=== PATIENT | female | born 1950 | race Caucasian/White ===

== ENCOUNTER 2019-08-02 07:58 | Outpatient (CLI) | payer MEDICARE, OTHER, SELFPAY ==
--- NOTE | 2019-08-02 08:50 | MM_ITS ---
WS: [id number] DIAGNOSTIC BILATERAL DIGITAL MAMMOGRAM WITH CAD HISTORY: HX OF BREAST CA COMPARISON: 05/04/2018, 04/03/2017 and 03/31/2016 TECHNIQUE: Bilateral craniocaudad, mediolateral oblique, and mediolateral views are submitted. Comput er aided detection utilized. Breast composition: There are scattered areas of fibroglandular density. Volume loss and postsurgical changes involving the RIGHT breast. Fibrosis and scarring in the upper superior RIGHT breast remains stable. No recurrent mass or suspicious developing calcifications. Benign calcifications in the LEFT breast. MM/[place] [id number] IMPRESSION: BI-RADS: 2-Benign FOLLOW UP: 1 Year Follow-up
== END 2019-08-02 07:59 | disposition home or self-care (01) ==
PROVIDERS: Family Provider Family Medicine; Visit Provider Internal Medicine Hematology & Oncology
DX: Z85.3 Personal history of malignant neoplasm of breast (principal)
CPT/HCPCS: 77066

== ENCOUNTER 2019-08-12 10:51 | Outpatient (CLI) | payer MEDICARE, OTHER, SELFPAY ==
[2019-08-12 11:52] LABS: Alanine Aminotransferase 21 U/L (0-33); Albumin Level 4.1 g/dL (3.5-5.2); Alkaline Phosphatase 61 IU/L (35-105); Anion Gap 13.6 (5-19); Aspartate Amino Transferase 15 U/L (0-32); Blood Urea Nitrogen 17 mg/dL (8-23); Calcium 10.2 mg/dL (8.5-10.5); Carbon Dioxide 31 mmol/L (22-29); Chloride 94 mmol/L (98-107); Globulin 3.6 g/dL (1.3-4.6); Glomerular Filtration Rate 49.4 mL/min (90-130); Glucose 368 mg/dL (65-115); Osmolality Calculated 289 mOsm/kg (285-295); Potassium 4.6 mmol/L (3.5-5.1); Sodium 134 mmol/L (136-145); Total Bilirubin 0.4 mg/dL (0.15-1.2); Total Protein 7.7 g/dL (6.6-8.7)
--- NOTE | 2019-08-12 16:39 | ONC FU_ITS ---
Dr. 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 In the summer she palpated a painful right breast mass. Mammogram on 01/08/2015 showed extensive calcifications in the central portion of the right breast extending posterior to the nipple, with associated small masses. On 01/22/[address] 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 Prognostic profile showed ER 98%, ND 39%, HER-2-hollie 1+ by IHC, FISH 1.4, Ki 67 index elevated at 16%. On 02/05/2015 she underwent a re-excision of the prior cavity surgical cavity and sentinel lymph node biopsy. Lateral margins were involved with microscopic focus of DCIS at the inked margin. Metastatic adenocarcinoma was found in 1 out of 2 sentinel axillary lymph nodes. Thus, pathologic stage IIB, pT2 pN1a M0, (positive margin with microscopic focus of DCIS). She was first seen on 02/25/2015. Staging CT of the chest showed no adenopathy. There was small right upper lobe nodule for which follow-up was recommended in 3 months. Fatty liver was noted. Her case was presented on the tumor board, no further surgical cavity reexploration was recommended. Despite of history CVA with mild residual slurred speech, right shoulder contracture and mild limping, she remained completely functional and independent. MUGA scan EF 67%. Left-sided Port-A-Cath was placed. Adjuvant chemotherapy with AC regimen 4 cycles delivered 03/19/2015 - 04/30/15. Hemoglobin A1c 9.4. Because of significant hyperglycemia with steroid use and developing peripheral neuropathy, taxanes treatment was changed to Abraxane. The patient received 2 cycles of Abraxane therapy on 06/11/2015. Further chemotherapy was stopped because of the painful peripheral neuropathy and inability to tolerate taxanes further. She completed adjuvant radiation treatment. Adjuvant Arimidex treatment began on 07/02/2015. Her painful peripheral neuropathy dissipated, but she continues to have significant paresthesias, especially in the left hand Mammogram done on 08/02/2019 showed BI-RADS 2 benign Came for follow-up, denies any specific complaints, no fever or chills, no nausea or vomiting, no diarrhea constipation, no new bony pains. Occasionally hot flashes otherwise tolerating Arimidex/vitamin D/calcium well Medications: Anastrozole 1 (1 mg) Tablet Oral daily, Carvedilol 1 Tablet (of 3.125 mg) Tablet Oral b.i.d., DULoxetine HCl 1 Capsule (of 30 mg) Capsule Delayed Release Oral daily, Famotidine 1 Tablet (of 20 mg) Oral daily, Gabapentin 1 (300 mg) Tablet Oral t.i.d., Glimepiride 1 Tablet (of 4 mg) Oral b.i.d., Glucophage 1 Tablet (of 1000 mg) Oral b.i.d., Hydrochlorothiazide 1 Tablet (of 25 mg) Oral daily, Lisinopril 1 Tablet (of 40 mg) Oral daily, Plavix 1 Tablet (of 75 mg) Oral daily, Zocor 1 Tablet (of 40 mg) Oral daily Allergies: Penicillin V Potassium and Piperacillin-Tazobactam in Dex. Review of Systems: Review of Systems is not available for this patient. Vital Signs: Performed on Aug 12, 2019 13:34 Height - 69.00 in Weight - 196.8 lbs (LOW) BSA - 2.05 sq.m BMI - 29.06 Temperature - 97.7 F (LOW) Pulse - 68 /min Respiration - 16 /min BP - 169/80 mm(hg) (HIGH) O2 Sat - 99 % Pain - 0 Fatigue - 5 Performance Status: 0 - Fully active, able to carry on all predisease activities without restrictions. (ECOG) Physical Examination: Respiratory - Lungs are clear to auscultation without rhonchi or wheezing, Cardiovascular - Regular rate and rhythm of heart, Extremities - no edema. Lab/Imaging: Most recent lab results are not available for this patient. 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 She underwent excisional biopsy followed by reexcision and sentinel lymph node biopsy on 02/05/2015. Her pathology showed positive margin involving microscopic focus of DCIS. No further surgical cavity reexploration was recommended by the tumor board consensus. Adjuvant chemotherapy with Adriamycin and cyclophosphamide for 4 cycles delivered 03/19/15 - 04/30/15. She then received 2 cycles of Abraxane on 06/11/2015, complicated painful peripheral neuropathy, affecting her life, that precluded further taxanes administration. She completed adjuvant radiation treatment. Aromatase inhibitors for 5 years with Arimidex 1 mg by mouth daily began on 07/02/15. The side effects of the treatment including but not limited to arthralgias, hot flashes, accelerated bone density loss amongst others. Multiple numbers of active diagnoses, current symptoms, current complications of current treatment and their corresponding management, lifestyle choices and adherence to the medical protocol are provided in the plan section of this note. Mammogram done on 04/03/2017 showed BI-RADS 2-benign DEXA scan done on 08/16/2017 showed normal bone mineralization Plan: Discussed with patient regarding CMP which showed glucose 368 sodium 134 rest of CMP is within normal limit Clinically, patient is doing well, tolerating adjuvant Arimidex well but with expected side effects e.g. occasionally hot flashes. We'll continue with same agent has no signs symptoms suggestive of recurrence of disease. Next As far as hyperglycemia is concern patient was advised to watch her diet and and be compliant with her diabetic therapy and follow with her PMD for further management next Return to clinic in 6 months with CBC CMP Signed By: Brianna Morel M.D. <<Signature on File>>
== END 2019-08-12 10:52 | disposition home or self-care (01) ==
LOC: ONCMED 10:55
PROVIDERS: Family Provider Family Medicine; Visit Provider Internal Medicine Hematology & Oncology
DX: C50.411 Malignant neoplasm of upper-outer quadrant of right female breast (principal); C77.3 Secondary and unspecified malignant neoplasm of axilla and upper limb lymph nodes; I10 Essential (primary) hypertension; I69.928 Other speech and language deficits following unspecified cerebrovascular disease; E11.65 Type 2 diabetes mellitus with hyperglycemia; Z17.0 Estrogen receptor positive status [ER+]; Z78.0 Asymptomatic menopausal state; Z79.811 Long term (current) use of aromatase inhibitors; Z79.899 Other long term (current) drug therapy; Z79.84 Long term (current) use of oral hypoglycemic drugs; Z79.02 Long term (current) use of antithrombotics/antiplatelets; Z92.21 Personal history of antineoplastic chemotherapy; Z92.3 Personal history of irradiation
CPT/HCPCS: 36415; 80053; 99214

== ENCOUNTER 2019-12-26 11:04 | Outpatient (CLI) | payer MEDICARE, BC, SELFPAY ==
--- NOTE | 2019-12-26 11:13 | XR_ITS ---
WS: [id number] RIGHT FOOT: 2 VIEW(S) TECHNIQUE: AP and lateral. HISTORY: TOE PAIN; ATTN-FIRST 2 TOES COMPARISON: None available. Suspicious for nondisplaced transverse fracture involving the distal phalanx of the first toe. There is an adjacent osteophyte. No additional fractures. Normal tarsal/metatarsal alignment. Mild degenerative changes at the first metatarsophalangeal joint. XR/XR foot RT 2V [id number] IMPRESSION: Highly suspicious for nondisplaced transverse fracture distal phalanx first toe .
== END 2019-12-26 11:05 | disposition home or self-care (01) ==
LOC: RADWPI 11:10
PROVIDERS: Family Provider Family Medicine; PCP Family Medicine; Visit Provider Family Medicine
DX: M79.674 Pain in right toe(s) (principal)
CPT/HCPCS: 73620

== ENCOUNTER 2020-01-27 10:28 | Outpatient (CLI) | payer MEDICARE, BC, SELFPAY ==
[2020-01-27 11:10] LABS: Basophils # 0.1 10^3/uL (0.0-0.1); Basophils % 0.7 %; Eosinophils # 0.2 10^3/uL (0.0-0.8); Eosinophils % 1.8 %; Hemoglobin 12.2 g/dL (11.5-15.3); Lymphocytes # 1.1 10^3/uL (0.8-4.8); Lymphocytes % 11.2 %; Mean Corpuscular HGB Conc 32.1 g/dL (30.0-36.0); Mean Corpuscular Hemoglobin 29.8 pg (28.0-34.0); Mean Corpuscular Volume 92.9 fL (81-99); Mean Platelet Volume 9.7 fL (7.4-10.4); Monocytes # 0.7 10^3/uL (0.2-0.9); Monocytes % 7.1 %; Neutrophils # 7.63 10^3/uL (1.8-7.7); Neutrophils % 78.3 %; Nucleated Red Blood Cells % 0 %; Platelet Count 283 10^3/cmm (130-400); Red Blood Count 4.09 10^6/uL (4.1-5.3); Red Cell Distribution Width 12.9 % (12.1-15.1); White Blood Count 9.8 10^3/uL (4.0-10.0)
[2020-01-27 11:45] LABS: Alanine Aminotransferase 26 U/L (0-33); Albumin Level 4.3 g/dL (3.5-5.2); Alkaline Phosphatase 58 IU/L (35-105); Anion Gap 15.1 (5-19); Aspartate Amino Transferase 18 U/L (0-32); Blood Urea Nitrogen 12 mg/dL (8-23); Calcium 10.3 mg/dL (8.5-10.5); Carbon Dioxide 29 mmol/L (22-29); Chloride 94 mmol/L (98-107); Globulin 3.4 g/dL (1.3-4.6); Glomerular Filtration Rate 44.5 mL/min (90-130); Glucose 249 mg/dL (65-115); Osmolality Calculated 282 mOsm/kg (285-295); Potassium 4.1 mmol/L (3.5-5.1); Sodium 134 mmol/L (136-145); Total Bilirubin 0.3 mg/dL (0.15-1.2); Total Protein 7.7 g/dL (6.6-8.7)
--- NOTE | 2020-01-27 16:00 | ONC FU_ITS ---
Dr. 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 In the summer she palpated a painful right breast mass. Mammogram on 01/08/2015 showed extensive calcifications in the central portion of the right breast extending posterior to the nipple, with associated small masses. On 01/22/[address] 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 Prognostic profile showed ER 98%, AZ 39%, HER-2-hollie 1+ by IHC, FISH 1.4, Ki 67 index elevated at 16%. On 02/05/2015 she underwent a re-excision of the prior cavity surgical cavity and sentinel lymph node biopsy. Lateral margins were involved with microscopic focus of DCIS at the inked margin. Metastatic adenocarcinoma was found in 1 out of 2 sentinel axillary lymph nodes. Thus, pathologic stage IIB, pT2 pN1a M0, (positive margin with microscopic focus of DCIS). She was first seen on 02/25/2015. Staging CT of the chest showed no adenopathy. There was small right upper lobe nodule for which follow-up was recommended in 3 months. Fatty liver was noted. Her case was presented on the tumor board, no further surgical cavity reexploration was recommended. Despite of history CVA with mild residual slurred speech, right shoulder contracture and mild limping, she remained completely functional and independent. MUGA scan EF 67%. Left-sided Port-A-Cath was placed. Adjuvant chemotherapy with AC regimen 4 cycles delivered 03/19/2015 - 04/30/15. Hemoglobin A1c 9.4. Because of significant hyperglycemia with steroid use and developing peripheral neuropathy, taxanes treatment was changed to Abraxane. The patient received 2 cycles of Abraxane therapy on 06/11/2015. Further chemotherapy was stopped because of the painful peripheral neuropathy and inability to tolerate taxanes further. She completed adjuvant radiation treatment. Adjuvant Arimidex treatment began on 07/02/2015. Her painful peripheral neuropathy dissipated, but she continues to have significant paresthesias, especially in the left hand Mammogram done on 08/02/2019 showed BI-RADS 2 benign Came for follow-up, denies any specific complaints, no nausea or vomiting, no diarrhea constipation no fever chills, occasionally hot flashes otherwise tolerating Arimidex well Medications: Anastrozole 1 (1 mg) Tablet Oral daily, Carvedilol 1 Tablet (of 3.125 mg) Tablet Oral b.i.d., DULoxetine HCl 1 Capsule (of 30 mg) Capsule Delayed Release Oral daily, Famotidine 1 Tablet (of 20 mg) Oral daily, Gabapentin 1 (300 mg) Tablet Oral t.i.d., Glimepiride 1 Tablet (of 4 mg) Oral b.i.d., Glucophage 1 Tablet (of 1000 mg) Oral b.i.d., Hydrochlorothiazide 1 Tablet (of 25 mg) Oral daily, Lisinopril 1 Tablet (of 40 mg) Oral daily, Pioglitazone HCl 1 Tablet (of 15 mg) Oral daily, Plavix 1 Tablet (of 75 mg) Oral daily, Zocor 1 Tablet (of 40 mg) Oral daily Allergies: Penicillin V Potassium and Piperacillin-Tazobactam in Dex. Review of Systems: Constitutional - Energy level is fair. Appetite is good. No fever, chills, hot flashes or night sweats, ENMT - She has sinus drainage when eating. No mouth sores. No sore throat or difficulty swallowing, Hematologic/Lymphatic - No abnormal bruising or bleeding, Respiratory - No shortness of breath. She has an occasional dry cough. No pleuritic pain or hemoptysis, Cardiovascular - No angina pain. No palpitations, Gastrointestinal - No nausea or vomiting. No heartburn or acid reflux. No diarrhea or constipation. No blood in the stool or black stools, Genitourinary (F) - No dysuria or hematuria. No urinary frequency. No urgency or incontinence, Musculoskeletal - She has pain in her knees, Neurologic - She has occasional headache. She has numbness/paresthesias in her fingers and toes, Psychiatric - No anxiety or depression. She has irregular sleeping patterns. Vital Signs: Performed on Jan 27, 2020 12:38 Height - 69.00 in Weight - 196.4 lbs (LOW) BSA - 2.05 sq.m BMI - 29.00 Temperature - 98.1 F (LOW) Pulse - 73 /min Respiration - 24 /min BP - 138/60 mm(hg) O2 Sat - 97 % Pain - 0 Performance Status: 0 - Fully active, able to carry on all predisease activities without restrictions. (ECOG) Physical Examination: Respiratory - Lungs are clear, Cardiovascular - Regular rate and rhythm, Gastrointestinal - Soft, bowel sounds, Extremities - No visible edema or rash No mouth sores no thrush, no jaundice. 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 She underwent excisional biopsy followed by reexcision and sentinel lymph node biopsy on 02/05/2015. Her pathology showed positive margin involving microscopic focus of DCIS. No further surgical cavity reexploration was recommended by the tumor board consensus. Adjuvant chemotherapy with Adriamycin and cyclophosphamide for 4 cycles delivered 03/19/15 - 04/30/15. She then received 2 cycles of Abraxane on 06/11/2015, complicated painful peripheral neuropathy, affecting her life, that precluded further taxanes administration. She completed adjuvant radiation treatment. Aromatase inhibitors for 5 years with Arimidex 1 mg by mouth daily began on 07/02/15. The side effects of the treatment including but not limited to arthralgias, hot flashes, accelerated bone density loss amongst others. Multiple numbers of active diagnoses, current symptoms, current complications of current treatment and their corresponding management, lifestyle choices and adherence to the medical protocol are provided in the plan section of this note. Mammogram done on 04/03/2017 showed BI-RADS 2-benign DEXA scan done on 08/16/2017 showed normal bone mineralization Plan: Discussed with patient regarding her labs white blood count 9.8 hemoglobin 12.2 hematocrit 38 platelets 283,000 CMP within normal limit except glucose 249 and creatinine 1.2 compared to 1.1 on August 12, 2019 Clinically, patient is doing well with no signs symptom suggestive of recurrence of disease, tolerating Arimidex well but with expected side effects e.g. occasional hot flashes. We will continue with same and she will return to clinic in 6 months with CBC CMP and follow-up mammogram Patient was also advised to monitor her blood sugar and follow her PMDs suggestion regarding diabetes management Signed By: Brianna Morel M.D. <<Signature on File>>
== END 2020-01-27 10:29 | disposition home or self-care (01) ==
LOC: ONCMED 10:32
PROVIDERS: PCP Family Medicine; Visit Provider Internal Medicine Hematology & Oncology
DX: C50.411 Malignant neoplasm of upper-outer quadrant of right female breast (principal); Z17.0 Estrogen receptor positive status [ER+]; E11.9 Type 2 diabetes mellitus without complications; I25.10 Atherosclerotic heart disease of native coronary artery without angina pectoris; I10 Essential (primary) hypertension; E78.5 Hyperlipidemia, unspecified; Z79.811 Long term (current) use of aromatase inhibitors; Z92.3 Personal history of irradiation; Z92.21 Personal history of antineoplastic chemotherapy
CPT/HCPCS: 36415; 80053; 85025; 99214

== ENCOUNTER 2020-04-14 10:37 | Outpatient (CLI) | payer MEDICARE, BC, SELFPAY ==
--- NOTE | 2020-04-14 10:43 | FL_ITS ---
WS: [id number] MODIFIED BARIUM SWALLOW HISTORY: Other dysphagia FLUOROSCOPY TIME: 1.4 minutes. Modified barium swallow was performed by the speech pathologist. Fluoroscopy was provided with the pa tient in a lateral projection. Multiple food consistencies were provided. No aspiration or laryngeal penetration. Patient followed all food consistencies without difficulty. B arium tablet was swallowed without difficulty. FL/FL barium swallow modifd [id number] IMPRESSION: Normal swallowing examination. Please see speech therapist report also for recommendations.
== END 2020-04-14 10:38 | disposition home or self-care (01) ==
LOC: RAD 10:41
PROVIDERS: PCP Family Medicine; Visit Provider Family Medicine
DX: R13.10 Dysphagia, unspecified (principal)
CPT/HCPCS: 74230; 92611

== ENCOUNTER 2020-08-03 08:58 | Outpatient (CLI) | payer MEDICARE, BC, SELFPAY ==
--- NOTE | 2020-08-03 09:16 | MM_ITS ---
WS: [id number] DIAGNOSTIC BILATERAL DIGITAL MAMMOGRAM WITH CAD HISTORY: HX OF BREAST CA COMPARISON: 08/02/2019 and 05/04/2018 TECHNIQUE: Bilateral craniocaudad, mediolateral oblique, and mediolateral views are submitted. Comput er aided detection utilized. Breast composition: There are scattered areas of fibroglandular density. Postsurgical changes with sc arring and fibrosis at 12:00 of the RIGHT breast is stable. There are adjacent calcifications at the surgical site which are dystrophic. Benign calcifications scattered throughout each breast. MM/[place] [id number] IMPRESSION: BI-RADS: 2-Benign FOLLOW UP: 1 Year Follow-up
[2020-08-03 09:33] LABS: Basophils # 0.1 10^3/uL (0.0-0.1); Basophils % 0.6 %; Eosinophils # 0.2 10^3/uL (0.0-0.8); Eosinophils % 1.6 %; Hematocrit 35.4 % (37.0-47.0); Hemoglobin 11.3 g/dL (11.5-15.3); Lymphocytes # 1.1 10^3/uL (0.8-4.8); Lymphocytes % 10.7 %; Mean Corpuscular HGB Conc 31.9 g/dL (30.0-36.0); Mean Corpuscular Hemoglobin 30.2 pg (28.0-34.0); Mean Corpuscular Volume 94.7 fL (81-99); Mean Platelet Volume 9.5 fL (7.4-10.4); Monocytes # 0.7 10^3/uL (0.2-0.9); Monocytes % 7.6 %; Neutrophils % 78.6 %; Nucleated Red Blood Cells % 0 %; Platelet Count 245 10^3/cmm (130-400); Red Blood Count 3.74 10^6/uL (4.1-5.3); Red Cell Distribution Width 13.3 % (12.1-15.1); White Blood Count 9.8 10^3/uL (4.0-10.0)
[2020-08-03 09:48] LABS: Alanine Aminotransferase 15 U/L (0-33); Albumin Level 4.1 g/dL (3.5-5.2); Alkaline Phosphatase 48 IU/L (35-105); Anion Gap 15.7 (5-19); Aspartate Amino Transferase 11 U/L (0-32); Blood Urea Nitrogen 20 mg/dL (8-23); Calcium 9.5 mg/dL (8.5-10.5); Carbon Dioxide 29 mmol/L (22-29); Chloride 96 mmol/L (98-107); Globulin 3.1 g/dL (1.3-4.6); Glomerular Filtration Rate 49.2 mL/min (90-130); Glucose 206 mg/dL (65-115); Osmolality Calculated 293 mOsm/kg (285-295); Potassium 3.7 mmol/L (3.5-5.1); Sodium 137 mmol/L (136-145); Total Bilirubin 0.3 mg/dL (0.15-1.2); Total Protein 7.2 g/dL (6.6-8.7)
== END 2020-08-03 08:59 | disposition home or self-care (01) ==
LOC: RADSHAW 09:02
PROVIDERS: PCP Family Medicine; Visit Provider Internal Medicine Hematology & Oncology
DX: Z85.3 Personal history of malignant neoplasm of breast (principal)
CPT/HCPCS: 77066; 80053; 85025

== ENCOUNTER 2020-08-06 05:45 | Outpatient (CLI) | payer MEDICARE, BC, SELFPAY ==
--- NOTE | 2020-08-06 10:33 | ONC FU_ITS ---
Dr. 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 In the summer she palpated a painful right breast mass. Mammogram on 01/08/2015 showed extensive calcifications in the central portion of the right breast extending posterior to the nipple, with associated small masses. On 01/22/[address] 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 Prognostic profile showed ER 98%, CA 39%, HER-2-hollie 1+ by IHC, FISH 1.4, Ki 67 index elevated at 16%. On 02/05/2015 she underwent a re-excision of the prior cavity surgical cavity and sentinel lymph node biopsy. Lateral margins were involved with microscopic focus of DCIS at the inked margin. Metastatic adenocarcinoma was found in 1 out of 2 sentinel axillary lymph nodes. Thus, pathologic stage IIB, pT2 pN1a M0, (positive margin with microscopic focus of DCIS). She was first seen on 02/25/2015. Staging CT of the chest showed no adenopathy. There was small right upper lobe nodule for which follow-up was recommended in 3 months. Fatty liver was noted. Her case was presented on the tumor board, no further surgical cavity reexploration was recommended. Despite of history CVA with mild residual slurred speech, right shoulder contracture and mild limping, she remained completely functional and independent. MUGA scan EF 67%. Left-sided Port-A-Cath was placed. Adjuvant chemotherapy with AC regimen 4 cycles delivered 03/19/2015 - 04/30/15. Hemoglobin A1c 9.4. Because of significant hyperglycemia with steroid use and developing peripheral neuropathy, taxanes treatment was changed to Abraxane. The patient received 2 cycles of Abraxane therapy on 06/11/2015. Further chemotherapy was stopped because of the painful peripheral neuropathy and inability to tolerate taxanes further. She completed adjuvant radiation treatment. Adjuvant Arimidex treatment began on 07/02/2015. Completed 5 years of Arimidex in July 2020 Mammogram done on 08/02/2019 showed BI-RADS 2 benign Mammogram done on August 03, 2020, showed BI-RADS 2, benign Came for follow-up, denies any specific complaints, no fever chills, no nausea or vomiting, no diarrhea or constipation, no melena or hematochezia, no hemoptysis hematemesis, no jaundice, no shortness of breath or palpitation Medications: Anastrozole 1 (1 mg) Tablet Oral daily, Carvedilol 1 Tablet (of 3.125 mg) Tablet Oral b.i.d., DULoxetine HCl 1 Capsule (of 30 mg) Capsule Delayed Release Oral daily, Famotidine 1 Tablet (of 20 mg) Oral daily, Gabapentin 1 (300 mg) Tablet Oral t.i.d., Glimepiride 1 Tablet (of 4 mg) Oral b.i.d., Glucophage 1 Tablet (of 1000 mg) Oral b.i.d., Hydrochlorothiazide 1 Tablet (of 25 mg) Oral daily, Lisinopril 1 Tablet (of 40 mg) Oral daily, Pioglitazone HCl 1 Tablet (of 15 mg) Oral daily, Plavix 1 Tablet (of 75 mg) Oral daily, Zocor 1 Tablet (of 40 mg) Oral daily Allergies: Penicillin V Potassium and Piperacillin-Tazobactam in Dex. Review of Systems: Review of Systems is not available for this patient. Vital Signs: Performed on Aug 06, 2020 08:24 Height - 69.00 in Weight - 206 lbs (HIGH) BSA - 2.09 sq.m BMI - 30.42 (HIGH) Temperature - 97.5 F (LOW) Pulse - 69 /min Respiration - 18 /min BP - 158/80 mm(hg) (HIGH) O2 Sat - 99 % Pain - 0 Fatigue - 0 Performance Status: 0 - Fully active, able to carry on all predisease activities without restrictions. (ECOG) Physical Examination: Respiratory - Lungs are clear to auscultation, Cardiovascular - Regular rate and rhythm of heart, Gastrointestinal - Soft, bowel sounds present, Extremities - No visible edema or rash. Lab/Imaging: Most recent lab results are not available for this patient. 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 She underwent excisional biopsy followed by reexcision and sentinel lymph node biopsy on 02/05/2015. Her pathology showed positive margin involving microscopic focus of DCIS. No further surgical cavity reexploration was recommended by the tumor board consensus. Adjuvant chemotherapy with Adriamycin and cyclophosphamide for 4 cycles delivered 03/19/15 - 04/30/15. She then received 2 cycles of Abraxane on 06/11/2015, complicated painful peripheral neuropathy, affecting her life, that precluded further taxanes administration. She completed adjuvant radiation treatment. Aromatase inhibitors for 5 years with Arimidex 1 mg by mouth daily began on 07/02/15. The side effects of the treatment including but not limited to arthralgias, hot flashes, accelerated bone density loss amongst others. Completed 5 years of Arimidex in July 2020 Follow-up mammogram done on August 03, 2020 shows BI-RADS 2, benign Multiple numbers of active diagnoses, current symptoms, current complications of current treatment and their corresponding management, lifestyle choices and adherence to the medical protocol are provided in the plan section of this note. Mammogram done on 04/03/2017 showed BI-RADS 2-benign DEXA scan done on 08/16/2017 showed normal bone mineralization Plan: Discussed with patient regarding her labs white blood count 9.8 hemoglobin 11.3 g compared to 12.2 g in December 2019 hematocrit 35.4 platelets 245,000 MCV 94.7 with a normal differential CMP within normal limits except creatinine 1.1 compared to 1.2 in December 2019 Clinically, patient is doing well with no new signs symptom suggestive of disease progression, she has completed 5 years of adjuvant Arimidex this month, at this point will discontinue Arimidex and as her follow-up mammogram done on August 03, 2020 showed BI-RADS 2, which is benign, so as far as breast cancer is concerned, we will now continue to monitor but on a yearly basis with follow-up CBC CMP and follow-up mammogram Her follow-up lab work-up shows mild anemia, her hemoglobin is 11.3 g compared to 12.2 g 6-month ago, patient has no evidence of gross bleeding or jaundice, and no symptoms, will repeat her CBC in a month if it shows resolution of anemia then will see her back in 1 year with a follow-up mammogram and CBC and CMP on the other hand if it shows persistent or progressive anemia, will consider work-up which include iron studies, B12 folic acid reticulocyte count. Signed By: Brianna Morel M.D. <<Signature on File>>
== END 2020-08-06 05:46 | disposition home or self-care (01) ==
LOC: ONCMED 05:45
PROVIDERS: PCP Family Medicine; Visit Provider Internal Medicine Hematology & Oncology
DX: Z08 Encounter for follow-up examination after completed treatment for malignant neoplasm (principal); Z85.3 Personal history of malignant neoplasm of breast; D64.9 Anemia, unspecified; Z92.23 Personal history of estrogen therapy; Z92.21 Personal history of antineoplastic chemotherapy; Z92.3 Personal history of irradiation
CPT/HCPCS: 99214

== ENCOUNTER 2020-12-06 20:28 | Emergency (ER) | payer MEDICARE, BC, SELFPAY ==
[2020-12-06 20:39] VITALS: BP 156/80; PULSE 69; RESP 16; TEMP 36.8; O2SAT 91; BMI 31.3
--- NOTE | 2020-12-06 22:05 | XRR_ITS ---
PROCEDURE INFORMATION: Exam: XR Chest Exam date and time: 12/06/2020 10:05 PM Age: 69 years old Clinical indication: Other: Syncope TECHNIQUE: Imaging protocol: XR of the chest. Views: 1 view. COMPARISON: CR Chest 2 views* [id number] 08/06/2016 3:50 PM FINDINGS: Lungs: Unremarkable. No consolidation. Pleural spaces: Unremarkable. No pleural effusion. No pneumothorax. Heart/Mediastinum: Unremarkable. No cardiomegaly. Bones/joints: Unremarkable. XR/XR chest 1V portable [id number] IMPRESSION: No acute findings.
--- NOTE | 2020-12-06 22:05 | CTR_ITS ---
PROCEDURE INFORMATION: Exam: CT Head Without Contrast Exam date and time: 12/06/2020 10:05 PM Age: 69 years old Clinical indication: Dizziness; Patient HX: HX of breast CA and prev stroke C/O near syncope episode TECHNIQUE: Imaging protocol: Computed tomography of the head without contrast. Radiation optimization: All CT scans at this facility use at least one of these dose optimization techniques: automated exposure control; mA and/or kV adjustment per patient size (includes targeted exams where dose is matched to clinical indication); or iterative reconstruction. COMPARISON: CT head wo con* [id number] 05/03/2015 6:26 PM RADIATION DOSE METRICS: Total DLP (mGy-cm): 840.13 FINDINGS: Brain: Hypoattenuation and encephalomalacia is seen within the left basal ganglia and insula extending into the left frontal deep white compatible with a chronic infarction. This appears stable compared with 05/03/2015. Cerebral ventricles: There is ex vacuo dilatation of the left ventricle. Paranasal sinuses: Minimal mucosal thickening is seen within the left ethmoidal sinuses. Mastoid air cells: Visualized mastoid air cells are well aerated. Bones/joints: Unremarkable. No acute fracture. Soft tissues: Unremarkable. CT/CT head wo con* [id number] IMPRESSION: There are no acute intracranial findings. Radiation Dose CTDIVOL = (mGy): DLP = 840.13 (mGy-cm)
--- NOTE | 2020-12-06 22:08 | ECG_ITS ---
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 Measurements Intervals [place] Rate: 79 P: 30 ME: 128 QRS: -38 QRSD: 96 T: 63 QT: 384 QTc: 443 Interpretive Statements SINUS RHYTHM WITH OCCASIONAL ECTOPIC PREMATURE COMPLEXES MARKED LEFT AXIS DEVIATION [QRS AXIS < -30] MODERATE VOLTAGE CRITERIA FOR LVH, CONSIDER NORMAL VARIANT [MEETS CRITERIA IN ONE OF: R(aVL), S(V1), R(V5), R(V5/V6)+S(V1)] POSSIBLE ANTEROSEPTAL MYOCARDIAL INFARCTION [30 ms Q WAVE IN V1-V4], PROBABLY OLD Compared to ECG 01/29/2017 18:14:40 Myocardial infarct finding now present ST (T wave) deviation no longer present Electronically Signed On 12-07-2020 18:10:26 CDT by Rajat Sawyer M.D. [id number]
[2020-12-06] MEDS: sodium chloride 0.9% 1,000 ML 999 ML IV (22:30)
[2020-12-06 22:36] LABS: Basophils % 0.3 %; Eosinophils % 0.2 %; Hematocrit 36.6 % (37.0-47.0); Hemoglobin 11.8 g/dL (11.5-15.3); Lymphocytes # 0.7 10^3/uL (0.8-4.8); Lymphocytes % 8.1 %; Mean Corpuscular HGB Conc 32.2 g/dL (30.0-36.0); Mean Corpuscular Hemoglobin 30.3 pg (28.0-34.0); Mean Corpuscular Volume 94.1 fL (81-99); Mean Platelet Volume 10.1 fL (7.4-10.4); Monocytes # 1.1 10^3/uL (0.2-0.9); Monocytes % 11.6 %; Neutrophils # 7.16 10^3/uL (1.8-7.7); Neutrophils % 78.8 %; Nucleated Red Blood Cells % 0 %; Platelet Count 169 10^3/cmm (130-400); Red Blood Count 3.89 10^6/uL (4.1-5.3); Red Cell Distribution Width 13.2 % (12.1-15.1); White Blood Count 9.1 10^3/uL (4.0-10.0)
[2020-12-06 22:55] LABS: Troponin(5th) Baseline 22 ng/L (0-10)
[2020-12-06 23:04] LABS: Alanine Aminotransferase 28 U/L (0-33); Albumin Level 3.8 g/dL (3.5-5.2); Alkaline Phosphatase 48 IU/L (35-105); Anion Gap 19.5 (5-19); Aspartate Amino Transferase 23 U/L (0-32); Blood Urea Nitrogen 24 mg/dL (8-23); C Reactive Protein 2.9 mg/L (0.0-4.9); Calcium 8.9 mg/dL (8.5-10.5); Carbon Dioxide 27 mmol/L (22-29); Chloride 95 mmol/L (98-107); Globulin 2.5 g/dL (1.3-4.6); Glucose 191 mg/dL (65-115); NT Pro B Type Natriuretic Pept 1206 pg/mL (0-125); Osmolality Calculated 293 mOsm/kg (285-295); Potassium 4.5 mmol/L (3.5-5.1); Sodium 137 mmol/L (136-145); Total Bilirubin 0.3 mg/dL (0.15-1.2); Total Protein 6.3 g/dL (6.6-8.7)
[2020-12-06 23:47] VITALS: BP 168/78; PULSE 68; RESP 17; O2SAT 93
--- NOTE | 2020-12-07 00:08 | ECG_ITS ---
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 Measurements Intervals [place] Rate: 73 P: 15 DE: 135 QRS: -34 QRSD: 128 T: 66 QT: 389 QTc: 430 Interpretive Statements SINUS RHYTHM MARKED LEFT AXIS DEVIATION [QRS AXIS < -30] VOLTAGE CRITERIA FOR LVH [MEETS CRITERIA IN ONE OF: R(aVL), S(V1), R(V5), R(V5/V6)+S(V1)] POSSIBLE ANTERIOR MYOCARDIAL INFARCTION [30 ms Q WAVE IN V3/V4, OR R < 0.2 mV IN V4], PROBABLY OLD Compared to ECG 12/06/2020 22:19:55 No significant changes Electronically Signed On 12-07-2020 18:12:28 CDT by Rajat Sawyer M.D. [id number]
[2020-12-07 01:04] LABS: Troponin 5 2HR 19.63 ng/L (0-10)
[2020-12-07 01:06] LABS: Troponin 5 2HR Delta -2.37 ABS# (0-10)
[2020-12-07 02:17] VITALS: BP 168/78; BP 173/95; BP 184/129; PULSE 72; PULSE 77; PULSE 81
[2020-12-07 02:48] VITALS: PULSE 70; RESP 18; TEMP 36.4; O2SAT 95
[2020-12-07 02:54] LABS: Bilirubin Urine Neg (Negative); Blood Urine Neg (Negative); Glucose Urine UA Norm (Normal); Ketones Urine Negative (Negative); Nitrate Urine Negative (Negative); Protein Urine 3+ (Negative); Urine Appearance Clear (CLEAR); Urine Color Yellow (Yellow); pH Urine 5 (5-7)
[2020-12-07 02:55] LABS: Add Urine Microscopic? YES; Leukocyte Esterase Urine 1+ (Negative); Urobilinogen Urine Norm (Negative)
[2020-12-07 03:01] LABS: Add Urine Culture? Yes; Amorphous Sediment Urine 1+ /hpf; Bacteria Urine 1+ /hpf; RBC Urine 0-4 /hpf (0-2); WBC Urine 15-25 /hpf (0-5)
[2020-12-07 04:20] VITALS: BP 186/93; PULSE 74; RESP 18; O2SAT 97
--- NOTE | 2020-12-07 07:11 | W.ED.DIZZY ---
HPI - Dizziness General: Chief Complaint: Dizziness Stated Complaint: unexplained fainting spells Time Seen by Provider: 12/06/20 22:04 History of Present Illness: HPI Narrative: 69-year-old female. She has a history of hypertension diabetes and breast cancer. She presents with a near syncopal episode at home. She was eating dinner, and began to get up, and felt as though she was going to pass out, and had to sit back down. She never passed completely out. She feels somewhat improved now. Her notes that she has had these problems in the past when she was dehydrated . She never had any chest pain. She is not short of breath. She was nauseated and diaphoretic. Associated symptoms: Reports nausea; Denies chest pain, chills, headache(s), nasal congestion, palpitations or vomiting Associated neuro symptoms: Deny confusion Review of Systems Const: Denies: fever(s) or chills Eyes: Denies: change in vision ENMT: Denies: throat pain or nasal congestion Card: Denies: chest pain or palpitations Resp: Denies: dyspnea or productive cough GI: Reports: nausea; Denies: abdominal pain or vomiting Neuro: Reports: dizziness; Denies: headache(s) or confusion Physical Exam Const: GENERAL APPEARANCE: ill appearing ORIENTATION/CONSCIOUSNESS: Yes oriented to person, Yes oriented to place and Yes oriented to time HENMT: COMMON NORMALS: normocephalic, external ears normal and Normal external nose present HEAD & SCALP: normocephalic FACE & SINUS: normal facial exam NOSE: Normal external nose present and No nasal discharge present EXTERNAL EAR: Yes external ears normal Eye: COMMON NORMALS: Equal, round and reactive pupils present, EOMs intact bilaterally and conjunctivae normal EYELID: eyelids normal CONJUNCTIVA: Yes conjunctivae normal PUPIL: Yes Equal, round and reactive pupils present Neck/C-Spine: GENERAL: No tracheal deviation Chest: COMMONS NORMALS: normal inspection of the chest CHEST: No tenderness Resp: COMMON NORMALS: clear to auscultation bilaterally EFFORT & INSPECTION: No tachypneic, No respiratory distress, No retractions, No uses accessory muscles and No tracheal deviation AUSCULTATION: clear to auscultation bilaterally, no rhonchi, no wheezes and lung sounds not diminished Cardio: COMMON NORMALS: regular rate and regular rhythm RATE: regular rate RHYTHM: regular rhythm HEART SOUNDS: no murmurs PERIPHERAL PULSES: radial pulses present GI: INSPECTION: No abdominal distension AUSCULTATION: No Hyperactive bowel sounds present and No Hypoactive bowel sounds present PALPATION: No Guarding due to palpation present (GI) and No Rigid due to palpation Neuro: SENSORIUM/ORIENTATION: Yes oriented to person, Yes oriented to place and Yes oriented to time Psych: COMMON NORMALS: mental status grossly normal Skin: COMMON NORMALS: no rashes or lesions noted GENERAL SKIN EXAM: no rashes or lesions noted Course Vital Signs: Vital signs: Vital Signs Temperature 97.6 F 12/07/20 02:48 Pulse Rate 74 12/07/20 04:20 Respiratory Rate 18 12/07/20 04:20 Blood Pressure 186/93 12/07/20 04:20 Pulse Oximetry 97 12/07/20 04:20 MDM - Dizziness MDM Narrative: Medical decision making narrative: 69-year-old female who does not look like she feels well. She is dizzy upon standing. She never complained of any chest pain. EKG shows no acute ST changes. Her troponin did not rise at 2 hours. Her creatinine is up to 1.6, her BUN is up a bit at 24. Other laboratory essentially is benign. Her chest x-ray is nonacute. She was hypertensive in the ER, however, her diastolic pressure setting significantly from sitting to standing, and she was symptomatic with this. She does have a urinary tract infection, which will be treated. She would like to go home. Lab Data: Labs: Lab Results 12/06/20 12/06/20 12/06/20 Range/Units 22:26 22:26 22:26 WBC 9.1 (4.0-10.0) 10^3/ uL RBC 3.89 L (4.1-5.3) 10^6/u L Hgb 11.8 (11.5-15.3) g/dL Hct 36.6 L (37.0-47.0) % MCV 94.1 (81-99) fL MCH 30.3 (28.0-34.0) pg MCHC 32.2 (30.0-36.0) g/dL RDW 13.2 (12.1-15.1) % Plt Count 169 (130-400) 10^3/c mm MPV 10.1 (7.4-10.4) fL Neut % (Auto) 78.8 % Lymph % (Auto) 8.1 % [facility] % (Auto) 11.6 % Eos % (Auto) 0.2 % Baso % (Auto) 0.3 % Neut # (Auto) 7.16 (1.8-7.7) 10^3/u L Lymph # (Auto) 0.7 L (0.8-4.8) 10^3/u L [facility] # (Auto) 1.1 H (0.2-0.9) 10^3/u L Eos # (Auto) 0.0 (0.0-0.8) 10^3/u L Baso # (Auto) 0.0 (0.0-0.1) 10^3/u L Nucleated RBC % (a uto) 0 % Nucleated RBCs # 0.0 /100WBC Sodium 137 (136-145) mmol/L Potassium 4.5 (3.5-5.1) mmol/L Chloride 95 L (98-107) mmol/L Carbon Dioxide 27 (22-29) mmol/L Anion Gap 19.5 H (5-19) BUN 24 H (8-23) mg/dL Creatinine 1.6 H (0.5-0.9) mg/dL GFR Calculation 32.0 L (90-130) mL/min Glucose 191 H (65-115) mg/dL Calculated Osmolal ity 293 (285-295) mOsm/k g Calcium 8.9 (8.5-10.5) mg/dL Total Bilirubin 0.3 (0.15-1.2) mg/dL AST 23 (0-32) U/L ALT 28 (0-33) U/L Alkaline Phosphata se 48 (35-105) IU/L Troponin T Baselin e 22 H (0-10) ng/L Troponin T 120 Min [place] (0-10) ng/L Delta Troponin T (0-10) ABS# C-Reactive Protein 2.9 (0.0-4.9) mg/L NT-Pro-B Natriuret Pep 1206 H (0-125) pg/mL Total Protein 6.3 L (6.6-8.7) g/dL Albumin 3.8 (3.5-5.2) g/dL Globulin 2.5 (1.3-4.6) g/dL Urine Color (Yellow) Urine Appearance (CLEAR) Urine pH (5-7) Ur Specific Gravit y (1.005-1.030) Urine Protein (Negative) Urine Glucose (UA) (Normal) Urine Ketones (Negative) Urine Blood (Negative) Urine Nitrate (Negative) Urine Bilirubin (Negative) Urine Urobilinogen (Negative) mg/dL Ur Leukocyte Tanya ase (Negative) Urine RBC (0-2) /hpf Urine WBC (0-5) /hpf Ur Squamous Epith Cells (0-5) /hpf Amorphous Sediment /hpf Urine Bacteria (NONE) /hpf Hyaline Casts /lpf 12/07/20 12/07/20 Range/Units 00:28 02:30 WBC (4.0-10.0) 10^3/ uL RBC (4.1-5.3) 10^6/u L Hgb (11.5-15.3) g/dL Hct (37.0-47.0) % MCV (81-99) fL MCH (28.0-34.0) pg MCHC (30.0-36.0) g/dL RDW (12.1-15.1) % Plt Count (130-400) 10^3/c mm MPV (7.4-10.4) fL Neut % (Auto) % Lymph % (Auto) % [facility] % (Auto) % Eos % (Auto) % Baso % (Auto) % Neut # (Auto) (1.8-7.7) 10^3/u L Lymph # (Auto) (0.8-4.8) 10^3/u L [facility] # (Auto) (0.2-0.9) 10^3/u L Eos # (Auto) (0.0-0.8) 10^3/u L Baso # (Auto) (0.0-0.1) 10^3/u L Nucleated RBC % (a uto) % Nucleated RBCs # /100WBC Sodium (136-145) mmol/L Potassium (3.5-5.1) mmol/L Chloride (98-107) mmol/L Carbon Dioxide (22-29) mmol/L Anion Gap (5-19) BUN (8-23) mg/dL Creatinine (0.5-0.9) mg/dL GFR Calculation (90-130) mL/min Glucose (65-115) mg/dL Calculated Osmolal ity (285-295) mOsm/k g Calcium (8.5-10.5) mg/dL Total Bilirubin (0.15-1.2) mg/dL AST (0-32) U/L ALT (0-33) U/L Alkaline Phosphata se (35-105) IU/L Troponin T Baselin e (0-10) ng/L Troponin T 120 Min [place] 19.63 H (0-10) ng/L Delta Troponin T -2.37 L (0-10) ABS# C-Reactive Protein (0.0-4.9) mg/L NT-Pro-B Natriuret Pep (0-125) pg/mL Total Protein (6.6-8.7) g/dL Albumin (3.5-5.2) g/dL Globulin (1.3-4.6) g/dL Urine Color Yellow (Yellow) Urine Appearance Clear (CLEAR) Urine pH 5 (5-7) Ur Specific Gravit y 1.020 (1.005-1.030) Urine Protein 3+ H (Negative) Urine Glucose (UA) Norm (Normal) Urine Ketones Negative (Negative) Urine Blood Neg (Negative) Urine Nitrate Negative (Negative) Urine Bilirubin Neg (Negative) Urine Urobilinogen Norm (Negative) mg/dL Ur Leukocyte Tanya ase 1+ H (Negative) Urine RBC 0-4 H (0-2) /hpf Urine WBC 15-25 H (0-5) /hpf Ur Squamous Epith Cells 5-10 H (0-5) /hpf Amorphous Sediment 1+ /hpf Urine Bacteria 1+ H (NONE) /hpf Hyaline Casts 5-10 H /lpf Discharge Plan Discharge Patient Disposition: Home Clinical Impression: Orthostatic hypotension, Near syncope Urinary tract infection Qualifiers: Urinary tract infection type: acute cystitis Hematuria presence: without hematuria Qualified Code(s): N30.00 - Acute cystitis without hematuria Condition: Stable Prescriptions: New Macrobid 100 mg capsule 100 mg PO Q12H 7 Days Qty: 14 RF: 0 Discharge Orders: Discharge ED (Routine); Ordered 12/07/20 Ordered By: Pancho Suh Referrals: Jan Kirk MD [Primary Care Provider] - 1-3 days Discharge Diet: Advance as tolerated Discharge Activity: Increase activity as tolerated Patient Instructions: Urinary Tract Infection in Women (ED), Near Syncope (ED) Activity Restrictions/Additional Instructions: Drink plenty of liquids for the next 24 to 48 hours. Stay indoors in a cool environment. Ask your blood pressure twice daily. Report numbers to your physician. Follow-up in 1 to 2 days with your doctor. 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
[2020-12-07 14:25] LABS: Coronavirus Test Green County Detected
== END 2020-12-07 04:21 | disposition home or self-care (01) ==
PROVIDERS: Emergency Provider Emergency Medicine; PCP Family Medicine
DX: I95.1 Orthostatic hypotension (principal); R55 Syncope and collapse; N30.00 Acute cystitis without hematuria; U07.1 COVID-19
CPT/HCPCS: 36415; 70450; 71045; 80053; 81001; 83880; 84484; 85025; 86140; 87086; 87635; 93005; 96360; 99284; J7030

== ENCOUNTER 2020-12-11 06:13 | Emergency (ER) | payer MEDICARE, BC, SELFPAY ==
[2020-12-11 06:18] VITALS: BP 149/72; PULSE 76; RESP 23; TEMP 36.6; O2SAT 88; BMI 31.3
--- NOTE | 2020-12-11 06:18 | XRR_ITS ---
PROCEDURE INFORMATION: Exam: XR Chest Exam date and time: 12/11/2020 6:18 AM Age: 70 years old Clinical indication: Shortness of breath; Prior surgery; Patient HX: HX of breast cancer, covid +; Additional info: SOB TECHNIQUE: Imaging protocol: XR of the chest. Views: Frontal portable upright view of the chest. COMPARISON: CR (CHEST) 12/06/2020 10:25 PM FINDINGS: Lungs: Increased left lateral basilar subsegmental atelectasis. The lungs are otherwise clear bilaterally. The pulmonary vasculature is normal. Pleural spaces: No pleural effusion. No pneumothorax. Heart/Mediastinum: The heart is normal in size and contour. Mediastinum: Stable. Vasculature: Mild aortic arch atherosclerotic calcification without ectasia. Bones/joints: Stable. XR/XR chest 1V portable [id number] IMPRESSION: Increased left lateral basilar subsegmental atelectasis.
--- NOTE | 2020-12-11 06:36 | W.ED.COVID ---
HPI - COVID General: Chief Complaint: COVID symptoms Stated Complaint: COVID+ LOW O2 Time Seen by Provider: 12/11/20 06:17 Triage information: Has fever, cough or shortness of breath. Exposure to COVID + person last 14 days History of Present Illness: HPI Narrative: 70 yo female present for a monoclonal antibody infusion. She is on day 5 or 6 of her symptoms. On arrival here she was found to be hypoxic with minimal exertion. While sitting her oxygen level is okay in the mid 90s but with even minimal exertion standing or taking step return room she desats into the mid 80s. She has myalgias headache anosmia nonproductive cough and had some diarrhea initially as well. MD complaint: known COVID positive Prior testing date: 12/06/20 COVID 19 common symptoms: positive fever(s), chills, cough, non-productive cough, dyspnea, fatigue, body aches, loss of sense of smell and/or taste, nasal congestion, nausea and diarrhea; negative vomiting COVID 19 other sytmptoms: positive requiring oxygen; negative chest pain Onset (ago): day(s) (6) Severity: moderate Pertinent comorbid conditions: diabetes and hypertension Treatment prior to arrival: none COVID Results: Nasal/Oral Coronavirus 2019 PCR Detected H 12/07/20 02:05 12/07/20 Review of Systems Const: Reports: fever(s), chills, body aches and fatigue ENMT: Reports: nasal congestion Card: Denies: chest pain, edema, dyspnea on exertion or orthopnea Resp: Reports: dyspnea and non-productive cough GI: Reports: nausea and diarrhea; Denies: vomiting : Denies: flank pain, difficulty voiding, dysuria, urinary frequency or urinary urgency Skin/Breast: Denies: rash or pruritus Physical Exam Const: COMMON NORMALS: no acute distress GENERAL APPEARANCE: cooperative and comfortable ORIENTATION/CONSCIOUSNESS: Yes awake, Yes oriented to person, Yes oriented to place and Yes oriented to time HENMT: COMMON NORMALS: normocephalic, atraumatic and hearing grossly normal bilaterally HEAD & SCALP: normocephalic and atraumatic Neck/C-Spine: COMMON NORMALS: no JVD Resp: COMMON NORMALS: normal respiratory effort, No retractions and No use of accessory muscles AUSCULTATION: crackles Laterality: right and posterior Cardio: COMMON NORMALS: no JVD, regular rate, regular rhythm and No murmurs present (Cardio) RATE: regular rate RHYTHM: regular rhythm GI: COMMON NORMALS: Soft to palpation and No hepatosplenomegaly present AUSCULTATION: Yes normoactive bowel sounds PALPATION: Yes Soft to palpation, No Tenderness to palpation present (GI), No Guarding due to palpation present (GI) and Yes No hepatosplenomegaly present Extremity: COMMON NORMALS: normal to inspection, capillary refill normal, no clubbing, cyanosis or edema, no calf tenderness and no pedal edema Neuro: SENSORIUM/ORIENTATION: Yes oriented to person, Yes oriented to place and Yes oriented to time Skin: COMMON NORMALS: no rashes or lesions noted GENERAL SKIN EXAM: no rashes or lesions noted Course Vital Signs: Vital signs: Vital Signs Temperature 97.8 F 12/11/20 06:18 Pulse Rate 68 12/11/20 10:43 Respiratory Rate 20 H 12/11/20 10:43 Blood Pressure 146/78 12/11/20 10:43 Pulse Oximetry 98 12/11/20 10:43 MDM - COVID MDM Narrative: Medical decision making narrative: Chest x-ray shows pneumonitis at the right base she does have crackles that are consistent with that as well Home O2 eval shows she does require oxygen 2 L/min with minimal exertion she desats. Given her oxygen requirement she no longer qualifies for monoclonal antibodies. Will discharge home with home O2 monitoring and dexamethasone as well. Lab Data: Labs: Lab Results 12/11/20 12/11/20 12/11/20 Range/Units 06:35 06:35 06:35 WBC 8.0 (4.0-10.0) 10^3/ uL RBC 3.90 L (4.1-5.3) 10^6/u L Hgb 11.7 (11.5-15.3) g/dL Hct 35.5 L (37.0-47.0) % MCV 91.0 (81-99) fL MCH 30.0 (28.0-34.0) pg MCHC 33.0 (30.0-36.0) g/dL RDW 12.8 (12.1-15.1) % Plt Count 143 (130-400) 10^3/c mm MPV 10.4 (7.4-10.4) fL Neut % (Auto) 86.8 % Lymph % (Auto) 5.9 % Ellis % (Auto) 6.1 % Eos % (Auto) 0.0 % Baso % (Auto) 0.3 % Neut # (Auto) 6.93 (1.8-7.7) 10^3/u L Lymph # (Auto) 0.5 L (0.8-4.8) 10^3/u L Ellis # (Auto) 0.5 (0.2-0.9) 10^3/u L Eos # (Auto) 0.0 (0.0-0.8) 10^3/u L Baso # (Auto) 0.0 (0.0-0.1) 10^3/u L Nucleated RBC % (a uto) 0 % Nucleated RBCs # 0.0 /100WBC D-Dimer 3.21 H (0-0.59) ug/mIFE U Specimen Type Sample Site ABG pH (7.35-7.45) ABG pCO2 (35-45) mmHg ABG pO2 (80.0-100.0) mmH g ABG HCO3 (22-26) mmol/L ABG Base Excess (-2.0-2.0) mmol/ L Kamron Test Hematocrit (37-47) % O2 Delivery Device FiO2 % Resin Painter ID Sodium 129 L (136-145) mmol/L Potassium 4.0 (3.5-5.1) mmol/L Chloride 92 L (98-107) mmol/L Carbon Dioxide 24 (22-29) mmol/L Anion Gap 17.0 (5-19) BUN 26 H (8-23) mg/dL Creatinine 1.8 H (0.5-0.9) mg/dL GFR Calculation 27.8 L (90-130) mL/min Glucose 182 H (65-115) mg/dL Calculated Osmolal ity 277 L (285-295) mOsm/k g Lactic Acid (0.5-2.2) mmol/L Calcium 8.1 L (8.5-10.5) mg/dL Total Bilirubin 0.3 (0.15-1.2) mg/dL AST 16 (0-32) U/L ALT 15 (0-33) U/L Alkaline Phosphata se 45 (35-105) IU/L C-Reactive Protein 46.3 H (0.0-4.9) mg/L NT-Pro-B Natriuret Pep 2559 H (0-125) pg/mL Total Protein 6.4 L (6.6-8.7) g/dL Albumin 3.3 L (3.5-5.2) g/dL Globulin 3.1 (1.3-4.6) g/dL Procalcitonin 0.14 (0-0.5) ng/mL 12/11/20 12/11/20 Range/Units 06:35 06:36 WBC (4.0-10.0) 10^3/ uL RBC (4.1-5.3) 10^6/u L Hgb (11.5-15.3) g/dL Hct (37.0-47.0) % MCV (81-99) fL MCH (28.0-34.0) pg MCHC (30.0-36.0) g/dL RDW (12.1-15.1) % Plt Count (130-400) 10^3/c mm MPV (7.4-10.4) fL Neut % (Auto) % Lymph % (Auto) % Ellis % (Auto) % Eos % (Auto) % Baso % (Auto) % Neut # (Auto) (1.8-7.7) 10^3/u L Lymph # (Auto) (0.8-4.8) 10^3/u L Ellis # (Auto) (0.2-0.9) 10^3/u L Eos # (Auto) (0.0-0.8) 10^3/u L Baso # (Auto) (0.0-0.1) 10^3/u L Nucleated RBC % (a uto) % Nucleated RBCs # /100WBC D-Dimer (0-0.59) ug/mIFE U Specimen Type Arterial Sample Site Radial, left ABG pH 7.49 H (7.35-7.45) ABG pCO2 33.6 L (35-45) mmHg ABG pO2 61.6 L (80.0-100.0) mmH g ABG HCO3 25.3 (22-26) mmol/L ABG Base Excess 2.2 H (-2.0-2.0) mmol/ L Kamron Test Pos Hematocrit 37.6 (37-47) % O2 Delivery Device Room air FiO2 21.0 % Resin Painter ID Ed Sodium (136-145) mmol/L Potassium (3.5-5.1) mmol/L Chloride (98-107) mmol/L Carbon Dioxide (22-29) mmol/L Anion Gap (5-19) BUN (8-23) mg/dL Creatinine (0.5-0.9) mg/dL GFR Calculation (90-130) mL/min Glucose (65-115) mg/dL Calculated Osmolal ity (285-295) mOsm/k g Lactic Acid 1.5 (0.5-2.2) mmol/L Calcium (8.5-10.5) mg/dL Total Bilirubin (0.15-1.2) mg/dL AST (0-32) U/L ALT (0-33) U/L Alkaline Phosphata se (35-105) IU/L C-Reactive Protein (0.0-4.9) mg/L NT-Pro-B Natriuret Pep (0-125) pg/mL Total Protein (6.6-8.7) g/dL Albumin (3.5-5.2) g/dL Globulin (1.3-4.6) g/dL Procalcitonin (0-0.5) ng/mL COVID Results: Nasal/Oral Coronavirus 2019 PCR Detected H 12/07/20 02:05 12/07/20 Discharge Plan Discharge Patient Disposition: Home Clinical Impression: COVID-19 Condition: Stable Prescriptions: New dexamethasone 6 mg tablet 6 mg PO DAILY Qty: 7 RF: 0 No Action Macrobid 100 mg capsule 100 mg PO Q12H 7 Days Qty: 14 RF: 0 Discharge Orders: Discharge ED (Routine); Ordered 12/11/20 Ordered By: Garry Soriano Other Ambulatory Orders: DME: Oxygen (Order) Location: None Selected Ordered By: Garry Soriano Referrals: Jan Kirk MD [Primary Care Provider] - Discharge Diet: Usual diet Discharge Activity: Increase activity as tolerated Patient Instructions: Opioid Safety Activity Restrictions/Additional Instructions: Return if symptoms worsen. Wear oxygen continuously. If your oxygen saturation at rest falls below 90% consistently recheck in the emergency room. Coding Level of Care Code ED Mental Hygiene Consultant for Chg Fwd Exam Comprehensive
[2020-12-11 06:45] LABS: ABG PCO2 33.6 mmHg (35-45); ABG PH Result 7.49 (7.35-7.45); Arterial Blood Gas Hematocrit 37.6 % (37-47); Base Excess ABG 2.2 mmol/L (-2.0-2.0); Blood Gas Allen Test Pos; Blood Gas Sample Type Arterial; HCO3 ABG 25.3 mmol/L (22-26); PO2 ABG 61.6 mmHg (80.0-100.0)
[2020-12-11 06:46] LABS: Blood Gas Operator Identificat ED; Blood Gas Sample Site Radial, left; Oxygen Device ROOM AIR
[2020-12-11 06:47] VITALS: O2SAT 87; O2SAT 92; O2SAT 94
[2020-12-11 07:00] VITALS: BP 159/74; PULSE 73; RESP 26; O2SAT 98
[2020-12-11 07:09] LABS: Basophils % 0.3 %; Hematocrit 35.5 % (37.0-47.0); Hemoglobin 11.7 g/dL (11.5-15.3); Lymphocytes # 0.5 10^3/uL (0.8-4.8); Lymphocytes % 5.9 %; Mean Platelet Volume 10.4 fL (7.4-10.4); Monocytes # 0.5 10^3/uL (0.2-0.9); Monocytes % 6.1 %; Neutrophils # 6.93 10^3/uL (1.8-7.7); Neutrophils % 86.8 %; Nucleated Red Blood Cells % 0 %; Platelet Count 143 10^3/cmm (130-400); Red Cell Distribution Width 12.8 % (12.1-15.1)
--- NOTE | 2020-12-11 07:26 | PC.NURSE ---
patient denied any pain at this time.
[2020-12-11 07:33] LABS: D Dimer 3.21 ug/mIFEU (0-0.59)
[2020-12-11 07:35] LABS: Lactic Sepsis W/Reflex 1.5 mmol/L (0.5-2.2)
[2020-12-11 07:43] LABS: NT Pro B Type Natriuretic Pept 2559 pg/mL (0-125); Procalcitonin 0.14 ng/mL (0-0.5)
[2020-12-11 07:54] LABS: Alanine Aminotransferase 15 U/L (0-33); Albumin Level 3.3 g/dL (3.5-5.2); Alkaline Phosphatase 45 IU/L (35-105); Aspartate Amino Transferase 16 U/L (0-32); Blood Urea Nitrogen 26 mg/dL (8-23); C Reactive Protein 46.3 mg/L (0.0-4.9); Calcium 8.1 mg/dL (8.5-10.5); Carbon Dioxide 24 mmol/L (22-29); Chloride 92 mmol/L (98-107); Globulin 3.1 g/dL (1.3-4.6); Glomerular Filtration Rate 27.8 mL/min (90-130); Glucose 182 mg/dL (65-115); Osmolality Calculated 277 mOsm/kg (285-295); Sodium 129 mmol/L (136-145); Total Bilirubin 0.3 mg/dL (0.15-1.2); Total Protein 6.4 g/dL (6.6-8.7)
--- NOTE | 2020-12-11 08:08 | CT_ITS ---
WS: [id number] CT CHEST ANGIOGRAPHY WITH REFORMATS HISTORY: elevated d dimer, covid TECHNIQUE: Contiguous axial images are obtained through the chest during arterial injection of intrav enous contrast. Images are reconstructed to evaluate the pulmonary arteries. MIP imaging also reviewe d. All CT scans at [facility] use at least one of these dose optimization techniques: aut omated exposure control; mA and/or kV adjustment per patient size (includes targeted exams where dose is matched to clinical indication); or iterative reconstruction. CONTRAST: Visipaque 320; 95 mL IV. DLP: 515.78 mGy.cm COMPARISON: 06/09/2015 Excellent opacification of the pulmonary arteries. There are no filling defects. No emboli identified . Normal size pulmonary artery. Atherosclerotic plaque within a nondilated thoracic aorta. Mild enlar gement of the LEFT heart chambers. No pericardial or pleural effusions. No RIGHT heart strain. There are small benign appearing mediastinal and hilar lymph nodes. Scattered groundglass opacifications throughout both lungs in a peripheral distribution. No pleural e ffusion. Postsurgical changes in the RIGHT breast. There is a postoperative cavity which has decreased in size since 2016. Mild thickening of the LEFT adrenal gland. Splenic granulomata. Small hiatal hernia. No destructive bone lesions. CT/CT angio chest PE protcl [id number] IMPRESSION: 1. No pulmonary embolism. 2. Multi lobar subsegmental groundglass opacifications consistent with pneumon itis. 3. Mild atherosclerosis aorta. 4. Postsurgical changes and postoperative collection in the RIGHT breast.
[2020-12-11 09:13] VITALS: BP 136/72; PULSE 78; RESP 22; O2SAT 97
[2020-12-11] MEDS: iodixanol 320 mg/mL 100mL Btl IV (09:31)
[2020-12-11 10:03] VITALS: BP 135/68; PULSE 69; RESP 20; O2SAT 96
[2020-12-11 10:43] VITALS: BP 146/78; PULSE 68; RESP 20; O2SAT 98
== END 2020-12-11 10:45 | disposition home or self-care (01) ==
PROVIDERS: Emergency Medicine; Emergency Provider Family Medicine; PCP Family Medicine
DX: U07.1 COVID-19 (principal)
CPT/HCPCS: 36600; 71045; 71275; 80053; 82803; 83605; 83880; 84145; 85025; 85378; 86140; 87040; 99284; Q9967

== ENCOUNTER 2020-12-13 20:28 | Inpatient (IN) | payer MEDICARE, BC, SELFPAY ==
[2020-12-13 20:44] VITALS: BP 161/72; PULSE 84; RESP 25; O2SAT 91; BMI 31.3
--- NOTE | 2020-12-13 20:54 | XRR_ITS ---
PROCEDURE INFORMATION: Exam: XR Chest Exam date and time: 12/13/2020 8:54 PM Age: 70 years old Clinical indication: Dyspnea; Additional info: Covid 19 TECHNIQUE: Imaging protocol: XR of the chest. Views: 1 view. COMPARISON: CR XR chest 1V portable [id number] 12/11/2020 6:32 AM FINDINGS: Lungs: Small patchy peripheral irregular ground-glass foci in the lungs. Mild decrease in lung volumes. Pleural spaces: Unremarkable. No pleural effusion. No pneumothorax. Heart/Mediastinum: Unremarkable. No cardiomegaly. Bones/joints: Unremarkable. XR/XR chest 1V portable [id number] IMPRESSION: Scattered airspace disease is more conspicuous than comparison consistent with atypical pneumonia such as COVID-19 pneumonia.
--- NOTE | 2020-12-13 20:56 | ECG_ITS ---
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 Measurements Intervals Bryce Rate: 77 P: 61 AZ: 131 QRS: -37 QRSD: 98 T: 45 QT: 390 QTc: 442 Interpretive Statements SINUS RHYTHM WITH OCCASIONAL SUPRAVENTRICULAR PREMATURE COMPLEXES MARKED LEFT AXIS DEVIATION [QRS AXIS < -30] VOLTAGE CRITERIA FOR LVH [MEETS CRITERIA IN ONE OF: R(aVL), S(V1), R(V5), R(V5/V6)+S(V1)] NONSPECIFIC T-WAVE ABNORMALITY Compared to ECG 12/07/2020 00:14:59 T-wave abnormality now present Myocardial infarct finding no longer present Electronically Signed On 12-14-2020 18:57:13 CDT by Elizabeth Tabor M.D. [email or web address]
[2020-12-13 21:01] VITALS: BP 164/74; PULSE 78; RESP 27; O2SAT 90; O2SAT 95
[2020-12-13 21:09] LABS: Basophils % 0.1 %; Hematocrit 34.4 % (37.0-47.0); Hemoglobin 11.3 g/dL (11.5-15.3); Lymphocytes # 0.6 10^3/uL (0.8-4.8); Lymphocytes % 7.7 %; Mean Corpuscular HGB Conc 32.8 g/dL (30.0-36.0); Mean Corpuscular Hemoglobin 30.1 pg (28.0-34.0); Mean Corpuscular Volume 91.7 fL (81-99); Mean Platelet Volume 9.6 fL (7.4-10.4); Monocytes # 0.5 10^3/uL (0.2-0.9); Monocytes % 6.4 %; Neutrophils # 6.88 10^3/uL (1.8-7.7); Neutrophils % 84.3 %; Nucleated Red Blood Cells % 0 %; Platelet Count 176 10^3/cmm (130-400); Positive M 1; Red Blood Count 3.75 10^6/uL (4.1-5.3); Red Cell Distribution Width 12.6 % (12.1-15.1); White Blood Count 8.2 10^3/uL (4.0-10.0)
[2020-12-13 21:36] VITALS: BP 146/74; PULSE 74; RESP 24; O2SAT 93
[2020-12-13 21:38] LABS: Slide Review Slide Review Perform
[2020-12-13 21:42] LABS: Alanine Aminotransferase 17 U/L (0-33); Albumin Level 3.5 g/dL (3.5-5.2); Alkaline Phosphatase 49 IU/L (35-105); Blood Urea Nitrogen 35 mg/dL (8-23); Calcium 8.4 mg/dL (8.5-10.5); Carbon Dioxide 24 mmol/L (22-29); Chloride 90 mmol/L (98-107); Globulin 2.8 g/dL (1.3-4.6); Glomerular Filtration Rate 24.6 mL/min (90-130); Glucose 132 mg/dL (65-115); Osmolality Calculated 278 mOsm/kg (285-295); Sodium 129 mmol/L (136-145); Total Bilirubin 0.3 mg/dL (0.15-1.2); Total Protein 6.3 g/dL (6.6-8.7)
[2020-12-13 21:43] LABS: Lactate (Lactic Acid level) 1.2 mmol/L (0.5-2.2)
--- NOTE | 2020-12-13 21:45 | W.ED.COVID ---
HPI - COVID General: Chief Complaint: COVID symptoms Stated Complaint: Covid Low Blood Sugar Time Seen by Provider: 12/13/20 20:47 Triage information: Has fever, cough or shortness of breath. Exposure to COVID + person last 14 days History of Present Illness: HPI Narrative: 70-year-old female who was seen for near syncope last weekend. She had a PCR for COVID-19 that turned positive. She came in for monoclonal antibody infusion, but was short of breath at that point, and requiring some oxygen. She did not receive her infusion because of this. She was sent home on oxygen. She has been taking dexamethasone. She presents tonight more generally weak, and more short of breath. She has been using 2 L at home, but feels short of breath despite this. MD complaint: known COVID positive Prior covid testing: yes, results known COVID 19 common symptoms: positive cough, productive cough, dyspnea, fatigue, body aches and nasal congestion; negative fever(s), headache(s), vomiting or diarrhea COVID 19 other sytmptoms: positive chest pressure and requiring oxygen Onset (ago): day(s) Severity: moderate Pertinent comorbid conditions: hypertension Treatment prior to arrival: steroids and oxygen COVID Results: Nasal/Oral Coronavirus 2019 PCR Detected H 12/07/20 02:05 12/07/20 Review of Systems Const: Reports: body aches and fatigue; Denies: fever(s) ENMT: Reports: nasal congestion Resp: Reports: dyspnea and productive cough GI: Denies: vomiting or diarrhea Neuro: Denies: headache(s) Physical Exam Const: COMMON NORMALS: patient oriented x3 and alert GENERAL APPEARANCE: cooperative, ill appearing and frail appearing HENMT: COMMON NORMALS: normocephalic HEAD & SCALP: normocephalic Eye: COMMON NORMALS: Equal, round and reactive pupils present, EOMs intact bilaterally and conjunctivae normal CONJUNCTIVA: Yes conjunctivae normal PUPIL: Yes Equal, round and reactive pupils present Chest: COMMONS NORMALS: normal inspection of the chest Resp: COMMON NORMALS: normal respiratory effort, No use of accessory muscles and clear to auscultation bilaterally AUSCULTATION: clear to auscultation bilaterally GI: COMMON NORMALS: Normal to inspection, nondistended, normoactive bowel sounds present, Soft to palpation and non-tender PALPATION: Yes Soft to palpation Neuro: COMMON NORMALS: patient oriented x3 SENSORIUM/ORIENTATION: Yes alert Course Consultations: Consultation #1: [email or web address] Vital Signs: Vital signs: Vital Signs Temperature 98.9 F 12/14/20 00:28 Pulse Rate 66 12/14/20 00:28 Respiratory Rate 20 H 12/14/20 00:28 Blood Pressure 148/67 12/14/20 00:28 Pulse Oximetry 94 12/14/20 00:28 MDM - COVID MDM Narrative: Medical decision making narrative: 70-year-old female here for the third time this week with generalized weakness, cough, shortness of breath, etc. She has COVID-19. Her creatinine is up to 2, with elevation in her BUN. She appears dehydrated. She does not feel well. She is more hypoxic than she was. Her inflammatory markers are up. She has worsening of bilateral pneumonitis on chest x-ray from prior. This is despite home oxygen and steroids. She will be admitted for antiviral treatment and supportive care. Lab Data: Labs: Lab Results 12/13/20 12/13/20 12/13/20 Range/Units 21:02 21:02 21:02 WBC 8.2 (4.0-10.0) 10^3/ uL RBC 3.75 L (4.1-5.3) 10^6/u L Hgb 11.3 L (11.5-15.3) g/dL Hct 34.4 L (37.0-47.0) % MCV 91.7 (81-99) fL MCH 30.1 (28.0-34.0) pg MCHC 32.8 (30.0-36.0) g/dL RDW 12.6 (12.1-15.1) % Plt Count 176 (130-400) 10^3/c mm MPV 9.6 (7.4-10.4) fL Neut % (Auto) 84.3 % Lymph % (Auto) 7.7 % Ballard % (Auto) 6.4 % Eos % (Auto) 0.0 % Baso % (Auto) 0.1 % Neut # (Auto) 6.88 (1.8-7.7) 10^3/u L Lymph # (Auto) 0.6 L (0.8-4.8) 10^3/u L Ballard # (Auto) 0.5 (0.2-0.9) 10^3/u L Eos # (Auto) 0.0 (0.0-0.8) 10^3/u L Baso # (Auto) 0.0 (0.0-0.1) 10^3/u L Nucleated RBC % (a uto) 0 % Nucleated RBCs # 0.0 /100WBC Sodium 129 L (136-145) mmol/L Potassium 4.3 (3.5-5.1) mmol/L Chloride 90 L (98-107) mmol/L Carbon Dioxide 24 (22-29) mmol/L Anion Gap 19.3 H (5-19) BUN 35 H (8-23) mg/dL Creatinine 2.0 H (0.5-0.9) mg/dL GFR Calculation 24.6 L (90-130) mL/min Glucose 132 H (65-115) mg/dL Calculated Osmolal ity 278 L (285-295) mOsm/k g Lactate 1.2 (0.5-2.2) mmol/L Calcium 8.4 L (8.5-10.5) mg/dL Total Bilirubin 0.3 (0.15-1.2) mg/dL AST 27 (0-32) U/L ALT 17 (0-33) U/L Alkaline Phosphata se 49 (35-105) IU/L C-Reactive Protein 51.0 H (0.0-4.9) mg/L Total Protein 6.3 L (6.6-8.7) g/dL Albumin 3.5 (3.5-5.2) g/dL Globulin 2.8 (1.3-4.6) g/dL Procalcitonin 0.19 (0-0.5) ng/mL COVID Results: Nasal/Oral Coronavirus 2019 PCR Detected H 12/07/20 02:05 12/07/20 Discharge Plan Discharge Patient Disposition: Admitted As Inpatient Admit Provider: Zamzam Estrada Clinical Impression: COVID-19, Acute dehydration, Acute kidney injury Condition: Stable Coding Level of Care Code 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
[2020-12-13 21:47] LABS: Procalcitonin 0.19 ng/mL (0-0.5)
[2020-12-13 21:58] LABS: Anion Gap 19.3 (5-19); Potassium 4.3 mmol/L (3.5-5.1)
[2020-12-13 21:59] LABS: Aspartate Amino Transferase 27 U/L (0-32)
[2020-12-13] MEDS: sodium chloride 0.9% 500 ML IV (22:20)
[2020-12-13 22:21] VITALS: BP 151/64; PULSE 87; RESP 24; O2SAT 94
[2020-12-13 22:41] VITALS: BP 146/62; PULSE 75; RESP 23; O2SAT 94
[2020-12-13 23:09] VITALS: BP 159/68; PULSE 76; RESP 25; O2SAT 94
[2020-12-14] VITALS (59 sets, daily range): BP systolic 86–177; BP diastolic 62–101; PULSE 57–81; RESP 14–25; TEMP 36.6–37.2; O2SAT 88–97
[2020-12-14] MEDS: remdesivir 200 MG in sodium chloride 0.9% (100 ml) 100 ML 100 MG IV (00:46)
[2020-12-14] MEDS: sodium chloride 0.9% 1,000 ML 75 ML IV (01:26)
--- NOTE | 2020-12-14 02:07 | P.HP_ITS ---
Providers/Chief Complaint Admitting Physician: Zamzam Estrada MD Primary Care Provider: Jan Kirk MD Chief Complaint: Covid Low Blood Sugar History of Present Illness Terese Yates is a 70 year old female, unvaccinated for Covid19 who was recently diagnosed with COVID 19 on 12/07/20. She has had ER visits on 12.07 for diagnosis, returned on 12/11 for monoclonal Ab infusion but then was noted to be hypoxic therefore this was deferred. She was started on PO steroids and oxygen and discharged home. D dimer was elevted on 12/11, CTA chest was done and returned neative for PE. She returns today as she continued to feel unwell, increasing genralized fatigue and malaise. At home she noted her 02 sat in the 80s and presented to ER. Labs today notable for elevated CRP 55, GEE with cr 2.0, hyponatremia with NA 129. ROS+ dyspnea, cough. No chest pain or palpitations Review of Systems General: Reports: 10 or more systems reviewed and unremarkable except in HPI and below Const: Denies: fever(s), chills or body aches Eyes: Denies: change in vision, blurry vision or photophobia ENMT: Reports: hoarseness; Denies: throat pain, enlarged tonsils, odynophagia or nasal congestion Card: Denies: chest pain, palpitations, irregular heart rhythm, edema, swelling of feet/ankles, lightheadedness, pre-syncope, dyspnea on exertion or orthopnea Resp: Denies: dyspnea, productive cough, non-productive cough, wheezing, stridor, pain on inspiration, change in phlegm color, hemoptysis or chest congestion GI: Denies: abdominal pain, nausea, vomiting, hematemesis, coffee ground emesis, dysphagia, heartburn, diarrhea, constipation, GI cramping, change in stool character, hematochezia or melena : Denies: flank pain, difficulty voiding, dysuria, urinary frequency, urinary urgency, urinary hesitancy or hematuria Musc: Denies: neck pain, back pain, extremity pain, joint swelling, joint warmth or deformity Neuro: Denies: headache(s), numbness in extremities, weakness in extremities, sensory changes, difficulty walking, frequent falls, dizziness, vertigo, behavioral changes, Slurred speech present or seizure-like activity Psych: Denies: anxiety, depression, suicidal ideation or homicidal ideation Endo: Denies: polyuria, polydipsia, tired all the time, cold intolerance or hot flashes Keven/Lymph: Denies: easy bruising or easy bleeding Medications/Allergies Home Medications Medication Instructions Recorded Confirmed Last Taken Type nitrofurantoin monohyd/m-cryst 100 mg PO Q12H 7 Days #14 cap 12/07/20 Unknown Rx [Macrobid] dexamethasone 6 mg PO DAILY #7 tab 12/11/20 Unknown Rx Allergies Allergy/AdvReac Type Severity Reaction Status Date / Time Penicillins Allergy ALGY-Hives Verified 12/11/20 06:27 Vitals/I&O/Wt Last Vital Signs Temp 98.9 F 12/14/20 00:28 Pulse 66 12/14/20 00:28 Resp 20 H 12/14/20 00:28 BP 148/67 12/14/20 00:28 Pulse Ox 94 12/14/20 00:28 12/13/20 12/13/20 12/14/20 14:59 22:59 06:59 Intake Total 500 / 500 Balance 500 / 500 Weight last 48 hrs Weight 90.718 kg Physical Exam Narrative: EXAM NARRATIVE: General: No acute distress, AO x3, dehydrated HEENT: PERRLA, pupils bilaterally equal and reactive, pallors not present Chest: Normal vesicular breath sounds, no added sounds, equal good air entry bilaterally CVS: S1-S2 regular, no murmurs, no tachycardia, no gallops, no rubs Abdomen: Soft, nontender, no organomegaly, bowel sounds present Neuro: No focal deficits, no facial deformity, AO x3, power 5/5 in all limbs Extremities: no clubbing edema or cyanosis. Data : 12/13/20 21:02 12/13/20 21:02 Other Labs: Laboratory Results WBC 8.2 10^3/uL (4.0-10.0) 12/13/20 21: RBC 3.75 10^6/uL (4.1-5.3) L 12/13/20 21:02 Hgb 11.3 g/dL (11.5-15.3) L 12/13/20 21:02 Hct 34.4 % (37.0-47.0) L 12/13/20 21:02 MCV 91.7 fL (81-99) 12/13/20 21:02 MCH 30.1 pg (28.0-34.0) 12/13/20 21: MCHC 32.8 g/dL (30.0-36.0) 12/13/20 21: RDW 12.6 % (12.1-15.1) 12/13/20 21: Plt Count 176 10^3/cmm (130-400) 12/13/20 21:02 MPV 9.6 fL (7.4-10.4) 12/13/20 21:02 Neut % (Auto) 84.3 % 12/13/20 21: Lymph % (Auto) 7.7 % 12/13/20 21: Mobile % (Auto) 6.4 % 12/13/20 21: Eos % (Auto) 0.0 % 12/13/20: Baso % (Auto) 0.1 % 12/13/20: Neut # (Auto) 6.88 10^3/uL (1.8-7.7) 12/13/20 21: Lymph # (Auto) 0.6 10^3/uL (0.8-4.8) L 12/13/20 21: Mobile # (Auto) 0.5 10^3/uL (0.2-0.9) 12/13/20 21: Eos # (Auto) 0.0 10^3/uL (0.0-0.8) 12/13/20 21: Baso # (Auto) 0.0 10^3/uL (0.0-0.1) 12/13/20 21: Nucleated RBC % (auto) 0 % 12/13/20: Nucleated RBCs # 0.0 /100WBC 12/13/20 21: Sodium 129 mmol/L (136-145) L 12/13/20 21: Potassium 4.3 mmol/L (3.5-5.1) 12/13/20 21: Chloride 90 mmol/L (98-107) L 12/13/20 21: Carbon Dioxide 24 mmol/L (22-29) 12/13/20 21: Anion Gap 19.3 (5-19) H 12/13/20 21:02 BUN 35 mg/dL (8-23) H 12/13/20 21:02 Creatinine 2.0 mg/dL (0.5-0.9) H 12/13/20 21:02 GFR Calculation 24.6 mL/min (90-130) L 12/13/20 21:02 Glucose 132 mg/dL (65-115) H 12/13/20 21:02 Calculated Osmolality 278 mOsm/kg (285-295) L 12/13/20 21:02 Lactate 1.2 mmol/L (0.5-2.2) 12/13/20 21:02 Calcium 8.4 mg/dL (8.5-10.5) L 12/13/20 21:02 Total Bilirubin 0.3 mg/dL (0.15-1.2) 12/13/20 21:02 AST 27 U/L (0-32) 12/13/20 21:02 ALT 17 U/L (0-33) 12/13/20 21:02 Alkaline Phosphatase 49 IU/L (35-105) 12/13/20 21:02 C-Reactive Protein 51.0 mg/L (0.0-4.9) H 12/13/20 21:02 Total Protein 6.3 g/dL (6.6-8.7) L 12/13/20 21:02 Albumin 3.5 g/dL (3.5-5.2) 12/13/20 21:02 Globulin 2.8 g/dL (1.3-4.6) 12/13/20 21:02 Procalcitonin 0.19 ng/mL (0-0.5) 12/13/20 21:02 Impressions Chest X-Ray 12/13/20 20:54 IMPRESSION: Scattered airspace disease is more conspicuous than comparison consistent with atypical pneumonia such as COVID-19 pneumonia. A&P Assessment and plan (1) COVID-19: B/L pneumonitis on CXR Supplemental 02 to keep saturation >92% Dexamethasone 6mg IVP q24h Remdisivir 200 mg iv x 1 f/b 100mg iv daily CRP 55, hold off on Actemra Trend inflammatory markers with am labs Duonebs, budesonide inhalation Patient has had 3 ER visits in one week Status: Acute (2) Acute dehydration: relate dto poo po intake IVF NS hydration Status: Acute (3) Acute kidney injury: likely pre renal relate dto dehydation, poor po intake IVF as above check urine lytes Status: Acute Additional A&P Information DVT ppx: Lovenox Full code Attestations Medical Necessity Statement*: >2Midnight admission anticipated for management of COID 19 pneumonia, GEE Coding Level of Care Code Acute 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
[2020-12-14] MEDS: dexamethasone 4 mg/mL INJ 6 MG IVP (03:17)
[2020-12-14] MEDS: enoxaparin 40 mg/0.4 mL Syringe SUBCUT (03:17)
[2020-12-14] MEDS: cefTRIAXone 1,000 MG in sodium chloride 0.9% (plus) 100 ML 200 MG IV (03:17)
[2020-12-14 07:58] LABS: D Dimer 2.47 ug/mIFEU (0-0.59)
[2020-12-14 08:10] LABS: Alanine Aminotransferase 14 U/L (0-33); Albumin Level 3.1 g/dL (3.5-5.2); Alkaline Phosphatase 49 IU/L (35-105); Anion Gap 16.9 (5-19); Aspartate Amino Transferase 20 U/L (0-32); Blood Urea Nitrogen 31 mg/dL (8-23); Calcium 8.1 mg/dL (8.5-10.5); Carbon Dioxide 24 mmol/L (22-29); Chloride 93 mmol/L (98-107); Globulin 3.3 g/dL (1.3-4.6); Glomerular Filtration Rate 34.3 mL/min (90-130); Glucose 258 mg/dL (65-115); Osmolality Calculated 285 mOsm/kg (285-295); Potassium 3.9 mmol/L (3.5-5.1); Sodium 130 mmol/L (136-145); Total Bilirubin 0.2 mg/dL (0.15-1.2); Total Protein 6.4 g/dL (6.6-8.7)
[2020-12-14 09:01] LABS: C Reactive Protein 58.3 mg/L (0.0-4.9); Ferritin 362 ng/mL (15-150); Lactate Dehydrogenase 298 U/L (135-214)
[2020-12-14] MEDS: budesonide 0.5 mg/2 mL Neb INHALATION ×2 (09:01→20:06)
[2020-12-14] MEDS: ipratropium-albuterol 3 mL Neb INHALATION ×3 (09:01→20:06)
[2020-12-14 09:08] LABS: Procalcitonin 0.14 ng/mL (0-0.5)
--- NOTE | 2020-12-14 11:12 | PC.NURSE ---
awaiting for orders for her home medications to be addressed. Message sent to Dr. Stevens to have him take a look at them.
--- NOTE | 2020-12-14 13:07 | PC.NURSE ---
Pt HR getting irregular. Sent message to Dr. Ramires to look at home medication list again. She is on a betablocker and HTN medication.
--- NOTE | 2020-12-14 13:14 | PC.NURSE ---
Pt has a history of CVA with right side symptoms. Right arm is slightly weaker and needs stand by assist with ambulation to commode and chair.
--- NOTE | 2020-12-14 13:46 | PM.PN ---
Subjective Subjective: Interval history: Patient was seen and examined this morning, she was saturating well on 4 L nasal cannula was able to get up with mild assistance, endorsing fatigue and lethargy no active chest pain or shortness of breath Nonproductive cough H&P and imaging reviewed Requested procalcitonin and D-dimer, D-dimer came back high however lower as compared to previous value, previous CTA chest did not show PE Vitals/I&O/Wt Last Vital Signs Temp 97.8 F 12/14/20 13:00 Pulse 74 12/14/20 13:00 Resp 21 H 12/14/20 13:00 BP 177/81 12/14/20 13:00 Pulse Ox 93 12/14/20 13:00 12/13/20 12/14/20 12/14/20 22:59 06:59 14:59 Intake Total 803.75 / 803.75 220 / 220 Output Total 500 / 500 Balance 803.75 / 803.75 -280 / -280 Weight last 48 hrs Weight 90.718 kg Physical Exam Narrative: EXAM NARRATIVE: Patient was laying supine saturating well on 40 nasal cannula No active chest pain, S1, S2 no signs of murmur No signs of fluid overload Abdomen soft no signs of peritonitis Lower extremity no edema gangrene ulcer No neurological deficit Awake alert oriented x3 GCS 15 EOMI, PERRLA Appropriate mood and affect No joint swelling Her speech seemed a bit slower, patient stated that that is how she normally communicates, no active neurological deficits noted Data : 12/13/20 21:02 12/14/20 07:16 A&P Assessment and plan (1) Acute dehydration: Status: Acute (2) Acute kidney injury: Status: Acute (3) Diabetes: Status: Acute (4) COVID-19: Status: Acute (5) Near syncope: Status: Acute Additional A&P Information Acute hypoxic restaurant failure secondary to COVID-19 pneumonia Continue remdesivir and steroid regimen CRP 55, agree with holding off on interleukin-6 inhibitor for now Continue DuoNeb and discontinue inhaled steroids Currently saturating well on 4 L nasal cannula Transfer out of ICU GEE creatinine improved with IV fluid hydration creatinine 1.5 today Continue IV fluids for 1 more day Her hyponatremia seems secondary to dehydration as well Full code Regular diet DVT prophylaxis Lovenox Attestations Medical Necessity Statement*: Transfer out of ICU she will need 5-day regimen of remdesivir Time Spent in Patient Care: 30mins Coding Level of Care Code 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
[2020-12-14] MEDS: carvedilol 12.5 mg Tablet PO ×2 (15:32→20:34)
[2020-12-14 18:41] LABS: Add Urine Microscopic? YES; Bacteria Urine TRACE /hpf; Bilirubin Urine Neg (Negative); Blood Urine Neg (Negative); Glucose Urine UA 4+ (Normal); Ketones Urine Negative (Negative); Leukocyte Esterase Urine Negative (Negative); Nitrate Urine Negative (Negative); Protein Urine 2+ (Negative); Specific Gravity, Urine 1.015 (1.005-1.030); Squamous Epithelial Cell Urine 0-4 /hpf (0-5); Urine Appearance Clear (CLEAR); Urine Color Yellow (Yellow); Urobilinogen Urine Norm (Negative); WBC Urine 0-4 /hpf (0-5); pH Urine 5 (5-7)
[2020-12-14 18:42] LABS: Add Urine Culture? No; Mucus Urine TRACE /hpf
[2020-12-14] MEDS: remdesivir 100 MG in sodium chloride 0.9% (100 ml) 100 ML IV (19:08)
[2020-12-15] VITALS (45 sets, daily range): BP systolic 117–215; BP diastolic 66–121; PULSE 47–84; RESP 13–26; TEMP 36.5; O2SAT 82–99
[2020-12-15] MEDS: dexamethasone 4 mg/mL INJ 6 MG IVP (02:32)
[2020-12-15] MEDS: enoxaparin 40 mg/0.4 mL Syringe SUBCUT (02:32)
[2020-12-15] MEDS: ipratropium-albuterol 3 mL Neb INHALATION ×4 (02:55→20:10)
[2020-12-15 06:58] LABS: Basophils % 0.2 %; Hemoglobin 10.3 g/dL (11.5-15.3); Lymphocytes # 0.6 10^3/uL (0.8-4.8); Mean Corpuscular HGB Conc 32.2 g/dL (30.0-36.0); Mean Corpuscular Hemoglobin 29.6 pg (28.0-34.0); Mean Platelet Volume 10.3 fL (7.4-10.4); Monocytes # 0.4 10^3/uL (0.2-0.9); Monocytes % 7.4 %; Neutrophils # 4.13 10^3/uL (1.8-7.7); Neutrophils % 78.5 %; Nucleated Red Blood Cells % 0 %; Platelet Count 212 10^3/cmm (130-400); Red Blood Count 3.48 10^6/uL (4.1-5.3); Red Cell Distribution Width 12.4 % (12.1-15.1); White Blood Count 5.3 10^3/uL (4.0-10.0)
--- NOTE | 2020-12-15 07:17 | PC.NURSE ---
Pt HR in the 50's. Carvedilol 12.5mg is ordered BID, pt actually takes it only once daily. Message went out to Dr. Stevens to see if the order can be changed to daily
[2020-12-15 07:19] LABS: Anion Gap 14.3 (5-19); Blood Urea Nitrogen 32 mg/dL (8-23); Calcium 8.5 mg/dL (8.5-10.5); Carbon Dioxide 27 mmol/L (22-29); Chloride 96 mmol/L (98-107); Glomerular Filtration Rate 40.5 mL/min (90-130); Glucose 265 mg/dL (65-115); Osmolality Calculated 292 mOsm/kg (285-295); Potassium 4.3 mmol/L (3.5-5.1); Sodium 133 mmol/L (136-145)
--- NOTE | 2020-12-15 07:42 | PC.NURSE ---
Additional note sent to Dr. Stevens for home medications list to be looked at. We are missing her Plavix, Diabetic medications(fasting BS this am was 295) and BP meds. Waiting for orders or respond
[2020-12-15 07:57] LABS: Glucose Point of Care 297 mg/dL (70-110)
[2020-12-15 08:08] LABS: Slide Review Slide Review Perform
[2020-12-15] MEDS: budesonide 0.5 mg/2 mL Neb INHALATION (08:54)
--- NOTE | 2020-12-15 09:15 | PC.CHAP ---
Pastoral Care Encounter/Spiritual Assessment Type of Contact [] Declined chip crusher operator visit [] Patient/Family/Request visit [] Outpatient visit [] Follow-up visit [] Physician referral [] Code/Alert [x] Routine visit [] Staff referral [] Actively dying [] Patient sleeping [] Family support [] [] Out of room [] Palliative care [] [] Receiving care in room [] Pre-surgical visit [] Trauma [] Long length of stay [x] ICU visit [x] Other: quarantined Relational/Emotional Strength [] Patient feels connected with others/family/visitors/staff [] Distress [] Loneliness/isolation [] Abandonment Spirituality of Patient [] Person of Bibiana [] Attends Christianity of their Bib[place] [] Believes in Prayer [] Reads Bible or Lutheran materials [] There are Spiritual issues to be addressed Lasting Room Machine Operator Interventions [x] Prayer [] Active listening [] Non-anxious presence [] Spiritual/emotional support [] Crisis/trauma care [] Spiritual counseling [] Bereavement support [] Provided bereavement packet [] Provided Bible/devotional materials [] Provided toy/stuffed animal, coloring book to patient or family member [] Provided Communion [] Anointing/[place] [] Salvation [x] Completed spiritual assessment [] Other: Impact on Illness or Injury [] Angry [] Fearful [] Anxious [] Often cries [] Exhaustion [] Unable to work [] Unable to attend yazidi [] Unable to walk/stand [] Unable to read [] Unable to drive [] Unable to eat/drink [] Unable to sleep [] Unable to be with family [] Patient intubated [] Other: Summary Time spent with patient
--- NOTE | 2020-12-15 10:40 | PC.NURSE ---
Dr Stevens on floor, spoke with him about pt. State she will look over home medications and put in orders.
[2020-12-15 11:55] LABS: Glucose Point of Care 436 mg/dL (70-110)
--- NOTE | 2020-12-15 11:56 | PC.NURSE ---
BS is 408. Contacted Dr. Stevens to get Insulin orders or to have him check her home medication list again.
[2020-12-15] MEDS: carvedilol 12.5 mg Tablet PO (12:14)
[2020-12-15 12:19] LABS: Estmated Average Glucose 163; Hemoglobin A1C 7.3 % (4.0-6.0)
[2020-12-15] MEDS: hyDRALAzine 20 mg/mL INJ 1 mL 5 MG IVP (13:22)
--- NOTE | 2020-12-15 16:21 | PM.PN ---
Subjective Subjective: Interval history: Patient endorsed feeling better today was saturating well on 3 to nasal cannula in the morning, afebrile, No diarrhea Endorsed improvement in her energy Vitals/I&O/Wt Last Vital Signs Temp 97.7 F 12/15/20 08:00 Pulse 69 12/15/20 14:53 Resp 18 12/15/20 14:53 BP 182/84 12/15/20 12:00 Pulse Ox 94 12/15/20 14:53 12/15/20 12/15/20 12/15/20 06:59 14:59 22:59 Intake Total 338 / 338 Output Total 1175 / 1175 Balance -837 / -837 Weight last 48 hrs Weight 90.718 kg Physical Exam Narrative: EXAM NARRATIVE: Was sitting at the bedside, recently had showered Saturating well on 2 to nasal cannula Bilateral breath sound without adventitious rhonchi or crackles Abdomen soft nontender Lower extremity no edema EOMI, PERRLA No active neurological deficits Appropriate mood and affect Data : 12/15/20 05:06 12/15/20 05:06 A&P Assessment and plan (1) Acute dehydration: Status: Acute (2) Acute kidney injury: Status: Acute (3) Diabetes: Status: Acute (4) COVID-19: Status: Acute Additional A&P Information Acute hypoxic restaurant failure secondary to COVID-19 pneumonia Currently saturating well on 3 to nasal cannula, Plan to transfer her out of ICU to medical floor Inflammatory markers follow-up tomorrow Remdesivir 3 doses given, I plan to discharge her tomorrow if she stays hemodynamically stable, she might not need 5 doses of remdesivir Steroid-induced hyperglycemia Added 20 units of Lantus with moderate sliding scale A1c 7.3 Hypertension: Discontinue fluids added amlodipine, lisinopril was discontinued due to GEE, would resume today Acute kidney injury: Improving with IV fluid substitution daily creatinine 1.3 I will discontinue fluids because of hypertension, Full code We will go home most likely tomorrow on 2 to 3 L, on Medrol pack Consistent carb diet Attestations Medical Necessity Statement*: Anticipating discharge tomorrow Time Spent in Patient Care: 30mins Coding Level of Care Code 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
[2020-12-15 16:59] LABS: Glucose Point of Care 355 mg/dL (70-110)
--- NOTE | 2020-12-15 18:01 | PC.NURSE ---
contacted Dr. Ramires regarding pt BP. it is 232/137. NO new orders at this time.
[2020-12-15] MEDS: remdesivir 100 MG in sodium chloride 0.9% (100 ml) 100 ML IV (18:16)
--- NOTE | 2020-12-15 18:25 | CTR_ITS ---
PROCEDURE INFORMATION: Exam: CT Head Without Contrast Exam date and time: 12/15/2020 6:25 PM Age: 70 years old Clinical indication: Weakness, extremity; Right; Patient HX: HX of stroke; Additional info: Dysarthria TECHNIQUE: Imaging protocol: Computed tomography of the head without contrast. Radiation optimization: All CT scans at this facility use at least one of these dose optimization techniques: automated exposure control; mA and/or kV adjustment per patient size (includes targeted exams where dose is matched to clinical indication); or iterative reconstruction. Other technique: STROKE PROTOCOL was implemented. COMPARISON: CT head wo con* [id number] 12/06/2020 10:45 PM RADIATION DOSE METRICS: Total DLP (mGy-cm): 890.26 FINDINGS: Brain: There is moderate cortical atrophy. Low-density changes in the white matter are consistent with nonspecific small vessel chronic ischemic change. There is no intracranial mass, hemorrhage or edema. There is stable infarct in the left basal ganglia area extending into the deep left frontal white matter not significantly changed from 12/06/2020 or 2014. Cerebral ventricles: No ventriculomegaly. Paranasal sinuses: Visualized sinuses are unremarkable. No fluid levels. Mastoid air cells: Visualized mastoid air cells are well aerated. Bones/joints: Unremarkable. No acute fracture. Soft tissues: Unremarkable. CT/CT head wo con* [id number] IMPRESSION: 1. Old infarct. 2. No acute intracranial finding. ASSESSMENT: ASPECTS ([place] Stroke Program Early CT Score) is 10. Radiation Dose CTDIVOL = (mGy): DLP = 890.26 (mGy-cm)
--- NOTE | 2020-12-15 18:31 | PC.NURSE ---
Pt having increased difficulty speaking this assessment. Unable to find words. Dr Stevens notified. BP remains 195/99. orders received for one time Lobatolol. and Head CT.
--- NOTE | 2020-12-15 18:45 | PC.NURSE ---
Took pt to CT. while transferring to bed she was unable to lift her right leg. After CT Dr Stevens arrived and did NIHSS scale. Pt scored a 2 with neurological changes. Stroke alert called. Labatolol [address] Cantu recommends that she have an additional CTA of head and neck later this evening.
[2020-12-15] MEDS: labetalol 5 mg/mL SDV 20mL 20 MG IVP ×2 (19:05→19:41)
--- NOTE | 2020-12-15 19:36 | PC.NURSE ---
took over patient care at this time. patient AO x3, no slurred speech, slight R side facial droop, slight drift to R arm, safety investigator/cause analyst strong and equal, BLE strength strong and equal, supine 45 degrees call light within reach
--- NOTE | 2020-12-15 19:36 | PM.EVENT ---
Event Note Event Note: Code stroke was called for new finding of dysarthria This finding was detected at 615 when nurse checked her vitals blood pressure was 179/110mmhg She was given 20 mg of [address]ol and CT head was taken right away, code stroke was called She qualified for NIH score of 2 for right upper and lower extremity slight drifting, her speech is slow however understandable Patient is able to stand with [address] Cantu was updated and notified who recommended CTA head and neck after CT head Neurochecks every 6h overnight Labetalol 20 mg IV push We will request CTA head and neck
--- NOTE | 2020-12-15 19:36 | PC.NURSE ---
Report given to Fausto REYNOSO
--- NOTE | 2020-12-15 19:39 | CTR_ITS ---
PROCEDURE INFORMATION: Exam: CT Angiography Head With Contrast, Arteriography Exam date and time: 12/15/2020 7:39 PM Age: 70 years old Clinical indication: Prior surgery; Surgery type: Carotid stent; Patient HX: RT side weakness. History of left side stroke. Breast cancer. Covid +. ; Additional info: Stroke code TECHNIQUE: Imaging protocol: Computed tomography angiography of the head with contrast. Exam focused on the arteries. 3D rendering (Not supervised by radiologist): MIP and/or 3D reconstructed images were created by the technologist. Radiation optimization: All CT scans at this facility use at least one of these dose optimization techniques: automated exposure control; mA and/or kV adjustment per patient size (includes targeted exams where dose is matched to clinical indication); or iterative reconstruction. Contrast material: VISI 320; Contrast volume: 95 ml; Contrast route: INTRAVENOUS (IV); COMPARISON: CT head wo con* [id number] 12/15/2020 6:44 PM RADIATION DOSE METRICS: Total DLP (mGy-cm): 2524.72 FINDINGS: ANTERIOR CIRCULATION: Right internal carotid artery: Unremarkable. Intracranial segment is patent with no significant stenosis. No aneurysm. Right middle cerebral artery: Unremarkable. No occlusion or significant stenosis. No aneurysm. Right anterior cerebral artery: Unremarkable. No occlusion or significant stenosis. No aneurysm. Left internal carotid artery: Unremarkable. Intracranial segment is patent with no significant stenosis. No aneurysm. Left middle cerebral artery: Unremarkable. No occlusion or significant stenosis. No aneurysm. Left anterior cerebral artery: Unremarkable. No occlusion or significant stenosis. No aneurysm. POSTERIOR CIRCULATION: Right vertebral artery: Unremarkable. No occlusion or significant stenosis. No aneurysm. Left vertebral artery: Unremarkable. No occlusion or significant stenosis. No aneurysm. Basilar artery: Unremarkable. No occlusion or significant stenosis. No aneurysm. Right posterior cerebral artery: Unremarkable. No occlusion or significant stenosis. No aneurysm. Left posterior cerebral artery: Unremarkable. No occlusion or significant stenosis. No aneurysm. Brain: Chronic infarct is again seen in the left basal ganglia region extending into the left frontal white matter and left insular cortex. Cerebral ventricles: No ventriculomegaly. Bones/joints: Unremarkable. No acute fracture. Soft tissues: Unremarkable. IMPRESSION: 1. Old infarct. 2. No evidence of acute vascular occlusion. PROCEDURE INFORMATION: Exam: CT Angiography Neck With Contrast Exam date and time: 12/15/2020 7:39 PM Age: 70 years old Clinical indication: Prior surgery; Surgery type: Carotid stent; Patient HX: RT side weakness. History of left side stroke. Breast cancer. Covid +. ; Additional info: Stroke code TECHNIQUE: Imaging protocol: Computed tomography angiography of the neck with contrast. 3D rendering (Not supervised by radiologist): MIP and/or 3D reconstructed images were created by the technologist. Radiation optimization: All CT scans at this facility use at least one of these dose optimization techniques: automated exposure control; mA and/or kV adjustment per patient size (includes targeted exams where dose is matched to clinical indication); or iterative reconstruction. Contrast material: VISI 320; Contrast volume: 95 ml; Contrast route: INTRAVENOUS (IV); COMPARISON: CT head wo con* [id number] 12/15/2020 6:44 PM RADIATION DOSE METRICS: Total DLP (mGy-cm): 2524.72 FINDINGS: Right common carotid artery: No stenosis. No dissection or occlusion. Right internal carotid artery: There is some focal atherosclerotic plaque in the proximal right internal carotid artery causing approximately 20% stenosis as measured according to the NASCET criteria. Right external carotid artery: No occlusion or stenosis of the origin. Left common carotid artery: No stenosis. No dissection or occlusion. Left internal carotid artery: There is extensive atherosclerotic calcification in what appears to be stent in the proximal left internal carotid artery with severe narrowing of the arterial lumen within the stent. Is difficult to accurately measure the degree of stenosis within the stent but this appears to be severe and in excess of 70%, possibly much higher Left external carotid artery: No occlusion or stenosis of the origin. Right vertebral artery: No stenosis. No dissection or occlusion. Left vertebral artery: No stenosis. No dissection or occlusion. Soft tissues: Normal. No significant soft tissue swelling. Bones/joints: No acute fracture. Lungs: There are peripheral ground-glass opacities in the upper lobes consistent with clinical history of COVID-[address]/CT angio headneck* [id number] IMPRESSION: 1. Mild stenosis right internal carotid artery. 2. Severe stenosis left internal carotid artery. 3. Typical findings of COVID-19 infection in the upper lobes REFERENCES: NASCET CRITERIA. The degree of internal carotid artery stenosis is based on NASCET criteria. Normal is no stenosis. Mild is less than 50% stenosis. Moderate is 50-69% stenosis. Severe is 70% to 99% stenosis. Total occlusion is no detectable patent lumen. Radiation Dose CTDIVOL = (mGy): DLP = 2524.72~2524.72 (mGy-cm)
--- NOTE | 2020-12-15 19:41 | PC.NURSE ---
NIHSS score is 8. No change since did assessment, but the original weakness was considered with this assessment. Main changes when stroke called was Aphasia that was mild/moderate, extreme high blood pressure and dragging of right leg with movement.
--- NOTE | 2020-12-15 20:13 | PC.NURSE ---
Dr. Rush contacted about climbing BP, HCP to put in med order
[2020-12-15] MEDS: hyDRALAzine 10 mg Tablet PO ×2 (20:17→20:27)
--- NOTE | 2020-12-15 20:41 | PC.NURSE ---
BP 210/73, Dr. Rush notified, this nurse informed it is permissive HTN, okay to continue with ordered head CT
[2020-12-15] MEDS: iodixanol 320 mg/mL 100mL Btl IV (20:57)
[2020-12-15 21:10] LABS: Glucose Point of Care 317 mg/dL (70-110)
[2020-12-15] MEDS: amlodipine 10 mg Tablet PO (21:19)
[2020-12-15] MEDS: insulin glargine 100 units/1 mL 20 UNIT SUBCUT (21:19)
--- NOTE | 2020-12-15 21:39 | PC.NURSE ---
Dr. Rush at bedside, gave v.o. order for Hydralizine 10 mg IVP q6 hrs prn for systolic greater than 220 and/or diastolic greater than 120
[2020-12-15] MEDS: morphine 4 mg/mL SDV 1 mL 2 MG IVP (23:37)
[2020-12-16] VITALS (46 sets, daily range): BP systolic 141–218; BP diastolic 66–143; PULSE 49–74; RESP 13–27; TEMP 35.8–36.6; O2SAT 82–98
[2020-12-16] MEDS: enoxaparin 40 mg/0.4 mL Syringe SUBCUT (01:53)
[2020-12-16] MEDS: dexamethasone 4 mg/mL INJ 6 MG IVP (01:54)
[2020-12-16] MEDS: ipratropium-albuterol 3 mL Neb INHALATION ×2 (02:56→09:19)
[2020-12-16 05:13] LABS: Anion Gap 15.9 (5-19); Blood Urea Nitrogen 31 mg/dL (8-23); C Reactive Protein 25.1 mg/L (0.0-4.9); Carbon Dioxide 25 mmol/L (22-29); Chloride 96 mmol/L (98-107); Glomerular Filtration Rate 54.8 mL/min (90-130); Glucose 189 mg/dL (65-115); Lactate Dehydrogenase 320 U/L (135-214); Osmolality Calculated 288 mOsm/kg (285-295); Potassium 3.9 mmol/L (3.5-5.1); Sodium 133 mmol/L (136-145)
[2020-12-16 05:15] LABS: Creatinine Clr Calc Pharmacy 60.5307
[2020-12-16] MEDS: hyDRALAzine 10 mg Tablet PO (08:06)
[2020-12-16] MEDS: amlodipine 10 mg Tablet PO (08:06)
[2020-12-16] MEDS: carvedilol 12.5 mg Tablet PO (08:06)
[2020-12-16 08:31] LABS: Glucose Point of Care 273 mg/dL (70-110)
--- NOTE | 2020-12-16 09:59 | PC.CHAP ---
Pastoral Care Encounter/Spiritual Assessment Type of Contact [] Declined senior geotechnical engineer visit [] Patient/Family/Request visit [] Outpatient visit [] Follow-up visit [] Physician referral [] Code/Alert [x] Routine visit [] Staff referral [] Actively dying [] Patient sleeping [] Family support [] [] Out of room [] Palliative care [] [] Receiving care in room [] Pre-surgical visit [] Trauma [] Long length of stay [x] ICU visit [x] Other: quarantined Relational/Emotional Strength [] Patient feels connected with others/family/visitors/staff [] Distress [] Loneliness/isolation [] Abandonment Spirituality of Patient [] Person of Bib[place] [] Attends Catholic of their [place] [] Believes in Prayer [] Reads Bible or Sikhism materials [] There are Spiritual issues to be addressed Automobile 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 Helper Interventions [x] Prayer [] Active listening [] Non-anxious presence [] Spiritual/emotional support [] Crisis/trauma care [] Spiritual counseling [] Bereavement support [] Provided bereavement packet [] Provided Bible/devotional materials [] Provided toy/stuffed animal, coloring book to patient or family member [] Provided Communion [] Anointing/[place] [] Salvation [x] Completed spiritual assessment [] Other: Impact on Illness or Injury [] Angry [] Fearful [] Anxious [] Often cries [] Exhaustion [] Unable to work [] Unable to attend baptist [] Unable to walk/stand [] Unable to read [] Unable to drive [] Unable to eat/drink [] Unable to sleep [] Unable to be with family [] Patient intubated [] Other: Summary Time spent with patient
--- NOTE | 2020-12-16 11:45 | P.DS_ITS ---
Discharge Providers Date of Admission: 12/14/20 00:27 Date of Discharge: December 16, 2020 Attending Provider at Admission: Zamzam Estrada MD Attending Provider at Discharge: Franck Hernández MD Primary Care Provider: Jan Kirk MD Diagnoses at Discharge Discharge Diagnosis (1) Acute dehydration: Status: Acute (2) Acute kidney injury: Status: Acute (3) Diabetes: Status: Acute (4) COVID-19: Status: Acute Reason for Visit Reason for Visit: Covid Low Blood Sugar Hospital Course Hospital Course HPI: Terese Yates is a 70 year old female, unvaccinated for Covid19 who was recently diagnosed with COVID 19 on 12/07/20. She has had ER visits on 12.07 for diagnosis, returned on 12/11 for monoclonal Ab infusion but then was noted to be hypoxic therefore this was deferred. She was started on PO steroids and oxygen and discharged home. D dimer was elevted on 12/11, CTA chest was done and returned neative for PE. She returns today as she continued to feel unwell, increasing genralized fatigue and malaise. At home she noted her 02 sat in the 80s and presented to ER. Labs today notable for elevated CRP 55, GEE with cr 2.0, hyponatremia with NA 129. ROS+ dyspnea, cough. No chest pain or palpitations Hosp course Patient was admitted for management of acute hypoxic respiratory failure secondary to COVID-19 pneumonia, at home she uses 2 L of oxygen, after getting remdesivir 4 doses, her O2 saturation was 95% on 2 L, her symptoms improved, she suffered from steroid-induced hyperglycemia for which she required moderate dose sliding scale and Lantus 20 units, she also had episodic hypertensive episodes for which she required labetalol IV push. On 12/15 code stroke was called for dysarthria NIH 2 not a TPA candidate CTA head and neck was done which revealed 70% in-stent stenosis of left internal carotid. at the bedside at the time of discharge stating at home she gets episodic slurring of speech and she has residual right-sided arm and leg weakness. He thinks she is at baseline and would like to take her home. Her GEE improved with fluid resuscitation. I have requested patient and her to follow-up with neurologist at [place] who put the stent in the left internal carotid for now continue antiplatelet therapy and atorvastatin Medications added: Moderate dose sliding scale given for steroid-induced hyperglycemia Medrol pack Patient would use 2 L of oxygen at home which is her baseline O2 requirement Antibiotics were discontinued her procalcitonin is unremarkable, interleukin-6 number was not administered her CRP was less than 75 Physical Exam Narrative: EXAM NARRATIVE: Was sitting at the bedside, recently had showered Saturating well on 2 to nasal cannula Bilateral breath sound without adventitious rhonchi or crackles Abdomen soft nontender Lower extremity no edema EOMI, PERRLA No active neurological deficits Appropriate mood and affect Discharge Data Data Completed and Pending: Completed Studies During Hospitalization Category Date Time Status CT angio headneck * [id number] Stat Cat Scan 12/15/20 19:[address] head wo con* [id number] Stat Cat Scan 12/15/20 18:25 Completed XR chest 1V papi ble [id number] Urgent Exams 12/13/20 20:54 Completed Labs from last 24 hours 12/16/20 12/16/20 12/15/20 08:28 04:10 21:07 Sodium 133 L Potassium 3.9 Chloride 96 L Carbon Dioxide 25 Anion Gap 15.9 BUN 31 H Creatinine 1.0 H GFR Calculation 54.8 L Glucose 189 H POC Glucose 273 H 317 H Estimat Average Gl ucose Hemoglobin A1c Calculated Osmolal ity 288 Calcium 9.0 Lactate Dehydrogen ase 320 H C-Reactive Protein 25.1 H 12/15/20 12/15/20 12/15/20 16:55 11:50 05:06 Sodium Potassium Chloride Carbon Dioxide Anion Gap BUN Creatinine GFR Calculation Glucose POC Glucose 355 H 436 H Estimat Average Gl ucose 163 Hemoglobin A1c 7.3 H Calculated Osmolal ity Calcium Lactate Dehydrogen ase C-Reactive Protein Vitals: Last Vital Signs Temp 96.4 F L 12/16/20 08:15 Pulse 66 12/16/20 10:30 Resp 20 H 12/16/20 10:30 BP 141/77 12/16/20 10:30 Pulse Ox 95 12/16/20 10:30 Discharge Plan Discharge Patient Disposition: Home Condition: Stable Prescriptions: New Humalog KwikPen Insulin 100 unit/mL insulin pen See Rx Instructions .ROUTE .COMPLEX MDD 10U Qty: 3 RF: 0 methylprednisolone [Medrol (Tashi)] 4 mg tablets,dose pack See Rx Instructions .ROUTE .COMPLEX Qty: 21 RF: 0 Continued carvedilol 12.5 mg tablet 12.5 mg PO DAILY RF: 0 clopidogrel 75 mg tablet 75 mg PO DAILY RF: 0 simvastatin 40 mg tablet 40 mg PO DAILY RF: 0 metformin 1,000 mg Tablet 1,000 mg PO BID RF: 0 hydrochlorothiazide 25 mg tablet 25 mg PO DAILY RF: 0 gabapentin 100 mg capsule 100 mg PO DAILY RF: 0 lisinopril 40 mg tablet 40 mg PO DAILY RF: 0 duloxetine 60 mg capsule,delayed release(DR/EC) 60 mg PO DAILY RF: 0 zinc 50 mg Tablet 50 mg PO DAILY RF: 0 Vitamin D3 50 mcg (2,000 unit) Tablet 50 mcg PO DAILY RF: 0 Discontinued glimepiride 4 mg tablet 4 mg PO BID RF: 0 Discharge Orders: Discharge Order (Routine); Ordered 12/16/20 Ordered By: Franck Hernández Other Ambulatory Orders: DME: Gary (Order) Location: None Selected Ordered By: Franck Hernández Discharge Diet: Diabetic Discharge Activity: Increase activity as tolerated Patient Instructions: Severe Acute Respiratory Syndrome (SARS) (DC), Opioid Safety Activity Restrictions/Additional Instructions: We will require insulin for steroid-induced high blood sugar levels which will only be used for 1 week Blood sugar 140 to 180 mg/dL take insulin 2 units 1 81-220 take units insulin 4 units 221-260 insulin 6 units 261-300 insulin 8U 301 350 insulin 10 units 351 to 400 mg/dL insulin 12 units And if blood sugar stays consistently above 300 you can discontinue Medrol pack steroids You can increase her oxygen requirement up to 5 L at home but if you are requiring more than 5 L and oxygen saturation is not improving above 90% please come to the ER for further evaluation Discharge Attestations Time Spent in Discharge Care*: less than 30 min Quality Metrics Clinical Quality Measures During this hospital stay, did patient experience: None Coding Level of Care Code Acute Chg FW DC note Diagnoses Acute dehydration E86.0 Acute kidney injury N17.9 Diabetes E11.9 COVID-19 U07.1
[2020-12-16 12:03] LABS: Glucose Point of Care 280 mg/dL (70-110)
--- NOTE | 2020-12-16 13:11 | PC.NURSE ---
Patient is being discharged. Nurse removed IV, provided patient education regarding new home meds (insuline and methylprednisolone). Nurse instruction patient and spouse on how to assess blood sugar and how to administer insulin using the sliding scale. patent left with all belongings. Picked up by spouse.
== END 2020-12-16 13:14 | disposition home or self-care (01) | DRG 177 ==
LOC: ER 20:47 → ICU 12-14 00:27
PROVIDERS: Admitting Provider Student in an Organized Health Care Education/Training Program; Emergency Provider Emergency Medicine; PCP Family Medicine; Visit Provider Internal Medicine
DX: U07.1 COVID-19 (principal); J12.82 Pneumonia due to coronavirus disease 2019; J96.01 Acute respiratory failure with hypoxia; N17.9 Acute kidney failure, unspecified; E87.1 Hypo-osmolality and hyponatremia; I69.951 Hemiplegia and hemiparesis following unspecified cerebrovascular disease affecting right dominant side; E86.0 Dehydration; E11.65 Type 2 diabetes mellitus with hyperglycemia; T38.0X5A Adverse effect of glucocorticoids and synthetic analogues, initial encounter; I10 Essential (primary) hypertension; I65.22 Occlusion and stenosis of left carotid artery; I69.922 Dysarthria following unspecified cerebrovascular disease; Z79.02 Long term (current) use of antithrombotics/antiplatelets
CPT/HCPCS: 36415; 36416; 36600; 70450; 70496; 70498; 71045; 71275; 80048; 80053; 81001; 82728; 82803; 82962; 83036; 83605; 83615; 83880; 84145; 85025; 85378; 86140; 87040; 93005; 94640; 94664; 96365; 96372; 97161; 99284; 99285; J0360; J0696; J1100; J1650; J1815 ×2; J2270; J3490; J7030; J7040; J7626; Q9967

== ENCOUNTER 2021-03-09 11:33 | Outpatient (CLI) | payer MEDICARE, BC, SELFPAY ==
[2021-03-09 12:05] LABS: D Dimer 0.68 ug/mIFEU (0-0.59)
[2021-03-09 12:08] LABS: Troponin T (5th) Once 30 ng/L (0-10)
[2021-03-09 12:14] LABS: NT Pro B Type Natriuretic Pept 2217 pg/mL (0-125)
[2021-03-09 13:53] LABS: Basophils # 0.1 10^3/uL (0.0-0.1); Basophils % 0.5 %; Eosinophils # 0.2 10^3/uL (0.0-0.8); Eosinophils % 1.6 %; Hematocrit 34.4 % (37.0-47.0); Hemoglobin 10.7 g/dL (11.5-15.3); Lymphocytes # 0.9 10^3/uL (0.8-4.8); Lymphocytes % 9.4 %; Mean Corpuscular HGB Conc 31.1 g/dL (30.0-36.0); Mean Corpuscular Hemoglobin 30.2 pg (28.0-34.0); Mean Corpuscular Volume 97.2 fl (81-99); Mean Platelet Volume 10.2 fL (7.4-10.4); Monocytes # 0.7 10^3/uL (0.2-0.9); Monocytes % 7.5 %; Neutrophils # 8.02 10^3/uL (1.8-7.7); Neutrophils % 80.7 %; Nucleated Red Blood Cells % 0 %; Platelet Count 298 10^3/cmm (130-400); Red Blood Count 3.54 10^6/uL (4.1-5.3); Red Cell Distribution Width 13.9 % (12.1-15.1); White Blood Count 9.9 10^3/uL (4.0-10.0)
[2021-03-09 14:06] LABS: Alanine Aminotransferase 9 U/L (0-33); Albumin Level 4.1 g/dL (3.5-5.2); Alkaline Phosphatase 48 IU/L (35-105); Anion Gap 16.2 (5-19); Aspartate Amino Transferase 10 U/L (0-32); Blood Urea Nitrogen 22 mg/dL (8-23); Calcium 9.9 mg/dL (8.5-10.5); Carbon Dioxide 27 mmol/L (22-29); Chloride 100 mmol/L (98-107); Globulin 2.6 g/dL (1.3-4.6); Glomerular Filtration Rate 49.1 mL/min (90-130); Glucose 162 mg/dL (65-115); Osmolality Calculated 295 mOsm/kg (285-295); Potassium 4.2 mmol/L (3.5-5.1); Sodium 139 mmol/L (136-145); Total Bilirubin 0.3 mg/dL (0.15-1.2); Total Protein 6.7 g/dL (6.6-8.7)
== END 2021-03-09 11:34 | disposition home or self-care (01) ==
PROVIDERS: PCP Family Medicine; Visit Provider Family Medicine
DX: R06.00 Dyspnea, unspecified (principal)
CPT/HCPCS: 80053; 83880; 84484; 85025; 85378

== ENCOUNTER 2021-03-09 14:54 | Inpatient (IN) | payer MEDICARE, BC, SELFPAY ==
[2021-03-09] VITALS (9 sets, daily range): BP systolic 148–174; BP diastolic 74–107; PULSE 95–156; RESP 14–43; TEMP 36.4–36.7; O2SAT 96–100
--- NOTE | 2021-03-09 15:15 | XR_ITS ---
WS: [id number] XR chest 1V portable [id number] REASON FOR EXAM: CHF/new onset afib FINDINGS: Compared to the previous examination 12/13/2020. There has been some interval clearing of the pleural pericardial reaction and atelectasis/infiltrate in the left costophrenic angle. There are new vague lung opacities overlying the right costophrenic angle. No other significant interval change is identified. XR/XR chest 1V portable [id number] IMPRESSION: Presumed resolving inflammatory changes in the left chest as above. The right lung opacities as above. Uncertain significance and chronicity. Follow-up chest x-ray recommended.
--- NOTE | 2021-03-09 15:15 | ECG_ITS ---
[facility] Test Date: 2021-03-09 Pat Name: Terese Yates Department: Room: Gender: Female Gamma Ray Operator: : 1950 Requested By: Garry Blevins Order Number: [id number] Jermain MD: Renetta Graham M.D. Measurements Intervals [place] Rate: 154 P: CT: QRS: -41 QRSD: 111 T: 85 QT: 286 QTc: 458 Interpretive Statements ATRIAL FIBRILLATION WITH RAPID VENTRICULAR RESPONSE LEFT AXIS DEVIATION [QRS AXIS < -30] VOLTAGE CRITERIA FOR LVH POSSIBLE ANTERIOR MYOCARDIAL INFARCTION , OF INDETERMINATE AGE Compared to ECG 12/13/2020 21:10:49 Myocardial infarct finding now present Sinus rhythm no longer present T-wave abnormality no longer present Electronically Signed On 03-09-2021 22:05:26 CDT by Renetta Graham M.D. [id number]
--- NOTE | 2021-03-09 15:17 | ED_ITS ---
HPI - Chest Pain General: Chief Complaint: Chest Pain Stated Complaint: heart beating too fast/Dr. Kirk sent over Time Seen by Provider: 03/09/21 15:08 History of Present Illness: HPI narrative: 70-year-old female presents emergency room with complaint of rapid heart rate. She was seen in her doctor's office today was found to be in A. fib with RVR is moderately short of breath. States she has been having this for couple of weeks. She denies any chest pain has not had any vomiting or diarrhea. She has noticeable swelling in the lower extremities. MD complaint: chest pain and chest heaviness Onset (ago): week(s) (2-3) Timing of current episode: constant Onset: during rest Pain location: left chest Pain radiation: none Severity: moderate Quality: tightness, aching and heaviness Relieving factors: nothing Exacerbating factors: exertion, supine and movement Associated symptoms: Reports leg edema and nausea; Deny abdominal pain, diaphoresis, dyspnea, fever(s), palpitations, sense of impending doom, syncope or vomiting Treatment prior to arrival: none Review of Systems Const: Denies: fever(s) or diaphoresis ENMT: Denies: throat pain, ear or mastoid pain, nasal discharge or nasal congestion Card: Denies: palpitations or syncope Resp: Denies: dyspnea GI: Reports: nausea; Denies: abdominal pain or vomiting : Denies: flank pain, difficulty voiding, dysuria, urinary frequency or urinary urgency Skin/Breast: Denies: rash or pruritus PFSH ED PFSH: Medical History Breast cancer COVID-19 CVA (cerebral vascular accident) Diabetes DM type 2 (diabetes mellitus, type 2) HTN (hypertension) Peripheral neuropathy Presence of internal carotid stent Surgical History H/O partial mastectomy R H/O: hysterectomy History of cataract surgery History of removal of Port-a-Cath Hx of total hip arthroplasty Family History Mother CAD (coronary artery disease) Social History Smoking and tobacco status: never smoked Alcohol intake: never Substance/Drug Use: never Lives independently: Yes Marital status: Physical Exam Const: COMMON NORMALS: no acute distress GENERAL APPEARANCE: cooperative and comfortable ORIENTATION/CONSCIOUSNESS: Yes awake, Yes oriented to person, Yes oriented to place and Yes oriented to time HENMT: COMMON NORMALS: normocephalic, atraumatic and hearing grossly normal bilaterally HEAD & SCALP: normocephalic and atraumatic Neck/C-Spine: COMMON NORMALS: full ROM, no lymphadenopathy and supple Lymph: LYMPHATIC: no lymphadenopathy noted and no lymphedema noted Resp: AUSCULTATION: crackles (Bases) Laterality: bilateral Cardio: RATE: tachycardic RHYTHM: abnormal rhythm irregularly irregular GI: COMMON NORMALS: Soft to palpation and No hepatosplenomegaly present AUSCULTATION: Yes normoactive bowel sounds PALPATION: Yes Soft to palpation, No Tenderness to palpation present (GI), No Guarding due to palpation present (GI) and Yes No hepatosplenomegaly present Extremity: COMMON NORMALS: normal to inspection, capillary refill normal, no clubbing, cyanosis or edema, no calf tenderness and no pedal edema Neuro: SENSORIUM/ORIENTATION: Yes oriented to person, Yes oriented to place and Yes oriented to time Skin: COMMON NORMALS: no rashes or lesions noted GENERAL SKIN EXAM: no rashes or lesions noted Course Vital Signs: Vital signs: Vital Signs Temperature 98 F 03/10/21 03:45 Pulse Rate 58 L 03/10/21 13:38 Respiratory Rate 16 03/10/21 13:38 Blood Pressure 138/77 03/10/21 13:38 Pulse Oximetry 96 03/10/21 03:45 MDM - Chest Pain Lab Data: Labs: Lab Results 03/09/21 03/09/21 03/09/21 15:32 15:32 15:32 WBC 10.1 10^3/uL H 10 ^3/uL (4.0-10.0) RBC 3.36 10^6/uL L 10 ^6/uL (4.1-5.3) Hgb 10.2 g/dL L g/dL (11.5-15.3) Hct 31.7 % L % (37.0-47.0) MCV 94.3 fl fl (81-99) MCH 30.4 pg pg (28.0-34.0) MCHC 32.2 g/dL g/dL (30.0-36.0) RDW 13.8 % % (12.1-15.1) Plt Count 282 10^3/cmm 10^3 /cmm (130-400) MPV 10.1 fL fL (7.4-10.4) Neut % (Auto) 78.9 % % Lymph % (Auto) 11.4 % % Sharp % (Auto) 7.3 % % Eos % (Auto) 1.4 % % Baso % (Auto) 0.6 % % Neut # (Auto) 7.99 10^3/uL H 10 ^3/uL (1.8-7.7) Lymph # (Auto) 1.2 10^3/uL 10^3/ uL (0.8-4.8) Sharp # (Auto) 0.7 10^3/uL 10^3/ uL (0.2-0.9) Eos # (Auto) 0.1 10^3/uL 10^3/ uL (0.0-0.8) Baso # (Auto) 0.1 10^3/uL 10^3/ uL (0.0-0.1) Nucleated RBC % (a uto) 0 % % Nucleated RBCs # 0.0 /100WBC /100W BC PT 13.90 SECONDS SEC ONDS (12.1-14.9) INR 1.04 (0.8-1.2) APTT 34.0 SECONDS SECO NDS (23.9-36.7) Sodium 135 mmol/L L mmol /L (136-145) Potassium 4.0 mmol/L mmol/L (3.5-5.1) Chloride 96 mmol/L L mmol/ L (98-107) Carbon Dioxide 25 mmol/L mmol/L (22-29) Anion Gap 18.0 (5-19) BUN 23 mg/dL mg/dL (8-23) Creatinine 1.2 mg/dL H mg/dL (0.5-0.9) GFR Calculation 44.4 mL/min L mL/ min (90-130) Glucose 151 mg/dL H mg/dL (65-115) Calculated Osmolal ity 287 mOsm/kg mOsm/ kg (285-295) Calcium 9.3 mg/dL mg/dL (8.5-10.5) Magnesium Total Bilirubin 0.3 mg/dL mg/dL (0.15-1.2) AST 9 U/L U/L (0-32) ALT 9 U/L U/L (0-33) Alkaline Phosphata se 44 IU/L IU/L (35-105) Troponin T Baselin e NT-Pro-B Natriuret Pep 2396 pg/mL H pg/m L (0-125) Total Protein 6.8 g/dL g/dL (6.6-8.7) Albumin 4.0 g/dL g/dL (3.5-5.2) Globulin 2.8 g/dL g/dL (1.3-4.6) TSH Urine Color Urine Appearance Urine pH Ur Specific Gravit y Urine Protein Urine Glucose (UA) Urine Ketones Urine Blood Urine Nitrate Urine Bilirubin Urine Urobilinogen Ur Leukocyte Tanya ase Urine RBC Urine WBC Ur Squamous Epith Cells Amorphous Sediment Urine Bacteria Urine Mucus 03/09/21 03/09/21 03/09/21 15:32 15:32 16:07 WBC RBC Hgb Hct MCV MCH MCHC RDW Plt Count MPV Neut % (Auto) Lymph % (Auto) Sharp % (Auto) Eos % (Auto) Baso % (Auto) Neut # (Auto) Lymph # (Auto) Sharp # (Auto) Eos # (Auto) Baso # (Auto) Nucleated RBC % (a uto) Nucleated RBCs # PT INR APTT Sodium Potassium Chloride Carbon Dioxide Anion Gap BUN Creatinine GFR Calculation Glucose Calculated Osmolal ity Calcium Magnesium 1.1 mg/dL L mg/dL (1.7-2.3) Total Bilirubin AST ALT Alkaline Phosphata se Troponin T Baselin e 29 ng/L H ng/L (0-10) NT-Pro-B Natriuret Pep Total Protein Albumin Globulin TSH 1.15 uIU/mL uIU/m L (0.27-4.20) Urine Color Straw (Yellow) Urine Appearance Clear (CLEAR) Urine pH 6.5 (5-7) Ur Specific Gravit y 1.005 (1.005-1.030) Urine Protein Trace (Negative) Urine Glucose (UA) Norm (Normal) Urine Ketones Negative (Negative) Urine Blood Neg (Negative) Urine Nitrate Negative (Negative) Urine Bilirubin Neg (Negative) Urine Urobilinogen Norm mg/dL mg/dL (Negative) Ur Leukocyte Tanya ase Negative (Negative) Urine RBC None /hpf /hpf (0-2) Urine WBC None /hpf /hpf (0-5) Ur Squamous Epith Cells 0-4 /hpf H /hpf (0-5) Amorphous Sediment Not Reportable Urine Bacteria Trace /hpf /hpf (NONE) Urine Mucus Trace /hpf /hpf Discharge Plan Discharge Admit Provider: Dru Greene Coding Level of Care Code ED Membership Solicitor for Chg Fwd Exam Comprehensive
[2021-03-09] MEDS: FUROsemide 10 mg/mL SDV 4mL 40 MG IVP (15:48)
[2021-03-09 16:31] LABS: Basophils # 0.1 10^3/uL (0.0-0.1); Basophils % 0.6 %; Eosinophils # 0.1 10^3/uL (0.0-0.8); Eosinophils % 1.4 %; Hematocrit 31.7 % (37.0-47.0); Hemoglobin 10.2 g/dL (11.5-15.3); Lymphocytes # 1.2 10^3/uL (0.8-4.8); Lymphocytes % 11.4 %; Mean Corpuscular HGB Conc 32.2 g/dL (30.0-36.0); Mean Corpuscular Hemoglobin 30.4 pg (28.0-34.0); Mean Corpuscular Volume 94.3 fl (81-99); Mean Platelet Volume 10.1 fL (7.4-10.4); Monocytes # 0.7 10^3/uL (0.2-0.9); Monocytes % 7.3 %; Neutrophils # 7.99 10^3/uL (1.8-7.7); Neutrophils % 78.9 %; Nucleated Red Blood Cells % 0 %; Platelet Count 282 10^3/cmm (130-400); Red Blood Count 3.36 10^6/uL (4.1-5.3); Red Cell Distribution Width 13.8 % (12.1-15.1); White Blood Count 10.1 10^3/uL (4.0-10.0)
[2021-03-09 16:51] LABS: INR 1.04 (0.8-1.2)
[2021-03-09 17:05] LABS: Troponin(5th) Baseline 29 ng/L (0-10)
[2021-03-09 17:13] LABS: Add Urine Microscopic? YES; Bilirubin Urine Neg (Negative); Blood Urine Neg (Negative); Glucose Urine UA Norm (Normal); Ketones Urine Negative (Negative); Leukocyte Esterase Urine Negative (Negative); Nitrate Urine Negative (Negative); Protein Urine Trace (Negative); Specific Gravity, Urine 1.005 (1.005-1.030); Urine Appearance Clear (CLEAR); Urine Color Straw (Yellow); Urobilinogen Urine Norm (Negative); pH Urine 6.5 (5-7)
[2021-03-09 17:13] LABS: Alanine Aminotransferase 9 U/L (0-33); Alkaline Phosphatase 44 IU/L (35-105); Aspartate Amino Transferase 9 U/L (0-32); Blood Urea Nitrogen 23 mg/dL (8-23); Calcium 9.3 mg/dL (8.5-10.5); Carbon Dioxide 25 mmol/L (22-29); Chloride 96 mmol/L (98-107); Globulin 2.8 g/dL (1.3-4.6); Glomerular Filtration Rate 44.4 mL/min (90-130); Glucose 151 mg/dL (65-115); NT Pro B Type Natriuretic Pept 2396 pg/mL (0-125); Osmolality Calculated 287 mOsm/kg (285-295); Sodium 135 mmol/L (136-145); Total Bilirubin 0.3 mg/dL (0.15-1.2); Total Protein 6.8 g/dL (6.6-8.7)
[2021-03-09 17:37] LABS: Add Urine Culture? No; Bacteria Urine TRACE /hpf; Mucus Urine TRACE /hpf; Squamous Epithelial Cell Urine 0-4 /hpf (0-5)
[2021-03-09 18:18] LABS: Magnesium 1.1 mg/dL (1.7-2.3); Thyroid Stimulating Hormone 1.15 uIU/mL (0.27-4.20)
[2021-03-09 18:43] LABS: Troponin 5 2HR 28.65 ng/L (0-10)
--- NOTE | 2021-03-09 18:43 | P.HP_ITS ---
Providers/Chief Complaint Admitting Physician: Dru Greene Primary Care Provider: Jan Kirk MD Chief Complaint: heart beating too fast/Dr. Kirk sent over History of Present Illness Lady with history of COVID-19 in November, history of CVA, chronic dysarthria, chronic right-sided weakness, history of right carotid artery stenosis with stenting, with reported in-stent stenosis during prior admission, followed up with surgery subsequently and was told no additional intervention is needed currently other past medical history as below, was urged today to seek medical attention by her and son due to them noticing tachypnea, and on presentation to ER found to be in A. fib with RVR with heart rates in 150s, without adequate response to 20 mg IV push diltiazem, started on diltiazem drip, had to be uptitrated up to 15 mg/h. Currently heart rates will bit better, varying between 100s, 120s, momentarily sometimes into 140s-150s. She denies any chest pain or pressure. He is otherwise pretty much asymptomatic. States has been at baseline state of health otherwise. Review of Systems Const: Denies: fever(s), chills, body aches or malaise Eyes: Denies: change in vision or eye redness ENMT: Denies: throat pain, oral sores or ear or mastoid pain Card: Denies: chest pain, edema, pre-syncope or dyspnea on exertion Resp: Denies: dyspnea, productive cough, change in phlegm color or hemoptysis GI: Denies: abdominal pain, nausea, vomiting, diarrhea, constipation, hematochezia or melena : Denies: flank pain, urinary frequency or hematuria Musc: Denies: back pain, joint swelling or joint redness Skin/Breast: Denies: rash, sores or new lesions Neuro: Reports: weakness in extremities (Chronic R side) and difficulty communicating thoughts (chronic dysarthria); Denies: headache(s), numbness in extremities, dizziness, confusion or seizure- like activity Endo: Denies: polyuria or polydipsia Keven/Lymph: Denies: easy bleeding or purpura All/Imm: Denies: urticaria, throat swelling or tongue swelling Medications/Allergies Home Medications Medication Instructions Recorded Confirmed Last Taken Type Vitamin D3 50 mcg PO DAILY 12/14/20 12/14/20 12/13/20 History carvedilol 12.5 mg PO DAILY 12/14/20 12/14/20 12/13/20 History clopidogrel 75 mg PO DAILY 12/14/20 12/14/20 12/13/20 History duloxetine 60 mg PO DAILY 12/14/20 12/14/20 12/13/20 History gabapentin 100 mg PO DAILY 12/14/20 12/14/20 12/13/20 History hydrochlorothiazide 25 mg PO DAILY 12/14/20 12/14/20 12/13/20 History lisinopril 40 mg PO DAILY 12/14/20 12/14/20 12/13/20 History metformin 1,000 mg PO BID 12/14/20 12/14/20 12/13/20 History simvastatin 40 mg PO DAILY 12/14/20 12/14/20 12/13/20 History zinc 50 mg PO DAILY 12/14/20 12/14/20 12/13/20 History insulin lispro [Humalog KwikPen See Rx Instructions .ROUTE 12/16/20 Unknown Rx Insulin] .COMPLEX #3 ml MDD 10U methylprednisolone [Medrol (Tashi)] See Rx Instructions .ROUTE 12/16/20 Unknown Rx .COMPLEX #21 ea Allergies Allergy/AdvReac Type Severity Reaction Status Date / Time Penicillins Allergy ALGY-Hives Verified 12/11/20 06:27 PFSH Acute PFSH: Medical History Breast cancer COVID-19 CVA (cerebral vascular accident) Diabetes DM type 2 (diabetes mellitus, type 2) HTN (hypertension) Peripheral neuropathy Presence of internal carotid stent Surgical History (Updated 03/09/21 @ 19:02 by Dru Greene MD) H/O partial mastectomy R H/O: hysterectomy History of cataract surgery History of removal of Port-a-Cath Hx of total hip arthroplasty Family History Mother CAD (coronary artery disease) Social History Smoking and tobacco status: never smoked Alcohol intake: never Substance/Drug Use: never Lives independently: Yes Marital status: Vitals/I&O/Wt Last Vital Signs Temp 97.6 F 03/09/21 15:11 Pulse 121 H 03/09/21 18:23 Resp 14 03/09/21 18:23 BP 174/107 03/09/21 15:11 Pulse Ox 96 03/09/21 15:15 03/09/21 03/09/21 03/09/21 06:59 14:59 22:59 Intake Total 11.883 / 11.883 Balance 11.883 / 11.883 Physical Exam Const: COMMON NORMALS: no acute distress and patient oriented x3 HENMT: COMMON NORMALS: oropharynx normal Neck/C-Spine: COMMON NORMALS: no JVD Resp: COMMON NORMALS: normal respiratory effort and clear to auscultation bilaterally AUSCULTATION: clear to auscultation bilaterally Cardio: COMMON NORMALS: no JVD, regular rhythm, S1 normal heart sound present, S2 normal heart sound present and No murmurs present (Cardio) RATE: tachycardic RHYTHM: abnormal rhythm irregularly irregular HEART SOUNDS: S1 normal heart sound present and S2 normal heart sound present GI: COMMON NORMALS: Normal to inspection, nondistended, normoactive bowel sounds present, Soft to palpation and non-tender PALPATION: Yes Soft to pa lpation Extremity: COMMON NORMALS: no joint enlargement and no pedal edema Neuro: COMMON NORMALS: patient oriented x3 and moves all extremities SPEECH: abnormal speech Details: slurred (mild) and expressive aphasia (mild) MOTOR EXAM: Other motor observations present (R side weak, 3+/5) Skin: COMMON NORMALS: no rashes or lesions noted GENERAL SKIN EXAM: no rashes or lesions noted Data : 03/09/21 15:32 03/09/21 15:32 A&P Assessment and plan (1) Paroxysmal atrial fibrillation with RVR: New onset A. fib with RVR, although is largely asymptomatic from it, apart from her family noticing some tachypnea, so was urged to come to the hospital. Received 20 mg Cardizem, with inadequate response started on Cardizem drip. Heart rate currently somewhat better in the 20s, tachypnea resolved. No chest pain or pressure. Denies shortness of breath. No other recent symptoms. TSH check is normal. Potassium okay, but does have quite significant hyp omagnesemia. Discussed with her. Additional assessment by TTE once heart rate comes down. Continue Cardizem drip, add metoprolol p.o. Replace magnesium. Complete troponin and EKG series. Discussed with her risk of CVA with elevated [id number] score. She is agreeable to start anticoagulation after discussion of risk of bleeding, potential benefits and different anticoagulation options. She would prefer to continue treatment with Eliquis, but first we will start Lovenox. Additional assessment by duplex of right lower extremity due to swelling there worse than left side, as well as VQ scan given new onset A. fib with RVR. Status: Acute (2) New onset a-fib: As above. Additionally would benefit from risk stratification by stress testing at some point. Status: Acute (3) Right leg swelling: Reports swelling in the right leg following her hip surgery, also is weak on the right side following her CVA. Elevated risk of DVT. Will assess by lower extremity duplex, VQ scan. Anticoagulation as above. Status: Acute Additional A&P Information Patient also have chronic kidney disease, creatinine close to baseline at 1.2 DM2 with peripheral neuropathy HTN Recent COVID-19 Past CVA Carotid artery stent Other comorbidities noted Attestations Medical Necessity Statement*: Admission of over 2 midnights is going to be needed for his management of A. fib with RVR not responsive to initial treatment so far with maximal dose of IV Cardizem infusion. 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
[2021-03-09 18:44] LABS: Troponin 5 2HR Delta -0.35 ABS# (0-10)
--- NOTE | 2021-03-09 19:40 | PC.NURSE ---
Admit Note Patient admitted to [facility] room 105 from ED via stretcher. Med rec completed. Covering service notified.Patient presents with increased feeling of fatigue and tiredness. Orders reviewed & will continue to monitor. Patient and/or specialty sales representative oriented to environment, equipment, and informed of the following as found in the admission booklet: patient rights & responsibilities, visitor policy, hand and respiratory hygiene practice. Other education includes: admission education, cardizem, metoprolol and telemetry. Patient verbalized complete understanding. Patient resting in bed watching tv presently. Cardizem drip at 15ml/hr. Current heart rate 110s to 130s. Patient denies pain or other needs presently. No distress observed.
[2021-03-09] MEDS: magnesium sulfate premix 2 GM/50 ML PIGGYBACK IV (20:04)
[2021-03-09] MEDS: enoxaparin 100 mg/mL Syringe 95 MG SUBCUT (20:04)
[2021-03-09] MEDS: metoprolol tartrate 50 mg Tablet 25 MG PO (20:05)
--- NOTE | 2021-03-09 21:15 | ECG_ITS ---
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 Measurements Intervals [place] Rate: 119 P: SD: QRS: -32 QRSD: 103 T: 121 QT: 335 QTc: 473 Interpretive Statements ATRIAL FIBRILLATION WITH RAPID VENTRICULAR RESPONSE LEFT AXIS DEVIATION [QRS AXIS < -30] NONSPECIFIC ST & T-WAVE ABNORMALITY Compared to ECG 03/09/2021 15:05:27 T-wave abnormality now present Left ventricular hypertrophy no longer present Myocardial infarct finding no longer present Electronically Signed On 03-10-2021 20:06:21 CDT by Elizabeth Tabor M.D. [email or web address]
[2021-03-09] MEDS: atorvastatin 40 mg Tablet 20 MG PO (21:21)
--- NOTE | 2021-03-09 21:43 | PC.NURSE ---
Patient heart rate currently mid 80s to low 100s. Decreased cardizem drip to 10/ml per hour presently. Patient denies pain or needs. No distress observed.
[2021-03-10] VITALS (10 sets, daily range): BP systolic 110–162; BP diastolic 75–87; PULSE 58–102; RESP 16–26; TEMP 36.6; O2SAT 92–96
[2021-03-10 03:43] LABS: Basophils # 0.1 10^3/uL (0.0-0.1); Basophils % 0.5 %; Eosinophils # 0.2 10^3/uL (0.0-0.8); Eosinophils % 2.2 %; Hematocrit 32.1 % (37.0-47.0); Hemoglobin 10.3 g/dL (11.5-15.3); Lymphocytes # 1.4 10^3/uL (0.8-4.8); Lymphocytes % 15.2 %; Mean Corpuscular HGB Conc 32.1 g/dL (30.0-36.0); Mean Corpuscular Hemoglobin 30.2 pg (28.0-34.0); Mean Corpuscular Volume 94.1 fl (81-99); Mean Platelet Volume 9.8 fL (7.4-10.4); Monocytes # 0.9 10^3/uL (0.2-0.9); Monocytes % 9.1 %; Neutrophils # 6.82 10^3/uL (1.8-7.7); Neutrophils % 72.7 %; Nucleated Red Blood Cells % 0 %; Platelet Count 286 10^3/cmm (130-400); Red Blood Count 3.41 10^6/uL (4.1-5.3); White Blood Count 9.4 10^3/uL (4.0-10.0)
[2021-03-10 04:13] LABS: Alanine Aminotransferase 8 U/L (0-33); Alkaline Phosphatase 46 IU/L (35-105); Anion Gap 16.5 (5-19); Aspartate Amino Transferase 10 U/L (0-32); Blood Urea Nitrogen 25 mg/dL (8-23); Calcium 9.6 mg/dL (8.5-10.5); Carbon Dioxide 25 mmol/L (22-29); Chloride 99 mmol/L (98-107); Globulin 3.1 g/dL (1.3-4.6); Glomerular Filtration Rate 49.1 mL/min (90-130); Glucose 149 mg/dL (65-115); Magnesium 1.5 mg/dL (1.7-2.3); Osmolality Calculated 291 mOsm/kg (285-295); Potassium 3.5 mmol/L (3.5-5.1); Sodium 137 mmol/L (136-145); Total Bilirubin 0.3 mg/dL (0.15-1.2); Total Protein 7.1 g/dL (6.6-8.7)
--- NOTE | 2021-03-10 06:00 | USCV_ITS ---
Terese Yates Age: 70 Gender: F : 1950 Exam Date: 03/10/2021 06:09 Ordering Phys: Dru Greene MD Technologist: JOSUE Exam Location: [facility] [place] Indication: SWELLING HISTORY: Lower extremity edema. PROCEDURES: The following venous structures were evaluated: common femoral vein, profunda vein, proximal portion of the greater saphenous vein, superficial femoral vein, and the popliteal vein. In addition, the posterior tibial and peroneal trunk were evaluated. FINDINGS: Normal 2-D Doppler and augmentation and compressibility throughout the lower extremity venous structures. Additional imaging through the proximal calf veins also reveals no thrombus. Limited evaluation of the greater saphenous vein is patent with no thrombus.. CONCLUSIONS No DVT bilateral lower extremities. Dr. Michelle Polanco DO (Electronically Signed) Final Date: 10 March 2021 08:04 S
--- NOTE | 2021-03-10 06:11 | PC.NURSE ---
Shift Note Frequent safety and comfort rounds continue. Orders and/or nursing care completed as indicated. Patient monitored for response to intervention and treatment(s). Education provided includes cardizem and metoprolol. Patient verbalized understanding but will need continued reinforcement of teaching. Patient reports loosing her words and having increased loss of memory at times . Cardizem drip continues to run at 10/ml hr for heart rate 90s to low 100s. Patient denies pain or needs. Patient having ultrasound performed on her legs at this time. No distress observed. Will continue to monitor.
[2021-03-10 06:38] LABS: Glucose Point of Care 172 mg/dL (70-110)
[2021-03-10] MEDS: duloxetine 60 mg Capsule PO (08:32)
[2021-03-10] MEDS: enoxaparin 100 mg/mL Syringe 95 MG SUBCUT ×2 (08:33→20:46)
[2021-03-10] MEDS: metoprolol tartrate 50 mg Tablet 25 MG PO ×2 (08:33→20:46)
[2021-03-10] MEDS: gabapentin 100 mg Capsule PO (08:33)
[2021-03-10] MEDS: clopidogrel 75 mg Tablet PO (08:33)
--- NOTE | 2021-03-10 09:12 | PC.CHAP ---
Pastoral Care Encounter/Spiritual Assessment Type of Contact [] Declined cage tender visit [] Patient/Family/Request visit [] Outpatient visit [] Follow-up visit [] Physician referral [] Code/Alert [x] Routine visit [] Staff referral [] Actively dying [] Patient sleeping [] Family support [] [] Out of room [] Palliative care [] [] Receiving care in room [] Pre-surgical visit [] Trauma [] Long length of stay [] ICU visit [] Other: Relational/Emotional Strength [] Patient feels connected with others/family/visitors/staff [] Distress [] Loneliness/isolation [] Abandonment Spirituality of Patient [] Person of Bibiana [] Attends Buddhist of their Bibiana [] Believes in Prayer [] Reads Bible or Restoration materials [] There are Spiritual issues to be addressed Military Professional Interventions [x] Prayer [x] Active listening [x] Non-anxious presence [x] Spiritual/emotional support [] Crisis/trauma care [] Spiritual counseling [] Bereavement support [] Provided bereavement packet [] Provided Bible/devotional materials [] Provided toy/stuffed animal, coloring book to patient or family member [] Provided Communion [] Anointing/[place] [] Salvation [x] Completed spiritual assessment [] Other: Impact on Illness or Injury [] Angry [] Fearful [] Anxious [] Often cries [] Exhaustion [] Unable to work [] Unable to attend holiness [] Unable to walk/stand [] Unable to read [] Unable to drive [] Unable to eat/drink [] Unable to sleep [] Unable to be with family [] Patient intubated [] Other: Summary feeling stronger... waiting on doctor to discuss issues Time spent with patient 5 min
[2021-03-10] MEDS: magnesium sulfate premix 2 GM/50 ML PIGGYBACK IV (09:52)
--- NOTE | 2021-03-10 12:32 | PC.NURSE ---
EKG changes noted at this time HR 56 NSR cardizem gtt stopped
--- NOTE | 2021-03-10 12:54 | P.PN_ITS ---
Subjective Subjective: Interval history: She says she is doing okay today. Denies any chest pain or pressure. No trouble breathing. Vitals/I&O/Wt Last Vital Signs Temp 98 F 03/10/21 03:45 Pulse 92 03/10/21 08:30 Resp 26 H 03/10/21 08:30 BP 144/87 03/10/21 08:30 Pulse Ox 96 03/10/21 03:45 03/09/21 03/10/21 03/10/21 22:59 06:59 14:59 Intake Total 243.383 / 243.383 51.617 / 295.000 529.417 / 529.417 Output Total 900 / 900 600 / 1500 500 / 500 Balance -656.617 / -656.617 -548.383 / -1205.000 29.417 / 29.417 Weight last 48 hrs Weight 93.531 kg Weight 95.3 kg Physical Exam Const: COMMON NORMALS: no acute distress and patient oriented x3 HENMT: COMMON NORMALS: oropharynx normal Neck/C-Spine: COMMON NORMALS: no JVD Resp: COMMON NORMALS: normal respiratory effort and clear to auscultation bilaterally AUSCULTATION: clear to auscultation bilaterally Cardio: COMMON NORMALS: no JVD, S1 normal heart sound present, S2 normal heart sound present and No murmurs present (Cardio) RATE: tachycardic RHYTHM: abnormal rhythm irregularly irregular HEART SOUNDS: S1 normal heart sound present and S2 normal heart sound present GI: COMMON NORMALS: Normal to inspection, nondistended, normoactive bowel sounds present, Soft to palpation and non-tender PALPATION: Yes Soft to palpation Extremity: COMMON NORMALS: no joint enlargement and no pedal edema Neuro: COMMON NORMALS: patient oriented x3 and moves all extremities SPEECH: abnormal speech Details: slurred (mild) and expressive aphasia (mild) MOTOR EXAM: Other motor observations present (R side weak, 3+/5) Skin: COMMON NORMALS: no rashes or lesions noted GENERAL SKIN EXAM: no rashes or lesions noted Data : 03/10/21 03:30 03/10/21 03:30 A&P Assessment and plan (1) Paroxysmal atrial fibrillation with RVR: This morning heart rate improving, down into the 90s, but still on 15 mg/h Cardizem infusion plus p.o. 25 mg Toprol twice daily. Asymptomatic. VQ scan yesterday without PE. No DVT on lower extremity duplex. Replace hypomagnesemia. Just this afternoon she is converting to sinus rhythm. Cardizem drip stopped. Continue metoprolol. Continue to monitor on telemetry. If further episodes of A. fib with RVR will need to escalate metoprolol, possibly add Cardizem p.o. Blood pressure so far has been holding. Assess TTE now that heart rates are better. Abnormal troponin, 2932 stress test in the morning. Status: Acute (2) New onset a-fib: Assess TTE. Will request stress test for tomorrow morning. Status: Acute (3) Right leg swelling: Reports swelling in the right leg following her hip surgery, also is weak on the right side following her CVA. No DVT on duplex. Status: Acute Additional A&P Information Patient also have chronic kidney disease, creatinine close to baseline at 1.2 DM2 with peripheral neuropathy HTN Recent COVID-19 Past CVA Carotid artery stent Other comorbidities noted Attestations Medical Necessity Statement*: Continue assessment of new onset A. fib with RVR, without clear trigger, optimization of rate control, additional assessment of possible ischemic heart disease with abnormal troponin, CAD risk factors. 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
--- NOTE | 2021-03-10 19:02 | NM_ITS ---
WS: [id number] NUCLEAR MEDICINE VENTILATION/PERFUSION LUNG SCAN HISTORY: assess for PE, new onset AFib, asymmetrical LE swelling COMPARISON: Chest radiograph 03/09/2021 TECHNIQUE: Ventilation: 32.3 mCi of Technetium 99 DTPA aerosol inhaled. Perfusion: 5.3 mCi of technetium 99m MAA IV. Heterogeneous ventilatory appearance of the lungs. Mild deposition of the radionuclide centrally. The se findings are due to patient's chronic pulmonary disease. No wedge-shaped or unmatched defects are noted on the perfusion examination. Heart is moderately enlarged. NM/NM pul vent and perfus* [id number] IMPRESSION: Low probability pulmonary embolism.
--- NOTE | 2021-03-10 19:08 | PC.NURSE ---
Shift Note Frequent safety and comfort rounds continue. Orders and/or nursing care completed as indicated. Patient monitored for response to intervention and treatment(s). Education provided includes stress test. Patient and/or sales support representative verbalized understanding. Will continue to monitor.
[2021-03-10] MEDS: atorvastatin 40 mg Tablet 20 MG PO (20:46)
--- NOTE | 2021-03-10 20:56 | PC.NURSE ---
Received report from ANGELES Chávez. Patient resting in bed watching TV. Patient denies pain or needs presently. Discussed plan for cardiac stress test for tomorrow. Patient verbalized complete understanding. No distress observed. Will continue to delivn.
[2021-03-11] VITALS: PULSE 64; RESP 17
[2021-03-11 03:17] VITALS: BP 164/77; PULSE 81; RESP 30; TEMP 36.4; O2SAT 95
[2021-03-11 05:35] LABS: Magnesium 1.8 mg/dL (1.7-2.3)
[2021-03-11 06:00] VITALS: PULSE 79
--- NOTE | 2021-03-11 07:00 | PC.NURSE ---
Shift Note Frequent safety and comfort rounds continue. Orders and/or nursing care completed as indicated. Patient monitored for response to intervention and treatment(s). Education provided includes Lexiscan. Patient verbalized understanding. Patient had uneventful night. Reports having slept well. Ready for stress test this morning. Will continue to monitor.
[2021-03-11 08:45] VITALS: BP 170/96; PULSE 78; RESP 18
[2021-03-11] MEDS: gabapentin 100 mg Capsule PO (08:45)
[2021-03-11] MEDS: clopidogrel 75 mg Tablet PO (08:45)
[2021-03-11] MEDS: duloxetine 60 mg Capsule PO (08:45)
[2021-03-11] MEDS: enoxaparin 100 mg/mL Syringe 95 MG SUBCUT (08:46)
[2021-03-11] MEDS: metoprolol tartrate 50 mg Tablet 25 MG PO (09:04)
--- NOTE | 2021-03-11 10:40 | PC.CHAP ---
Pastoral Care Encounter/Spiritual Assessment Type of Contact [] Declined automatic thread winder visit [] Patient/Family/Request visit [] Outpatient visit [] Follow-up visit [] Physician referral [] Code/Alert [] Routine visit [] Staff referral [] Actively dying [] Patient sleeping [] Family support [] [] Out of room [] Palliative care [x] [] Receiving care in room [] Pre-surgical visit [] Trauma [] Long length of stay [] ICU visit [x] Other: on life support Relational/Emotional Strength [] Patient feels connected with others/family/visitors/staff [] Distress [] Loneliness/isolation [] Abandonment Spirituality of Patient [] Person of Bibiana [] Attends Mosque of their [place] [] Believes in Prayer [] Reads Bible or Samaritan materials [] There are Spiritual issues to be addressed Meat Blender Interventions [] Prayer [] Active listening [] Non-anxious presence [] Spiritual/emotional support [] Crisis/trauma care [] Spiritual counseling [] Bereavement support [] Provided bereavement packet [] Provided Bible/devotional materials [] Provided toy/stuffed animal, coloring book to patient or family member [] Provided Communion [] Anointing/[place] [] Salvation [] Completed spiritual assessment [] Other: Impact on Illness or Injury [] Angry [] Fearful [] Anxious [] Often cries [] Exhaustion [] Unable to work [] Unable to attend druze [] Unable to walk/stand [] Unable to read [] Unable to drive [] Unable to eat/drink [] Unable to sleep [] Unable to be with family [] Patient intubated [] Other: Summary on life support + may Time spent with patient 10 mins
[2021-03-11 12:00] VITALS: BP 128/88; PULSE 75; RESP 18
--- NOTE | 2021-03-11 12:53 | USCV_ITS ---
Terese Yates Age: 70 Gender: F : 1950 Exam Date: 03/11/2021 12:18 Ordering Phys: Dru Greene MD Technologist: Exam Location: [place] Indication: CHEST PAIN BP: / HR: 47 Rhythm: Sinus Technical Quality: Adequate MEASUREMENTS (Male / Female) Normal Values 2D ECHO LV Diastolic Diameter PLAX 4.4 cm 4.2 - 5.9 / 3.9 - 5.3 cm LV Systolic Diameter PLAX 3.6 cm IVS Diastolic Thickness 1.4 cm 0.6 - 1.0 / 0.6 - 0.9 cm IVS Systolic Thickness 1.5 cm LVPW Diastolic Thickness 1.0 cm 0.6 - 1.0 / 0.6 - 0.9 cm LVPW Systolic Thickness 1.4 cm LVOT Diameter 2.0 cm LV Ejection Fraction 2D Teich 32.1 % LV Ejection Fraction MOD 2C 56.1 % LV Ejection Fraction 2C AL 57.4 % LA Diameter 4.2 cm LA Width 4.6 cm LA Height 6.0 cm RA Width 3.8 cm RA Height 5.6 cm M-MODE LV Diastolic Diameter MM 4.4 cm 4.2 - 5.9 / 3.9 - 5.3 cm LV Systolic Diameter MM 3.6 cm LV Ejection Fraction MM Teich 40.8 % IVS Diastolic Thickness MM 1.0 cm 0.6 - 1.0 / 0.6 - 0.9 cm IVS Systolic Thickness MM 1.6 cm LVPW Diastolic Thickness MM 1.3 cm 0.6 - 1.0 / 0.6 - 0.9 cm LVPW Systolic Thickness MM 2.1 cm RV Diastolic Diameter MM 2.1 cm DOPPLER AV Peak Velocity 137.0 cm/s LVOT Peak Velocity 84.0 cm/s AV Area Cont Eq vti 2.1 cm squared AV Area Cont Eq pk 2.0 cm squared TR Peak Velocity 284.0 cm/s TR Peak Gradient 32.3 mmHg TV Peak E Velocity 73.0 cm/s Right Atrial Pressure 3.0 mmHg Pulmonary Artery Systolic Pressu 35.3 mmHg FINDINGS Left Ventricle Normal left ventricular size. LV systolic function is borderline normal with EF of 50%. Mild global hypokinesis is seen. Diastolic function is indeterminate because of lack of tissue Doppler. Right Ventricle The right ventricle is normal in size and function. Right Atrium The right atrium is normal in size. Left Atrium The left atrium is dilated Mitral Valve Structurally normal mitral valve without significant stenosis or prolapse. There is mild mitral regurgitation. Aortic Valve Structurally normal aortic valve without significant sclerosis or stenosis. There is no aortic regurgitation. Tricuspid Valve Structurally normal tricuspid valve without significant stenosis or regurgitation. Insufficient TR jet to calculate RVSP. Pulmonic Valve Structurally normal pulmonic valve without significant stenosis. There is trivial pulmonic regurgitation. Pericardium Normal pericardium without effusion. Aorta Normal ascending aorta dimension. CONCLUSIONS LV systolic function is borderline normal with EF of 50%. Mild global hypokinesis seen. Diastolic function is indeterminate because of lack of tissue Doppler. The left atrium is dilated Mild mitral regurgitation. Compared to prior echocardiogram from 07/02/2015, LV systolic function is borderline reduced Rajat Sawyer MD (Electronically Signed) Final Date: 11 March 2021 17:54 S
--- NOTE | 2021-03-11 12:53 | PM.DCS ---
Discharge Providers Date of Admission: 03/09/21 17:21 Date of Discharge: March 11, 2021 Attending Provider at Admission: Dru Greene Attending Provider at Discharge: Dru Greene Primary Care Provider: Jan Kirk MD Diagnoses at Discharge Discharge Diagnosis (1) Paroxysmal atrial fibrillation with RVR: Status: Acute (2) New onset a-fib: Status: Acute (3) Right leg swelling: Status: Acute Reason for Visit Reason for Visit: heart beating too fast/Dr. Kirk sent over Hospital Course Hospital Course Pleasant 70-year-old lady with history of COVID-19 in November, history of CVA, chronic dysarthria, chronic right-sided weakness, history of right carotid artery stenosis with stenting, with reported in-stent stenosis during prior admission, followed up with surgery subsequently and was told no additional intervention is needed currently other past medical history as below, was urged today to seek medical attention by her and son due to them noticing tachypnea, and on presentation to ER found to be in new onset A. fib with RVR, heart rates in 150s, unresponsive to initial attempts at treatment with 20 mg IV Cardizem push. Had to be started on Cardizem drip and this had to be uptitrated to maximal infusion dose of 50 mg/h, despite that very slow response. Added also metoprolol by mouth. Eventually with gradual improvement in heart rate, and converted to sinus rhythm. Was started on Lovenox anticoagulation to reduce risk of stroke with elevated chads vasc 2. She did well subsequently with metoprolol by mouth. With chronic right lower extremity swelling, right-sided deficits due to CVA in the past, was additionally assessed by lower extremity duplex for DVT which was negative, and VQ scan was negative for PE. Stress test was planned, however, could not undergo due to recent other nuclear study, she is otherwise feeling well, asymptomatic, and wanting to return home. Stress test is thus requested for her on outpatient basis to closer assess for underlying coronary artery disease contributing to new onset A. fib. Otherwise electrolytes have been okay but was noted to be quite hypomagnesemic, magnesium 1.1 on presentation. Received replacement. Received some potassium supplementation. TSH normal. Echocardiogram was performed, pending interpretation. As per discussion for now continues on Eliquis. Physical examination did not suggest valvular disease, however, if valvular A. fib suggested by echocardiography reticulation will need to be changed. Please follow-up results of echo and stress test. Physical Exam Const: COMMON NORMALS: no acute distress, patient oriented x3 and alert GENERAL APPEARANCE: cooperative and comfortable ORIENTATION/CONSCIOUSNESS: Yes awake OTHER: Pleasant, conversant. Not in any discomfort. Wants to go home. HENMT: COMMON NORMALS: oropharynx normal Neck/C-Spine: COMMON NORMALS: no JVD Resp: COMMON NORMALS: normal respiratory effort and clear to auscultation bilaterally AUSCULTATION: clear to auscultation bilaterally Cardio: COMMON NORMALS: no JVD, regular rate, regular rhythm, S1 normal heart sound present, S2 normal heart sound present and No murmurs present (Cardio) RATE: regular rate RHYTHM: regular rhythm HEART SOUNDS: S1 normal heart sound present and S2 normal heart sound present GI: COMMON NORMALS: Normal to inspection, nondistended, normoactive bowel sounds present, Soft to palpation and non-tender PALPATION: Yes Soft to palpation Extremity: COMMON NORMALS: no joint enlargement and no pedal edema Neuro: COMMON NORMALS: patient oriented x3 and moves all extremities SENSORIUM/ORIENTATION: Yes alert SPEECH: abnormal speech Details: slurred (mild) and expressive aphasia (mild) MOTOR EXAM: Other motor observations present (R side weak, 3+/5) Skin: COMMON NORMALS: no rashes or lesions noted GENERAL SKIN EXAM: no rashes or lesions noted Discharge Data Data Completed and Pending: Completed Studies During Hospitalization Category Date Time Status XR chest 1V papi ble [id number] Stat Exams 03/09/21 15:15 Completed NM pul vent and p erfus* [id number] Routi ne Nuc Med 03/10/21 19:02 [place] [id number] Routin e Ultrasound 03/10/21 06:00 Completed Pending at discharge Category Date Time Status Sestamibi Stress Test Request Routi ne Exams 03/11/21 08:00 Ordered Magnesium AM LABS Lab 03/12/21 04:00 Ordered NM elias perf SPECT r/s* [id number] Routin e Nuc Med 03/12/21 07:00 Ordered CV. echo complete * [id number] Routine Ultrasound 03/11/21 12:53 Taken Labs from last 24 hours 03/11/21 04:35 Magnesium 1.8 Vitals: Last Vital Signs Temp 97.6 F 03/11/21 03:17 Pulse 78 03/11/21 08:45 Resp 18 03/11/21 08:45 BP 170/96 03/11/21 08:45 Pulse Ox 95 03/11/21 03:17 Discharge Plan Discharge Patient Disposition: Home Condition: Stable Prescriptions: New metoprolol tartrate 50 mg Tablet 25 mg PO BID@0900,2100 Qty: 60 RF: 0 Eliquis 5 mg tablet 5 mg PO BID Qty: 60 RF: 0 Continued clopidogrel 75 mg tablet 75 mg PO DAILY RF: 0 simvastatin 40 mg tablet 40 mg PO BEDTIME RF: 0 metformin 1,000 mg Tablet 1,000 mg PO RF: 0 hydrochlorothiazide 25 mg tablet 25 mg PO DAILY RF: 0 gabapentin 100 mg capsule 100 mg PO DAILY RF: 0 lisinopril 40 mg tablet 40 mg PO DAILY RF: 0 duloxetine 60 mg capsule,delayed release(DR/EC) 60 mg PO DAILY RF: 0 cholecalciferol (vitamin D3) [Vitamin D3] 50 mcg (2,000 unit) Tablet 50 mcg PO BEDTIME RF: 0 Discontinued carvedilol 12.5 mg tablet 12.5 mg PO DAILY RF: 0 Discharge Orders: Discharge Order (Routine); Ordered 03/11/21 Ordered By: Dru Greene Other Ambulatory Orders: Sestamibi Stress Test Request (Routine) Timeframe: 1 Day Facility: [facility] - Location: Card[facility] Diagnostic Laboratory Ordered By: Dru Greene Referrals: Jan Kirk MD [Primary Care Provider] - 4-7 days Discharge Diet: Cardiac and Diabetic Discharge Activity: Increase activity as tolerated Patient Instructions: Metoprolol (By mouth), Apixaban (By mouth), A-fib (Atrial Fibrillation) (GEN), Nuclear Stress Test (GEN) Activity Restrictions/Additional Instructions: Please discussPlease monitor your heart rates at home, write down values at least once daily, bring log to your primary doctor's office to aid in adjustment of your medications. Please discuss with your doctor new onset atrial fibrillation. Please complete stress test and discuss results with your primary doctor. Please discuss also results of your echocardiogram with your primary doctor. This has been performed, but the study results are still pending. As per discussion for now we are starting on Eliquis for stroke prevention, however, if echocardiogram suggest valvular heart disease as the cause of your atrial fibrillation, the blood thinner medication may need to be changed. Discharge Attestations Time Spent in Discharge Care*: greater than 30 min Quality Metrics Clinical Quality Measures During this hospital stay, did patient experience: None Coding Level of Care Code Acute Chg FW DC note Exam Comprehensive Diagnoses Paroxysmal atrial fibrillation with RVR I48.0 New onset a-fib I48.91 Right leg swelling M79.89
[2021-03-11 13:43] VITALS: BP 128/88; PULSE 75; RESP 18
== END 2021-03-11 13:40 | disposition home or self-care (01) | DRG 309 ==
LOC: ER 15:08 → CSU 18:23
PROVIDERS: Admitting Provider Internal Medicine; Emergency Provider Family Medicine; PCP Family Medicine; Visit Provider Internal Medicine
DX: I48.0 Paroxysmal atrial fibrillation (principal); I69.951 Hemiplegia and hemiparesis following unspecified cerebrovascular disease affecting right dominant side; T82.856A Stenosis of peripheral vascular stent, initial encounter; Z86.16 Personal history of COVID-19; Z85.3 Personal history of malignant neoplasm of breast; I69.922 Dysarthria following unspecified cerebrovascular disease; E11.42 Type 2 diabetes mellitus with diabetic polyneuropathy; E11.22 Type 2 diabetes mellitus with diabetic chronic kidney disease; I12.9 Hypertensive chronic kidney disease with stage 1 through stage 4 chronic kidney disease, or unspecified chronic kidney disease; N18.9 Chronic kidney disease, unspecified; Z90.11 Acquired absence of right breast and nipple; Z96.649 Presence of unspecified artificial hip joint; Y71.1 Therapeutic (nonsurgical) and rehabilitative cardiovascular devices associated with adverse incidents; M79.89 Other specified soft tissue disorders; E83.42 Hypomagnesemia; Z79.02 Long term (current) use of antithrombotics/antiplatelets; Z79.84 Long term (current) use of oral hypoglycemic drugs
CPT/HCPCS: 36415; 36416; 71045; 78014; 80053; 81001; 82962; 83735; 83880; 84443; 84484; 85025; 85378; 85610; 85730; 93005; 93306; 93970; 96365; 96366; 96372; 96375; 99285; A9540; A9567; J1650; J1940; J3475; J3490

== ENCOUNTER 2021-04-06 07:21 | Outpatient (CLI) | payer MEDICARE, BC, SELFPAY ==
[2021-04-06 07:28] VITALS: BMI 31.3
--- NOTE | 2021-04-06 08:39 | NMCV_ITS ---
NM elias perf SPECT r/s* [id number] Terese Yates Age: 70 Gender: F : 1950 Exam Date: 04/06/2021 08:34 Ordering Phys: Dru Greene MD Technologist: TIFFANIE Everett Exam Location: [facility] Indications: NEW ONSET A FIB STRESS TEST [facility] IMAGE PROTOCOL Rest/Stress 1 Lexiscan Day Radiopharmaceutical Dose (mCi) Administration Site Administered by Rest: Tc-99m 10.8 IV TIFFANIE Hassan Sestamibi Stress:Tc-99m 32.6 IV TIFFANIE Everett Sestamisteph Rest: 60 Discovery 630 Stress: 30 Discovery 630 0.4mg Lexiscan. Supine position only as patient was unable to lay prone. SPECT RESULTS Technical Quality: Excellent Raw Data Analysis: Normal Image Corrections: No attenuation or motion correction applied Summed Stress Score: 3 Summed Rest Score: 1 Summed Difference Score: 3 PERFUSION FINDINGS Small size perfusion abnormality of mild severity of apical lateral wall on rest images with reversibility in apical anterior, apical inferior and apical pozo on supine stress images. FUNCTIONAL RESULTS (calculated via Gated SPECT) Stress Image LV EF (%): 27 Stress EDV (mL):105 TID: 0.96 Stress ESV (mL):77 FUNCTIONAL FINDINGS: The left ventricle is dilated. There is severely reduced left ventricular global systolic function. The left ventricular ejection fraction is severely reduced with a value of 27%. There is severely decreased wall thickening. IMPRESSIONS 1. Small sized partially reversible perfusion abnormality of mild severity of apical anterior, apical inferior, apical lateral and apical pozo. 2. This may represent small area of ischemia in left anterior descending artery territory. 3. There is severely reduced left ventricular global systolic function, LVEF= 27%. 4. No significant EKG change with lexiscan infusion. Refer to separate report for details. 5. Patient remained in atrial fibrillation with rapid ventricular response throughout the study. 6. No prior similar studies to compare. Renetta Graham MD (Electronically Signed) Final Date: 07 April 2021 16:22 S
[2021-04-06] MEDS: ondansetron 2 mg/ML SDV 2 mL 4 MG IVP (09:29)
[2021-04-06 09:30] VITALS: BP 134/88; PULSE 144
--- NOTE | 2021-04-06 10:00 | ECG_ITS ---
[facility] Test Date: 2021-04-06 Pat Name: Terese Yates Department: Room: Gender: Female Direct Care Staffer: : 1950 Requested By: Dru Greene Order Number: [id number] Jermain MD: Renetta Graham M.D. Interpretive Statements NAME OF STUDY: LEXISCAN SESTAMIBI STRESS TEST INDICATION: New onset atrial fibrillation, multiple CAD risk factors PROCEDURE: At the baseline, the blood pressure was 115/93 mmHg, oxygen saturation 96% with a heart rate of 146 bpm. The electrocardiogram showed atrial fibrillation with rapid ventricular response, left axis deviation. Poor anterior R wave progression. The Lexiscan was infused over a period of 20 seconds. A total of 0.4 milligrams of Lexiscan was infused. The stress phase was continued for a total of 5 minutes. Heart rate at the end of the stress phase was 128 bpm with a blood pressure 146/89 mmHg. The EKG at the peak infusion revealed no significant ST-T wave changes. The study was terminated due to protocol completion. Sestamibi was injected 20 seconds after the Lexiscan infusion. Blood pressure at the end of the recovery phase was 134/88 mmHg with a heart rate of 142 beats per minute. CONCLUSION: 1. No significant EKG changes with the LexiScan infusion. 2. No LexiScan induced chest pain or cardiac arrhythmia. 3. Normal blood pressure and heart rate response. 4. Sestamibi/sestamibi perfusion scan pending; see separate report. 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 [id number]
== END 2021-04-06 07:22 | disposition home or self-care (01) ==
LOC: CDL 07:22
PROVIDERS: PCP Family Medicine; Visit Provider Internal Medicine
DX: I48.0 Paroxysmal atrial fibrillation (principal)
CPT/HCPCS: 78452; 93017; A9500; J2405

== ENCOUNTER 2021-08-17 09:16 | Outpatient (CLI) | payer MEDICARE, BC, SELFPAY ==
[2021-08-17 09:29] LABS: Basophils # 0.1 10^3/uL (0.0-0.1); Basophils % 0.6 %; Eosinophils # 0.2 10^3/uL (0.0-0.8); Eosinophils % 2.1 %; Hematocrit 23.7 % (37.0-47.0); Hemoglobin 7.6 g/dL (11.5-15.3); Lymphocytes # 0.8 10^3/uL (0.8-4.8); Lymphocytes % 7.7 %; Mean Corpuscular HGB Conc 32.1 g/dL (30.0-36.0); Mean Corpuscular Hemoglobin 31.5 pg (28.0-34.0); Mean Corpuscular Volume 98.3 fl (81-99); Mean Platelet Volume 9.3 fL (7.4-10.4); Monocytes # 0.8 10^3/uL (0.2-0.9); Monocytes % 7.6 %; Neutrophils # 8.36 10^3/uL (1.8-7.7); Neutrophils % 80.9 %; Nucleated Red Blood Cells % 0 %; Platelet Count 330 10^3/cmm (130-400); Red Blood Count 2.41 10^6/uL (4.1-5.3); Red Cell Distribution Width 13.9 % (12.1-15.1); White Blood Count 10.3 10^3/uL (4.0-10.0)
[2021-08-17 09:50] LABS: Anion Gap 21.4 (5-19); Blood Urea Nitrogen 43 mg/dL (8-23); Calcium 10.1 mg/dL (8.5-10.5); Carbon Dioxide 25 mmol/L (22-29); Chloride 94 mmol/L (98-107); Glomerular Filtration Rate 24.6 mL/min (90-130); Glucose 184 mg/dL (65-115); Osmolality Calculated 298 mOsm/kg (285-295); Potassium 4.4 mmol/L (3.5-5.1); Sodium 136 mmol/L (136-145)
--- NOTE | 2021-08-20 09:37 | PM.MISC ---
Miscellaneous Note Note: Terese Herman : 1950 History of Present Illness Chief Complaint: Patient presents for a recheck on a chronic illness. She is not doing well today knees are weak, having headaches, short of breath X 1 month Had some dry heaves this morning before breakfast She ate breakfast after the dry heaves without nausea she does not feel it fluttering any more. Has not pooped since stopping blood thinners feeling about the same today as the other day ROS: General: No fevers, chills or significant weight changes. Heart: No chest pain or palpitations. Lungs: dyspnea GI: No nausea, or diarrhea. Musculoskeletal: No new or worsening myalgias or arthralgias. Current Medications: carvedilol 6.25 mg tablet (carvedilol) TAKE 1 TABLET BY MOUTH TWICE DAILY Xarelto 15 mg tablet (rivaroxaban) Plavix 75 mg tablet (clopidogrel) 1 tablet by mouth once a day simvastatin 40 mg tablet (simvastatin) TAKE 1 TABLET BY MOUTH ONCE DAILY FOR CHOLESTEROL gabapentin 100 mg capsule (gabapentin) Take 1 capsule by mouth three times a day lisinopril 40 mg tablet (lisinopril) Take 1 tablet by mouth once a day Naprosyn 500 mg tablet (naproxen) 1 tablet by mouth twice a day amiodarone 200 mg tablet (amiodarone) hydrochlorothiazide 25 mg tablet (hydrochlorothiazide) Take 1 tablet by mouth once daily metformin 1,000 mg tablet (metformin) Take 1 tablet by mouth twice daily triamcinolone acetonide 0.5% cream (triamcinolone acetonide) APPLY CREAM TOPICALLY TO AFFECTED AREA TWICE DAILY AVOID FACE AND INGUINAL AREA furosemide 40 mg tablet (furosemide) Take 1 tablet by mouth every morning for swelling pioglitazone 15 mg tablet (pioglitazone) TAKE 1 TABLET DAILY FOR DIABETES MELLITUS TYPE 2 Eliquis 5 mg tablet (apixaban) 1 tablet by mouth twice a day potassium chloride 10 mEq tablet extended release (potassium chloride) Take 1 tablet by mouth once a day Take 1 tablet daily on days that you take Furosemide Pepcid 20 mg tablet (famotidine) 1 by mouth once a day as needed Flonase Allergy Relief 50 mcg/actuation spray,suspension (fluticasone propionate) 2 spray once a day FREESTYLE LITE TEST STRP (GLUCOSE BLOOD) Use 1 once a day duloxetine 60 mg capsule,delayed release(DR/EC) (duloxetine) Take 1 capsule by mouth once a day Vitamin D3 25 mcg (1,000 unit) tablet (cholecalciferol (vitamin d3)) 1 by mouth twice a day glimepiride 4 mg tablet (glimepiride) Take 1 tablet by mouth twice a day Allergies: MEVACOR (Critical) PRAVACHOL (Critical) AMOXICILLIN (AMOXICILLIN) (Moderate) Preventive: CHOLESTEROL: 157 (01/30/2021 5:48:00 AM) COLONOSCOPY: BONE DENSITY: PSA: Flu: got it this year (04/02/2020 10:35:54 AM) DTAP: PNEUMOVAX: declined (05/27/2010 7:59:53 AM) PREVNAR 13: ZOSTAVAX: COVID VACCINE: Past, Family, and Social History Past History (reviewed - no changes required): PAST MEDICAL HISTORY: Diabetes Mellitus type 2/ Hypertension; Hyperlipidemia; severe right sided CVA in 01/2011; 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 Covid 01/16 PAST SURGICAL HISTORY: tonsils; btl; right breast lumpectomy 2014; 08/12 - right hip fracture and replacement; atrial ablation for a-fib 08/17 Family History (reviewed - no changes required): mom had Diabetes Mellitus type 2; Coronary Artery Disease age 50's. Social History (reviewed - no changes required): Angelica. had worked at [employer]. no smoking, rare alcohol Physical Exam: Previous Weight: 208 (08/17/2021 8:10:15 AM) Vital Signs: Patient Profile: 70 Years Old Female CC: Chief Complaint: Patient presents for a recheck on a chronic illness. Height: 68 inches Weight: 211 pounds BMI: 32.08 O2 Sat: 92 % Temp: 96.6 degrees F temporal Pulse rate: 86 / minute Resp: 20 per minute BP Sittin / 72 PE: Constitutional: Alert, no acute distress HEENT: pale conjunctiva Cardiovascular: RRR, with occasional extra beats Respiratory: No respiratory distress, no accessory muscle use, clear to auscultation. Abdomen: nondistended, no abdominal pain Skin: pale skin color with bruising. Neuro: slowed gait using cane Psych: Oriented to all spheres, normal affect Problem Assessment Assessed GI bleed as improved - Matt Crews APRN Assessed Anemia as comment only - Matt Crews APRN Assessment Status of Existing Problems: Assessed GI bleed as improved - Matt Crews APRN Assessed Anemia as comment only - Matt Crews APRN Impressions: GI bleed -improved as she has not had any black stools since last vist -recheck CBC Anemia; Hgb 2 days ago was 7.4. recheck today -CBC today -start iron supplement follow up in 1 week Plan New Prescriptions/Refills: ferrous sulfate 325 mg (65 mg iron) tablet (ferrous sulfate) Take 1 tablet by mouth three times a day with meals #90 tablet x 3, 08/19/2021, Jan Kirk MD, SIGNED Updated Medication List: ferrous sulfate 325 mg (65 mg iron) tablet (ferrous sulfate) Take 1 tablet by mouth three times a day with meals carvedilol 6.25 mg tablet (carvedilol) TAKE 1 TABLET BY MOUTH TWICE DAILY Xarelto 15 mg tablet (rivaroxaban) Plavix 75 mg tablet (clopidogrel) 1 tablet by mouth once a day simvastatin 40 mg tablet (simvastatin) TAKE 1 TABLET BY MOUTH ONCE DAILY FOR CHOLESTEROL gabapentin 100 mg capsule (gabapentin) Take 1 capsule by mouth three times a day lisinopril 40 mg tablet (lisinopril) Take 1 tablet by mouth once a day Naprosyn 500 mg tablet (naproxen) 1 tablet by mouth twice a day amiodarone 200 mg tablet (amiodarone) hydrochlorothiazide 25 mg tablet (hydrochlorothiazide) Take 1 tablet by mouth once daily metformin 1,000 mg tablet (metformin) Take 1 tablet by mouth twice daily triamcinolone acetonide 0.5% cream (triamcinolone acetonide) APPLY CREAM TOPICALLY TO AFFECTED AREA TWICE DAILY AVOID FACE AND INGUINAL AREA furosemide 40 mg tablet (furosemide) Take 1 tablet by mouth every morning for swelling pioglitazone 15 mg tablet (pioglitazone) TAKE 1 TABLET DAILY FOR DIABETES MELLITUS TYPE 2 Eliquis 5 mg tablet (apixaban) 1 tablet by mouth twice a day potassium chloride 10 mEq tablet extended release (potassium chloride) Take 1 tablet by mouth once a day Take 1 tablet daily on days that you take Furosemide Pepcid 20 mg tablet (famotidine) 1 by mouth once a day as needed Flonase Allergy Relief 50 mcg/actuation spray,suspension (fluticasone propionate) 2 spray once a day FREESTYLE LITE TEST STRP (GLUCOSE BLOOD) Use 1 once a day duloxetine 60 mg capsule,delayed release(DR/EC) (duloxetine) Take 1 capsule by mouth once a day Vitamin D3 25 mcg (1,000 unit) tablet (cholecalciferol (vitamin d3)) 1 by mouth twice a day glimepiride 4 mg tablet (glimepiride) Take 1 tablet by mouth twice a day New Orders: Ofc Vst, Est Level IV [CPT-43981] Basic Mebabolic Panel [CPT-40815] CBC w/auto diff WBC [CPT-96780] Medications: Added new medication of ferrous sulfate 325 mg (65 mg iron) tablet (ferrous sulfate) Take 1 tablet by mouth three times a day with meals ; Route: BY MOUTH - Signed Rx of ferrous sulfate 325 mg (65 mg iron) tablet (ferrous sulfate) Take 1 tablet by mouth three times a day with meals ; #90 tablet x 3; Signed; Entered by: Jan Kirk MD; Authorized by: Jan Kirk MD; Method used: Electronically to [facility] #[id number] [facility] [place] [place] [id number], , Prescriptions: ferrous sulfate 325 mg (65 mg iron) tablet (ferrous sulfate) Take 1 tablet by mouth three times a day with meals #90 tablet x 3 Entered and Authorized by: Jan Kirk MD Method used: Electronically to [facility] #[id number] [address] [place] [id number], RxID: [id number] Patient: TERESE HERMAN ID: LAB [id number] Note: All result statuses are Final unless otherwise noted. Tests: (1) CBC (INCLUDES DIFF/PLT) (6399) WHITE BLOOD CELL COUNT [H] 11.0 Thousand/uL 3.8-10.8 *1 RED BLOOD CELL COUNT [L] 1.90 Million/uL 3.80-5.10 HEMOGLOBIN [LL] 5.8 g/dL 11.7-15.5 Verified by repeat analysis. HEMATOCRIT [L] 18.3 % 35.0-45.0 MCV 96.3 fL 80.0-100.0 MCH 30.5 pg 27.0-33.0 MCHC [L] 31.7 g/dL 32.0-36.0 RDW 12.9 % 11.0-15.0 PLATELET COUNT 303 Thousand/uL 140-400 MPV 9.5 fL 7.5-12.5 ABSOLUTE NEUTROPHILS [H] 9515 cells/uL 4409-6945 ABSOLUTE LYMPHOCYTES [L] 704 cells/uL 850-3900 ABSOLUTE MONOCYTES 583 cells/uL 200-950 ABSOLUTE EOSINOPHILS 132 cells/uL 15-500 ABSOLUTE BASOPHILS 66 cells/uL 0-200 NEUTROPHILS 86.5 % LYMPHOCYTES 6.4 % MONOCYTES 5.3 % EOSINOPHILS 1.2 % BASOPHILS 0.6 % COMMENT(S) Result Below... RESULT: Polychromasia 1 + Ovalocytes 1 + Basophilic stippling 1 + Note: An exclamation bonifacio (!) indicates a result that was not dispersed into the flowsheet. Document Creation Date: 08/20/2021 5:44 AM Tests: (1) BASIC METABOLIC PANEL (94894) GLUCOSE [H] 168 mg/dL 65-99 *1 Fasting reference interval For someone without known diabetes, a glucose value >125 mg/dL indicates that they may have diabetes and this should be confirmed with a follow-up test. UREA NITROGEN (BUN) [H] 50 mg/dL 7-25 CREATININE [H] 1.84 mg/dL 0.60-0.93 For patients >49 years of age, the reference limit for Creatinine is approximately 13% higher for people identified as -Afghan. eGFR NON-AFR. [place] [L] 27 mL/min/1.73m2 > OR = 60 eGFR [L] 32 mL/min/1.73m2 > OR = 60 BUN/CREATININE RATIO [H] 27 (calc) 6-22 SODIUM 136 mmol/L 135-146 POTASSIUM 3.6 mmol/L 3.5-5.3 CHLORIDE [L] 95 mmol/L 98-110 CARBON DIOXIDE 30 mmol/L 20-32 CALCIUM 9.7 mg/dL 8.6-10.4
== END 2021-08-17 09:17 | disposition home or self-care (01) ==
PROVIDERS: PCP Family Medicine; Visit Provider Family Medicine
DX: K92.2 Gastrointestinal hemorrhage, unspecified (principal); D64.9 Anemia, unspecified; I48.91 Unspecified atrial fibrillation
CPT/HCPCS: 80048; 85025

== ENCOUNTER 2021-08-19 13:00 | Outpatient (CLI) | payer MEDICARE, BC, SELFPAY ==
--- NOTE | 2021-08-19 13:21 | MM_ITS ---
WS: [id number] DIAGNOSTIC BILATERAL 3D TOMOSYNTHESIS DIGITAL MAMMOGRAM WITH CAD HISTORY: HX OF BREAST CA COMPARISON: 08/03/2020, 08/02/2019 and 05/04/2018 TECHNIQUE: Bilateral craniocaudad, mediolateral oblique, and mediolateral views are submitted. Comput er aided detection utilized. Breast composition: There are scattered areas of fibroglandular density. Volume loss and distortion o f the RIGHT breast due to surgery. Area of distortion is stable in the central breast. Benign calcifi cations in each breast. No suspicious mass. MM/[place] [address] IMPRESSION: BI-RADS: 2-Benign FOLLOW UP: 1 Year Follow-up
== END 2021-08-19 13:01 | disposition home or self-care (01) ==
PROVIDERS: PCP Family Medicine; Visit Provider Family Medicine
DX: Z85.3 Personal history of malignant neoplasm of breast (principal)
CPT/HCPCS: 77062

== ENCOUNTER 2021-08-20 11:21 | Observation (INO) | payer MEDICARE, BC, SELFPAY ==
[2021-08-20] VITALS (14 sets, daily range): BP systolic 138–190; BP diastolic 65–91; PULSE 67–87; RESP 17–18; TEMP 36.4–37; O2SAT 96–100; BMI 30.4
--- NOTE | 2021-08-20 12:09 | P.HP_ITS ---
Providers/Chief Complaint Admitting Physician: Armando Shukla MD Primary Care Provider: Jan Kirk MD Chief Complaint: Anemia History of Present Illness Terese Yates is a 70 year old female who presents to the hospital as a direct admission. She recently went to [facility] for an ablation approximately 4 weeks ago that was successful for her atrial fibrillation. She was placed on Coumadin along with Plavix and aspirin and was taking Xarelto as well. She developed anemia, and had some dark and tarry stools. This stopped about 6 days ago. At that time INR was high, Coumadin discontinued, and I believe aspirin was discontinued. She was seen yesterday by her primary care provider and was having symptoms of tiredness, shortness of breath with exertio n, and some dizziness with standing. She has had no abdominal pain. She did feel some nausea yesterday, but not today. She has been eating, but less than usual. She reports no significant blood loss with her surgery 4 weeks ago, and no nosebleeds. She is on an anti-inflammatory according to her home medicine list. Yesterday her Plavix and Xarelto were discontinued as well. CBC drawn yesterday, received today by her primary care provider and run at [employer] demonstrated a hemoglobin of 5.8, white blood cell count of 11, platelet count of 303,000. BMP demonstrated normal electrolytes but a creatinine of 1.84. Review of Systems General: Reports: 10 or more systems reviewed and unremarkable except in HPI and below Const: Reports: fatigue; Denies: fever(s) Eyes: Denies: change in vision ENMT: Denies: throat pain, bleeding gums or epistaxis Card: Denies: chest pain Resp: Reports: dyspnea GI: Reports: nausea and melena; Denies: vomiting, hematemesis or hematochezia : Denies: flank pain Musc: Denies: neck pain Skin/Breast: Denies: rash Neuro: Reports: other (Dizziness with standing); Denies: headache(s) Psych: Denies: anxiety or depression Endo: Denies: polyuria Keven/Lymph: Reports: easy bruising and easy bleeding All/Imm: Denies: urticaria Medications/Allergies Home Medications Medication Instructions Recorded Confirmed Last Taken Type cholecalciferol (vitamin D3) 50 50 mcg PO BEDTIME 07/19/21 10/12/21 10/11/21 21:00 History mcg (2,000 unit) tablet (Vitamin D3) clopidogrel 75 mg tablet 75 mg PO DAILY 12/14/20 03/09/21 03/09/21 08:00 History duloxetine 60 mg capsule,delayed 60 mg PO DAILY 12/14/20 03/09/21 03/09/21 08:00 History release gabapentin 100 mg capsule 100 mg PO DAILY 12/14/20 03/09/21 03/09/21 08:00 History hydrochlorothiazide 25 mg tablet 25 mg PO DAILY 12/14/20 03/09/21 03/09/21 08:00 History lisinopril 40 mg tablet 40 mg PO DAILY 12/14/20 03/09/21 03/09/21 08:00 History metformin 1,000 mg tablet 1,000 mg PO 12/14/20 03/09/21 03/09/21 08:00 History simvastatin 40 mg tablet 40 mg PO BEDTIME 12/14/20 03/09/21 03/08/21 21:00 History apixaban 5 mg tablet (Eliquis) 5 mg PO BID #60 tab 03/11/21 Unknown Rx metoprolol tartrate 50 mg tablet 25 mg PO BID@0900,2100 #60 tab 03/11/21 Unknown Rx Allergies Allergy/AdvReac Type Severity Reaction Status Date / Time Penicillins Allergy ALGY-Hives Verified 12/11/20 06:27 PFSH Acute PFSH: Medical History (Updated 08/20/21 @ 12:26 by Armando Shukla MD) Atrial fibrillation Breast cancer Cardiomyopathy Ejection fraction 50% on echocardiogram COVID-19 CVA (cerebral vascular accident) Depression Diabetes DM type 2 (diabetes mellitus, type 2) HTN (hypertension) Hyperlipidemia Peripheral neuropathy Presence of internal carotid stent Right leg swelling Surgical History H/O partial mastectomy R H/O: hysterectomy History of cataract surgery History of prior ablation treatment History of removal of Port-a-Cath Hx of total hip arthroplasty Family History Mother CAD (coronary artery disease) Social History Smoking and tobacco status: never smoked Alcohol intake: never Lives independently: Yes Marital status: Other [facility] information: Supplemental [facility] Information: History of carotid stenting Physical Exam Narrative: General exam is a conversant white female, who appears pale Vital signs are reviewed HEENT: Pupils equally round. Oropharynx clear. Conjunctive a pale. Neck is supple no lymphadenopathy or megaly Cardiovascular regular rate and rhythm with a 2/6 systolic murmur Lungs clear no wheezing or crackles Abdomen is soft. Positive bowel sounds. No obvious organomegaly. No tenderness. exams deferred Extremities no cyanosis clubbing or edema, cap refill brisk. Nailbeds pale. Skin no rash Neurologic: Partial right hemiparesis, right facial droop which is old. Data Other Labs: See laboratory reviewed, listed in physicians clinic note from today entered and miscellaneous. This was reviewed in its entirety. A&P Assessment and plan (1) Anemia: Patient with acute symptomatic anemia, by history from upper GI blood loss. She was on a significant amount of antiplatelet and anticoagulant medication including Coumadin, Xarelto, Plavix, aspirin. All of these have been held at this point, with the Coumadin and aspirin being stopped days ago and the Plavix and Xarelto stopped yesterday. She reports no significant black or tarry stools in the last 5 to 6 days, likely indicating that her acute bleeding has now stopped. However, with dizziness, shortness of breath she is certainly symptomatic with her hemoglobin of 5.8 done yesterday. As she has been eating prior to this hospital stay we will continue with soft diet. Add Protonix 40 mg IV every 12 hours. Transfused 2 units of packed red blood cells, and obtain a CBC 1 hour after transfusion as well as tomorrow morning. Lasix following second unit of blood Monitor for any fluid overload with blood Observation, with likely discharge tomorrow off antiplatelets and anticoagulants for decision on when to resume these by her primary care provider Dr. Kirk. She will need Protonix at discharge. Anti-inflammatories will be held. She does have Naprosyn on her home medicine list. She should be instructed not to take this on discharge. Check INR Status: Acute (2) CVA (cerebral vascular accident): Hold anticoagulants and antiplatelets currently secondary to bleeding/anemia Continue statin Status: Acute (3) Atrial fibrillation: Recent ablation Heart rate on exam appears normal No reason for telemetry unless abnormal vital signs are noted Status: Acute (4) Cardiomyopathy: Has an ejection fraction of 50% Continue carvedilol Request records from [facility]. Note that her last nuclear stress test in March was slightly abnormal Status: Acute (5) Diabetes: Sliding scale insulin, consistent carb diet Status: Acute (6) HTN (hypertension): Continue carvedilol. Hold her lisinopril, hydrochlorothiazide. Status: Acute (7) Chronic kidney disease: Appears to have some chronic kidney disease according to old laboratory here, and laboratory from clinic yesterday. BMP today, continue to follow Status: Acute Plan Full code SCDs for DVT prophylaxis. Anticoagulation contraindicated secondary to severe anemia Attestations Medical Necessity Statement*: Will need less than 2 midnight stay for correction of anemia. 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
[2021-08-20 13:13] LABS: INR 1.02 (0.8-1.2)
[2021-08-20 13:22] LABS: Alanine Aminotransferase 18 U/L (0-33); Albumin Level 4.1 g/dL (3.5-5.2); Alkaline Phosphatase 42 IU/L (35-105); Anion Gap 17.3 (5-19); Aspartate Amino Transferase 13 U/L (0-32); Blood Urea Nitrogen 45 mg/dL (8-23); Calcium 9.8 mg/dL (8.5-10.5); Carbon Dioxide 27 mmol/L (22-29); Chloride 89 mmol/L (98-107); Globulin 2.9 g/dL (1.3-4.6); Glomerular Filtration Rate 24.6 mL/min (90-130); Glucose 246 mg/dL (65-115); Osmolality Calculated 290 mOsm/kg (285-295); Potassium 3.3 mmol/L (3.5-5.1); Sodium 130 mmol/L (136-145); Total Bilirubin 0.2 mg/dL (0.15-1.2)
[2021-08-20] MEDS: pantoprazole 40 mg SDV IVP (14:11)
[2021-08-20] MEDS: potassium chloride ER 20 mEq Tablet 40 MEQ PO (14:11)
[2021-08-20] MEDS: sodium chloride 0.9% (100 ml) 100 ML 10 ML (16:15)
[2021-08-20 17:07] LABS: Glucose Point of Care 98 mg/dL (70-110)
[2021-08-20] MEDS: hyDRALAzine 20 mg/mL INJ 1 mL 10 MG IVP (18:31)
[2021-08-20] MEDS: FUROsemide 10 mg/mL SDV 4mL 40 MG IVP (21:06)
[2021-08-20] MEDS: atorvastatin 40 mg Tablet 20 MG PO (21:06)
[2021-08-20] MEDS: gabapentin 100 mg Capsule PO (21:06)
[2021-08-20 21:24] LABS: Glucose Point of Care 127 mg/dL (70-110)
[2021-08-20 21:39] LABS: Basophils # 0.1 10^3/uL (0.0-0.1); Basophils % 0.5 %; Eosinophils # 0.2 10^3/uL (0.0-0.8); Hematocrit 21.3 % (37.0-47.0); Hemoglobin 7.2 g/dL (11.5-15.3); Lymphocytes # 1.2 10^3/uL (0.8-4.8); Lymphocytes % 12.3 %; Mean Corpuscular HGB Conc 33.8 g/dL (30.0-36.0); Mean Corpuscular Hemoglobin 30.1 pg (28.0-34.0); Mean Corpuscular Volume 89.1 fl (81-99); Mean Platelet Volume 9.4 fL (7.4-10.4); Monocytes % 9.5 %; Neutrophils # 7.43 10^3/uL (1.8-7.7); Neutrophils % 74.5 %; Nucleated Red Blood Cells % 0.3 %; Platelet Count 227 10^3/cmm (130-400); Red Blood Count 2.39 10^6/uL (4.1-5.3); Red Cell Distribution Width 16.2 % (12.1-15.1)
[2021-08-21] VITALS (9 sets, daily range): BP systolic 130–185; BP diastolic 65–85; PULSE 70–78; RESP 16–18; TEMP 36.5–37.1; O2SAT 96–97
[2021-08-21] MEDS: pantoprazole 40 mg SDV IVP (04:34)
[2021-08-21 05:39] LABS: Basophils # 0.1 10^3/uL (0.0-0.1); Basophils % 0.6 %; Eosinophils # 0.2 10^3/uL (0.0-0.8); Eosinophils % 2.1 %; Hematocrit 25.4 % (37.0-47.0); Hemoglobin 8.4 g/dL (11.5-15.3); Lymphocytes # 0.9 10^3/uL (0.8-4.8); Mean Corpuscular HGB Conc 33.1 g/dL (30.0-36.0); Mean Corpuscular Volume 87.6 fl (81-99); Mean Platelet Volume 9.2 fL (7.4-10.4); Monocytes # 0.9 10^3/uL (0.2-0.9); Monocytes % 10.6 %; Neutrophils # 6.38 10^3/uL (1.8-7.7); Neutrophils % 74.4 %; Nucleated Red Blood Cells % 0.5 %; Platelet Count 264 10^3/cmm (130-400); Red Cell Distribution Width 17.2 % (12.1-15.1); White Blood Count 8.6 10^3/uL (4.0-10.0)
[2021-08-21 06:12] LABS: Alanine Aminotransferase 18 U/L (0-33); Albumin Level 3.9 g/dL (3.5-5.2); Alkaline Phosphatase 40 IU/L (35-105); Anion Gap 16.7 (5-19); Aspartate Amino Transferase 15 U/L (0-32); Blood Urea Nitrogen 44 mg/dL (8-23); Carbon Dioxide 27 mmol/L (22-29); Chloride 94 mmol/L (98-107); Globulin 2.1 g/dL (1.3-4.6); Glomerular Filtration Rate 24.6 mL/min (90-130); Glucose 131 mg/dL (65-115); Magnesium 1.7 mg/dL (1.7-2.3); Osmolality Calculated 291 mOsm/kg (285-295); Potassium 3.7 mmol/L (3.5-5.1); Sodium 134 mmol/L (136-145); Total Bilirubin 0.8 mg/dL (0.15-1.2)
[2021-08-21 06:27] LABS: Glucose Point of Care 145 mg/dL (70-110)
[2021-08-21] MEDS: insulin lispro 100 unit/1 mL SUBCUT (09:11)
[2021-08-21] MEDS: gabapentin 100 mg Capsule PO (09:12)
[2021-08-21] MEDS: amiodarone 200 mg Tablet PO (09:12)
[2021-08-21] MEDS: carvedilol 6.25 mg Tablet PO (09:12)
[2021-08-21] MEDS: duloxetine 60 mg Capsule PO (09:12)
--- NOTE | 2021-08-21 11:34 | P.DS_ITS ---
Discharge Providers Date of Admission: 08/20/21 11:21 Date of Discharge: August 21, 2021 Attending Provider at Admission: Armando Shukla MD Attending Provider at Discharge: Dru Greene Primary Care Provider: Jan Kirk MD Diagnoses at Discharge Discharge Diagnosis (1) Anemia: Status: Acute (2) CVA (cerebral vascular accident): Status: Acute (3) Atrial fibrillation: Status: Acute (4) Cardiomyopathy: Status: Acute Permanent problem details: Ejection fraction 50% on echocardiogram (5) Diabetes: Status: Acute (6) HTN (hypertension): Status: Acute (7) Chronic kidney disease: Status: Acute Reason for Visit Reason for Visit: Anemia Hospital Course Hospital Course 7-year-old lady admitted due to symptomatic acute anemia, with transient dark tarry stools which stopped 6 days ago, previously on Coumadin, which was discontinued, aspirin, which was previously held, and day before admission Plavix and Xarelto were discontinued. Hemoglobin noted as low as 5.8-day before admission. Received 2 units PRBC transfusion, recheck hemoglobin 7.2, today 8.4. No further dark stools. No fresh blood in stool. She has been ambulating in her room, feels much better. Does report constipation, and states has not had a bowel movement in close to a week now. On presentation also with noted acute kidney injury on chronic kidney disease, creatinine up to 2, usually creatinine around 1.3-1.6. She is for now asked to stop anticoagulants and antiplatelets, follow-up with primary provider in office to reassess which medication she should continue and recheck blood counts. She is asked to avoid NSAIDs. She is started on a PPI. Please reassess blood counts, as well as renal function office. She started on bowel regimen as well. She states she is passing flatus, denies vomiting. She knows to return to the hospital in case of inability to tolerate food or drink, nausea, pain, fever, severe abdominal pain, or other concerning symptoms. Physical Exam Const: COMMON NORMALS: no acute distress and patient oriented x3 HENMT: COMMON NORMALS: oropharynx normal Neck/C-Spine: COMMON NORMALS: no JVD Resp: COMMON NORMALS: normal respiratory effort and clear to auscultation bilaterally AUSCULTATION: clear to auscultation bilaterally Cardio: COMMON NORMALS: no JVD, regular rhythm, S1 normal heart sound present, S2 normal heart sound present and No murmurs present (Cardio) RHYTHM: regular rhythm HEART SOUNDS: S1 normal heart sound present and S2 normal heart sound present GI: COMMON NORMALS: Normal to inspection, nondistended, normoactive bowel sounds present, Soft to palpation and non-tender PALPATION: Yes Soft to palpation Extremity: COMMON NORMALS: no joint enlargement and no pedal edema Neuro: COMMON NORMALS: patient oriented x3 and moves all extremities Skin: COMMON NORMALS: no rashes or lesions noted GENERAL SKIN EXAM: no rashes or lesions noted Discharge Data Studies Completed and Pending Pending at discharge Category Date Time Status Fecal Occult Blood [Immunochemical Fecal OCB] Routine Lab 08/20/21 12:20 Uncollected Magnesium AM LABS Lab 08/22/21 04:00 Ordered Magnesium AM LABS Lab 08/23/21 04:00 Ordered Laboratory Results WBC 8.6 10^3/uL (4.0-10.0) 08/21/21 04:38 RBC 2.90 10^6/uL (4.1-5.3) L 08/21/21 04:38 Hgb 8.4 g/dL (11.5-15.3) L 08/21/21 04:38 Hct 25.4 % (37.0-47.0) L 08/21/21 04:38 MCV 87.6 fl (81-99) 08/21/21 04:38 MCH 29.0 pg (28.0-34.0) 08/21/21 04:38 MCHC 33.1 g/dL (30.0-36.0) 08/21/21 04:38 RDW 17.2 % (12.1-15.1) H 08/21/21 04:38 Plt Count 264 10^3/cmm (130-400) 08/21/21 04:38 MPV 9.2 fL (7.4-10.4) 08/21/21 04:38 Neut % (Auto) 74.4 % 08/21/21 04:38 Lymph % (Auto) 11.0 % 08/21/21 04:38 [place] % (Auto) 10.6 % 08/21/21 04:38 Eos % (Auto) 2.1 % 08/21/21 04:38 Baso % (Auto) 0.6 % 08/21/21 04:38 Neut # (Auto) 6.38 10^3/uL (1.8-7.7) 08/21/21 04:38 Lymph # (Auto) 0.9 10^3/uL (0.8-4.8) 08/21/21 04:38 [place] # (Auto) 0.9 10^3/uL (0.2-0.9) 08/21/21 04:38 Eos # (Auto) 0.2 10^3/uL (0.0-0.8) 08/21/21 04:38 Baso # (Auto) 0.1 10^3/uL (0.0-0.1) 08/21/21 04:38 Nucleated RBC % (auto) 0.5 % 08/21/21 04:38 Nucleated RBCs # 0.0 /100WBC 08/21/21 04:38 PT 13.70 SECONDS (12.1-14.9) 08/20/21 12:35 INR 1.02 (0.8-1.2) 08/20/21 12:35 Sodium 134 mmol/L (136-145) L 08/21/21 04:38 Potassium 3.7 mmol/L (3.5-5.1) 08/21/21 04:38 Chloride 94 mmol/L (98-107) L 08/21/21 04:38 Carbon Dioxide 27 mmol/L (22-29) 08/21/21 04:38 Anion Gap 16.7 (5-19) 08/21/21 04:38 BUN 44 mg/dL (8-23) H 08/21/21 04:38 Creatinine 2.0 mg/dL (0.5-0.9) H 08/21/21 04:38 GFR Calculation 24.6 mL/min (90-130) L 08/21/21 04:38 Glucose 131 mg/dL (65-115) H 08/21/21 04:38 POC Glucose 145 mg/dL (70-110) H 08/21/21 06:09 Calculated Osmolality 291 mOsm/kg (285-295) 08/21/21 04:38 Calcium 10.0 mg/dL (8.5-10.5) 08/21/21 04:38 Magnesium 1.7 mg/dL (1.7-2.3) 08/21/21 04:38 Total Bilirubin 0.8 mg/dL (0.15-1.2) 08/21/21 04:38 AST 15 U/L (0-32) 08/21/21 04:38 ALT 18 U/L (0-33) 08/21/21 04:38 Alkaline Phosphatase 40 IU/L (35-105) 08/21/21 04:38 Total Protein 6.0 g/dL (6.6-8.7) L 08/21/21 04:38 Albumin 3.9 g/dL (3.5-5.2) 08/21/21 04:38 Globulin 2.1 g/dL (1.3-4.6) 08/21/21 04:38 Blood Type A Positive 08/20/21 12:35 Rho(D) Type Positive 08/20/21 12:35 Antibody Screen Negative 08/20/21 12:35 Crossmatch See Detail 08/20/21 12:35 Vitals Last Vital Signs Temp 98.2 F 08/21/21 11:10 Pulse 78 08/21/21 11:10 Resp 16 08/21/21 11:10 BP 185/82 08/21/21 11:10 Pulse Ox 97 08/21/21 11:10 Discharge Plan Discharge Patient Disposition: Home Condition: Stable Prescriptions: New bisacodyl [Dulcolax (bisacodyl)] 10 mg suppository 10 mg [place] DAILY Qty: 12 0RF polyethylene glycol 3350 [Miralax] 17 gram powder in packet 17 g PO BID Qty: 30 0RF pantoprazole 40 mg tablet,delayed release (DR/EC) 40 mg PO BID 42 Days Qty: 84 0RF magnesium citrate Solution 296 ml PO ONCE Qty: 296 0RF Continued simvastatin 40 mg tablet 40 mg PO BEDTIME 0RF metformin 1,000 mg Tablet 1,000 mg PO BID 0RF gabapentin 100 mg capsule 100 mg PO TID 0RF duloxetine 60 mg capsule,delayed release(DR/EC) 60 mg PO DAILY 0RF cholecalciferol (vitamin D3) [Vitamin D3] 50 mcg (2,000 unit) Tablet 50 mcg PO BEDTIME 0RF amiodarone 200 mg tablet 200 mg PO DAILY 0RF carvedilol 6.25 mg tablet 6.25 mg PO DAILY 0RF ferrous sulfate 325 mg (65 mg iron) tablet 325 mg PO DAILY 0RF glimepiride 4 mg tablet 4 mg PO DAILY 0RF magnesium oxide 400 mg (241.3 mg magnesium) tablet 400 mg PO DAILY 0RF pioglitazone 15 mg tablet 15 mg PO DAILY 0RF potassium chloride 10 mEq tablet extended release 10 meq PO DAILY 0RF Changed furosemide 40 mg tablet 40 mg PO DAILY PRN (Reason: Edema) Qty: 0 0RF Held lisinopril 40 mg tablet 40 mg PO DAILY 0RF Hold Instructions: Resume on 08/28/21. Discontinued hydrochlorothiazide 25 mg tablet 25 mg PO DAILY 0RF Xarelto 15 mg tablet 15 mg PO DAILY 0RF Discharge Orders: Discharge Order (Routine); Ordered 08/21/21 Ordered By: Dru Greene Referrals: Jan Kirk MD [Primary Care Provider] - 4-7 days Patient Instructions: Constipation (GEN), Acute Kidney Injury (GEN), Anemia (GEN), Pantoprazole (By mouth) Activity Restrictions/Additional Instructions: Please avoid any NSAIDs, including naproxen. Please hold aspirin, Plavix, Xarelto, do not restart warfarin, at this time please follow-up with your primary doctor to further decide which medications to keep on board. Please have your primary doctor recheck blood counts at next appointment. Due to acute kidney injury on chronic kidney disease, please also hold lisinopril for now until your renal function is found stable medication from safe to resume by her primary doctor. Please take bowel regimen for constipation. After you start having bowel movements, add fiber to diet to avoid additional constipation. Due to constipation acute kidney injury for now your hydrochlorothiazide is discontinued. Lasix is changed to as needed only in case of edema. Discharge Attestations Time Spent in Discharge Care*: greater than 30 min Quality Metrics Clinical Quality Measures [ No reported AMI, CVA or VTE this stay] Coding Level of Care Code Acute Chg FW DC note Diagnoses Anemia D64.9 CVA (cerebral vascular accident) I63.9 Atrial fibrillation I48.91 Cardiomyopathy I42.9 Diabetes E11.9 HTN (hypertension) I10 Chronic kidney disease N18.9
--- NOTE | 2021-08-21 11:50 | PC.CHAP ---
Pastoral Care Encounter/Spiritual Assessment Type of Contact [] Declined attic blower visit [] Patient/Family/Request visit [] Outpatient visit [] Follow-up visit [] Physician referral [] Code/Alert [X] Routine visit [] Staff referral [] Actively dying [X] Patient sleeping [] Family support [] [] Out of room [] Palliative care [] [] Receiving care in room [] Pre-surgical visit [] Trauma [] Long length of stay [] ICU visit [] Other: Relational/Emotional Strength [] Patient feels connected with others/family/visitors/staff [] Distress [] Loneliness/isolation [] Abandonment Spirituality of Patient [] Person of Bibiana [] Attends Scientologist of their Bibiana [] Believes in Prayer [] Reads Bible or Denominational materials [] There are Spiritual issues to be addressed Manager Clinical Pharmacy Interventions [] Prayer [] Active listening [] Non-anxious presence [] Spiritual/emotional support [] Crisis/trauma care [] Spiritual counseling [] Bereavement support [] Provided bereavement packet [] Provided Bible/devotional materials [] Provided toy/stuffed animal, coloring book to patient or family member [] Provided Communion [] Anointing/Causey [] Salvation [] Completed spiritual assessment [] Other: Impact on Illness or Injury [] Angry [] Fearful [] Anxious [] Often cries [] Exhaustion [] Unable to work [] Unable to attend denominational [] Unable to walk/stand [] Unable to read [] Unable to drive [] Unable to eat/drink [] Unable to sleep [] Unable to be with family [] Patient intubated [] Other: Summary Time spent with patient
--- NOTE | 2021-08-21 12:00 | PC.NURSE ---
patient verbalized understanding of discharge instructions, home medications, and follow up appointments. Pt is still waiting for ride to arrive.
== END 2021-08-21 12:50 | disposition home or self-care (01) ==
PROVIDERS: Admitting Provider Internal Medicine; PCP Family Medicine; Visit Provider Internal Medicine
DX: D64.9 Anemia, unspecified (principal); I63.9 Cerebral infarction, unspecified; I48.91 Unspecified atrial fibrillation; I42.9 Cardiomyopathy, unspecified; E11.22 Type 2 diabetes mellitus with diabetic chronic kidney disease; I12.9 Hypertensive chronic kidney disease with stage 1 through stage 4 chronic kidney disease, or unspecified chronic kidney disease; N18.9 Chronic kidney disease, unspecified; Z79.84 Long term (current) use of oral hypoglycemic drugs; Z86.16 Personal history of COVID-19; F32.9 Major depressive disorder, single episode, unspecified; E11.42 Type 2 diabetes mellitus with diabetic polyneuropathy
CPT/HCPCS: 36415; 36416; 36430; 80053; 82962; 83735; 85025; 85610; 86850; 86900; 86920; 96372; C9113; G0378; G0379; J0360; J1815; J1940; P9016

== ENCOUNTER → 2021-09-30 10:47 | Outpatient (BNVA) | payer MEDICARE, BC, SELFPAY | PROVIDERS: PCP Family Medicine; Visit Provider Family Medicine | DX: K92.2 Gastrointestinal hemorrhage, unspecified (principal); I48.91 Unspecified atrial fibrillation; D64.9 Anemia, unspecified | CPT/HCPCS: 80048; 85025 ==

== ENCOUNTER → 2021-10-21 10:44 | Outpatient (BNVA) | payer MEDICARE, BC, SELFPAY | PROVIDERS: PCP Family Medicine; Visit Provider Family Medicine | DX: K92.2 Gastrointestinal hemorrhage, unspecified (principal); D64.9 Anemia, unspecified; I48.91 Unspecified atrial fibrillation | CPT/HCPCS: 80048 ==

== ENCOUNTER → 2021-12-02 10:09 | Outpatient (BNVA) | payer MEDICARE, BC, SELFPAY | PROVIDERS: PCP Family Medicine; Visit Provider Family Medicine | DX: I50.9 Heart failure, unspecified (principal); K92.2 Gastrointestinal hemorrhage, unspecified; I48.91 Unspecified atrial fibrillation; E11.9 Type 2 diabetes mellitus without complications; I10 Essential (primary) hypertension; D64.9 Anemia, unspecified | CPT/HCPCS: 80048; 80053; 80061; 83036; 83880; 85025 ==

== ENCOUNTER 2022-01-11 19:35 | Emergency (ER) | payer MEDICARE, OTHER, SELFPAY ==
[2022-01-11 19:46] VITALS: BP 194/80; PULSE 69; RESP 18; TEMP 36.4; O2SAT 94; BMI 30.4
--- NOTE | 2022-01-11 20:13 | XRR_ITS ---
PROCEDURE INFORMATION: Exam: XR Right Shoulder Exam date and time: 01/11/2022 8:36 PM Age: 71 years old Clinical indication: Injury or trauma; Fall; Fracture, traumatic injury; Closed fracture; Humerus; Right; Additional info: Injury/trauma TECHNIQUE: Imaging protocol: Radiologic exam of the Right shoulder. Views: 2 or more views. COMPARISON: CR XR chest 1V portable [id number] 03/09/2021 3:53 PM FINDINGS: Bones/joints: Fracture through the humeral head with 1/2 shaft width displacement. Soft tissues: Normal. XR/XR shoulder RT min 2V* [id number] IMPRESSION: Displaced fracture through the humeral head.
--- NOTE | 2022-01-11 20:13 | XRR_ITS ---
PROCEDURE INFORMATION: Exam: XR Right Elbow Exam date and time: 01/11/2022 8:44 PM Age: 71 years old Clinical indication: Injury or trauma; Fall; Blunt trauma (contusions or hematomas); Elbow; Right; Additional info: Injury/fall TECHNIQUE: Imaging protocol: Radiologic exam of the Right elbow. Views: 3 or more views. COMPARISON: CR (UP EXM, ) 01/11/2022 8:40 PM FINDINGS: Bones/joints: Osseous structures are intact. Negative for fracture. Soft tissues: Normal. XR/XR elbow RT min 3V* [id number] IMPRESSION: No acute findings.
--- NOTE | 2022-01-11 20:13 | XRR_ITS ---
PROCEDURE INFORMATION: Exam: XR Right Humerus Exam date and time: 01/11/2022 8:40 PM Age: 71 years old Clinical indication: Injury or trauma; Fall; Blunt trauma (contusions or hematomas); Shoulder; Right; Additional info: Injury/fall TECHNIQUE: Imaging protocol: Radiologic exam of the Right humerus. Views: 2 or more views. COMPARISON: CR (CHEST, ) 01/11/2022 8:36 PM FINDINGS: Bones/joints: Displaced fracture of the humeral head. The rest of the humerus is intact. Soft tissues: Normal. XR/[place] [id number] IMPRESSION: Displaced fracture of the humeral head. The rest of the humerus is intact.
--- NOTE | 2022-01-11 20:15 | ED_ITS ---
HPI - Extremity Injury (Upper) General: Chief Complaint: Extremity Injury, Upper Stated Complaint: Possible broken arm Time Seen by Provider: 01/11/22 19:39 Source: patient Mode of arrival: wheelchair Limitations: no limitations History of Present Illness: Patient is an a 71-year-old female who presents to ED today for evaluation of right upper arm injury. Patient tells me she tripped and fell just prior to arrival and immediately felt something break in her right upper arm. She is complaining of right shoulder pain down to her elbow. She states she chronically has weakness and limited use of the right arm from a previous CVA. She has no other injuries or complaints at this time. She denies striking her head or LOC. No neck or back pain. MD complaint: injury to: right and shoulder Onset (ago): hour(s) Other Extremity Injury: Right: shoulder Other injuries: none Place: home Severity: severe Severity scale (1-10): 10 Relieving factors: immobilization Exacerbating factors: movement of extremity Context: fall Associated symptoms: Reports weakness in extremities (chronic weakness to R UE from previous CVA); Denies neck pain Review of Systems Card: Denies: chest pain Resp: Denies: dyspnea GI: Denies: abdominal pain Musc: Reports: extremity pain (R upper arm), joint pain (R shoulder) and limited range of motion; Denies: neck pain, back pain, extremity swelling, joint swelling, joint redness or joint warmth Neuro: Reports: weakness in extremities (chronic weakness to R UE from pr evious CVA) [facility] ED PFSH: Medical History Atrial fibrillation Breast cancer Cardiomyopathy Ejection fraction 50% on echocardiogram Chronic kidney disease COVID-19 CVA (cerebral vascular accident) Depression Diabetes DM type 2 (diabetes mellitus, type 2) HTN (hypertension) Hyperlipidemia Peripheral neuropathy Presence of internal carotid stent Right leg swelling Surgical History H/O partial mastectomy R H/O: hysterectomy History of cataract surgery History of prior ablation treatment History of removal of Port-a-Cath Hx of total hip arthroplasty Family History Mother CAD (coronary artery disease) Social History (Reviewed 01/11/22 @ 21:37 by LESLY Toscano Smoking and tobacco status: never smoked Alcohol intake: never Lives independently: Yes Marital status: Physical Exam Const: COMMON NORMALS: no acute distress, no limitations and alert GENERAL APPEARANCE: cooperative NUTRITIONAL APPEARANCE: overweight ORIENTATION/CONSCIOUSNESS: Yes awake, Yes oriented to person, Yes oriented to place and Yes oriented to time HENMT: COMMON NORMALS: normocephalic and atraumatic HEAD & SCALP: normal to inspection, normocephalic and atraumatic Neck/C-Spine: COMMON NORMALS: full ROM GENERAL: Yes normal visual inspection CERVICAL SPINE: No pain with cervical ROM, No Cervical spine tenderness, No step off deformity and No Paracervical muscle tenderness Resp: COMMON NORMALS: normal respiratory effort and clear to auscultation bilaterally AUSCULTATION: clear to auscultation bilaterally Cardio: COMMON NORMALS: regular rate and regular rhythm RATE: regular rate RHYTHM: regular rhythm Back/Pelvis: COMMON NORMALS: thoracic and lumbar spine normal to inspection, no thoracic nor lumbar tenderness and thoraco-lumbar ROM normal Extremity: COMMON NORMALS: capillary refill normal GENERAL: Yes normal exam except as noted RIGHT UPPER EXTREMITY: Yes shoulder joint, Yes upper arm and Yes elbow joint OTHER: pt with significant tenderness mainly to R proximal humerus but tender throughout shoulder down to elbow; she has no tenderness distally; she reports chronic weakness in extremity from previous CVA; pulses/cap refill normal Neuro: SENSORIUM/ORIENTATION: Yes alert, Yes oriented to person, Yes oriented to place and Yes oriented to time Course Consultations: Consultation #1: Dr. Leon and will follow up in office Vital Signs: Vital signs: Vital Signs Temperature 97.5 F L 01/11/22 19:46 Pulse Rate 71 01/11/22 20:30 Respiratory Rate 18 01/11/22 20:30 Blood Pressure 180/82 01/11/22 20:30 Pulse Oximetry 99 01/11/22 20:30 Oxygen Delivery Me thod 01/11/22 20:30 MDM - Extremity Injury (Upper) Medical Decision Making Patient has a displaced humeral neck fracture. Images sent to Dr. Louis who recommends franca and will follow-up in office. She has chronic weakness/limited use of extremity due to previous CVA. No evidence for vascular compromise. CM referral placed for ortho. Return to ED precautions given. Discharge Plan Discharge Patient Disposition: Home Clinical Impression: Closed fracture of proximal end of right humerus Qualifiers: Encounter type: initial encounter Fracture morphology: other fracture Fracture alignment: displaced Qualified Code(s): S42.291A - Other displaced fracture of upper end of right humerus, initial encounter for closed fracture Condition: Stable Prescriptions: New hydrocodone-acetaminophen 7.5-325 mg tablet 1 tab PO .q4-6 PRN (Reason: pain) Qty: 15 0RF No Action simvastatin 40 mg tablet 40 mg PO BEDTIME metformin 1,000 mg Tablet 1,000 mg PO BID gabapentin 100 mg capsule 100 mg PO TID lisinopril 40 mg tablet 40 mg PO DAILY Hold Instructions: Resume on 08/28/21. duloxetine 60 mg capsule,delayed release(DR/EC) 60 mg PO DAILY cholecalciferol (vitamin D3) [Vitamin D3] 50 mcg (2,000 unit) Tablet 50 mcg PO BEDTIME amiodarone 200 mg tablet 200 mg PO DAILY carvedilol 6.25 mg tablet 6.25 mg PO DAILY ferrous sulfate 325 mg (65 mg iron) tablet 325 mg PO DAILY glimepiride 4 mg tablet 4 mg PO DAILY magnesium oxide 400 mg (241.3 mg magnesium) tablet 400 mg PO DAILY pioglitazone 15 mg tablet 15 mg PO DAILY potassium chloride 10 mEq tablet extended release 10 meq PO DAILY Dulcolax (bisacodyl) 10 mg suppository 10 mg CO DAILY Qty: 12 0RF Miralax 17 gram powder in packet 17 g PO BID Qty: 30 0RF furosemide 40 mg tablet 40 mg PO DAILY PRN (Reason: Edema) Qty: 0 0RF magnesium citrate Solution 296 ml PO ONCE Qty: 296 0RF Discharge Orders: Discharge ED (Routine); Ordered 01/11/22 Ordered By: Leona Vigil Referrals: Jan Kirk MD [Primary Care Provider] - Patient Instructions: Fractures - Humerus, Arm Fracture in Adults (DC), Proxim al Humerus Fracture (ED), Opioid Safety Activity Restrictions/Additional Instructions: As we discussed I have placed a referral for orthopedic follow-up. You should hear from case management shortly or in regards to this appointment. You need to stay in sling at all times apart from showering or bathing. You may return to the emergency department for worsening or uncontrollable pain at home, any changes in sensation to your arm color/temperature changes to the extremity, or any other concerns you may have. Coding Level of Care Code ED Fish Filleter for [address]
[2022-01-11 20:26] VITALS: RESP 16
[2022-01-11] MEDS: morphine 4 mg/mL SDV 1 mL IM (20:26)
[2022-01-11] MEDS: ondansetron 2 mg/ML SDV 2 mL 4 MG IM (20:26)
[2022-01-11 20:30] VITALS: BP 180/82; PULSE 71; RESP 18; O2SAT 99
[2022-01-11] MEDS: HYDROcodone-acetaminophen 7.5-325 mg Tablet 3 TAB PO (21:50)
[2022-01-11 21:51] VITALS: BP 179/84; PULSE 77; RESP 18; TEMP 36.9; O2SAT 99
--- NOTE | 2022-01-12 10:28 | DCPLANNER ---
Addendum entered by Jeannette Manriquez 01/14/22 13:12: Patient had a follow up appointment scheduled for 01.13.[address] Mendez at ortho - patient did attend appointment. Original Note: visual display manager had message to schedule a follow up appointment for patient with ortho. visual display manager sent patients information to the front office staff at ortho. Patients information will be printed and reviewed. Clinic will call patient with appointment information.
== END 2022-01-11 21:53 | disposition home or self-care (01) ==
PROVIDERS: Emergency Provider Physician Assistant; PCP Family Medicine
DX: S42.291A Other displaced fracture of upper end of right humerus, initial encounter for closed fracture (principal); Z79.84 Long term (current) use of oral hypoglycemic drugs; Z85.3 Personal history of malignant neoplasm of breast; Z86.73 Personal history of transient ischemic attack (TIA), and cerebral infarction without residual deficits; E11.9 Type 2 diabetes mellitus without complications; E78.5 Hyperlipidemia, unspecified; W01.0XXA Fall on same level from slipping, tripping and stumbling without subsequent striking against object, initial encounter
CPT/HCPCS: 73030; 73060; 73080; 96372; 99284; J2270; J2405

== ENCOUNTER → 2022-01-13 08:57 | Outpatient (BNVA) | payer MEDICARE, OTHER, SELFPAY | PROVIDERS: PCP Family Medicine; Visit Provider Specialist | DX: S42.291A Other displaced fracture of upper end of right humerus, initial encounter for closed fracture (principal); M85.80 Other specified disorders of bone density and structure, unspecified site; W19.XXXA Unspecified fall, initial encounter | CPT/HCPCS: 23605; 73030; 99204 ==

== ENCOUNTER → 2022-01-17 08:35 | Outpatient (BNVA) | payer MEDICARE, OTHER, SELFPAY | PROVIDERS: PCP Family Medicine; Visit Provider Specialist | DX: S42.221A 2-part displaced fracture of surgical neck of right humerus, initial encounter for closed fracture (principal); W19.XXXA Unspecified fall, initial encounter | CPT/HCPCS: 73030; 99024 ==

== ENCOUNTER → 2022-02-02 08:57 | Outpatient (BNVA) | payer MEDICARE, OTHER, SELFPAY | PROVIDERS: PCP Family Medicine; Visit Provider Specialist | DX: S42.221D 2-part displaced fracture of surgical neck of right humerus, subsequent encounter for fracture with routine healing (principal); W19.XXXD Unspecified fall, subsequent encounter | CPT/HCPCS: 73030; 99024 ==

== ENCOUNTER → 2022-02-10 09:42 | Outpatient (BNVA) | payer MEDICARE, OTHER, SELFPAY | PROVIDERS: PCP Family Medicine; Visit Provider Family Medicine | DX: I10 Essential (primary) hypertension (principal); I42.9 Cardiomyopathy, unspecified; I48.91 Unspecified atrial fibrillation; D64.9 Anemia, unspecified | CPT/HCPCS: 80053; 85025 ==

== ENCOUNTER → 2022-02-23 08:06 | Outpatient (BNVA) | payer MEDICARE, OTHER, SELFPAY | PROVIDERS: PCP Family Medicine; Visit Provider Specialist | DX: S42.221D 2-part displaced fracture of surgical neck of right humerus, subsequent encounter for fracture with routine healing (principal); W18.30XD Fall on same level, unspecified, subsequent encounter | CPT/HCPCS: 73030; 99024 ==

== ENCOUNTER → 2022-03-23 08:51 | Outpatient (BNVA) | payer MEDICARE, OTHER, SELFPAY | PROVIDERS: PCP Family Medicine; Visit Provider Specialist | DX: S42.221D 2-part displaced fracture of surgical neck of right humerus, subsequent encounter for fracture with routine healing (principal); W19.XXXD Unspecified fall, subsequent encounter | CPT/HCPCS: 73030; 99024 ==

== ENCOUNTER 2022-03-24 14:54 | Outpatient (CLI) | payer MEDICARE, OTHER, SELFPAY ==
--- NOTE | 2022-03-24 15:15 | USCV_ITS ---
Terese Yates Age: 71 Gender: F : 1950 Exam Date: 03/24/2022 15:10 Ordering Phys: Jan Kirk MD Technologist: ROSSY [place] [facility] [place]: r/o DVT HISTORY: LT lower extremity swelling. LT Lower extremity pain. PROCEDURES: Venous duplex imaging was performed in only the left lower extremity. The following venous structures were evaluated: common femoral vein, profunda vein, proximal portion of the greater saphenous vein, superficial femoral vein, and the popliteal vein. In addition, the posterior tibial and peroneal trunk were evaluated. FINDINGS: Normal 2-D Doppler and augmentation and compressibility throughout the lower extremity venous structures. Additional imaging through the proximal calf veins also reveals no thrombus. Limited evaluation of the greater saphenous vein is patent with no thrombus. CONCLUSIONS No DVT left lower extremity. Dr. Michelle Polanco DO (Electronically Signed) Final Date: 25 March 2022 07:55 S
== END 2022-03-24 14:55 | disposition home or self-care (01) ==
LOC: RAD 14:56
PROVIDERS: PCP Family Medicine; Visit Provider Family Medicine
DX: M79.605 Pain in left leg (principal); M79.89 Other specified soft tissue disorders
CPT/HCPCS: 93971

== ENCOUNTER 2022-03-28 06:00 | Outpatient (RCR) | payer MEDICARE, OTHER, SELFPAY | END 2022-03-28 23:55 | disposition home or self-care (01) | LOC: APT 06:00 | PROVIDERS: PCP Family Medicine; Visit Provider Specialist | DX: M84.311 Stress fracture, right shoulder (principal) | CPT/HCPCS: 97110; 97163 ==

== ENCOUNTER 2022-03-29 06:00 | Outpatient (RCR) | payer MEDICARE, OTHER, SELFPAY | END 2022-04-27 23:59 | disposition home or self-care (01) | LOC: APT 06:00 | PROVIDERS: PCP Family Medicine; Visit Provider Specialist | DX: M84.311 Stress fracture, right shoulder (principal) | CPT/HCPCS: 97110; 97112; 97530 ==

== ENCOUNTER 2022-04-28 06:00 | Outpatient (RCR) | payer MEDICARE, OTHER, SELFPAY | END 2022-05-28 23:59 | disposition home or self-care (01) | LOC: APT 06:00 | PROVIDERS: PCP Family Medicine; Visit Provider Specialist | DX: M84.311 Stress fracture, right shoulder (principal) | CPT/HCPCS: 97110; 97112 ==

== ENCOUNTER → 2022-05-11 10:21 | Outpatient (BNVA) | payer MEDICARE, OTHER, SELFPAY | PROVIDERS: PCP Family Medicine; Visit Provider Family Medicine | DX: I48.91 Unspecified atrial fibrillation (principal); D64.9 Anemia, unspecified; I10 Essential (primary) hypertension | CPT/HCPCS: 80053; 85025 ==

== ENCOUNTER → 2022-08-04 15:58 | Outpatient (BNVA) | payer MEDICARE, OTHER, SELFPAY | PROVIDERS: PCP Family Medicine; Visit Provider Family Medicine | DX: R31.9 Hematuria, unspecified (principal) | CPT/HCPCS: 81003; 87086 ==

== ENCOUNTER 2022-08-25 09:45 | Outpatient (CLI) | payer MEDICARE, OTHER, SELFPAY ==
--- NOTE | 2022-08-25 09:54 | MM_ITS ---
WS: [id number] DIAGNOSTIC BILATERAL DIGITAL BREAST TOMOSYNTHESIS MAMMOGRAPHY WITH CAD HISTORY: ANNUAL-HX OF BREAST CA COMPARISON: 08/19/2021, 08/03/2020 and 08/02/2019 TECHNIQUE: Bilateral craniocaudad, mediolateral oblique, and mediolateral views are submitted with to mosynthesis and SM. Computer aided detection utilized. Breast composition: There are scattered areas of fibroglandular density. Volume loss RIGHT breast. Po stsurgical changes with scarring towards the middle central breast are stable. No recurrent mass. No increasing fibrotic tissue or distortion. Negative LEFT breast with benign calcifications. MM/[place] [id number] IMPRESSION: BI-RADS: 2-Benign FOLLOW UP: 1 Year Follow-up
== END 2022-08-25 09:46 | disposition home or self-care (01) ==
LOC: RAD 09:50
PROVIDERS: PCP Family Medicine; Visit Provider Family Medicine
DX: Z85.3 Personal history of malignant neoplasm of breast (principal)
CPT/HCPCS: 77062; G0279

== ENCOUNTER 2022-08-31 06:09 | Outpatient (CLI) | payer MEDICARE, OTHER, SELFPAY ==
--- NOTE | 2022-08-31 06:30 | US_ITS ---
WS: [id number] US pelv w/transvag [id number] HISTORY: vaginal or urethral bleeding COMPARISON: None available. Uterus: 5.7 cm x 3.8 cm x 3.0 cm. Normal size anteverted uterus. No fibroid or mass. Uterus is difficult to visualize, predominantly due to body habitus. No fibroids are identified. Endometrium: Very poor evaluation of the endometrium. Endometrium is not identified. Very small porti on of the endometrium towards the lower ureter uterine segment appears thickened measuring 6 to 7 mm. Neither ovary is identified. No adnexal mass. No free fluid in the cul-de-sac. US/US pelv w/transvag [id number] IMPRESSION: 1. Technically very difficult and limited evaluation of the uterus and adnexa. 2. Incompletely and poorly visualized endometrium. Cannot exclude neoplasm. Di rect visualization may be necessary. 3. Neither ovary is identified.
== END 2022-08-31 06:10 | disposition home or self-care (01) ==
PROVIDERS: PCP Family Medicine; Visit Provider Family Medicine
DX: N93.9 Abnormal uterine and vaginal bleeding, unspecified (principal)
CPT/HCPCS: 76830; 76856

== ENCOUNTER → 2022-09-20 09:57 | Outpatient (BNVA) | payer MEDICARE, OTHER, SELFPAY | PROVIDERS: PCP Family Medicine; Visit Provider Family Medicine | DX: E11.9 Type 2 diabetes mellitus without complications (principal); I10 Essential (primary) hypertension; I48.91 Unspecified atrial fibrillation; D64.9 Anemia, unspecified; N93.9 Abnormal uterine and vaginal bleeding, unspecified | CPT/HCPCS: 80053; 80061; 83036; 83880; 85025 ==

== ENCOUNTER → 2022-11-30 13:52 | Outpatient (BNVA) | payer MEDICARE, OTHER, SELFPAY | PROVIDERS: PCP Family Medicine; Visit Provider Family Medicine | DX: I10 Essential (primary) hypertension (principal); D64.9 Anemia, unspecified; I48.91 Unspecified atrial fibrillation | CPT/HCPCS: 80053; 85025 ==

== ENCOUNTER → 2023-01-17 09:40 | Outpatient (BNVA) | payer MEDICARE, OTHER, SELFPAY | PROVIDERS: PCP Family Medicine; Visit Provider Family Medicine | DX: R26.81 Unsteadiness on feet (principal); E11.9 Type 2 diabetes mellitus without complications; I10 Essential (primary) hypertension; I48.91 Unspecified atrial fibrillation | CPT/HCPCS: 80053; 83036; 83880; 85025 ==

== ENCOUNTER 2023-02-06 06:00 | Outpatient (RCR) | payer MEDICARE, OTHER, SELFPAY | END 2023-02-25 23:59 | disposition home or self-care (01) | LOC: APT 06:00 | PROVIDERS: PCP Family Medicine; Visit Provider Family Medicine | DX: R26.9 Unspecified abnormalities of gait and mobility (principal) | CPT/HCPCS: 97110; 97112; 97163; 97530 ==

== ENCOUNTER → 2023-02-07 11:22 | Outpatient (BNVA) | payer MEDICARE, OTHER, SELFPAY | PROVIDERS: PCP Family Medicine; Visit Provider Family Medicine | DX: L98.9 Disorder of the skin and subcutaneous tissue, unspecified (principal) | CPT/HCPCS: 88304 ==

== ENCOUNTER → 2023-02-21 08:47 | Outpatient (BNVA) | payer MEDICARE, OTHER, SELFPAY | PROVIDERS: PCP Family Medicine; Visit Provider Family Medicine | DX: I50.9 Heart failure, unspecified (principal); I48.91 Unspecified atrial fibrillation; E11.9 Type 2 diabetes mellitus without complications; I11.0 Hypertensive heart disease with heart failure | CPT/HCPCS: 80048; 83880; 85025 ==

== ENCOUNTER 2023-02-26 06:00 | Outpatient (RCR) | payer MEDICARE, OTHER, SELFPAY | END 2023-03-28 23:59 | disposition home or self-care (01) | LOC: APT 06:00 | PROVIDERS: PCP Family Medicine; Visit Provider Family Medicine | DX: R26.81 Unsteadiness on feet (principal) | CPT/HCPCS: 97110; 97112; 97530 ==

== ENCOUNTER 2023-03-29 06:00 | Outpatient (RCR) | payer MEDICARE, OTHER, SELFPAY | END 2023-04-27 23:59 | disposition home or self-care (01) | LOC: APT 06:00 | PROVIDERS: PCP Family Medicine; Visit Provider Family Medicine | DX: R29.6 Repeated falls (principal) | CPT/HCPCS: 97110; 97530 ==

== ENCOUNTER → 2023-05-18 10:10 | Outpatient (BNVA) | payer MEDICARE, OTHER, SELFPAY | PROVIDERS: PCP Family Medicine; Visit Provider Family Medicine | DX: I10 Essential (primary) hypertension (principal); I48.91 Unspecified atrial fibrillation; E11.9 Type 2 diabetes mellitus without complications; D64.9 Anemia, unspecified | CPT/HCPCS: 80053; 83036; 85025 ==

== ENCOUNTER → 2023-08-17 09:37 | Outpatient (BNVA) | payer MEDICARE, OTHER, SELFPAY | PROVIDERS: PCP Family Medicine; Visit Provider Family Medicine | DX: I10 Essential (primary) hypertension (principal); I48.91 Unspecified atrial fibrillation; E11.9 Type 2 diabetes mellitus without complications; D64.9 Anemia, unspecified | CPT/HCPCS: 80053; 83880; 85025 ==

== ENCOUNTER 2023-09-28 08:34 | Outpatient (CLI) | payer MEDICARE, SELFPAY ==
--- NOTE | 2023-09-28 09:04 | MM_ITS ---
WS: [id number] BILATERAL 3D TOMOSYNTHESIS DIGITAL DIAGNOSTIC MAMMOGRAPHY WITH CAD CLINICAL INFORMATION: HX OF BREAST CA HISTORY: RIGHT breast cancer COMPARISON: 2022 TECHNIQUE: Bilateral CC, MLO, and ML views. FINDINGS: Scattered fibroglandular densities bilaterally. Incidental punctate calcifications. Postoperative pito nges lumpectomy RIGHT breast. Associated parenchymal scarring. Treatment-related changes RIGHT breast . LEFT breast is unchanged. No suspicious focal mass, asymmetry, calcifications, or architectural distortion. No evidence of pat gnancy. MM/[place] [id number] IMPRESSION: BI-RADS: 2-Benign FOLLOW UP: 1 Year Follow-up Recommend return to annual diagnostic mammography.
== END 2023-09-28 08:35 | disposition home or self-care (01) ==
LOC: RAD 08:35
PROVIDERS: PCP Family Medicine; Visit Provider Family Medicine
DX: Z85.3 Personal history of malignant neoplasm of breast (principal); R92.323 Mammographic fibroglandular density, bilateral breasts; R92.1 Mammographic calcification found on diagnostic imaging of breast; Z98.890 Other specified postprocedural states; L90.5 Scar conditions and fibrosis of skin
CPT/HCPCS: 77062; G0279

== ENCOUNTER → 2023-11-16 10:06 | Outpatient (BNVA) | payer MEDICARE, OTHER, SELFPAY | PROVIDERS: PCP Family Medicine; Visit Provider Family Medicine | DX: E11.9 Type 2 diabetes mellitus without complications (principal); I10 Essential (primary) hypertension; I48.91 Unspecified atrial fibrillation; D64.9 Anemia, unspecified; Z79.899 Other long term (current) drug therapy | CPT/HCPCS: 80053; 80061; 83036; 85025 ==

== ENCOUNTER 2023-12-26 09:29 | Outpatient (CLI) | payer MEDICARE, OTHER, SELFPAY ==
--- NOTE | 2023-12-26 09:32 | XRR_ITS ---
PROCEDURE INFORMATION: Exam: XR Chest Exam date and time: 12/26/2023 9:35 AM Age: 73 years old Clinical indication: Cough and shortness of breath; Prior surgery; Surgery date: 6+ months; Surgery type: Lumpectomy/device placement on the left side. Patient HX: History of breast cancer. SOB and cp for the last week. PT states she has felt like she couldn't breathe TECHNIQUE: Imaging protocol: Radiologic exam of the chest. Views: 2 views. COMPARISON: CR XR chest 1V portable [id number] 03/09/2021 3:53 PM FINDINGS: Tubes, catheters and devices: Loop recorder overlies the left lower chest. Lungs: Unremarkable. No consolidation. Pleural spaces: Unremarkable. No pleural effusion. No pneumothorax. Heart/Mediastinum: Unremarkable. No cardiomegaly. Bones/joints: Unremarkable. XR/XR chest 2V* [id number] IMPRESSION: 1. No acute cardiopulmonary findings.
== END 2023-12-26 09:30 | disposition home or self-care (01) ==
LOC: RAD 09:32
PROVIDERS: PCP Family Medicine; Visit Provider Family Medicine
DX: J40 Bronchitis, not specified as acute or chronic (principal); Z98.890 Other specified postprocedural states
CPT/HCPCS: 71046

== ENCOUNTER 2024-02-08 13:30 | Outpatient (CLI) | payer MEDICARE, OTHER, SELFPAY ==
--- NOTE | 2024-02-08 13:37 | USCV_ITS ---
Terese Yates Age: 73 Gender: F : 1950 Exam Date: 02/08/2024 13:45 Ordering Phys: Jan Kirk MD Technologist: MORENA Exam Location: [place] Indication: Stenosis Risk Factors: Previous Vascular Surgery: Right Brachial BP: / Left Brachial BP: / Right Left Velocity (cm/s) Spectral Plaque Velocity (cm/s) Spectral Plaque Syst/Diast Broadening Syst/Diast Broadening 61.60/ 10.10 Prox CCA 65.10 / 13.60 65.10/ 13.60 Mid CCA 101.90/ 17.90 61.30/ 11.90 Distal CCA 90.70 / 33.00 64.00/ 14.50 Prox ICA 205.50/ 58.30 87.00/ 30.40 Mid ICA 277.40/ 49.90 95.80/ 29.60 Distal ICA 159.50/ 34.20 95.90 ECA 224.20 1.60 ICA/CCA 3.10 Antegrade Vertebral Antegrade 67.70/ 21.70 cm/s 72.40/ 14.40 cm/s Tri Subclavian Tri 224.7 169.4 0 0 CONCLUSIONS Right ICA stenosis <50%. Moderate atheromatous plaque right carotid bulb/ICA. Left ICA stenosis 50-69% at the upper end of the range. Moderate atheromatous plaque left carotid bulb/ICA. Normal antegrade Doppler flow noted in the right vertebral artery. Normal antegrade Doppler flow noted in the left vertebral artery. Jose Corenjo MD (Electronically Signed) Final Date: 09 February 2024 16:15 S
== END 2024-02-08 13:31 | disposition home or self-care (01) ==
PROVIDERS: PCP Family Medicine; Visit Provider Family Medicine
DX: I65.23 Occlusion and stenosis of bilateral carotid arteries (principal)
CPT/HCPCS: 93880

== ENCOUNTER → 2024-02-15 09:42 | Outpatient (BNVA) | payer MEDICARE, OTHER, SELFPAY | PROVIDERS: PCP Family Medicine; Visit Provider Family Medicine | DX: I10 Essential (primary) hypertension (principal); I42.9 Cardiomyopathy, unspecified; I48.91 Unspecified atrial fibrillation; E11.9 Type 2 diabetes mellitus without complications | CPT/HCPCS: 80053; 83036; 84443; 85025 ==

== ENCOUNTER 2024-02-20 14:31 | Outpatient (CLI) | payer MEDICARE, OTHER, SELFPAY ==
--- NOTE | 2024-02-20 15:30 | CT_ITS ---
WS: [id number] CT chest wo con [id number] HISTORY: dyspnea TECHNIQUE: Axial imaging performed through the thorax. Coronal and sagittal reformats are submitted. All CT scans at [facility] use at least one of these dose optimization techniques: automated exposure control; mA and/or kV adjustment per patient size (includes targeted exams where dose is mat ched to clinical indication); or iterative reconstruction. CONTRAST: None DLP: 514.95 mGy.cm COMPARISON: 12/11/2020, 06/09/2015 Lungs and central airway: Mild peripheral interstitial thickening. 6.7 mm well-circumscribed nodule i n the LEFT upper lobe was also present in 2016 measuring 5.2 mm. No new mass is identified. No pneumo vanesa. There are a few scattered areas of groundglass attenuation which can be seen with hypersensitivi ty pneumonia. Pleura: Normal. No pleural effusion. Heart and pericardium: Mild cardiomegaly. Mediastinum and nazia: There is mild fullness at the hilar regions. No discrete lymph nodes are identi fied. Small lymph nodes would be obscured without IV contrast. Vessels: Atherosclerosis aorta. Pulmonary artery is slightly dilated. Chest wall and lower neck: Postoperative lumpectomy site RIGHT breast 1.7 x 1.8 cm. Probably a postop erative seroma due to the attenuation. Upper abdomen: Small hiatal hernia. Splenic granulomata. Very mild hyperplasia of the LEFT adrenal gl and similar to prior studies. Osseous structures: Mild thoracic curvature. Remote healing fracture proximal RIGHT humerus. CT/CT chest wo con [id number] IMPRESSION: 1. No pneumonia. 2. Mild chronic interstitial thickening. 3. There are a few scattered areas of groundglass attenuation which can be see n with hypersensitivity pneumonia. 4. Lumpectomy site RIGHT breast. There is a small residual fluid collection wh ich is probably a postoperative seroma. 5. Mild cardiomegaly. 6. Mild atherosclerosis aorta.
== END 2024-02-20 14:32 | disposition home or self-care (01) ==
LOC: RAD 14:32
PROVIDERS: PCP Family Medicine; Visit Provider Family Medicine
DX: R91.1 Solitary pulmonary nodule (principal); R06.00 Dyspnea, unspecified; R91.8 Other nonspecific abnormal finding of lung field
CPT/HCPCS: 71250; 80053; 83036; 84443; 85025

== ENCOUNTER → 2024-03-19 09:49 | Outpatient (BNVA) | payer MEDICARE, OTHER, SELFPAY | PROVIDERS: PCP Family Medicine; Visit Provider Family Medicine | DX: R53.1 Weakness (principal); E11.9 Type 2 diabetes mellitus without complications | CPT/HCPCS: 80053; 81000; 85025; 86140; 87086 ==

== ENCOUNTER → 2024-03-25 09:17 | Outpatient (BNVA) | payer MEDICARE, OTHER, SELFPAY | PROVIDERS: PCP Family Medicine; Visit Provider Family Medicine | DX: E11.9 Type 2 diabetes mellitus without complications (principal); N18.9 Chronic kidney disease, unspecified | CPT/HCPCS: 80048 ==

== ENCOUNTER → 2024-04-01 09:06 | Outpatient (BNVA) | payer MEDICARE, OTHER, SELFPAY | PROVIDERS: PCP Family Medicine; Visit Provider Family Medicine | DX: N18.9 Chronic kidney disease, unspecified (principal); I10 Essential (primary) hypertension | CPT/HCPCS: 80048 ==

== ENCOUNTER 2024-04-11 13:57 | Inpatient (IN) | payer MEDICARE, OTHER, SELFPAY ==
[2024-04-11] VITALS (7 sets, daily range): BP systolic 145–224; BP diastolic 79–96; PULSE 72–93; RESP 24–37; TEMP 36.4–36.6; O2SAT 94–98; BMI 38.0
--- NOTE | 2024-04-11 13:59 | XR_ITS ---
WS: [id number] Portable AP upright chest, 04/11/2024 Clinical Data: sob Comparison: Two-view chest, 12/26/2023 Findings: There is a patchy opacity left lower lobe which could represent atelectasis, pneumonia and/ or effusion. No nodules or masses are seen. The heart is normal. The pulmonary vascularity is not in creased. No pneumothorax is seen. There is a recording device overlying the left lower chest. XR/XR chest 1V portable [id number] Impression: Patchy left lower lobe opacity which could represent atelectasis, pneumonia and /or effusion.
--- NOTE | 2024-04-11 14:10 | ECG_ITS ---
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 Measurements Intervals [place] Rate: 84 P: 40 CA: 141 QRS: -37 QRSD: 103 T: 33 QT: 388 QTc: 460 Interpretive Statements SINUS RHYTHM LEFT AXIS DEVIATION [QRS AXIS < -30] VOLTAGE CRITERIA FOR LVH [MEETS CRITERIA IN ONE OF: R(aVL), S(V1), R(V5), R(V5/V6)+S(V1)] POSSIBLE ANTERIOR MYOCARDIAL INFARCTION , PROBABLY OLD [30 ms Q WAVE IN V3/V4, OR R < 0.2 mV IN V4] Compared to ECG 03/10/2021 01:33:08 Left ventricular hypertrophy now present Myocardial infarct finding now present Atrial fibrillation no longer present T-wave abnormality no longer present Electronically Signed On 04-11-2024 21:32:18 ATTENDING PHYSICIAN by Elizabeth Tabor M.D. [id number]
[2024-04-11 14:59] LABS: Basophils % 0.5 %; Eosinophils # 0.3 10^3/uL (0.0-0.8); Eosinophils % 3.2 %; Hematocrit 23.9 % (36-47); Lymphocytes # 0.5 10^3/uL (0.8-4.8); Lymphocytes % 6.3 %; Mean Corpuscular HGB Conc 32.6 g/dL (30-55); Mean Corpuscular Hemoglobin 30.4 pg (27-33); Mean Platelet Volume 8.6 fL (7.4-10.4); Monocytes # 0.7 10^3/uL (0.2-0.9); Neutrophils # 6.47 10^3/uL (1.8-7.7); Neutrophils % 79.9 %; Nucleated Red Blood Cells % 0 %; Platelet Count 274 10^3/cmm (157-399); Red Blood Count 2.57 10^6/uL (3.85-5.65); Red Cell Distribution Width 12.8 % (12.1-15.1)
[2024-04-11 15:26] LABS: Alanine Aminotransferase 8 U/L (0-33); Albumin Level 3.3 g/dL (3.5-5.2); Alkaline Phosphatase 66 U/L (35-105); Anion Gap 15.5 (5-19); Aspartate Amino Transferase 6 U/L (0-32); Blood Urea Nitrogen 27 mg/dL (8-23); Calcium 7.8 mg/dL (8.5-10.5); Carbon Dioxide 23 mmol/L (22-29); Chloride 96 mmol/L (98-107); Glucose 495 mg/dL (65-115); NT Pro B Type Natriuretic Pept 17980 pg/mL (0-125); Osmolality Calculated 297 mOsm/kg (285-295); Potassium 4.5 mmol/L (3.5-5.1); Sodium 130 mmol/L (136-145); Total Bilirubin 0.2 mg/dL (0.15-1.2); Total Protein 6.3 g/dL (6.6-8.7)
--- NOTE | 2024-04-11 17:31 | ED_ITS ---
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 She denies any cough denies any fever patient denies any chest pain she states she gets short of breath with exertion Associated symptoms: Reports dyspnea; Deny chest pain, headache(s), nausea, rash or vomiting Related Data Previous Rx's Medication Instructions Recorded amlodipine 5 mg tablet See Rx Instructions .Route 03/15/23 .COMPLEX #90 tabs gabapentin 100 mg capsule See Rx Instructions .Route 05/18/23 .COMPLEX #180 caps magnesium oxide 400 mg (241.3 mg See Rx Instructions .Route 06/08/23 magnesium) tablet .COMPLEX #90 tabs simvastatin 40 mg tablet See Rx Instructions .Route 06/08/23 .COMPLEX #90 tabs glimepiride 4 mg tablet See Rx Instructions .Route 10/27/23 .COMPLEX #180 tabs albuterol sulfate 90 mcg/actuation 2 puff inhalation Q6H PRN 12/26/23 aerosol inhaler (Ventolin HFA) shortness of breath or wheezing #8.5 grams spironolactone 25 mg tablet See Rx Instructions .Route 01/01/24 .COMPLEX #90 tabs lisinopril 20 mg tablet See Rx Instructions .Route 01/02/24 .COMPLEX #90 tabs ferrous sulfate 325 mg (65 mg See Rx Instructions .Route 01/19/24 iron) tablet (FeroSul) .COMPLEX #90 tabs duloxetine 60 mg capsule,delayed 60 mg PO DAILY #90 caps 01/24/24 release pioglitazone 15 mg tablet 15 mg PO BID #180 tabs 03/19/24 clopidogrel 75 mg tablet See Rx Instructions .Route 03/20/24 .COMPLEX #90 tabs furosemide 40 mg tablet See Rx Instructions .Route 03/20/24 .COMPLEX #30 tabs blood-glucose meter,continuous #1 ea 03/26/24 (Dexcom G6 Fleet Director) blood-glucose sensor (Dexcom G6 #3 ea 03/26/24 Sensor device) empagliflozin 10 mg tablet 10 mg PO DAILY #30 tabs 03/26/24 (Jardiance) Allergies Allergy/AdvReac Type Severity Reaction Status Date / Time Penicillins Allergy ALGY-Hives Verified 04/11/24 14:07 Review of Systems 2 Const: Denies: fever(s), chills, body aches or change in appetite ENMT: Denies: throat pain or dental pain Card: Denies: chest pain Resp: Reports: dyspnea GI: Denies: abdominal pain, nausea, vomiting or diarrhea Musc: Reports: extremity swelling; Denies: neck pain or back pain Skin/Breast: Denies: rash Neuro: Denies: headache(s) PFSH ED 2 PFSH: Medical History Chronic kidney disease Hyperlipidemia Cardiomyopathy Ejection fraction 50% on echocardiogram Atrial fibrillation Depression Right leg swelling HTN (hypertension) Peripheral neuropathy DM type 2 (diabetes mellitus, type 2) Breast cancer Presence of internal carotid stent CVA (cerebral vascular accident) Diabetes COVID-19 Surgical History History of prior ablation treatment History of removal of Port-a-Cath Hx of total hip arthroplasty History of cataract surgery H/O partial mastectomy R Family History Mother CAD (coronary artery disease) Social History Smoking and tobacco/nicotine status: never used tobacco/nicotine Substance/Drug Use: never Physical Exam 2 Const: COMMON NORMALS: patient oriented x3 HENMT: COMMON NORMALS: normocephalic and atraumatic HEAD & SCALP: n ormocephalic and atraumatic Eye: COMMON NORMALS: Equal, round and reactive pupils present and EOMs intact bilaterally PUPIL: Yes Equal, round and reactive pupils present Neck/C-Spine: COMMON NORMALS: full ROM and supple Chest: COMMONS NORMALS: normal inspection of the chest Resp: COMMON NORMALS: No retractions and No use of accessory muscles A USCULTATION: rales Cardio: COMMON NORMALS: regular rate, regular rhythm and No murmurs present (Cardio) RATE: regular rate RHYTHM: regular rhythm GI: COMMON NORMALS: Normal to inspection, nondistended, normoactive bowel sounds present, Soft to palpation, non-tender and no masses PALPATION: Yes Soft to palpation Extremity: COMMON NORMALS: full ROM NARRATIVE EXTREMITY EXAM: 2+ edema Neuro: COMMON NORMALS: patient oriented x3, moves all extremities and no focal motor deficits Psych: COMMON NORMALS: mental status grossly normal, Normal thought process present and cooperative THOUGHT PROCESS: Normal thought process present Skin: COMMON NORMALS: no rashes or lesions noted and no wounds GENERAL SKIN EXAM: no rashes or lesions noted Course 2 Vital Signs: Vital signs: Vital Signs Temperature 97.6 F 04/11/24 14:04 Pulse Rate 93 04/11/24 14:04 Respiratory Rate 24 H 04/11/24 14:04 Blood Pressure 145/79 04/11/24 14:04 Pulse Oximetry 94 04/11/24 14:04 Oxygen Delivery Me thod Room Air 04/11/24 14:04 MDM - General Adult Medical Decision Making Patient presents here with congestive heart failure she has had increased edema and dyspnea her BNP is elevated from her baseline here I spoke to hospitalist will admit at this time for diuresis. Medical Records I reviewed the patient's medical records. Lab Data I reviewed the patient's lab results. 04/11/24 14:51 04/11/24 14:51 Radiology Impressions Chest X-Ray 04/11/24 13:59 Impression: Patchy left lower lobe opacity which could represent atelectasis, pneumonia and/or effusion. Laboratory Results WBC 8.10 10^3/uL (3.29-11.43) 04/11/24 14:51 RBC 2.57 10^6/uL (3.85-5.65) L 04/11/24 14:51 Hgb 7.80 g/dL (11.27-16.99) L 04/11/24 14:51 Hct 23.9 % (36-47) L 04/11/24 14:51 MCV 93.0 fl (85-98) 04/11/24 14:51 MCH 30.4 pg (27-33) 04/11/24 14:51 MCHC 32.6 g/dL (30-55) 04/11/24 14:51 RDW 12.8 % (12.1-15.1) 04/11/24 14:51 Plt Count 274 10^3/cmm (157-399) 04/11/24 14:51 MPV 8.6 fL (7.4-10.4) 04/11/24 14:51 Neut % (Auto) 79.9 % 04/11/24 14:51 Lymph % (Auto) 6.3 % 04/11/24 14:51 Robeson % (Auto) 8.0 % 04/11/24 14:51 Eos % (Auto) 3.2 % 04/11/24 14:51 Baso % (Auto) 0.5 % 04/11/24 14:51 Neut # (Auto) 6.47 10^3/uL (1.8-7.7) 04/11/24 14:51 Lymph # (Auto) 0.5 10^3/uL (0.8-4.8) L 04/11/24 14:51 Robeson # (Auto) 0.7 10^3/uL (0.2-0.9) 04/11/24 14:51 Eos # (Auto) 0.3 10^3/uL (0.0-0.8) 04/11/24 14:51 Baso # (Auto) 0.0 10^3/uL (0.0-0.1) 04/11/24 14:51 Nucleated RBC % (auto) 0 % 04/11/24 14:51 Nucleated RBCs # 0.0 /100WBC 04/11/24 14:51 Sodium 130 mmol/L (136-145) L 04/11/24 14:51 Potassium 4.5 mmol/L (3.5-5.1) 04/11/24 14:51 Chloride 96 mmol/L (98-107) L 04/11/24 14:51 Carbon Dioxide 23 mmol/L (22-29) 04/11/24 14:51 Anion Gap 15.5 (5-19) 04/11/24 14:51 BUN 27 mg/dL (8-23) H 04/11/24 14:51 Creatinine 2.8 mg/dL (0.5-0.9) H 04/11/24 14:51 GFR Calculation Not Reportable 04/11/24 14:51 Glucose 495 mg/dL (65-115) H 04/11/24 14:51 Calculated Osmolality 297 mOsm/kg (285-295) H 04/11/24 14:51 Calcium 7.8 mg/dL (8.5-10.5) L 04/11/24 14:51 Total Bilirubin 0.2 mg/dL (0.15-1.2) 04/11/24 14:51 AST 6 U/L (0-32) 04/11/24 14:51 ALT 8 U/L (0-33) 04/11/24 14:51 Alkaline Phosphatase 66 U/L (35-105) 04/11/24 14:51 NT-Pro-B Natriuret Pep 72530 pg/mL (0-125) H 04/11/24 14:51 Total Protein 6.3 g/dL (6.6-8.7) L 04/11/24 14:51 Albumin 3.3 g/dL (3.5-5.2) L 04/11/24 14:51 Globulin 3.0 g/dL (1.3-4.6) 04/11/24 14:51 All radiology interpretation(s) finalized by discharge Discharge Plan Discharge Patient Disposition: Admitted As Inpatient Clinical Impression: Acute exacerbation of congestive heart failure, Chronic kidney disease Condition: Stable Coding Level of Care Code ED Metallurgical Engineer for [address]
--- NOTE | 2024-04-11 17:33 | P.HP_ITS ---
Providers/Chief Complaint 2 Primary Care Provider: Jan Kirk MD Chief Complaint: fluid build up History of Present Illness Terese Yates is a 73 year old female with past medical history of type 2 diabetes mellitus, cardiac heart failure, hypertension, stroke, CKD with baseline creatinine of 1.8-2.3 was sent into the ER from primary care's office because of increasing swelling all over her body. As per the patient her home dose of Lasix was recently discontinued by her PCP and over last 1 week she has developed increased swelling of both her lower limbs and her arms going up to her mid belly. She denies of having any chest pain. Does complain of shortness of breath both on exertion and rest getting worsened by speaking and orthopnea. She denies any chest discomfort, palpitation, headache, dizziness. In the ER so far she received 40 mg of IV Lasix. Examination patient seen with caregiver at bedside, awake and alert able to have complete conversation with a systolic blood pressure of 220 mmHg. Review of Systems 2 General: Reports: 10 or more systems reviewed and unremarkable except in HPI and below Const: Denies: fever(s), chills, body aches, change in appetite, change in weight, malaise, night sweats, diaphoresis, change in sleep pattern, daytime sleepiness or snoring Eyes: Denies: change in vision, blurry vision, photophobia, eye discomfort or eye discharge ENMT: Denies: throat pain, enlarged tonsils, hoarseness, mouth pain, oral sores, dry mouth, tinnitus, nasal congestion or post nasal drip Card: Denies: chest pain, palpitations, irregular heart rhythm, edema, swelling of feet/ankles, lightheadedness, syncope, pre-syncope, dyspnea on exertion, orthopnea, leg pain with exertion or acrocyanosis Resp: Denies: dyspnea, productive cough, non-productive cough, wheezing, stridor, pain on inspiration, change in phlegm color, hemoptysis or chest congestion GI: Denies: abdominal pain, nausea, vomiting, hematemesis, coffee ground emesis, dysphagia, heartburn, diarrhea, constipation, bloating, GI cramping, change in bowel habits, pain on defecation, hematochezia or melena : Denies: flank pain, dysuria, urinary frequency, urinary urgency, urinary hesitancy, nocturia or hematuria Musc: Denies: neck pain, back pain, extremity pain, joint pain, joint swelling, joint redness, joint stiffness or limited range of motion Neuro: Denies: headache(s), numbness in extremities, weakness in extremities, sensory changes, lack of coordination, difficulty walking, frequent falls, dizziness, vertigo, confusion, Slurred speech present, difficulty communicating thoughts or seizure-like activity Psych: Denies: anxiety, depression, mood swings, panic attacks, hopelessness or irritability Endo: Denies: polyuria, polydipsia, tired all the time, cold intolerance, excessive sweating, flushing or heat intolerance Keven/Lymph: Denies: easy bruising or easy bleeding All/Imm: Denies: tongue swelling, facial swelling or acute wheezing Medications/Allergies Home Medications Medication Instructions Recorded Confirmed Last Taken Type amlodipine 5 mg tablet See Rx Instructions .Route 03/15/23 04/11/24 04/11/24 Rx .COMPLEX #90 tabs gabapentin 100 mg capsule See Rx Instructions .Route 05/18/23 04/11/24 Unknown Rx .COMPLEX #180 caps magnesium oxide 400 mg (241.3 mg See Rx Instructions .Route 06/08/23 04/11/24 Unknown Rx magnesium) tablet .COMPLEX #90 tabs simvastatin 40 mg tablet See Rx Instructions .Route 06/08/23 04/11/24 Unknown Rx .COMPLEX #90 tabs glimepiride 4 mg tablet See Rx Instructions .Route 10/27/23 04/11/24 Unknown Rx .COMPLEX #180 tabs albuterol sulfate 90 mcg/actuation 2 puff inhalation Q6H PRN 12/26/23 04/11/24 Unknown Rx aerosol inhaler (Ventolin HFA) shortness of breath or wheezing #8.5 grams lisinopril 20 mg tablet See Rx Instructions .Route 01/02/24 04/11/24 Unknown Rx .COMPLEX #90 tabs ferrous sulfate 325 mg (65 mg See Rx Instructions .Route 01/19/24 04/11/24 Unknown Rx iron) tablet (FeroSul) .COMPLEX #90 tabs duloxetine 60 mg capsule,delayed 60 mg PO DAILY #90 caps 01/24/24 04/11/24 Unknown Rx release pioglitazone 15 mg tablet 15 mg PO BID #180 tabs 03/19/24 04/11/24 Unknown Rx clopidogrel 75 mg tablet See Rx Instructions .Route 03/20/24 04/11/24 04/11/24 Rx .COMPLEX #90 tabs furosemide 40 mg tablet See Rx Instructions .Route 03/20/24 04/11/24 Unknown Rx .COMPLEX #30 tabs blood-glucose meter,continuous #1 ea 03/26/24 04/12/24 Unknown Rx (Dexcom G6 Clinical Nurse Educator) blood-glucose sensor (Dexcom G6 #3 ea 03/26/24 04/12/24 Unknown Rx Sensor device) empagliflozin 10 mg tablet 10 mg PO DAILY #30 tabs 03/26/24 04/12/24 Unknown Rx (Jardiance) Allergies Allergy/AdvReac Type Severity Reaction Status Date / Time Penicillins Allergy ALGY-Hives Verified 04/11/24 14:07 PFSH Acute 2 PFSH: Medical History (Updated 04/12/24 @ 11:04 by Babatunde Adams MD) Positive cardiac stress test Chronic kidney disease Hyperlipidemia Cardiomyopathy Ejection fraction 50% on echocardiogram Atrial fibrillation Depression Right leg swelling HTN (hypertension) Peripheral neuropathy DM type 2 (diabetes mellitus, type 2) Breast cancer Presence of internal carotid stent CVA (cerebral vascular accident) Diabetes COVID-19 Surgical History History of prior ablation treatment History of removal of Port-a-Cath Hx of total hip arthroplasty History of cataract surgery H/O partial mastectomy R Family History Mother CAD (coronary artery disease) Social History Smoking and tobacco/nicotine status: never used tobacco/nicotine Substance/Drug Use: never Vitals/I&O/Wt Last Vital Signs Temp 97.6 F 04/11/24 14:04 Pulse 93 04/11/24 14:04 Resp 24 H 04/11/24 14:04 BP 145/79 04/11/24 14:04 Pulse Ox 94 04/11/24 14:04 O2 Del Method Room Air 04/11/24 14:04 Weight last 48 hrs Weight 107.048 kg Physical Exam 2 Narrative: General: No acute distress, AO x3, stuttering of words which is chronic HEENT: PERRLA, pupils bilaterally equal and reactive Chest: Normal vesicular breath sounds, no added sounds, equal good air entry bilaterally CVS: S1-S2 regular, no murmurs, no tachycardia, no gallops, no rubs Abdomen: Soft, nontender, no organomegaly, bowel sounds present Neuro: No focal deficits, no facial deformity, AO x3, power 5/5 in all limbs Extremity: Bilateral 2+ pitting edema going up to thigh level, pitting edema bilaterally in upper limbs Data 04/12/24 04:17 04/12/24 04:17 A&P Assessment and plan (1) Edema: (2) Acute exacerbation of congestive heart failure: (3) Cardiomyopathy: (4) Hypertensive urgency: (5) Atrial fibrillation: (6) DM type 2 (diabetes mellitus, type 2): (7) HTN (hypertension): (8) Chronic kidney disease: Plan 73-year-old female with past medical history of diastolic heart failure, CKD, hypertension, type 2 diabetes mellitus presents to the ER because of worsening swelling all over her body along with shortness of breath after home dose of Lasix was discontinued recently by her PCP. Generalized edema: Patient does have history of diastolic heart failure. proBNP elevated. Does have symptoms consistent with acute decompensated congestive heart failure. Check bilateral lower limb Doppler along with right upper limb Doppler. Acute decompensated congestive heart failure: Diastolic in nature. Check echocardiogram. Strict input output charting, daily weights. Smith catheterization. Fluid restriction to less than 1500 cc. Already received 40 mg of IV Lasix in the ER. Will repeat 40 mg and start on 60 mg twice daily. CKD: Baseline creatinine 1.8-2.3. Currently mild GEE on CKD. Could be in setting of CRS. Medical decussation done for nephrotoxic drugs. Check urine lites, urine creatinine. Monitor BMP daily. Hypertensive urgency: Goal blood pressure less than 140/90 mmHg. Patient takes amlodipine 5 mg oral daily, supposed to be taking lisinopril as well but it seems it is on hold. Continue home dose of amlodipine, add hydralazine 25 mg 3 times daily along with 10 mg every 4 hours as needed for systolic blood pressure of more than 160 mmHg. Uptitrate as for goal blood pressure. Type 2 diabetes mellitus: Currently uncontrolled hyperglycemia. No concerns for DKA. Appreciate recent A1c of 8.8. Sliding scale at moderate dose protocol. Will start on Lantus depending on insulin requirement in next 24 hours. Hold off on home dose of OHA's. Atrial fibrillation: Currently heart rate controlled. Continue to monitor. CODE STATUS: Full code Carb consistent cardiac diet Protonix for PUD prophylaxis Heparin for DVT prophylaxis Attestations 2 Medical Necessity Statement*: Admission for more than 2 midnights for management of acute decompensated congestive heart failure leading to generalized anasarca, CKD, uncontrolled hyperglycemia, hypertensive urgency Diagnoses Edema R60.9 Acute exacerbation of congestive heart failure I50.9 Cardiomyopathy I42.9 Hypertensive urgency I16.0 Atrial fibrillation I48.91 DM type 2 (diabetes mellitus, type 2) E11.9 HTN (hypertension) I10 Chronic kidney disease N18.9
--- NOTE | 2024-04-11 17:39 | USCV_ITS ---
Terese Yates Age: 73 Gender: F : 1950 Exam Date: 04/11/2024 17:07 Ordering Phys: Babatunde Adams MD Technologist: SHERWIN Exam Location: [facility] [place] Indication: chronic renal disease, weakness, SOB BP: 201 / 91 HR: 76 Rhythm: Sinus Technical Quality: Adequate MEASUREMENTS (Male / Female) Normal Values 2D ECHO LV Diastolic Diameter PLAX 4.3 cm 4.2 - 5.9 / 3.9 - 5.3 cm IVS Diastolic Thickness 1.5 cm 0.6 - 1.0 / 0.6 - 0.9 cm IVS Systolic Thickness 1.8 cm LVPW Diastolic Thickness 1.6 cm 0.6 - 1.0 / 0.6 - 0.9 cm LVPW Systolic Thickness 1.9 cm LVOT Diameter 1.9 cm LV Ejection Fraction 2D Teich 54.2 % LV Ejection Fraction MOD 4C 55.3 % LV Ejection Fraction MOD 2C 50.1 % LV Ejection Fraction 2C AL 51.4 % LA Diameter 4.3 cm Aorta at Sinotubular Diameter 2.8 cm IVC Diameter 1.6 cm M-MODE LA Ao Ratio MM 1.3 AV Cusp Separation MM 1.8 cm DOPPLER AV Peak Velocity 129.0 cm/s LVOT Peak Velocity 68.0 cm/s AV Area Cont Eq vti 2.0 cm squared AV Area Cont Eq pk 1.6 cm squared MV Peak Velocity 108.0 cm/s MV Area PHT 3.6 cm squared Mitral E to A Ratio 0.8 TV Peak E Velocity 39.0 cm/s PV Peak Velocity 105.0 cm/s FINDINGS Left Ventricle Normal left ventricular size, systolic function and wall thickness, with no regional wall motion abnormalities. Left ventricular ejection fraction is estimated at 60 %. Grade I/IV diastolic dysfunction (abnormal relaxation filling pattern), normal to mildly elevated filling pressures. Right Ventricle The right ventricle is normal in size and function. Right Atrium The right atrium is normal in size. Left Atrium The left atrium is normal in size. Mitral Valve Thickened mitral valve. No mitral valve stenosis. Mild mitral valve regurgitation. Aortic Valve Structurally normal aortic valve without significant sclerosis or stenosis. There is no aortic regurgitation. Tricuspid Valve Structurally normal tricuspid valve without significant stenosis or regurgitation. Pulmonic Valve Structurally normal pulmonic valve without significant stenosis. There is no pulmonic regurgitation. Pericardium Normal pericardium without effusion. Aorta Normal ascending aorta dimension. IVC The inferior vena cava appears normal. CONCLUSIONS Normal left ventricular size, systolic function and wall thickness, with no regional wall motion abnormalities. Left ventricular ejection fraction is estimated at 60 %. Grade I/IV diastolic dysfunction (abnormal relaxation filling pattern), normal to mildly elevated filling pressures. There is no pericardial effusion. Thickened mitral valve. No mitral valve stenosis. Mild mitral valve regurgitation. Right atrial pressure is around 5 mm of mercury. Franck Barrow MD (Electronically Signed) Final Date: 11 April 2024 21:36 S
[2024-04-11] MEDS: FUROsemide 10 mg/mL SDV 4mL 40 MG IVP ×2 (18:00→18:03)
[2024-04-11 18:21] LABS: D Dimer 1.92 ug/mLFEU (0-0.59)
[2024-04-11 18:26] LABS: Iron 45 ug/dL (37-145); Percent Saturation 18.2 % (20-50); Total Iron Binding Capacity 247 mcg/dl; Unsaturated Iron Binding 202 ug/dL (112-347)
[2024-04-11 18:33] LABS: Procalcitonin 0.22 ng/mL (0-0.5)
[2024-04-11 18:51] LABS: Bilirubin Urine Negative (Negative); Blood Urine 1+ (Negative); Glucose Urine UA 3+ (Normal); Ketones Urine Negative (Negative); Leukocyte Esterase Urine Negative (Negative); Nitrate Urine Negative (Negative); Protein Urine 3+ (Negative); Specific Gravity, Urine 1.012 (1.005-1.030); Urine Appearance Clear (CLEAR); Urine Color Yellow (Yellow); Urobilinogen Urine 0.2 mg/dL (Negative)
[2024-04-11 18:55] LABS: Add Urine Microscopic? YES; Bacteria Urine None Seen /hpf; Hyaline Casts Urine 5.36 /lpf; RBC Urine 0-2 /hpf (0-2); Squamous Epithelial Cell Urine 0-5 /hpf (0-5); WBC Urine 0-5 /hpf (0-5)
[2024-04-11 19:01] LABS: Potassium, Radom Urine 18 mmol/L; Urine Creatinine 34 mg/dL (28-217); Urine Random Chloride 47 mmol/L; Urine Random Sodium 46 mmol/L
[2024-04-11 20:26] LABS: Vitamin B12 1788 pg/mL (232-1245)
[2024-04-11] MEDS: atorvastatin 40 mg Tablet 20 MG PO (20:39)
[2024-04-11] MEDS: hyDRALAzine 25 mg Tablet PO (20:39)
[2024-04-11] MEDS: pantoprazole 40 mg SDV IVP (20:39)
[2024-04-11] MEDS: gabapentin 100 mg Capsule PO (20:39)
[2024-04-11] MEDS: heparin 5,000 unit/mL INJ 1 mL 5000 UNIT SUBCUT (20:39)
[2024-04-11] MEDS: FUROsemide 10 mg/mL SDV 10mL 60 MG IVP (20:39)
[2024-04-11] MEDS: insulin lispro 100 unit/1 mL SUBCUT (21:07)
[2024-04-11 21:11] LABS: Glucose Point of Care 533 mg/dL (70-110)
[2024-04-12] VITALS (9 sets, daily range): BP systolic 154–192; BP diastolic 75–101; PULSE 76–84; RESP 16–29; TEMP 36.5–36.7; O2SAT 92–97; BMI 37.8
[2024-04-12 04:55] LABS: Basophils % 0.5 %; Eosinophils # 0.4 10^3/uL (0.0-0.8); Eosinophils % 4.8 %; Hematocrit 23.7 % (36-47); Lymphocytes # 0.9 10^3/uL (0.8-4.8); Lymphocytes % 10.5 %; Mean Corpuscular HGB Conc 32.5 g/dL (30-55); Mean Corpuscular Hemoglobin 29.7 pg (27-33); Mean Corpuscular Volume 91.5 fl (85-98); Mean Platelet Volume 8.8 fL (7.4-10.4); Monocytes # 0.8 10^3/uL (0.2-0.9); Monocytes % 9.2 %; Neutrophils # 5.96 10^3/uL (1.8-7.7); Neutrophils % 72.9 %; Nucleated Red Blood Cells % 0 %; Platelet Count 303 10^3/cmm (157-399); Red Blood Count 2.59 10^6/uL (3.85-5.65); Red Cell Distribution Width 12.7 % (12.1-15.1); White Blood Count 8.17 10^3/uL (3.29-11.43)
[2024-04-12 05:33] LABS: Procalcitonin 0.25 ng/mL (0-0.5)
[2024-04-12 05:41] LABS: Alanine Aminotransferase 8 U/L (0-33); Albumin Level 3.2 g/dL (3.5-5.2); Alkaline Phosphatase 65 U/L (35-105); Anion Gap 15.8 (5-19); Aspartate Amino Transferase 8 U/L (0-32); Blood Urea Nitrogen 29 mg/dL (8-23); Calcium 8.3 mg/dL (8.5-10.5); Carbon Dioxide 23 mmol/L (22-29); Chloride 99 mmol/L (98-107); Creatinine Clr Calc Pharmacy 21.2844; Glucose 223 mg/dL (65-115); Magnesium 1.4 mg/dL (1.7-2.3); Osmolality Calculated 291 mOsm/kg (285-295); Potassium 3.8 mmol/L (3.5-5.1); Sodium 134 mmol/L (136-145); Total Bilirubin 0.2 mg/dL (0.15-1.2); Total Protein 6.2 g/dL (6.6-8.7)
[2024-04-12 06:27] LABS: Glucose Point of Care 226 mg/dL (70-110)
[2024-04-12] MEDS: insulin lispro 100 unit/1 mL SUBCUT ×4 (09:05→22:26)
[2024-04-12] MEDS: FUROsemide 10 mg/mL SDV 10mL 60 MG IVP ×2 (09:05→20:40)
[2024-04-12] MEDS: duloxetine 60 mg Capsule PO (09:06)
[2024-04-12] MEDS: heparin 5,000 unit/mL INJ 1 mL 5000 UNIT SUBCUT ×2 (09:06→20:40)
[2024-04-12] MEDS: metOLazone 5 MG Tablet PO (09:06)
[2024-04-12] MEDS: clopidogrel 75 mg Tablet PO (09:06)
[2024-04-12] MEDS: magnesium sulfate premix 1 GM/100 ML PIGGYBACK IV (09:06)
[2024-04-12] MEDS: hyDRALAzine 25 mg Tablet PO (09:06)
[2024-04-12] MEDS: gabapentin 100 mg Capsule PO ×3 (09:06→20:41)
[2024-04-12] MEDS: amlodipine 5 mg Tablet PO ×2 (09:06→11:06)
--- NOTE | 2024-04-12 09:08 | PC.CHAP ---
Pastoral Care Encounter/Spiritual Assessment Type of Contact [x] Declined renal dialysis rn visit [] Patient/Family/Request visit [] Outpatient visit [] Follow-up visit [] Physician referral [] Code/Alert [x] Routine visit [] Staff referral [] Actively dying [x] Patient sleeping [] Family support [] [] Out of room [] Palliative care [] [] Receiving care in room [] Pre-surgical visit [] Trauma [] Long length of stay [] ICU visit [] Other: On-Phone Relational/Emotional Strength [] Patient feels connected with others/family/visitors/staff [] Distress [] Loneliness/isolation [] Abandonment Spirituality of Patient [] Person of Bibiana [] Attends Baptist of their [place] [] Believes in Prayer [] Reads Bible or Protestant materials [] There are Spiritual issues to be addressed Director Personal Interventions [] Prayer [] Active listening [] Non-anxious presence [] Spiritual/emotional support [] Crisis/trauma care [] Spiritual counseling [] Bereavement support [] Provided bereavement packet [] Provided Bible/devotional materials [] Provided toy/stuffed animal, coloring book to patient or family member [] Provided Communion [] Anointing/Dendron [] Salvation [] Completed spiritual assessment [] Other: Impact on Illness or Injury [] Angry [] Fearful [] Anxious [] Often cries [] Exhaustion [] Unable to work [] Unable to attend mu-ism [] Unable to walk/stand [] Unable to read [] Unable to drive [] Unable to eat/drink [] Unable to sleep [] Unable to be with family [] Patient intubated [] Other: Summary Time spent with patient
--- NOTE | 2024-04-12 10:58 | PC.SOCIAL ---
IMM Updated Updated pt on IMM. No questions voiced. Provided pt a copy. Initialed, dated, & timed a copy & placed in chart.
--- NOTE | 2024-04-12 11:02 | USR_ITS ---
PROCEDURE INFORMATION: Exam: US Duplex Lower Extremity Veins, Bilateral Exam date and time: 04/12/2024 2:13 PM Age: 73 years old Clinical indication: Swelling (edema) of limb; Lower extremity, bilateral; Additional info: Rule out dvt TECHNIQUE: Imaging protocol: Real-time duplex ultrasound of the bilateral extremities with 2-D zabala scale, color Doppler flow and spectral waveform analysis including responses to compression and other maneuvers (when performed) with image documentation. Complete exam focused on the lower extremity veins. COMPARISON: US pelv w/transvag [id number] 08/31/2022 6:32 AM FINDINGS: Right deep veins: Unremarkable. The common femoral, femoral, proximal profunda femoral and popliteal veins are patent without thrombus. Normal Doppler waveforms. Normal compressibility and/or augmentation response. Left deep veins: Unremarkable. The common femoral, femoral, proximal profunda femoral and popliteal veins are patent without thrombus. Normal Doppler waveforms. Normal compressibility and/or augmentation response. Superficial veins: Greater saphenous veins at the saphenofemoral junctions are patent bilaterally without thrombus. Soft tissues: Unremarkable. US/[place] [id number] IMPRESSION: No evidence of deep vein thrombosis.
[2024-04-12 11:07] LABS: Glucose Point of Care 415 mg/dL (70-110)
--- NOTE | 2024-04-12 11:11 | P.PN_ITS ---
Subjective 2 Subjective: No acute events overnight. Patient's blood pressure is elevated but better than last night. Denies any nausea, vomiting. States she is feeling slightly better. Denies any chest pain. States she feels that the swelling is going down already. Vitals/I&O/Wt Last Vital Signs Temp 97.7 F 04/12/24 07:44 Pulse 80 04/12/24 07:44 Resp 16 04/12/24 07:34 BP 192/98 04/12/24 07:44 Pulse Ox 97 04/12/24 07:44 O2 Del Method Room Air 04/12/24 07:44 04/11/24 04/12/24 04/12/24 22:59 06:59 14:59 Intake Total 200 / 200 100 / 100 Output Total 650 / 650 1200 / 1850 Balance -450 / -450 -1200 / -1650 100 / 100 Weight last 48 hrs Weight 106.141 kg Weight 106.141 kg Weight 105.46 kg Weight 107.048 kg Physical Exam 2 Narrative: General: No acute distress, AO x3, stuttering of words which is chronic HEENT: PERRLA, pupils bilaterally equal and reactive Chest: Normal vesicular breath sounds, no added sounds, equal good air entry bilaterally CVS: S1-S2 regular, no murmurs, no tachycardia, no gallops, no rubs Abdomen: Soft, nontender, no organomegaly, bowel sounds present Neuro: No focal deficits, no facial deformity, AO x3, power 5/5 in all limbs Extremity: Bilateral 2+ pitting edema going up to thigh level, pitting edema bilaterally in upper limbs. Improving than on admission. Urinary Catheter Management: Smith: Cath Placed During This Visit: yes Reason for Continuing Indwelling Catheter: Acute Urinary Retention or Obstruction Urinary Catheter Date of Insertion: 04/11/24 Urinary Catheter Time of Insertion: 18:44 Data 04/12/24 04:17 04/12/24 04:17 A&P Assessment and plan (1) Edema: (2) Acute exacerbation of congestive heart failure: (3) Cardiomyopathy: (4) Hypertensive urgency: (5) Atrial fibrillation: (6) DM type 2 (diabetes mellitus, type 2): (7) HTN (hypertension): (8) Chronic kidney disease: Plan 73-year-old female with past medical history of diastolic heart failure, CKD, hypertension, type 2 diabetes mellitus presents to the ER because of worsening swelling all over her body along with shortness of breath after home dose of Lasix was discontinued recently by her PCP. Generalized edema: Patient does have history of diastolic heart failure. proBNP elevated. Does have symptoms consistent with acute decompensated congestive heart failure. Check bilateral lower limb Doppler along with right upper limb Doppler. Currently awaited. Acute decompensated congestive heart failure: Diastolic in nature. Echocardiogram shows diastolic dysfunction, normal EF with mild MR. Strict input output charting, daily weights. Smith catheterization. Fluid restriction to less than 1500 cc. Continue with IV Lasix 60 mg twice daily. Currently around 1.8 L negative. CKD: Baseline creatinine 1.8-2.3. Currently mild GEE on CKD. Could be in setting of CRS. Currently creatinine is stable. Monitor for contraction alkalosis and hypokalemia. Repeat BMP in evening. Medical decussation done for nephrotoxic drugs. Check urine lites, urine creatinine. Monitor BMP daily. Hyponatremia: Resolving. Most likely in setting of congestive heart failure. Continue to monitor. Replace 1 g of IV magnesium. Anemia: Denies any episodes of melena. Not on anticoagulation as an outpatient. Was stopped back in August 17 for GI bleed. Target hemoglobin more than 8. Check stool for occult blood. Check iron panel, vitamin B12 and folate levels. Will transfuse if continues to remain anemic with hemoglobin of less than 8. Hypertensive urgency: Goal blood pressure less than 140/90 mmHg. Still elevated but better than admission. Patient takes amlodipine 5 mg oral daily, supposed to be taking lisinopril as well but it seems it is on hold. Increase amlodipine to 10 mg oral daily, hydralazine to 50 mg 3 times daily. Continue with IV hydralazine 10 mg every 4 hours as needed for systolic blood pressure of more than 160 mmHg. Uptitrate as for goal blood pressure. Type 2 diabetes mellitus: Currently uncontrolled hyperglycemia. No concerns for DKA. Appreciate recent A1c of 8.8. Sliding scale at moderate dose protocol. Blood sugars continue to be elevated. Add Lantus 10 units twice daily. Atrial fibrillation: Currently heart rate controlled. Continue to monitor. CODE STATUS: Full code Carb consistent cardiac diet Protonix for PUD prophylaxis Heparin for DVT prophylaxis Attestations 2 Medical Necessity Statement*: Requires further hospitalization for management of congestive diastolic heart failure in setting of CKD, hypertensive urgency, uncontrolled hyperglycemia, anemia Diagnoses Edema R60.9 Acute exacerbation of congestive heart failure I50.9 Cardiomyopathy I42.9 Hypertensive urgency I16.0 Atrial fibrillation I48.91 DM type 2 (diabetes mellitus, type 2) E11.9 HTN (hypertension) I10 Chronic kidney disease N18.9
[2024-04-12 11:51] LABS: Glucose Point of Care 379 mg/dL (70-110)
[2024-04-12] MEDS: insulin glargine 100 units/1 mL 10 UNIT SUBCUT ×2 (11:51→17:31)
[2024-04-12] MEDS: hyDRALAzine 25 mg Tablet 50 MG PO ×2 (15:26→20:40)
[2024-04-12 16:00] LABS: Anion Gap 15.2 (5-19); Blood Urea Nitrogen 31 mg/dL (8-23); Calcium 8.8 mg/dL (8.5-10.5); Carbon Dioxide 24 mmol/L (22-29); Chloride 94 mmol/L (98-107); Creatinine Clr Calc Pharmacy 20.5749; Glucose 277 mg/dL (65-115); Osmolality Calculated 284 mOsm/kg (285-295); Potassium 4.2 mmol/L (3.5-5.1); Sodium 129 mmol/L (136-145)
[2024-04-12 17:16] LABS: Glucose Point of Care 219 mg/dL (70-110)
[2024-04-12] MEDS: sodium chloride 1 gm Tablet PO (17:31)
[2024-04-12] MEDS: atorvastatin 40 mg Tablet 20 MG PO (20:40)
[2024-04-12] MEDS: pantoprazole 40 mg SDV IVP (20:40)
[2024-04-12 20:44] LABS: Glucose Point of Care 233 mg/dL (70-110)
[2024-04-12] MEDS: bisacodyl 5 mg Tablet 10 MG PO (22:31)
[2024-04-13] VITALS (8 sets, daily range): BP systolic 110–190; BP diastolic 72–90; PULSE 69–87; RESP 18–24; TEMP 36.6–37.1; O2SAT 95–99
[2024-04-13 04:10] LABS: Basophils # 0.1 10^3/uL (0.0-0.1); Basophils % 0.7 %; Eosinophils # 0.4 10^3/uL (0.0-0.8); Eosinophils % 3.9 %; Hematocrit 23.2 % (36-47); Lymphocytes # 1.1 10^3/uL (0.8-4.8); Lymphocytes % 12.4 %; Mean Corpuscular HGB Conc 32.8 g/dL (30-55); Mean Corpuscular Hemoglobin 30.5 pg (27-33); Mean Corpuscular Volume 93.2 fl (85-98); Mean Platelet Volume 8.9 fL (7.4-10.4); Monocytes # 0.8 10^3/uL (0.2-0.9); Monocytes % 8.8 %; Neutrophils # 6.58 10^3/uL (1.8-7.7); Neutrophils % 71.5 %; Nucleated Red Blood Cells % 0 %; Platelet Count 278 10^3/cmm (157-399); Red Blood Count 2.49 10^6/uL (3.85-5.65); Red Cell Distribution Width 12.7 % (12.1-15.1)
[2024-04-13 04:38] LABS: Magnesium 1.7 mg/dL (1.7-2.3)
[2024-04-13 04:40] LABS: Alanine Aminotransferase 8 U/L (0-33); Albumin Level 3.1 g/dL (3.5-5.2); Alkaline Phosphatase 60 U/L (35-105); Anion Gap 16.6 (5-19); Aspartate Amino Transferase 9 U/L (0-32); Blood Urea Nitrogen 33 mg/dL (8-23); Calcium 8.9 mg/dL (8.5-10.5); Carbon Dioxide 25 mmol/L (22-29); Chloride 99 mmol/L (98-107); Creatinine Clr Calc Pharmacy 20.5749; Globulin 2.6 g/dL (1.3-4.6); Glucose 123 mg/dL (65-115); Osmolality Calculated 293 mOsm/kg (285-295); Potassium 3.6 mmol/L (3.5-5.1); Sodium 137 mmol/L (136-145); Total Bilirubin 0.2 mg/dL (0.15-1.2); Total Protein 5.7 g/dL (6.6-8.7)
[2024-04-13 06:31] LABS: Glucose Point of Care 181 mg/dL (70-110)
[2024-04-13] MEDS: FUROsemide 10 mg/mL SDV 10mL 60 MG IVP (08:16)
[2024-04-13] MEDS: insulin glargine 100 units/1 mL 10 UNIT SUBCUT ×2 (08:17→18:04)
[2024-04-13] MEDS: heparin 5,000 unit/mL INJ 1 mL 5000 UNIT SUBCUT ×2 (08:17→19:54)
[2024-04-13] MEDS: insulin lispro 100 unit/1 mL SUBCUT ×4 (08:17→21:24)
[2024-04-13] MEDS: magnesium hydroxide 30 mL UDC PO (08:18)
[2024-04-13] MEDS: amlodipine 5 mg Tablet 10 MG PO (08:18)
[2024-04-13] MEDS: hyDRALAzine 25 mg Tablet 50 MG PO ×2 (08:19→16:16)
[2024-04-13] MEDS: metOLazone 5 MG Tablet PO (08:19)
[2024-04-13] MEDS: sodium chloride 1 gm Tablet PO (08:19)
[2024-04-13] MEDS: duloxetine 60 mg Capsule PO (08:20)
[2024-04-13] MEDS: clopidogrel 75 mg Tablet PO (08:20)
[2024-04-13] MEDS: gabapentin 100 mg Capsule PO ×3 (08:20→20:25)
--- NOTE | 2024-04-13 11:02 | USR_ITS ---
PROCEDURE INFORMATION: Exam: US Duplex Right Upper Extremity Veins, Limited Exam date and time: 04/12/2024 5:23 PM Age: 73 years old Clinical indication: Edema, localized; Upper extremity, right TECHNIQUE: Imaging protocol: Real-time duplex ultrasound of the right Upper Extremity with 2-D zabala scale, color Doppler flow and spectral waveform analysis with image documentation. Limited exam focused on the right upper extremity veins. COMPARISON: CT chest wo con [id number] 02/20/2024 2:42 PM FINDINGS: Right deep veins: Unremarkable. Axillary and brachial veins are patent throughout without thrombus. Normal Doppler waveforms. Normal compressibility and/or augmentation response. Visualized internal jugular and subclavian veins are patent. Superficial veins: Unremarkable. Visualized cephalic and basilic veins are patent without thrombus. Soft tissues: Unremarkable. US/[place] [id number] IMPRESSION: No evidence of deep vein thrombosis.
[2024-04-13 11:25] LABS: Glucose Point of Care 332 mg/dL (70-110)
--- NOTE | 2024-04-13 11:31 | P.DS_ITS ---
Discharge Providers Date of Admission: 04/11/24 18:10 Date of Discharge: April 13, 2024 Attending Provider at Admission: Babatunde Adams MD Attending Provider at Discharge: Babatunde Adams MD Primary Care Provider: Jan Kirk MD Diagnoses at Discharge Discharge Diagnosis (1) Edema: Status: Acute (2) Acute exacerbation of congestive heart failure: Status: Acute (3) Cardiomyopathy: Status: Acute Permanent problem details: Ejection fraction 50% on echocardiogram (4) Hypertensive urgency: Status: Acute (5) Atrial fibrillation: Status: Acute (6) DM type 2 (diabetes mellitus, type 2): Status: Acute (7) HTN (hypertension): Status: Acute (8) Chronic kidney disease: Status: Chronic Reason for Visit Reason for Visit: fluid build up Physical Exam Urinary Catheter Management: Smith: Cath Placed During This Visit: yes Reason for Continuing Indwelling Catheter: Accurate Measurement of Urinary Output in Critically Ill Patients Urinary Catheter Date of Insertion: 04/11/24 Urinary Catheter Time of Insertion: 18:44 Discharge Data Studies Completed and Pending Completed Studies During Hospitalization Category Date Time Status XR chest 1V portable [id number] Stat Exams 04/11/24 13:59 [place] [id number] Routine Ultrasound 04/12/24 11:02 [place] [id number] Routine Ultrasound 04/13/24 11:02 Completed CV. echo complete* [id number] Routine Ultrasound 04/11/24 17:39 Completed Pending at discharge Category Date Time Status BMP [Basic Metabolic Panel] Routine Lab 04/13/24 15:00 Ordered Complete Blood Count w/Auto AM LABS Lab 04/14/24 04:00 Ordered Comprehensive Metabolic Panel AM LABS Lab 04/14/24 04:00 Ordered Gastricult Occult BLD Routine Lab 04/11/24 19:40 Ordered MAG [Magnesium] AM LABS Lab 04/14/24 04:00 Ordered MAG [Magnesium] AM LABS Lab 04/15/24 04:00 Ordered Radiology Impressions Chest X-Ray 04/11/24 13:59 Impression: Patchy left lower lobe opacity which could represent atelectasis, pneumonia and/or effusion. Venous Duplex 04/13/24 11:02 IMPRESSION: No evidence of deep vein thrombosis. Laboratory Results WBC 9.20 10^3/uL (3.29-11.43) 04/13/24 03:51 RBC 2.49 10^6/uL (3.85-5.65) L 04/13/24 03:51 Hgb 7.60 g/dL (11.27-16.99) L 04/13/24 03:51 Hct 23.2 % (36-47) L 04/13/24 03:51 MCV 93.2 fl (85-98) 04/13/24 03:51 MCH 30.5 pg (27-33) 04/13/24 03:51 MCHC 32.8 g/dL (30-55) 04/13/24 03:51 RDW 12.7 % (12.1-15.1) 04/13/24 03:51 Plt Count 278 10^3/cmm (157-399) 04/13/24 03:51 MPV 8.9 fL (7.4-10.4) 04/13/24 03:51 Neut % (Auto) 71.5 % 04/13/24 03:51 Lymph % (Auto) 12.4 % 04/13/24 03:51 [place] % (Auto) 8.8 % 04/13/24 03:51 Eos % (Auto) 3.9 % 04/13/24 03:51 Baso % (Auto) 0.7 % 04/13/24 03:51 Neut # (Auto) 6.58 10^3/uL (1.8-7.7) 04/13/24 03:51 Lymph # (Auto) 1.1 10^3/uL (0.8-4.8) 04/13/24 03:51 [place] # (Auto) 0.8 10^3/uL (0.2-0.9) 04/13/24 03:51 Eos # (Auto) 0.4 10^3/uL (0.0-0.8) 04/13/24 03:51 Baso # (Auto) 0.1 10^3/uL (0.0-0.1) 04/13/24 03:51 Nucleated RBC % (auto) 0 % 04/13/24 03:51 Nucleated RBCs # 0.0 /100WBC 04/13/24 03:51 D-Dimer 1.92 ug/mLFEU (0-0.59) H 04/11/24 14:51 Sodium 137 mmol/L (136-145) 04/13/24 03:51 Potassium 3.6 mmol/L (3.5-5.1) 04/13/24 03:51 Chloride 99 mmol/L (98-107) 04/13/24 03:51 Carbon Dioxide 25 mmol/L (22-29) 04/13/24 03:51 Anion Gap 16.6 (5-19) 04/13/24 03:51 BUN 33 mg/dL (8-23) H 04/13/24 03:51 Creatinine 3.0 mg/dL (0.5-0.9) H 04/13/24 03:51 GFR Calculation Not Reportable 04/13/24 03:51 Glucose 123 mg/dL (65-115) H 04/13/24 03:51 POC Glucose 332 mg/dL (70-110) H 04/13/24 11:19 Calculated Osmolality 293 mOsm/kg (285-295) 04/13/24 03:51 Calcium 8.9 mg/dL (8.5-10.5) 04/13/24 03:51 Phosphorus 4.0 mg/dL (2.5-4.5) 04/12/24 04:17 Magnesium 1.7 mg/dL (1.7-2.3) 04/13/24 03:51 Iron 45 ug/dL (37-145) 04/11/24 14:51 TIBC 247 mcg/dl 04/11/24 14:51 % Saturation 18.2 % (20-50) L 04/11/24 14:51 Unsat Iron Binding 202 ug/dL (112-347) 04/11/24 14:51 Total Bilirubin 0.2 mg/dL (0.15-1.2) 04/13/24 03:51 AST 9 U/L (0-32) 04/13/24 03:51 ALT 8 U/L (0-33) 04/13/24 03:51 Alkaline Phosphatase 60 U/L (35-105) 04/13/24 03:51 NT-Pro-B Natriuret Pep 07119 pg/mL (0-125) H 04/11/24 14:51 Total Protein 5.7 g/dL (6.6-8.7) L 04/13/24 03:51 Albumin 3.1 g/dL (3.5-5.2) L 04/13/24 03:51 Globulin 2.6 g/dL (1.3-4.6) 04/13/24 03:51 Vitamin B12 1788 pg/mL (232-1245) H 04/11/24 14:51 Folate 9.0 ng/mL (4.8-37.3) 04/12/24 04:17 Procalcitonin 0.25 ng/mL (0-0.5) 04/12/24 04:17 Urine Color Yellow (Yellow) 04/11/24 18:42 Urine Appearance Clear (CLEAR) 04/11/24 18:42 Urine pH 6.0 (5-7) 04/11/24 18:42 Ur Specific [place] 1.012 (1.005-1.030) 04/11/24 18:42 Urine Protein 3+ (Negative) A 04/11/24 18:42 Urine Glucose (UA) 3+ (Normal) H 04/11/24 18:42 Urine Ketones Negative (Negative) 04/11/24 18:42 Urine Blood 1+ (Negative) A 04/11/24 18:42 Urine Nitrate Negative (Negative) 04/11/24 18:42 Urine Bilirubin Negative (Negative) 04/11/24 18:42 Urine Urobilinogen 0.2 mg/dL (Negative) 04/11/24 18:42 Ur Leukocyte Esterase Negative (Negative) 04/11/24 18:42 Urine RBC 0-2 /hpf (0-2) 04/11/24 18:42 Urine WBC 0-5 /hpf (0-5) 04/11/24 18:42 Ur Squamous Epith Cells 0-5 /hpf (0-5) 04/11/24 18:42 Amorphous Sediment Not Reportable 04/11/24 18:42 Urine Bacteria None seen /hpf (NONE) 04/11/24 18:42 Hyaline Casts 5.36 /lpf 04/11/24 18:42 Ur Random Sodium 46 mmol/L 04/11/24 18:42 Ur Random Potassium 18 mmol/L 04/11/24 18:42 Ur Random Chloride 47 mmol/L 04/11/24 18:42 Urine Creatinine 34 mg/dL (28-217) 04/11/24 18:42 Vitals Last Vital Signs Temp 97.9 F 04/13/24 07:52 Pulse 86 04/13/24 07:52 Resp 20 H 04/13/24 07:52 BP 190/90 04/13/24 07:52 Pulse Ox 96 04/13/24 07:52 O2 Del Method Room Air 04/13/24 07:52 Discharge Plan Discharge Patient Disposition: Home Condition: Stable Prescriptions: New insulin glargine [Lantus Solostar U-100 Insulin] 100 unit/mL (3 mL) insulin pen 10 unit SUBCUT DAILY Qty: 15 0RF insulin lispro [Humalog KwikPen Insulin] 100 unit/mL insulin pen 7 unit SUBCUT TID Qty: 15 0RF No Action gabapentin 100 mg capsule See Rx Instructions .ROUTE .COMPLEX Qty: 180 11RF Dose Instruction: TAKE 2 CAPSULES BY MOUTH THREE TIMES DAILY Rx Instructions: TAKE 2 CAPSULES BY MOUTH THREE TIMES DAILY pioglitazone 15 mg tablet 15 mg PO BID Qty: 180 3RF Jardiance 10 mg tablet 10 mg PO DAILY Qty: 30 11RF (DME) Dexcom G6 Clinical Business Manager Misc See Rx Instructions .MEDSUPPLY Qty: 1 0RF Rx Instructions: Use as directed for checking blood sugar (DME) Dexcom G6 Sensor Device See Rx Instructions .MEDSUPPLY Qty: 3 12RF Rx Instructions: Change every 10 days; Use as directed to check blood sugar lidocaine (PF) 10 mg/mL (1 %) solution 10 mg SUBCUT ONCE Qty: 1 0RF albuterol sulfate [Ventolin HFA] 90 mcg/actuation HFA aerosol inhaler 2 puff inhalation Q6H PRN (Reason: shortness of breath or wheezing) Qty: 8.5 11RF amlodipine 5 mg tablet See Rx Instructions .ROUTE .COMPLEX Qty: 90 3RF Dose Instruction: TAKE 1 TABLET BY MOUTH DAILY Rx Instructions: TAKE 1 TABLET BY MOUTH DAILY simvastatin 40 mg tablet See Rx Instructions .ROUTE .COMPLEX Qty: 90 3RF Dose Instruction: TAKE 1 TABLET BY MOUTH EVERY DAY FOR CHOLESTEROL Rx Instructions: TAKE 1 TABLET BY MOUTH EVERY DAY FOR CHOLESTEROL magnesium oxide 400 mg (241.3 mg magnesium) tablet See Rx Instructions .ROUTE .COMPLEX Qty: 90 3RF Dose Instruction: TAKE 1 TABLET BY MOUTH DAILY Rx Instructions: TAKE 1 TABLET BY MOUTH DAILY glimepiride 4 mg tablet See Rx Instructions .ROUTE .COMPLEX Qty: 180 3RF Dose Instruction: TAKE 1 TABLET BY MOUTH TWICE DAILY Rx Instructions: TAKE 1 TABLET BY MOUTH TWICE DAILY lisinopril 20 mg tablet See Rx Instructions .ROUTE .COMPLEX Qty: 90 3RF Hold Instructions: Adverse Reaction Dose Instruction: TAKE 1 TABLET BY MOUTH EVERY DAILY Rx Instructions: TAKE 1 TABLET BY MOUTH EVERY DAILY ferrous sulfate [FeroSul] 325 mg (65 mg iron) tablet See Rx Instructions .ROUTE .COMPLEX Qty: 90 3RF Dose Instruction: TAKE 1 TABLET BY MOUTH THREE TIMES DAILY WITH MEALS Rx Instructions: TAKE 1 TABLET BY MOUTH THREE TIMES DAILY WITH MEALS duloxetine 60 mg capsule,delayed release(DR/EC) 60 mg PO DAILY Qty: 90 3RF clopidogrel 75 mg tablet See Rx Instructions .ROUTE .COMPLEX Qty: 90 0RF Dose Instruction: TAKE 1 TABLET BY MOUTH EVERY DAY Rx Instructions: TAKE 1 TABLET BY MOUTH EVERY DAY furosemide 40 mg tablet See Rx Instructions .ROUTE .COMPLEX Qty: 30 0RF Hold Instructions: Adverse Reaction Dose Instruction: TAKE 1 TABLET BY MOUTH EVERY DAY Rx Instructions: TAKE 1 TABLET BY MOUTH EVERY DAY Referrals: Jan Kirk MD [Primary Care Provider] - Patient Instructions: Opioid Safety Coding Level of Care Code Acute Code for Chg Fwd Diagnoses Edema R60.9 Acute exacerbation of congestive heart failure I50.9 Cardiomyopathy I42.9 Hypertensive urgency I16.0 Atrial fibrillation I48.91 DM type 2 (diabetes mellitus, type 2) E11.9 HTN (hypertension) I10 Chronic kidney disease N18.9
[2024-04-13] MEDS: carvedilol 6.25 mg Tablet PO ×2 (11:34→18:04)
--- NOTE | 2024-04-13 14:40 | P.PN_ITS ---
Subjective 2 Subjective: No acute vents overnight. Patient states she is feeling better. Denies any nausea, vomiting, headache. States her swelling seems to be improving. Denies any chest pain. On room air currently. Vitals/I&O/Wt Last Vital Signs Temp 98.7 F 04/13/24 12:00 Pulse 87 04/13/24 12:00 Resp 20 H 04/13/24 12:00 BP 164/90 04/13/24 12:00 Pulse Ox 96 04/13/24 12:00 O2 Del Method Room Air 04/13/24 12:00 04/12/24 04/13/24 04/13/24 22:59 06:59 14:59 Intake Total 240 / 700 240 / 240 Output Total 1150 / 2600 1400 / 4000 Balance -910 / -1900 -1400 / -3300 240 / 240 Weight last 48 hrs Weight 106.05 kg Weight 106.141 kg Weight 106.141 kg Weight 105.46 kg Physical Exam 2 Narrative: General: No acute distress, AO x3, stuttering of words which is chronic HEENT: PERRLA, pupils bilaterally equal and reactive Chest: Normal vesicular breath sounds, no added sounds, equal good air entry bilaterally CVS: S1-S2 regular, no murmurs, no tachycardia, no gallops, no rubs Abdomen: Soft, nontender, no organomegaly, bowel sounds present Neuro: No focal deficits, no facial deformity, AO x3, power 5/5 in all limbs Extremity: Bilateral 2+ pitting edema going up to thigh level, pitting edema bilaterally in upper limbs. Improving than on admission. Urinary Catheter Management: Smith: Cath Placed During This Visit: yes Reason for Continuing Indwelling Catheter: Accurate Measurement of Urinary Output in Critically Ill Patients Urinary Catheter Date of Insertion: 04/11/24 Urinary Catheter Time of Insertion: 18:44 Data 04/13/24 03:51 04/13/24 03:51 A&P Assessment and plan (1) Edema: (2) Acute exacerbation of congestive heart failure: (3) Cardiomyopathy: (4) Hypertensive urgency: (5) Atrial fibrillation: (6) DM type 2 (diabetes mellitus, type 2): (7) HTN (hypertension): (8) Chronic kidney disease: Plan 73-year-old female with past medical history of diastolic heart failure, CKD, hypertension, type 2 diabetes mellitus presents to the ER because of worsening swelling all over her body along with shortness of breath after home dose of Lasix was discontinued recently by her PCP. Generalized edema: Patient does have history of diastolic heart failure. proBNP elevated. Does have symptoms consistent with acute decompensated congestive heart failure. Check bilateral lower limb Doppler along with right upper limb Doppler. Currently awaited. Acute decompensated congestive heart failure: Diastolic in nature. Echocardiogram shows diastolic dysfunction, normal EF with mild MR. Strict input output charting, daily weights. Smith catheterization. Fluid restriction to less than 1500 cc. Continue with IV Lasix 60 mg twice daily. Currently around 1.8 L negative. CKD: Baseline creatinine 1.8-2.3. Currently mild GEE on CKD. Could be in setting of CRS. Currently creatinine is stable. Monitor for contraction alkalosis and hypokalemia. Repeat BMP in evening. Medical decussation done for nephrotoxic drugs. Check urine lites, urine creatinine. Monitor BMP daily. Hyponatremia: Resolving. Most likely in setting of congestive heart failure. Continue to monitor. Replace 1 g of IV magnesium. Anemia: Denies any episodes of melena. Not on anticoagulation as an outpatient. Was stopped back in August 17 for GI bleed. Target hemoglobin more than 8. Check stool for occult blood. Check iron panel, vitamin B12 and folate levels. Will transfuse if continues to remain anemic with hemoglobin of less than 8. Hypertensive urgency: Goal blood pressure less than 140/90 mmHg. Still elevated but better than admission. Patient takes amlodipine 5 mg oral daily, supposed to be taking lisinopril as well but it seems it is on hold. Increase amlodipine to 10 mg oral daily, hydralazine to 50 mg 3 times daily. Continue with IV hydralazine 10 mg every 4 hours as needed for systolic blood pressure of more than 160 mmHg. Uptitrate as for goal blood pressure. Type 2 diabetes mellitus: Currently uncontrolled hyperglycemia. No concerns for DKA. Appreciate recent A1c of 8.8. Sliding scale at moderate dose protocol. Blood sugars continue to be elevated. Add Lantus 10 units twice daily. Atrial fibrillation: Currently heart rate controlled. Continue to monitor. Plan for the day: Edema improving. Patient seems to be back to her baseline respiratory status and edema now. Switch Lasix to 40 mg oral daily. Overall around 4.7 L negative. Blood pressure is better but continues to remain on the higher side. Add Coreg 6.25 mg twice daily. For now continue with amlodipine 10 mg daily and hydralazine 50 mg 3 times daily. Will uptitrate keeping goal blood pressure less than 140/90 mmHg. Blood sugars elevated. Continue with current sliding scale. Continue with Lantus. Discussed in detail with the patient. She is agreeable to be discharged on insulin rather than oral hypoglycemics. At home she states her blood sugars have been trending over 400 recently. Repeat BMP in afternoon. Out of bed to chair. CODE STATUS: Full code Carb consistent cardiac diet Protonix for PUD prophylaxis Heparin for DVT prophylaxis Attestations 2 Medical Necessity Statement*: Requires further hospitalization for management of congestive heart failure, uncontrolled hypertension while antihypertensives are adjusted, uncontrolled hyperglycemia while insulin dose was further adjusted Diagnoses Edema R60.9 Acute exacerbation of congestive heart failure I50.9 Cardiomyopathy I42.9 Hypertensive urgency I16.0 Atrial fibrillation I48.91 DM type 2 (diabetes mellitus, type 2) E11.9 HTN (hypertension) I10 Chronic kidney disease N18.9
[2024-04-13 15:08] LABS: Estmated Average Glucose 278; Hemoglobin A1C 11.3 % (4.0-6.0)
[2024-04-13 15:27] LABS: Anion Gap 15.1 (5-19); Blood Urea Nitrogen 32 mg/dL (8-23); Calcium 8.7 mg/dL (8.5-10.5); Carbon Dioxide 25 mmol/L (22-29); Chloride 95 mmol/L (98-107); Creatinine Clr Calc Pharmacy 18.1458; Glucose 273 mg/dL (65-115); Osmolality Calculated 289 mOsm/kg (285-295); Potassium 4.1 mmol/L (3.5-5.1); Sodium 131 mmol/L (136-145)
[2024-04-13 17:25] LABS: Glucose Point of Care 241 mg/dL (70-110)
[2024-04-13] MEDS: pantoprazole 40 mg SDV IVP (19:54)
[2024-04-13] MEDS: hyDRALAzine 25 mg Tablet 75 MG PO (20:24)
[2024-04-13] MEDS: atorvastatin 40 mg Tablet 20 MG PO (20:25)
[2024-04-13 20:59] LABS: Glucose Point of Care 288 mg/dL (70-110)
[2024-04-14] VITALS: BP 182/75; PULSE 70; RESP 17; TEMP 36.7; O2SAT 97
[2024-04-14 04:00] VITALS: BP 140/64; PULSE 71; RESP 22; TEMP 36.4; O2SAT 96
[2024-04-14 05:33] LABS: Basophils % 0.4 %; Eosinophils # 0.3 10^3/uL (0.0-0.8); Eosinophils % 3.5 %; Hematocrit 22.5 % (36-47); Lymphocytes # 1.1 10^3/uL (0.8-4.8); Lymphocytes % 12.4 %; Mean Corpuscular HGB Conc 31.6 g/dL (30-55); Mean Corpuscular Hemoglobin 29.5 pg (27-33); Mean Corpuscular Volume 93.4 fl (85-98); Mean Platelet Volume 9.2 fL (7.4-10.4); Monocytes # 0.8 10^3/uL (0.2-0.9); Monocytes % 9.1 %; Neutrophils # 6.33 10^3/uL (1.8-7.7); Nucleated Red Blood Cells % 0 %; Platelet Count 308 10^3/cmm (157-399); Red Blood Count 2.41 10^6/uL (3.85-5.65); Red Cell Distribution Width 12.8 % (12.1-15.1); White Blood Count 8.92 10^3/uL (3.29-11.43)
[2024-04-14 05:43] LABS: Magnesium 1.8 mg/dL (1.7-2.3)
[2024-04-14 05:50] LABS: Alanine Aminotransferase 8 U/L (0-33); Albumin Level 3.1 g/dL (3.5-5.2); Alkaline Phosphatase 59 U/L (35-105); Anion Gap 15.1 (5-19); Aspartate Amino Transferase 8 U/L (0-32); Blood Urea Nitrogen 41 mg/dL (8-23); Calcium 8.9 mg/dL (8.5-10.5); Carbon Dioxide 26 mmol/L (22-29); Chloride 95 mmol/L (98-107); Creatinine Clr Calc Pharmacy 16.2018; Globulin 2.5 g/dL (1.3-4.6); Glucose 140 mg/dL (65-115); Osmolality Calculated 286 mOsm/kg (285-295); Potassium 4.1 mmol/L (3.5-5.1); Sodium 132 mmol/L (136-145); Total Bilirubin 0.2 mg/dL (0.15-1.2); Total Protein 5.6 g/dL (6.6-8.7)
[2024-04-14 05:55] VITALS: PULSE 72
[2024-04-14 06:30] LABS: Glucose Point of Care 204 mg/dL (70-110)
--- NOTE | 2024-04-14 07:41 | CTR_ITS ---
PROCEDURE INFORMATION: Exam: CT Abdomen And Pelvis Without Contrast Exam date and time: 04/14/2024 9:34 AM Age: 73 years old Clinical indication: Other: [place] TECHNIQUE: Imaging protocol: Computed tomography of the abdomen and pelvis without contrast. Radiation optimization: All CT scans at this facility use at least one of these dose optimization techniques: automated exposure control; mA and/or kV adjustment per patient size (includes targeted exams where dose is matched to clinical indication); or iterative reconstruction. COMPARISON: CT abdomen pelvis w con* [id number] 02/09/2018 12:50 PM RADIATION DOSE METRICS: Total DLP (mGy-cm): 1052.02 FINDINGS: Lungs: Minimal bibasilar atelectasis. Liver: Normal. No mass. Gallbladder and biliary ducts: Normal. No calcified stones. No ductal dilation. Pancreas: Normal. No ductal dilation. Spleen: Normal. No splenomegaly. Adrenal glands: Normal. No mass. Kidneys and ureters: Minimal bilateral perinephric stranding without evidence nephrolithiasis or hydronephrosis. Scattered subcentimeter simple cysts in the bilateral kidneys. There is a few sub 5 mm hyperdense cysts in the right kidney likely representing hemorrhagic and/or proteinaceous renal cysts. Slightly heterogeneous lobulation of the right kidney with cortical thinning of the left kidney. Stomach and bowel: Moderate colonic diverticulosis with no definitive evidence to suggest acute diverticulitis. Appendix: No evidence acute appendicitis. Intraperitoneal space: Unremarkable. No free air. No significant fluid collection. Vasculature: [id number] atherosclerosis of the abdominal aorta and its branches. Lymph nodes: Unremarkable. No enlarged lymph nodes. Urinary bladder: The urinary bladder is underdistended with scattered foci of air and a Smith catheter in place. Reproductive: 26 mm right adnexal cyst with a peripheral coarse calcification seen on series 4, image 73. The uterus is unremarkable. Bones/joints: [id number] multilevel degenerative disease of the thoracolumbar spine. Disc osteophyte complex at L4-L5. Mild disc bulge L5-S1. Status post right hip arthroplasty. Soft tissues: Unremarkable. CT/CT abdomen pelvis wo con [id number] IMPRESSION: 1. Findings suggestive medical renal disease. Multiple subcentimeter renal cysts and hemorrhagic/proteinaceous cysts in the right kidney. No evidence of nephrolithiasis or hydronephrosis bilaterally. 2. Colonic diverticulosis with no definitive evidence to suggest acute diverticulitis. 3. Right adnexal cysts measuring up 26 mm with peripheral coarse calcification. Further evaluation with ultrasound can be obtained as clinically indicated. 4. Other findings as described in the body of the report. COMMENTS: Consistent with the [employer]'s Incidental Findings Committee white paper (J Am Jabari Radiol 2018): Any incidental renal lesion less than 1 cm or classified as too small to characterize, or any incidental cystic renal lesion characterized as simple-appearing, is likely benign. No follow-up imaging is recommended for these lesions per consensus recommendations based on imaging criteria.
[2024-04-14 08:00] VITALS: BP 176/71; PULSE 73; RESP 24; TEMP 36.6; O2SAT 96
[2024-04-14] MEDS: insulin lispro 100 unit/1 mL SUBCUT ×2 (08:28→12:31)
[2024-04-14] MEDS: heparin 5,000 unit/mL INJ 1 mL 5000 UNIT SUBCUT (08:28)
[2024-04-14] MEDS: amlodipine 5 mg Tablet 10 MG PO (08:29)
[2024-04-14] MEDS: duloxetine 60 mg Capsule PO (08:29)
[2024-04-14] MEDS: hyDRALAzine 25 mg Tablet 75 MG PO (08:29)
[2024-04-14] MEDS: clopidogrel 75 mg Tablet PO (08:29)
[2024-04-14] MEDS: gabapentin 100 mg Capsule PO (08:30)
[2024-04-14] MEDS: carvedilol 6.25 mg Tablet PO (08:31)
[2024-04-14] MEDS: insulin glargine 100 units/1 mL 10 UNIT SUBCUT (08:34)
[2024-04-14 08:37] LABS: Bilirubin Urine Negative (Negative); Blood Urine 1+ (Negative); Glucose Urine UA Trace (Normal); Ketones Urine Negative (Negative); Leukocyte Esterase Urine Trace (Negative); Nitrate Urine Negative (Negative); Protein Urine 2+ (Negative); Specific Gravity, Urine 1.006 (1.005-1.030); Urine Appearance Clear (CLEAR); Urine Color Yellow (Yellow); Urobilinogen Urine 0.2 mg/dL (Negative)
[2024-04-14 08:41] LABS: Add Urine Microscopic? YES; Bacteria Urine None Seen /hpf; RBC Urine 0-2 /hpf (0-2)
[2024-04-14 08:53] LABS: HIV 1 & 2 Antibody Non-Reactive (Non-Reactiv); HIV 1 & 2 Antigen Non-Reactive (Non-Reactiv)
[2024-04-14 09:01] LABS: Potassium, Radom Urine 17 mmol/L; Urine Creatinine 30 mg/dL (28-217); Urine Random Chloride 38 mmol/L; Urine Random Sodium 45 mmol/L
[2024-04-14 09:02] LABS: UA Slide Review UA Slide Review Perf
[2024-04-14 09:06] LABS: Hepatitis A Antibody IgM Non-Reactive (Nonreactive); Hepatitis B Core AB, Total Non-Reactive (Nonreactive); Hepatitis B Surface AB < 3.5 (11.5-1000); Hepatitis B Surface Antigen Non-Reactive (Nonreactive); Hepatitis C Virus Antibody Non-Reactive (Nonreactive)
[2024-04-14 09:15] LABS: Microalbumin Random Urine 63 ug/dL (0-20)
[2024-04-14 09:16] LABS: Creatinine Urine, Random 30 mg/dL (28-217); Eosinophil Urine No Eosinophils Seen; Microalbum Creatinine Ratio Ur 2100 mg/dL (0-20); Urine Eosinophil Count 0 (0-0)
[2024-04-14] MEDS: FUROsemide 40 mg Tablet PO (10:07)
--- NOTE | 2024-04-14 10:22 | P.CONIM_ITS ---
Providers/Reason For Consult 2 Consulting Physician/Specialty*: [facility]/Nephrology Reason for Consult*: Acute on CKD Attending Physician: Babatunde Adams MD Primary Care Provider: Jan Kirk MD History of Present Illness History of Present Illness Terese Yates is a 73 year old female Patient is a 73-year-old female with past medical history of longstanding diabetes and hypertension, CHF with diastolic dysfunction , CKD with baseline Cr of 1.2 -- 2.2 presented to ER with increased LE swelling , and was sent by PCP. Also c/o Orthopnea and PND. Creatinine on presentation was 2.9 worsened to 3.8 today after aggressive IV diuresis. Has 3+ protein in the urine and M ACR is 2100. CT abdomen showed findings consistent with medical renal disease no hydronephrosis and no kidney stones. Review of Systems 2 Narrative: Other review of systems negative Medications/Allergies Home Medications Medication Instructions Recorded Confirmed Last Taken Type amlodipine 5 mg tablet See Rx Instructions .Route 03/15/23 04/11/24 04/11/24 Rx .COMPLEX #90 tabs gabapentin 100 mg capsule See Rx Instructions .Route 05/18/23 04/11/24 Unknown Rx .COMPLEX #180 caps magnesium oxide 400 mg (241.3 mg See Rx Instructions .Route 06/08/23 04/11/24 Unknown Rx magnesium) tablet .COMPLEX #90 tabs simvastatin 40 mg tablet See Rx Instructions .Route 06/08/23 04/11/24 Unknown Rx .COMPLEX #90 tabs glimepiride 4 mg tablet See Rx Instructions .Route 10/27/23 04/11/24 Unknown Rx .COMPLEX #180 tabs albuterol sulfate 90 mcg/actuation 2 puff inhalation Q6H PRN 12/26/23 04/11/24 Unknown Rx aerosol inhaler (Ventolin HFA) shortness of breath or wheezing #8.5 grams lisinopril 20 mg tablet See Rx Instructions .Route 01/02/24 04/11/24 Unknown Rx .COMPLEX #90 tabs ferrous sulfate 325 mg (65 mg See Rx Instructions .Route 01/19/24 04/11/24 Unknown Rx iron) tablet (FeroSul) .COMPLEX #90 tabs duloxetine 60 mg capsule,delayed 60 mg PO DAILY #90 caps 01/24/24 04/11/24 Unknown Rx release pioglitazone 15 mg tablet 15 mg PO BID #180 tabs 03/19/24 04/11/24 Unknown Rx clopidogrel 75 mg tablet See Rx Instructions .Route 03/20/24 04/11/24 04/11/24 Rx .COMPLEX #90 tabs furosemide 40 mg tablet See Rx Instructions .Route 03/20/24 04/11/24 Unknown Rx .COMPLEX #30 tabs blood-glucose meter,continuous #1 ea 03/26/24 04/12/24 Unknown Rx (Dexcom G6 [employer]) blood-glucose sensor (Dexcom G6 #3 ea 03/26/24 04/12/24 Unknown Rx Sensor device) empagliflozin 10 mg tablet 10 mg PO DAILY #30 tabs 03/26/24 04/12/24 Unknown Rx (Jardiance) Allergies Allergy/AdvReac Type Severity Reaction Status Date / Time Penicillins Allergy ALGY-Hives Verified 04/11/24 14:07 Current Medications Generic Name Dose Route Start Last Admin Trade Name Freq PRN Reason Stop Dose Admin Amlodipine Besylate 10 mg 04/13/24 09:00 04/14/24 08:29 Amlodipine 5 Mg Tablet PO 10 mg DAILY CAROLINE Administration Atorvastatin Calcium 20 mg 04/11/24 21:00 04/13/24 20:25 Atorvastatin 40 Mg Tablet PO 20 mg BEDTIME CAROLINE Administration Bisacodyl 10 mg 04/11/24 19:40 04/12/24 22:31 Bisacodyl 5 Mg Tablet PO 10 mg DAILY PRN Administration Constipation (see protocol) Protocol Carvedilol 6.25 mg 04/13/24 10:45 04/14/24 08:31 Carvedilol 6.25 Mg Tablet PO 6.25 mg BID CAROLINE Administration Clopidogrel Bisulfate 75 mg 04/12/24 09:00 04/14/24 08:29 Clopidogrel 75 Mg Tablet PO 75 mg DAILY CAROLINE Administration Duloxetine HCl 60 mg 04/12/24 09:00 04/14/24 08:29 Duloxetine 60 Mg Capsule PO 60 mg DAILY CAROLINE Administration Furosemide 40 mg 04/14/24 08:00 04/14/24 10:07 Furosemide 40 Mg Tablet PO 40 mg DAILY@0800 CAROLINE Administration Gabapentin 100 mg 04/11/24 21:00 04/14/24 08:30 Gabapentin 100 Mg Capsule PO 100 mg TID CAROLINE Administration Heparin Sodium (Porcine) 5,000 unit 04/11/24 19:40 04/14/24 08:28 Heparin 5,000 Unit/Ml Inj 1 Ml SUBCUT 5,000 unit Q12H CAROLINE Administration Hydralazine HCl 75 mg 04/13/24 21:00 04/14/24 08:29 Hydralazine 25 Mg Tablet PO 75 mg TID CAROLINE Administration Insulin Glargine 10 unit 04/12/24 12:00 04/14/24 08:34 Insulin Glargine 100 Units/1 Ml SUBCUT 10 unit BID CAROLINE Administration Insulin Human Lispro 0 unit 04/11/24 19:40 04/14/24 08:28 Insulin Lispro 100 Unit/1 Ml SUBCUT 6 unit WM&BEDTIME CAROLINE Administration Protocol Magnesium Hydroxide 30 ml 04/11/24 19:40 04/13/24 08:18 Magnesium Hydroxide 30 Ml Udc PO 30 ml DAILY PRN Administration Constipation (see protocol) Protocol Pantoprazole Sodium 40 mg 04/11/24 19:40 04/13/24 19:54 Pantoprazole 40 Mg Sdv IVP 40 mg Q24H CAROLINE Administration PFSH Acute 2 PFSH: Medical History (Updated 04/12/24 @ 11:04 by Babatunde Adams MD) Positive cardiac stress test Chronic kidney disease Hyperlipidemia Cardiomyopathy Ejection fraction 50% on echocardiogram Atrial fibrillation Depression Right leg swelling HTN (hypertension) Peripheral neuropathy DM type 2 (diabetes mellitus, type 2) Breast cancer Presence of internal carotid stent CVA (cerebral vascular accident) Diabetes COVID-19 Surgical History History of prior ablation treatment History of removal of Port-a-Cath Hx of total hip arthroplasty History of cataract surgery H/O partial mastectomy R Family History Mother CAD (coronary artery disease) Social History Smoking and tobacco/nicotine status: never used tobacco/nicotine Substance/Drug Use: never Vitals/I&O/Wt Last Vital Signs Temp 97.9 F 04/14/24 08:00 Pulse 73 04/14/24 08:00 Resp 24 H 04/14/24 08:00 BP 176/71 04/14/24 08:00 Pulse Ox 96 04/14/24 08:00 O2 Del Method Room Air 04/14/24 08:00 04/13/24 04/14/24 04/14/24 22:59 06:59 14:59 Intake Total 240 / 480 480 / 960 Output Total 1350 / 1350 640 / 1990 Balance -1110 / -870 -160 / -1030 Weight last 48 hrs Weight 105.642 kg Weight 109.452 kg Weight 106.05 kg Physical Exam 2 Narrative: Patient is awake alert, no distress on room air HEENT S1-S2 regular rate and rhythm per report Lungs clear per report No pedal edema Urinary Catheter Management: Smith: Cath Placed During This Visit: yes Reason for Continuing Indwelling Catheter: Accurate Measurement of Urinary Output in Critically Ill Patients Urinary Catheter Date of Insertion: 04/11/24 Urinary Catheter Time of Insertion: 18:44 Data 04/14/24 04:20 04/14/24 04:20 A&P Assessment and plan (1) Acute kidney injury: 1. Acute on chronic kidney disease stage IV: Baseline creatinine is in the 1.5- 2.2 range, does not follow with nephrology. Patient has longstanding diabetes and hypertension, suspect patient has advanced CKD due to probable diabetic nephropathy and hypertensive nephrosclerosis. Has nonnephrotic range proteinuria. Serologies have been sent. -Patient has presented with volume overload and was aggressively diuresed and creatinine is up to 3.8 today which is expected post diuresis. Patient currently on room air and electrolytes stable. Can DC home from nephrology standpoint with close nephrology follow-up in 1 to 2 L weeks with follow-up labs. Avoid nephrotoxic agents. Advised 2 g sodium restriction and 1500 mL fluid restriction. DC on 40 mg Lasix daily and his meds need to be titrated based on labs and volume status as outpatient. 2. Hypertension: Blood pressure elevated, oral meds titrated-increased hydralazine to 100mg 3 times daily 3. : Likely anemia of CKD, will give 1 dose of Procrit prior to DC Diastolic CHF, diuretics as above4. 4. Diabetes type 2 with diabetic nephropathy Patient evaluated using audiovisual cart. Time spent 40 minutes. Consult Attestations 2 Medical Necessity Statement: Per medicine team Coding Level of Care Code Acute Code for [facility] Diagnoses Acute kidney injury N17.9
--- NOTE | 2024-04-14 11:20 | P.DS_ITS ---
Discharge Providers Date of Admission: 04/11/24 18:10 Date of Discharge: April 14, 2024 Attending Provider at Admission: Babatunde Adams MD Attending Provider at Discharge: Babatunde Adams MD Consults: Telemetry nephrology Primary Care Provider: Jan Kirk MD Diagnoses at Discharge Discharge Diagnosis (1) Acute kidney injury: Status: Resolved (2) Cardiomyopathy: Status: Acute Permanent problem details: Ejection fraction 50% on echocardiogram (3) Congestive heart failure: Status: Acute (4) Acute exacerbation of congestive heart failure: Status: Acute (5) Positive cardiac stress test: Status: Acute (6) Hypertensive urgency: Status: Acute (7) DM type 2 (diabetes mellitus, type 2): Status: Acute (8) Chronic kidney disease: Status: Chronic (9) Anemia: Status: Acute Reason for Visit Reason for Visit: fluid build up Brief History: History as per HPI: Terese Yates is a 73 year old female with past medical history of type 2 diabetes mellitus, cardiac heart failure, hypertension, stroke, CKD with baseline creatinine of 1.8-2.3 was sent into the ER from primary care's office because of increasing swelling all over her body. As per the patient her home dose of Lasix was recently discontinued by her PCP and over last 1 week she has developed increased swelling of both her lower limbs and her arms going up to her mid belly. She denies of having any chest pain. Does complain of shortness of breath both on exertion and rest getting worsened by speaking and orthopnea. She denies any chest discomfort, palpitation, headache, dizziness. In the ER so far she received 40 mg of IV Lasix. Examination patient seen with caregiver at bedside, awake and alert able to have complete conversation with a systolic blood pressure of 220 mmHg. Hospital Course Hospital Course Patient was admitted to the hospital further evaluation and management of generalized anasarca, acute exacerbation of congestive heart failure along with hypertensive urgency and uncontrolled type 2 diabetes mellitus. She was started on IV diuresis. She responded well to the treatment and by discharge she was around 5 L negative. During hospitalization she was found to have uncontrolled type 2 diabetes mellitus for which her antihypertensive has been adjusted. She was also found to have uncontrolled diabetes with a new A1c of more than 10. Further management discussed in detail with the patient and she was transition over to insulin. Going forward she is to take Lantus 10 units twice daily along with insulin premeals as per sliding scale. Her creatinine did worsen during hospitalization with concerns for diabetic and hypertensive nephropathy telenephrology was consulted. She underwent CT abdomen pelvis was concerning for chronic kidney disease. Blood work and urine analysis was sent out for further evaluation of CKD. She has been discharged home on adjusted antihypertensive, insulin, daily Lasix as per nephrology recommendations with advised to follow-up with nephrology as an outpatient for further monitoring of her blood pressures and renal functions. During hospitalization patient jim tinued to ambulate well. She is to follow-up with a primary care provider within next 2 weeks with a blood pressure and blood sugar diary. She should also get a referral for auto brake mechanic as an outpatient from a primary care provider though referral has been provided to her for her auto brake mechanic in [place]. Physical Exam Narrative: General: No acute distress, AO x3, stuttering of words which is chronic HEENT: PERRLA, pupils bilaterally equal and reactive Chest: Normal vesicular breath sounds, no added sounds, equal good air entry bilaterally CVS: S1-S2 regular, no murmurs, no tachycardia, no gallops, no rubs Abdomen: Soft, nontender, no organomegaly, bowel sounds present Neuro: No focal deficits, no facial deformity, AO x3, power 5/5 in all limbs Extremity: Bilateral 2+ pitting edema going up to thigh level, pitting edema bilaterally in upper limbs. Improving than on admission. Urinary Catheter Management: Smith: Cath Placed During This Visit: yes Reason for Continuing Indwelling Catheter: Accurate Measurement of Urinary Output in Critically Ill Patients Urinary Catheter Date of Insertion: 04/11/24 Urinary Catheter Time of Insertion: 18:44 Discharge Data Studies Completed and Pending Completed Studies During Hospitalization Category Date Time Status CT abdomen pelvis wo con [id number] Routine Cat Scan 04/14/24 07:41 Completed XR chest 1V portable [id number] Stat Exams 04/11/24 13:59 [place] [id number] Routine Ultrasound 04/12/24 11:02 [place] [id number] Routine Ultrasound 04/13/24 11:02 Completed CV. echo complete* [id number] Routine Ultrasound 04/11/24 17:39 Completed Pending at discharge Category Date Time Status Gastricult Occult BLD Routine Lab 04/11/24 19:40 Ordered MAG [Magnesium] AM LABS Lab 04/15/24 04:00 Ordered Serum Protien Electrophoresis [Total Protein Lab 04/14/24 08:17 Received Electrophoresis] Routine Urine Protein Electrop Random Routine Lab 04/14/24 08:35 Received Radiology Impressions Chest X-Ray 04/11/24 13:59 Impression: Patchy left lower lobe opacity which could represent atelectasis, pneumonia and/or effusion. Venous Duplex 04/13/24 11:02 IMPRESSION: No evidence of deep vein thrombosis. Abdomen/Pelvis CT 04/14/24 07:41 IMPRESSION: 1. Findings suggestive medical renal disease. Multiple subcentimeter renal cysts and hemorrhagic/proteinaceous cysts in the right kidney. No evidence of nephrolithiasis or hydronephrosis bilaterally. 2. Colonic diverticulosis with no definitive evidence to suggest acute diverticulitis. 3. Right adnexal cysts measuring up 26 mm with peripheral coarse calcification. Further evaluation with ultrasound can be obtained as clinically indicated. 4. Other findings as described in the body of the report. COMMENTS: Consistent with the [employer]'s Incidental Findings Committee white paper (J Am Jabari Radiol 2018): Any incidental renal lesion less than 1 cm or classified as too small to characterize, or any incidental cystic renal lesion characterized as simple-appearing, is likely benign. No follow-up imaging is recommended for these lesions per consensus recommendations based on imaging criteria. Echocardiogram: CONCLUSIONS Normal left ventricular size, systolic function and wall thickness, with no regional wall motion abnormalities. Left ventricular ejection fraction is estimated at 60 %. Grade I/IV diastolic dysfunction (abnormal relaxation filling pattern), normal to mildly elevated filling pressures. There is no pericardial effusion. Thickened mitral valve. No mitral valve stenosis. Mild mitral valve regurgitation. Right atrial pressure is around 5 mm of mercury. Franck Barrow MD (Electronically Signed) Final Date: 11 April 2024 21:36 Laboratory Results WBC 8.92 10^3/uL (3.29-11.43) 04/14/24 04:20 RBC 2.41 10^6/uL (3.85-5.65) L 04/14/24 04:20 Hgb 7.10 g/dL (11.27-16.99) L 04/14/24 04:20 Hct 22.5 % (36-47) L 04/14/24 04:20 MCV 93.4 fl (85-98) 04/14/24 04:20 MCH 29.5 pg (27-33) 04/14/24 04:20 MCHC 31.6 g/dL (30-55) 04/14/24 04:20 RDW 12.8 % (12.1-15.1) 04/14/24 04:20 Plt Count 308 10^3/cmm (157-399) 04/14/24 04:20 MPV 9.2 fL (7.4-10.4) 04/14/24 04:20 Neut % (Auto) 71.0 % 04/14/24 04:20 Lymph % (Auto) 12.4 % 04/14/24 04:20 [place] % (Auto) 9.1 % 04/14/24 04:20 Eos % (Auto) 3.5 % 04/14/24 04:20 Baso % (Auto) 0.4 % 04/14/24 04:20 Neut # (Auto) 6.33 10^3/uL (1.8-7.7) 04/14/24 04:20 Lymph # (Auto) 1.1 10^3/uL (0.8-4.8) 04/14/24 04:20 [place] # (Auto) 0.8 10^3/uL (0.2-0.9) 04/14/24 04:20 Eos # (Auto) 0.3 10^3/uL (0.0-0.8) 04/14/24 04:20 Baso # (Auto) 0.0 10^3/uL (0.0-0.1) 04/14/24 04:20 Nucleated RBC % (auto) 0 % 04/14/24 04:20 Nucleated RBCs # 0.0 /100WBC 04/14/24 04:20 D-Dimer 1.92 ug/mLFEU (0-0.59) H 04/11/24 14:51 Sodium 132 mmol/L (136-145) L 04/14/24 04:20 Potassium 4.1 mmol/L (3.5-5.1) 04/14/24 04:20 Chloride 95 mmol/L (98-107) L 04/14/24 04:20 Carbon Dioxide 26 mmol/L (22-29) 04/14/24 04:20 Anion Gap 15.1 (5-19) 04/14/24 04:20 BUN 41 mg/dL (8-23) H 04/14/24 04:20 Creatinine 3.8 mg/dL (0.5-0.9) H 04/14/24 04:20 GFR Calculation Not Reportable 04/14/24 04:20 Glucose 140 mg/dL (65-115) H 04/14/24 04:20 POC Glucose 204 mg/dL (70-110) H 04/14/24 06:13 Estimat Average Glucose 278 04/13/24 03:51 Hemoglobin A1c 11.3 % (4.0-6.0) H 04/13/24 03:51 Calculated Osmolality 286 mOsm/kg (285-295) 04/14/24 04:20 Calcium 8.9 mg/dL (8.5-10.5) 04/14/24 04:20 Phosphorus 4.0 mg/dL (2.5-4.5) 04/12/24 04:17 Magnesium 1.8 mg/dL (1.7-2.3) 04/14/24 04:20 Iron 45 ug/dL (37-145) 04/11/24 14:51 TIBC 247 mcg/dl 04/11/24 14:51 % Saturation 18.2 % (20-50) L 04/11/24 14:51 Unsat Iron Binding 202 ug/dL (112-347) 04/11/24 14:51 Total Bilirubin 0.2 mg/dL (0.15-1.2) 04/14/24 04:20 AST 8 U/L (0-32) 04/14/24 04:20 ALT 8 U/L (0-33) 04/14/24 04:20 Alkaline Phosphatase 59 U/L (35-105) 04/14/24 04:20 NT-Pro-B Natriuret Pep 94585 pg/mL (0-125) H 04/11/24 14:51 Total Protein 5.6 g/dL (6.6-8.7) L 04/14/24 04:20 Albumin 3.1 g/dL (3.5-5.2) L 04/14/24 04:20 Globulin 2.5 g/dL (1.3-4.6) 04/14/24 04:20 Vitamin B12 1788 pg/mL (232-1245) H 04/11/24 14:51 Folate 9.0 ng/mL (4.8-37.3) 04/12/24 04:17 Procalcitonin 0.25 ng/mL (0-0.5) 04/12/24 04:17 Urine Color Yellow (Yellow) 04/14/24 08:20 Urine Appearance Clear (CLEAR) 04/14/24 08:20 Urine pH 6.0 (5-7) 04/14/24 08:20 Ur Specific [place] 1.006 (1.005-1.030) 04/14/24 08:20 Urine Protein 2+ (Negative) A 04/14/24 08:20 Urine Glucose (UA) Trace (Normal) H 04/14/24 08:20 Urine Ketones Negative (Negative) 04/14/24 08:20 Urine Blood 1+ (Negative) A 04/14/24 08:20 Urine Nitrate Negative (Negative) 04/14/24 08:20 Urine Bilirubin Negative (Negative) 04/14/24 08:20 Urine Urobilinogen 0.2 mg/dL (Negative) 04/14/24 08:20 Ur Leukocyte Esterase Trace (Negative) A 04/14/24 08:20 Urine RBC 0-2 /hpf (0-2) 04/14/24 08:20 Urine WBC 6-10 /hpf (0-5) 04/14/24 08:20 Ur Eosinophil Smear 0 (0-0) 04/14/24 08:20 Ur Squamous Epith Cells 6-10 /hpf (0-5) 04/14/24 08:20 Amorphous Sediment Not Reportable 04/14/24 08:20 Urine Bacteria None seen /hpf (NONE) 04/14/24 08:20 Hyaline Casts 48.40 /lpf 04/14/24 08:20 Coarse Granular Casts 5-10 /lpf H 04/14/24 08:20 Urine Eosinophils No eosinophils seen 04/14/24 08:20 Ur Random Microalbumin 63 ug/dL (0-20) H 04/14/24 08:20 Ur Random Sodium 45 mmol/L 04/14/24 08:20 Ur Random Potassium 17 mmol/L 04/14/24 08:20 Ur Random Chloride 38 mmol/L 04/14/24 08:20 Urine Creatinine 30 mg/dL (28-217) 04/14/24 08:20 Urine Creatinine 30 mg/dL (28-217) 04/14/24 08:20 Microalb/Creat Ratio 2100 mg/dL (0-20) H 04/14/24 08:20 Hepatitis A IgM Ab Non-reactive (Nonreactive) 04/14/24 08:17 Hep Bs Antigen Non-reactive (Nonreactive) 04/14/24 08:17 Hep Bs Antibody < 3.5 (11.5-1000) L 04/14/24 08:17 Hep B Core Total Ab Non-reactive (Nonreactive) 04/14/24 08:17 Hepatitis C Antibody Non-reactive (Nonreactive) 04/14/24 08:17 HIV 1&2 Ab & HIV 1 Ag Non-reactive (Non-Reactiv) 04/14/24 08:17 HIV 1&2 Antibody Non-reactive (Non-Reactiv) 04/14/24 08:17 Vitals Last Vital Signs Temp 97.9 F 04/14/24 08:00 Pulse 73 04/14/24 08:00 Resp 24 H 04/14/24 08:00 BP 176/71 04/14/24 08:00 Pulse Ox 96 04/14/24 08:00 O2 Del Method Room Air 04/14/24 08:00 Discharge Plan Discharge Patient Disposition: Home Condition: Stable Prescriptions: New insulin lispro [Humalog KwikPen Insulin] 100 unit/mL insulin pen See Protocol SUBCUT TID Qty: 15 0RF Protocol: Insulin Corrective High-Dose Regimen Condition: Fingerstick Blood Glucose Dose/Route: Insulin Units Condition: 141-180 mg/dl Dose/Route: 2 units/SQ Condition: 181-220 mg/dl Dose/Route: 4 units/SQ Condition: 221-260 mg/dl Dose/Route: 6 units/SQ Condition: 261-300 mg/dl Dose/Route: 12 units/SQ Condition: 301-350 mg/dl Dose/Route: 10 units/SQ Condition: 351-400 mg/dl Dose/Route: 12 units/SQ Condition: greater than 400 mg/dl Dose/Route: 14 units/SQ insulin glargine [Lantus Solostar U-100 Insulin] 100 unit/mL (3 mL) insulin pen 10 unit SUBCUT BIDWM Qty: 15 0RF furosemide 40 mg Tablet 40 mg PO DAILY@0800 Qty: 30 0RF carvedilol 6.25 mg Tablet 6.25 mg PO BID Qty: 60 0RF Jardiance 10 mg tablet 10 mg PO DAILY Qty: 30 0RF hydralazine 50 mg tablet 100 mg PO TID Qty: 180 0RF Continued gabapentin 100 mg capsule See Rx Instructions .ROUTE .COMPLEX Qty: 180 11RF Dose Instruction: TAKE 2 CAPSULES BY MOUTH THREE TIMES DAILY Rx Instructions: TAKE 2 CAPSULES BY MOUTH THREE TIMES DAILY Jardiance 10 mg tablet 10 mg PO DAILY Qty: 30 11RF lidocaine (PF) 10 mg/mL (1 %) solution 10 mg SUBCUT ONCE Qty: 1 0RF albuterol sulfate [Ventolin HFA] 90 mcg/actuation HFA aerosol inhaler 2 puff inhalation Q6H PRN (Reason: shortness of breath or wheezing) Qty: 8.5 11RF simvastatin 40 mg tablet See Rx Instructions .ROUTE .COMPLEX Qty: 90 3RF Dose Instruction: TAKE 1 TABLET BY MOUTH EVERY DAY FOR CHOLESTEROL Rx Instructions: TAKE 1 TABLET BY MOUTH EVERY DAY FOR CHOLESTEROL magnesium oxide 400 mg (241.3 mg magnesium) tablet See Rx Instructions .ROUTE .COMPLEX Qty: 90 3RF Dose Instruction: TAKE 1 TABLET BY MOUTH DAILY Rx Instructions: TAKE 1 TABLET BY MOUTH DAILY ferrous sulfate [FeroSul] 325 mg (65 mg iron) tablet See Rx Instructions .ROUTE .COMPLEX Qty: 90 3RF Dose Instruction: TAKE 1 TABLET BY MOUTH THREE TIMES DAILY WITH MEALS Rx Instructions: TAKE 1 TABLET BY MOUTH THREE TIMES DAILY WITH MEALS duloxetine 60 mg capsule,delayed release(DR/EC) 60 mg PO DAILY Qty: 90 3RF clopidogrel 75 mg tablet See Rx Instructions .ROUTE .COMPLEX Qty: 90 0RF Dose Instruction: TAKE 1 TABLET BY MOUTH EVERY DAY Rx Instructions: TAKE 1 TABLET BY MOUTH EVERY DAY (DME) Dexcom G6 Sensor Device See Rx Instructions .MEDSUPPLY Qty: 3 12RF Rx Instructions: Change every 10 days; Use as directed to check blood sugar (DME) Dexcom G6 Child Welfare Director Misc See Rx Instructions .MEDSUPPLY Qty: 1 0RF Rx Instructions: Use as directed for checking blood sugar Changed amlodipine 5 mg tablet 10 mg PO DAILY Qty: 90 3RF Dose Instruction: TAKE 1 TABLET BY MOUTH DAILY Discontinued pioglitazone 15 mg tablet 15 mg PO BID Qty: 180 3RF glimepiride 4 mg tablet See Rx Instructions .ROUTE .COMPLEX Qty: 180 3RF Dose Instruction: TAKE 1 TABLET BY MOUTH TWICE DAILY Rx Instructions: TAKE 1 TABLET BY MOUTH TWICE DAILY lisinopril 20 mg tablet See Rx Instructions .ROUTE .COMPLEX Qty: 90 3RF Hold Instructions: Adverse Reaction Dose Instruction: TAKE 1 TABLET BY MOUTH EVERY DAILY Rx Instructions: TAKE 1 TABLET BY MOUTH EVERY DAILY furosemide 40 mg tablet See Rx Instructions .ROUTE .COMPLEX Qty: 30 0RF Hold Instructions: Adverse Reaction Dose Instruction: TAKE 1 TABLET BY MOUTH EVERY DAY Rx Instructions: TAKE 1 TABLET BY MOUTH EVERY DAY Discharge Orders: Discharge Order (Routine); Ordered 04/14/24 Ordered By: Babatunde Adams Referrals: Albin Morse MD [Occupational Therapist] - 2 weeks (CKD with worsening renal functions We have notified your physician's clinic of the need for a follow-up appointment to be scheduled. If you have not heard from them within the next 2 business d ays, please call them directly. ) Jan Kirk MD [Primary Care Provider] - 2 weeks (We have notified your physician's clinic of the need for a follow-up appointment to be scheduled. If you have not heard from them within the next 2 business days, please call them directly. ) Discharge Diet: Cardiac and Diabetic Discharge Activity: Resume usual activity and Increase activity as tolerated Patient Instructions: Diabetes and Diet, Furosemide (By mouth) (Lasix), Hydralazine (By mouth), Carvedilol (By mouth) (Coreg, Coreg CR, Hypertenevide-12 .5), Insulin Glargine (By injection) (Lantus, Lantus SoloStar, Toujeo, Semglee), Insulin Lispro (By injection) (Humalog, Humalog Pen, Lispro-PFC,..., Empagliflozin (By mouth) (Jardiance), Heart Failure (DC), Pulmonary Edema (DC), Chronic Kidney Disease (DC), Foot Care for People with Diabetes (ED), Type 1 Diabetes in Adults: New Diagnosis (DC), Hypoglycemia in a Person with Diabetes (DC), Meal Planning with Diabetes Exchanges (DC), Hypertensive Crisis (DC), CHF Stoplight, Opioid Safety Activity Restrictions/Additional Instructions: * Please check your blood pressure daily at home maintain a blood pressure diary. Your goal blood pressures are less than 140/90 mmHg. Your blood pressures medication have been changed. Do not take lisinopril anymore. Instead take amlodipine 10 mg oral daily, hydralazine 100 mg 3 times a day, Coreg 6.25 mg twice daily. Please follow-up with a primary care provider within next 2 weeks for further adjustment of antihypertensive. * Take insulin as discussed as per sliding scale. Sliding scale is as below. If Fingerstick Blood Glucose, then Insulin Units; If 141-180 mg/dl, then 2 units/SQ; If 181-220 mg/dl, then 4 units/SQ; If 221-260 mg/dl, then 6 units/SQ; If 261-300 mg/dl, then 12 units/SQ; If 301-350 mg/dl, then 10 units/SQ; If 351- 400 mg/dl, then 12 units/SQ; If greater than 400 mg/dl, then 14 units/SQ Take Lantus 10 units twice daily. Please check your blood sugars daily before each meal and maintain a blood sugar diary and follow-up with a primary care provider within next 2 weeks. Do not take glimepiride or pioglitazone anymore. Take Jardiance 10 mg oral daily. * Please follow-up with a auto brake mechanic as an outpatient. You should get a referral from your primary care provider to follow-up with auto brake mechanic. * Restrict fluid intake to less than 1500 cc, salt intake to less than 2 g daily. * Advised to check his weight daily at home. Is advised that weight today would be the dry weight and if body weight increases by around 5 pounds, patient is to take an extra dose of Lasix daily till body weight comes down to weight today. If not able to come down to dry body weight in 1 week, then is to call cardi [facility] [place] office for further recommendations. Patient was counseled in detail to take medications regularly as prescribed. Discharge Attestations Time Spent in Discharge Care*: greater than 30 min Specific Discharge Activities: educating patient, discussing with pcp/other providers, discussing with manager rn case/social workers/dc planners, documenting/other paperwork and evaluating patient/reviewing data Status at Discharge: Cognitive status at discharge: cognitively intact , Behavioral status at discharge: cooperative , Functional status at discharge: uses cane/walker , Overall status at discharge: patient is back to baseline Quality Metrics Clinical Quality Measures [ No reported AMI, CVA or VTE this stay] Coding Level of Care Code 30481 Total time (in minutes) for Discharge: 80 Diagnoses Acute kidney injury N17.9 Cardiomyopathy I42.9 Congestive heart failure I50.9 Acute exacerbation of congestive heart failure I50.9 Positive cardiac stress test R94.39 Hypertensive urgency I16.0 DM type 2 (diabetes mellitus, type 2) E11.9 Chronic kidney disease N18.9 Anemia D64.9
[2024-04-14 12:00] VITALS: BP 161/70; PULSE 70; RESP 20; TEMP 37.1; O2SAT 99
[2024-04-14] MEDS: EPOETIN ALFA EPBX 20000 UNIT/ML SUBCUT (12:08)
[2024-04-14 12:12] LABS: Glucose Point of Care 287 mg/dL (70-110)
[2024-04-14 12:47] VITALS: BP 161/70; PULSE 73; RESP 23; O2SAT 97
--- NOTE | 2024-04-14 13:29 | PC.NURSE ---
discharge instructions given and explained.pt and cg (son) instructed also in insulin administration.lantus and humulin pens provided by meds to beds program yesterday.both verb understanding of instruction.
--- NOTE | 2024-04-14 13:31 | PC.NURSE ---
discharged via w/c to exit at this time.son to drive pt home
[2024-04-15 16:25] LABS: PROTEIN, TOTAL 5.7 g/dL (6.1-8.1)
[2024-04-16 12:21] LABS: Creatinine, Random Urine 34 mg/dL (20-275); Protein, Total, Random 135 mg/dL (5-24); Protein/Creatinine Ratio 3.971 (0.024-0.184); Protein/Creatinine Ratio 3971 mg/g creat (24-184)
[2024-04-16 13:05] LABS: ALBUMIN 2.7 g/dL (3.8-4.8); ALPHA 1 GLOBULIN 0.4 g/dL (0.2-0.3); ALPHA 2 GLOBULIN 1.2 g/dL (0.5-0.9); BETA 1 GLOBULIN 0.4 g/dL (0.4-0.6); BETA 2 GLOBULIN 0.4 g/dL (0.2-0.5); GAMMA GLOBULIN 0.6 g/dL (0.8-1.7)
== END 2024-04-14 13:34 | disposition home or self-care (01) | DRG 291 ==
LOC: ER 17:46 → CSU 18:10
PROVIDERS: Admitting Provider Student in an Organized Health Care Education/Training Program; Emergency Provider Emergency Medicine; PCP Family Medicine; Visit Provider Student in an Organized Health Care Education/Training Program
DX: I13.0 Hypertensive heart and chronic kidney disease with heart failure and stage 1 through stage 4 chronic kidney disease, or unspecified chronic kidney disease (principal); I50.33 Acute on chronic diastolic (congestive) heart failure; N18.4 Chronic kidney disease, stage 4 (severe); N17.9 Acute kidney failure, unspecified; E87.1 Hypo-osmolality and hyponatremia; E11.22 Type 2 diabetes mellitus with diabetic chronic kidney disease; E11.65 Type 2 diabetes mellitus with hyperglycemia; I42.9 Cardiomyopathy, unspecified; D63.8 Anemia in other chronic diseases classified elsewhere; I48.91 Unspecified atrial fibrillation; F32.A Depression, unspecified; E11.40 Type 2 diabetes mellitus with diabetic neuropathy, unspecified; Z86.73 Personal history of transient ischemic attack (TIA), and cerebral infarction without residual deficits; Z85.3 Personal history of malignant neoplasm of breast; Z95.5 Presence of coronary angioplasty implant and graft; Z79.84 Long term (current) use of oral hypoglycemic drugs; Z79.02 Long term (current) use of antithrombotics/antiplatelets
CPT/HCPCS: 36415; 36416; 51702; 71045; 74176; 80048; 80053; 81001; 82044; 82436; 82570; 82607; 82746; 82962; 83036; 83540; 83550; 83735; 83880; 84100; 84133; 84145; 84155; 84156; 84165; 84166; 84300; 85025; 85378; 85999; 86705; 86706; 86709; 86803; 87340; 87806; 93005; 93306; 93970; 93971; 94664; 96372; 96374; 96376; 99285; A9270; J1644; J1815; J1940; J2470; J3475; Q3014; Q5105

== ENCOUNTER 2024-04-23 08:28 | Outpatient (CLI) | payer MEDICARE, OTHER, SELFPAY ==
--- NOTE | 2024-04-23 08:48 | XRR_ITS ---
PROCEDURE INFORMATION: Exam: XR Chest Exam date and time: 04/23/2024 9:33 AM Age: 73 years old Clinical indication: Shortness of breath; Additional info: ? Pe/follow up after NM vq scan TECHNIQUE: Imaging protocol: Radiologic exam of the chest. Views: 2 views. COMPARISON: CR XR chest 1V portable [id number] 04/11/2024 3:02 PM FINDINGS: Tubes, catheters and devices: Loop recorder over the left chest. Lungs: Unremarkable. No consolidation. Pleural spaces: Unremarkable. No pleural effusion. No pneumothorax. Heart/Mediastinum: Unremarkable. No cardiomegaly. Bones/joints: Unremarkable. XR/XR chest 2V* [id number] IMPRESSION: No acute findings.
--- NOTE | 2024-04-23 09:00 | NM_ITS ---
WS: [id number] NUCLEAR MEDICINE LUNG VENTILATION AND PERFUSION CLINICAL INFORMATION: ro PE TECHNIQUE: Ventilation/perfusion lung scan with 33.0 mCi technetium 99m DTPA. 5.3 mCi MAA COMPARISON: 2020 FINDINGS: Patchy radiotracer deposition along the central bronchi and trachea on the ventilation images. Relati vely symmetric radiotracer uptake on the perfusion images. No mismatched or lobar ventilation perfusi on defects to indicate pulmonary embolus. Cardiomegaly. NM/NM pul vent and perfus* [id number] IMPRESSION: 1. Low probability for pulmonary embolus.
== END 2024-04-23 08:29 | disposition home or self-care (01) ==
LOC: RAD 08:28
PROVIDERS: PCP Family Medicine; Visit Provider Family Medicine
DX: R06.00 Dyspnea, unspecified (principal); I51.7 Cardiomegaly
CPT/HCPCS: 71046; 78014; A9540; A9567

== ENCOUNTER → 2024-05-28 10:59 | Outpatient (BNVA) | payer MEDICARE, OTHER, SELFPAY | PROVIDERS: PCP Family Medicine; Visit Provider Family Medicine | DX: N18.9 Chronic kidney disease, unspecified (principal) | CPT/HCPCS: 80069; 82542; 83550; 84155; 84165; 85025 ==

== ENCOUNTER → 2024-05-30 10:03 | Outpatient (BNVA) | payer MEDICARE, OTHER, SELFPAY | PROVIDERS: PCP Family Medicine; Visit Provider Family Medicine | DX: J06.9 Acute upper respiratory infection, unspecified (principal); N18.9 Chronic kidney disease, unspecified | CPT/HCPCS: 82570; 84156; 86335; 87400; 87426 ==

== ENCOUNTER → 2024-06-24 09:50 | Outpatient (BNVA) | payer MEDICARE, OTHER, SELFPAY | PROVIDERS: PCP Family Medicine; Visit Provider Family Medicine | DX: E13.22 Other specified diabetes mellitus with diabetic chronic kidney disease (principal) | CPT/HCPCS: 80069; 82542; 82570; 82728; 83550; 84155; 84156; 84165; 84466; 85025; 86334 ==

== ENCOUNTER 2024-07-23 07:42 | Oncology outpatient (recurring) (ONCR) | payer MEDICARE, OTHER, SELFPAY ==
[2024-07-23] MEDS: darbepoetin 40 mcg/mL INJ SUBCUT (08:08)
[2024-07-23 08:10] VITALS: BP 152/71; PULSE 65; O2SAT 96
== END 2024-07-26 23:59 | disposition home or self-care (01) ==
LOC: ONCMED 07:43
PROVIDERS: PCP Family Medicine; Visit Provider Internal Medicine Nephrology
DX: N18.5 Chronic kidney disease, stage 5 (principal); D63.1 Anemia in chronic kidney disease; Z79.899 Other long term (current) drug therapy
CPT/HCPCS: 96372; J0881

== ENCOUNTER 2024-07-27 06:00 | Outpatient (RCR) | payer MEDICARE, OTHER, SELFPAY | END 2024-08-26 23:55 | disposition home or self-care (01) | LOC: APT 06:00 | PROVIDERS: PCP Family Medicine; Visit Provider Physician Assistant Surgical | DX: R29.6 Repeated falls (principal); Z74.09 Other reduced mobility | CPT/HCPCS: 97110; 97163 ==

== ENCOUNTER 2024-08-15 23:57 | Emergency (ER) | payer MEDICARE, OTHER, SELFPAY ==
[2024-08-16 00:04] VITALS: BP 189/79; PULSE 61; RESP 18; TEMP 35.7; O2SAT 95; BMI 36.4
--- NOTE | 2024-08-16 00:18 | CTR_ITS ---
PROCEDURE INFORMATION: Exam: CT Head Without Contrast Exam date and time: 08/16/2024 12:49 AM Age: 73 years old Clinical indication: Injury or trauma; Fall; Blunt trauma (contusions or hematomas); Patient fell from standing getting out of bed. Hit left side of body against nightstand and fell to floor striking head. Hematoma to RT frontal. C/O head, neck, and left chest/abd wall pain. Anticoagulated. History of left CVA and breast cancer. ; Additional info: Fall, hit head. Large hematoma on R TECHNIQUE: Imaging protocol: Computed tomography of the head without contrast. Radiation optimization: All CT scans at this facility use at least one of these dose optimization techniques: automated exposure control; mA and/or kV adjustment per patient size (includes targeted exams where dose is matched to clinical indication); or iterative reconstruction. COMPARISON: CT angio headneck* [id number] 12/15/2020 8:52 PM RADIATION DOSE METRICS: Total DLP (mGy-cm): 1068.55 FINDINGS: Brain: Anterior midline falx subdural hematoma measuring 3 mm. Small amount of subarachnoid hemorrhage noted in the left frontal sulci. No midline shift. Encephalomalacia noted in the left frontal, left temporal and left basal ganglia region. Periventricular and deep white matter hypodensities compatible with chronic microvascular ischemic changes. Cerebral ventricles: No ventriculomegaly. Paranasal sinuses: Visualized sinuses are unremarkable. No fluid levels. Mastoid air cells: No mastoid effusion. Bones: Unremarkable. No acute fracture. Soft tissues: Large right frontal scalp hematoma with areas of mixed density suggesting active hemorrhage. CT/CT head wo con* [id number] IMPRESSION: 1. Anterior midline falx subdural hematoma measuring 3 mm. No midline shift. 2. Small amount of subarachnoid hemorrhage noted in the left frontal sulci. 3. Large right frontal scalp hematoma with areas of mixed density suggesting active hemorrhage.
--- NOTE | 2024-08-16 00:18 | CTR_ITS ---
PROCEDURE INFORMATION: Exam: CT Chest Without Contrast; Diagnostic Exam date and time: 08/16/2024 12:57 AM Age: 73 years old Clinical indication: Injury or trauma; Fall; Abdominal wall; Blunt trauma (contusions or hematomas); Prior surgery; Surgery date: 6+ months; Surgery type: Bo; Patient fell from standing getting out of bed. Hit left side of body against nightstand and fell to floor striking head. Hematoma to RT frontal. C/O head, neck, and left chest/abd wall pain. Anticoagulated. History of left CVA and breast cancer. ; Additional info: Fall, L chest pain, left sided abd tenderness TECHNIQUE: Imaging protocol: Diagnostic computed tomography of the chest without contrast. Radiation optimization: All CT scans at this facility use at least one of these dose optimization techniques: automated exposure control; mA and/or kV adjustment per patient size (includes targeted exams where dose is matched to clinical indication); or iterative reconstruction. COMPARISON: CT chest con [id number] 02/20/2024 2:42 PM RADIATION DOSE METRICS: Total DLP (mGy-cm): 2453.53 FINDINGS: Lungs: Bibasilar dependent atelectasis. 4 mm peripheral noncalcified right lower lobe pulmonary nodule, unchanged from 2023. Pleural spaces: Unremarkable. No pneumothorax. No pleural effusion. Heart: Unremarkable. No cardiomegaly. No pericardial effusion. Coronary arteries: Coronary artery calcifications are present. Lymph nodes: Unremarkable. No enlarged lymph nodes. Vasculature: Unremarkable. No aortic aneurysm. Bones/joints: Unremarkable. No acute fracture. Soft tissues: Stable apparent postoperative changes in the right breast. PROCEDURE INFORMATION: Exam: CT Abdomen And Pelvis Without Contrast Exam date and time: 08/16/2024 12:57 AM Age: 73 years old Clinical indication: Injury or trauma; Fall; Abdominal wall; Blunt trauma (contusions or hematomas); Prior surgery; Surgery date: 6+ months; Surgery type: Bo; Patient fell from standing getting out of bed. Hit left side of body against nightstand and fell to floor striking head. Hematoma to RT frontal. C/O head, neck, and left chest/abd wall pain. Anticoagulated. History of left CVA and breast cancer. ; Additional info: Fall, L chest pain, left sided abd tenderness TECHNIQUE: Imaging protocol: Computed tomography of the abdomen and pelvis without contrast. Radiation optimization: All CT scans at this facility use at least one of these dose optimization techniques: automated exposure control; mA and/or kV adjustment per patient size (includes targeted exams where dose is matched to clinical indication); or iterative reconstruction. COMPARISON: CT abdomen pelvis wo con [id number] 04/14/2024 9:34 AM RADIATION DOSE METRICS: Total DLP (mGy-cm): 2453.53 FINDINGS: Liver: Normal. No mass. Gallbladder and biliary ducts: Normal. No calcified stones. No ductal dilation. Pancreas: Normal. No ductal dilation. Spleen: Normal. No splenomegaly. Adrenal glands: Normal. No mass. Kidneys and ureters: Stable indeterminate hypoattenuating lesions in the kidneys bilaterally measuring up to 2.8 cm on the right. These do not meet CT criteria for simple cysts. Tiny bilateral hyperdense renal cortical lesions measuring up to 7 mm in the upper pole of the right kidney, too small to characterize. Stomach and bowel: Colonic diverticulosis is present without diverticulitis. Appendix: No evidence of appendicitis. Intraperitoneal space: Unremarkable. No free air. No significant fluid collection. Vasculature: Aortoiliac atherosclerotic disease is seen without evidence of aneurysm. Lymph nodes: Unremarkable. No enlarged lymph nodes. Urinary bladder: Unremarkable as visualized. Reproductive: Unremarkable as visualized. Bones/joints: Right total hip arthroplasty. Soft tissues: Unremarkable. CT/[place] [id number] IMPRESSION: No acute cardiopulmonary process. IMPRESSION: 1. Stable indeterminate hypoattenuating lesions in the kidneys bilaterally measuring up to 2.8 cm on the right. These do not meet CT criteria for simple cysts. Follow-up nonemergent renal ultrasound is recommended. 2. No evidence of acute abdominal or pelvic process. COMMENTS: Consistent with the [employer]'s Incidental Findings Committee white paper (J Am Jabari Radiol 2018): Any incidental renal lesion less than 1 cm or classified as too small to characterize, or any incidental cystic renal lesion characterized as simple-appearing, is likely benign. No follow-up imaging is recommended for these lesions per consensus recommendations based on imaging criteria.
--- NOTE | 2024-08-16 00:18 | CTR_ITS ---
PROCEDURE INFORMATION: Exam: CT Cervical Spine Without Contrast Exam date and time: 08/16/2024 12:53 AM Age: 73 years old Clinical indication: Injury or trauma; Fall; Blunt trauma; Patient fell from standing getting out of bed. Hit left side of body against nightstand and fell to floor striking head. Hematoma to RT frontal. C/O head, neck, and left chest/abd wall pain. Anticoagulated. History of left CVA and breast cancer. ; Additional info: Fall, hit head TECHNIQUE: Imaging protocol: Computed tomography of the cervical spine without contrast. Radiation optimization: All CT scans at this facility use at least one of these dose optimization techniques: automated exposure control; mA and/or kV adjustment per patient size (includes targeted exams where dose is matched to clinical indication); or iterative reconstruction. COMPARISON: CT angio headneck* [id number] 12/15/2020 8:52 PM RADIATION DOSE METRICS: Total DLP (mGy-cm): 816.27 FINDINGS: Bones: Mild degenerative changes including osteophytes, disc space narrowing, and endplate spurring. No critical central canal stenosis. No acute cervical fracture. Lungs: Limited visualization of the lung apices. Soft tissues: Unremarkable. CT/CT cervical spin wo con* [id number] IMPRESSION: No acute cervical fracture.
--- NOTE | 2024-08-16 00:18 | XRR_ITS ---
PROCEDURE INFORMATION: Exam: XR Chest Exam date and time: 08/16/2024 12:24 AM Age: 73 years old Clinical indication: Injury or trauma; Blunt trauma (contusions or hematomas); Prior surgery; Surgery date: 6+ months; Surgery type: RT partial mastectomy; C/O left chest wall pain from falling against nightstand. ; Additional info: Fall, L chest wall pain TECHNIQUE: Imaging protocol: Radiologic exam of the chest. Views: 1 view. COMPARISON: CR XR chest 2V* [id number] 04/23/2024 9:33 AM FINDINGS: Lungs: Unremarkable. No consolidation. Pleural spaces: Unremarkable. No pleural effusion. No pneumothorax. Heart/Mediastinum: Unremarkable. No cardiomegaly. Bones/joints: Unremarkable. XR/XR chest 1V portable [id number] IMPRESSION: No acute findings.
--- NOTE | 2024-08-16 00:23 | ED_ITS ---
HPI - Fall 2 General: Chief Complaint: Fall Stated Complaint: Fell hit R head,hit mouth Time Seen by Provider: 08/16/24 00:11 Source: patient and family Mode of arrival: wheelchair Limitations: no limitations History of Present Illness: Patient reportedly was acting more confused after the fall. Got out of bed and fell and hit her left chest wall on the nightstand and right head on floor. Has large hematoma on the right head which patient reports is painful. Also pain left chest wall and left breast. Onset was just prior to arrival Related Data Previous Rx's ?Medication ?Instructions ?Recorded gabapentin 100 mg capsule See Rx Instructions .Route 1 07/19/22 .COMPLEX #180 caps magnesium oxide 400 mg (241.3 mg See Rx Instructions . Route 06/08/23 magnesium) tablet .COMPLEX #90 tabs albuterol sulfate 90 mcg/actuation 2 puff inhalation Q 6H PRN 12/26/23 aerosol inhaler (Ventolin HFA) shortness of breath or wheezing #8.5 grams ferrous sulfate 325 mg (65 mg See Rx Instructions .Rou te 01/19/24 iron) tablet (FeroSul) .COMPLEX #90 tabs duloxetine 60 mg capsule,delayed 60 mg PO DAILY #90 ca ps 01/24/24 release insulin lispro 100 unit/mL See Protocol SUBCUT TID #15 mL 04/13/24 subcutaneous pen (Humalog KwikPen (U-100) Insulin) Held on 04/18/24. Instructions: Home Medication placed on hold at Doctor's office amlodipine 10 mg tablet See Rx Instructions .Route 1 06/23/23 .COMPLEX #90 tabs blood-glucose meter,continuous #1 ea 05/02/24 (Dexcom G6 Light Bulb Assembler) blood-glucose sensor (Dexcom G6 #3 ea 05/02/24 Sensor device) diabetic test strip #100 ea 05/02/24 empagliflozin 10 mg tablet 10 mg PO DAILY #90 tabs (Jardiance) carvedilol 6.25 mg tablet 6.25 mg PO BID #60 tabs 04/28 02/19 ciprofloxacin HCl 250 mg tablet 250 mg PO BID #14 tabs 05/30/24 simvastatin 40 mg tablet See Rx Instructions .Route 0 06/06/24 .COMPLEX #90 tabs furosemide 40 mg tablet 40 mg PO DAILY@0800 #30 tabs 06/13/24 clopidogrel 75 mg tablet See Rx Instructions .Route 0 07/22/24 .COMPLEX #90 tabs insulin glargine 100 unit/mL (3 35 unit (0.35 mL) SUBC UT BID #15 mL 07/23/24 mL) subcutaneous pen (Basaglar KwikPen U-100 Insulin) hydralazine 50 mg tablet 100 mg (2 x 50 mg) PO TID #1 80 tabs 08/14/24 Allergies Allergy/AdvReac Type Severity Reaction Status Date / Time Penicillins Allergy ALGY-Hives Verified 08/16/24 00:07 Review of Systems 2 General: Reports: 10 or more systems reviewed and unremarkable except in HPI and below PFSH ED 2 PFSH: Medical History Positive cardiac stress test Chronic kidney disease Hyperlipidemia Cardiomyopathy Ejection fraction 50% on echocardiogram Atrial fibrillation Depression Right leg swelling HTN (hypertension) Peripheral neuropathy DM type 2 (diabetes mellitus, type 2) Breast cancer Presence of internal carotid stent CVA (cerebral vascular accident) Diabetes COVID-19 Surgical History History of prior ablation treatment History of removal of Port-a-Cath Hx of total hip arthroplasty History of cataract surgery H/O partial mastectomy R Family History Mother CAD (coronary artery disease) Social History Smoking and tobacco/nicotine status: never used tobacco/nicotine Substance/Drug Use: never Physical Exam 2 Const: COMMON NORMALS: no acute distress, average body habitus, patient oriented x3, healthy appearing, alert and well nourished GENERAL APPEARANCE: well kempt and well developed HENMT: COMMON NORMALS: normocephalic, external ears normal and moist oral mucous membranes; head/scalp not atraumatic HEAD & SCALP: normocephalic and hematoma (Large hematoma approximately 4 x 7 cm) right frontal ; not atraumatic HEAD IMAGES: 1. EXTERNAL EAR: Yes external ears normal Eye: COMMON NORMALS: Equal, round and reactive pupils present, EOMs intact bilaterally and conjunctivae normal CONJUNCTIVA: Yes conjunctivae normal P UPIL: Yes Equal, round and reactive pupils present Neck/C-Spine: COMMON NORMALS: full ROM, no lymphadenopathy and supple Chest: CHEST: Yes Symmetrical chest wall rise and No Surgical scars present (Chest) Resp: COMMON NORMALS: normal respiratory effort, No retractions, No use of accessory muscles and clear to auscultation bilaterally AUSCULTATION: clear to auscultation bilaterally Cardio: COMMON NORMALS: regular rate, regular rhythm, S1 normal heart sound present, S2 normal heart sound present, No gallops present (Cardio), No clicks present (Cardio), No murmurs present (Cardio) and No rub (Cardio) RATE: r egular rate RHYTHM: regular rhythm HEART SOUNDS: S1 normal heart sound present, S2 normal heart sound present and no murmurs PERIPHERAL PULSES: o ther (Radial pulses 2+ and symmetric) GI: COMMON NORMALS: Soft to palpation, non-tender and no masses INSPECTION: No abdominal distension PALPATION: Yes Soft to palpation, No Guarding due to palpation present (GI) and No Rebound tenderness present : COMMON NORMALS: Yes no CVA tenderness BLADDER/KIDNEY EXAM: Yes no CVA tenderness Back/Pelvis: COMMON NORMALS: no CVA tenderness Extremity: COMMON NORMALS: normal to inspection, full ROM, capillary refill normal and no clubbing, cyanosis or edema Neuro: COMMON NORMALS: patient oriented x3 SENSORIUM/ORIENTATION: Yes alert Psych: APPEARANCE: Yes well kempt Skin: COMMON NORMALS: no rashes or lesions noted, no wounds, turgor normal and no jaundice GENERAL SKIN EXAM: no rashes or lesions noted and turgor normal Course 2 Reevaluation(s): Reevaluation #1: Patient remained stable, headache is improved. She has had 2 of morphine for pain reports is very mild now. I have updated her and family on findings. Time: 01:50 Vital Signs: Vital signs: Vital Signs Temperature 96.2 F L 08/16/24 00:04 Pulse Rate 61 08/16/24 02:03 Respiratory Rate 21 H 08/16/24 02:03 Blood Pressure 167/105 08/16/24 02:03 Pulse Oximetry 98 08/16/24 02:03 Oxygen Delivery Me thod Nasal Cannula 08/16/24 02:03 Oxygen Flow Rate 2 08/16/24 02:03 MDM - Fall Medical Decision Making 70-year-old female fall from standing, on Plavix. Had a large hematoma on the right frontal temporal area. Suspect possible active bleeder, this is closed and not hemorrhaging. Notified by radiology the patient has a frontal subdural 3 mm no midline shift as well as a left frontal subarachnoid hemorrhage. And that the external hematoma indeed has mixed density suggesting active bleeding. Pressure bandage has been placed. Blood pressure has been controlled with Cardene patient and family updated. Dr. Brewer accepting at OSH. Medical Records I reviewed the patient's medical records. Lab Data I reviewed the patient's lab results. 08/16/24 00:29 08/16/24 00:29 Radiology Impressions Cervical Spine CT 08/16/24 00:18 IMPRESSION: No acute cervical fracture. Chest X-Ray 08/16/24:18 IMPRESSION: No acute findings. Chest/Abdomen/Pelvis CT 08/16/24:18 IMPRESSION: No acute cardiopulmonary process. IMPRESSION: 1. Stable indeterminate hypoattenuating lesions in the kidneys bilaterally measuring up to 2.8 cm on the right. These do not meet CT criteria for simple cysts. Follow-up nonemergent renal ultrasound is recommended. 2. No evidence of acute abdominal or pelvic process. COMMENTS: Consistent with the [employer]'s Incidental Findings Committee white paper (J Am Jabari Radiol 2018): Any incidental renal lesion less than 1 cm or classified as too small to characterize, or any incidental cystic renal lesion characterized as simple-appearing, is likely benign. No follow-up imaging is recommended for these lesions per consensus recommendations based on imaging criteria. Head CT 08/16/24 00:18 IMPRESSION: 1. Anterior midline falx subdural hematoma measuring 3 mm. No midline shift. 2. Small amount of subarachnoid hemorrhage noted in the left frontal sulci. 3. Large right frontal scalp hematoma with areas of mixed density suggesting active hemorrhage. ADDENDUM: 08/16/24 0145 THIS REPORT CONTAINS FINDINGS THAT MAY BE CRITICAL TO PATIENT CARE. The findings were verbally communicated via telephone conference with Dr PRIMO MORENO at 142 AM TIP CEMENTER on 08/16/2024. The findings were acknowledged and understood. Laboratory Results WBC 13.24 10^3/uL (3.29-11.43) H 08/16/24 00:29 RBC 3.26 10^6/uL (3.85-5.65) L 08/16/24 00: Hgb 9.10 g/dL (11.27-16.99) L 08/16/24: Hct 28.8 % (36-47) L 08/16/24 00: MCV 88.3 fl (85-98) 08/16/24 00: MCH 27.9 pg (27-33) 08/16/24: MCHC 31.6 g/dL (30-55) 08/16/24 00: RDW 13.6 % (12.1-15.1) 08/16/24: Plt Count 237 10^3/cmm (157-399) 08/16/24: MPV 8.8 fL (7.4-10.4) 08/16/24 00: Neut % (Auto) 80.7 % 08/16/24 00: Lymph % (Auto) 6.7 % 08/16/24: Pershing % (Auto) 7.4 % 08/16/24: Eos % (Auto) 3.1 % 08/16/24 00: Baso % (Auto) 0.5 % 08/16/24 00: Neut # (Auto) 10.69 10^3/uL (1.8-7.7) H 08/16/24 00: Lymph # (Auto) 0.9 10^3/uL (0.8-4.8) 08/16/24 00: Pershing # (Auto) 1.0 10^3/uL (0.2-0.9) H 08/16/24 00: Eos # (Auto) 0.4 10^3/uL (0.0-0.8) 08/16/24 00: Baso # (Auto) 0.1 10^3/uL (0.0-0.1) 08/16/24: Nucleated RBC % (auto) 0 % 08/16/24: Nucleated RBCs # 0.0 /100WBC 08/16/24: PT 13.00 SECONDS (12.1-14.9) 08/16/24: INR 0.92 (0.8-1.2) 03/21/25 00:29 Sodium 138 mmol/L (136-145) 08/16/24 00:29 Potassium 3.8 mmol/L (3.5-5.1) 08/16/24 00: Chloride 100 mmol/L (98-107) 08/16/24 00:29 Carbon Dioxide 26 mmol/L (22-29) 08/16/24 00: Anion Gap 15.8 (5-19) 08/16/24 00: BUN 56 mg/dL (8-23) H 08/16/24 00:29 Creatinine 3.1 mg/dL (0.5-0.9) H 08/16/24 00:29 GFR Calculation Not Reportable 08/16/24 00: Glucose 105 mg/dL (65-115) 08/16/24 00: POC Glucose 105 mg/dL (70-110) 08/16/24 00:47 Calculated Osmolality 302 mOsm/kg (285-295) H 08/16/24 00: Calcium 9.3 mg/dL (8.5-10.5) 08/16/24 00: Total Bilirubin 0.2 mg/dL (0.15-1.2) 08/16/24 00: AST 10 U/L (0-32) 08/16/24 00:29 ALT 10 U/L (0-33) 08/16/24 00:29 Alkaline Phosphatase 86 U/L (35-105) 08/16/24 00:29 Total Protein 7.1 g/dL (6.6-8.7) 08/16/24 00: Albumin 3.9 g/dL (3.5-5.2) 08/16/24 00:29 Globulin 3.2 g/dL (1.3-4.6) 08/16/24 00:29 Blood Type A Positive 08/16/24 00:29 Rho(D) Type Rh positive 08/16/24 00:29 Antibody Screen Negative 08/16/24 00:29 All radiology interpretation(s) finalized by discharge EKG Data EKG 1: I personally reviewed and interpreted this EKG as follows: EKG interpretation date: 08/16/24 EKG interpretation time: 00:47 Prior EKG tracings: not available for review Interpretation: Left axis deviation, sinus bradycardia with a QTc of 515 and a QT of 516. TX interval 162. Critical Care Time 2 Critical Care Time: Critical Care Time: Yes Total Critical Care Time: 42 Attestation: Personally reviewed CT scans, as well as x-ray. No acute finding except for in the CT of the brain which shows small subarachnoid and subdural hematoma Discharge Plan Discharge Patient Disposition: Xfer Short-Term Hosp Clinical Impression: Acute subdural hematoma, Hematoma of frontal scalp, Subarachnoid hemorrhage, Hypertensive emergency, Acute chest wall pain, Ground-level fall Condition: Stable Prescriptions: No Action gabapentin 100 mg capsule See Rx Instructions .ROUTE .COMPLEX Qty: 180 11RF Dose Instruction: TAKE 2 CAPSULES BY MOUTH THREE TIMES DAILY Rx Instructions: TAKE 2 CAPSULES BY MOUTH THREE TIMES DAILY (DME) Dexcom G6 Light Bulb Assembler Misc See Rx Instructions .MEDSUPPLY Qty: 1 0RF Rx Instructions: Use as directed for checking blood sugar (DME) Dexcom G6 Sensor Device See Rx Instructions .MEDSUPPLY Qty: 3 12RF Rx Instructions: Change every 10 days; Use as directed to check blood sugar (DME) diabetic test strip See Rx Instructions .Route .MEDSUPPLY Qty: 100 11RF Rx Instructions: check bid. Jardiance 10 mg tablet 10 mg PO DAILY Qty: 90 3RF ciprofloxacin HCl 250 mg tablet 250 mg PO BID Qty: 14 0RF lidocaine (PF) 10 mg/mL (1 %) solution 10 mg SUBCUT ONCE Qty: 1 0RF albuterol sulfate [Ventolin HFA] 90 mcg/actuation HFA aerosol inhaler 2 puff inhalation Q6H PRN (Reason: shortness of breath or wheezing) Qty: 8.5 11RF carvedilol 6.25 mg tablet 6.25 mg PO BID Qty: 60 11RF insulin glargine [Basaglar KwikPen U-100 Insulin] 100 unit/mL (3 mL) insulin pen 35 unit SUBCUT BID Qty: 15 11RF Rx Instructions: 45 in AM and 30 in PM magnesium oxide 400 mg (241.3 mg magnesium) tablet See Rx Instructions .ROUTE .COMPLEX Qty: 90 3RF Dose Instruction: TAKE 1 TABLET BY MOUTH DAILY Rx Instructions: TAKE 1 TABLET BY MOUTH DAILY ferrous sulfate [FeroSul] 325 mg (65 mg iron) tablet See Rx Instructions .ROUTE .COMPLEX Qty: 90 3RF Dose Instruction: TAKE 1 TABLET BY MOUTH THREE TIMES DAILY WITH MEALS Rx Instructions: TAKE 1 TABLET BY MOUTH THREE TIMES DAILY WITH MEALS duloxetine 60 mg capsule,delayed release(DR/EC) 60 mg PO DAILY Qty: 90 3RF amlodipine 10 mg tablet See Rx Instructions .ROUTE .COMPLEX Qty: 90 0RF Dose Instruction: TAKE 1 TABLET BY MOUTH DAILY Rx Instructions: TAKE 1 TABLET BY MOUTH DAILY simvastatin 40 mg tablet See Rx Instructions .ROUTE .COMPLEX Qty: 90 3RF Dose Instruction: TAKE 1 TABLET BY MOUTH EVERY DAY FOR CHOLESTEROL Rx Instructions: TAKE 1 TABLET BY MOUTH EVERY DAY FOR CHOLESTEROL furosemide 40 mg tablet 40 mg PO DAILY@0800 Qty: 30 11RF clopidogrel 75 mg tablet See Rx Instructions .ROUTE .COMPLEX Qty: 90 11RF Dose Instruction: TAKE 1 TABLET BY MOUTH EVERY DAY Rx Instructions: TAKE 1 TABLET BY MOUTH EVERY DAY hydralazine 50 mg tablet 100 mg PO TID Qty: 180 11RF insulin lispro [Humalog KwikPen Insulin] 100 unit/mL insulin pen See Protocol SUBCUT TID Qty: 15 0RF Protocol: Insulin Corrective High-Dose Regimen Condition: Fingerstick Blood Glucose Dose/Route: Insulin Units Condition: 141-180 mg/dl Dose/Route: 2 units/SQ Condition: 181-220 mg/dl Dose/Route: 4 units/SQ Condition: 221-260 mg/dl Dose/Route: 6 units/SQ Condition: 261-300 mg/dl Dose/Route: 12 units/SQ Condition: 301-350 mg/dl Dose/Route: 10 units/SQ Condition: 351-400 mg/dl Dose/Route: 12 units/SQ Condition: greater than 400 mg/dl Dose/Route: 14 units/SQ Referrals: Jan Kirk MD [Primary Care Provider] - Print Language: Gibraltarian Coding Level of Care Code ED [employer] Manager for [facility] Ariana
[2024-08-16 00:40] LABS: Basophils # 0.1 10^3/uL (0.0-0.1); Basophils % 0.5 %; Eosinophils # 0.4 10^3/uL (0.0-0.8); Eosinophils % 3.1 %; Hematocrit 28.8 % (36-47); Lymphocytes # 0.9 10^3/uL (0.8-4.8); Lymphocytes % 6.7 %; Mean Corpuscular HGB Conc 31.6 g/dL (30-55); Mean Corpuscular Hemoglobin 27.9 pg (27-33); Mean Corpuscular Volume 88.3 fl (85-98); Mean Platelet Volume 8.8 fL (7.4-10.4); Monocytes % 7.4 %; Neutrophils # 10.69 10^3/uL (1.8-7.7); Neutrophils % 80.7 %; Nucleated Red Blood Cells % 0 %; Platelet Count 237 10^3/cmm (157-399); Red Blood Count 3.26 10^6/uL (3.85-5.65); Red Cell Distribution Width 13.6 % (12.1-15.1); White Blood Count 13.24 10^3/uL (3.29-11.43)
--- NOTE | 2024-08-16 00:41 | ECG_ITS ---
[email or web address] [facility] Test Date: 2024-08-16 Pat Name: Terese Yates Department: Room: Gender: Female Parliamentary Counsel: : 1950 Requested By: Primo Raya Order Number: [id number] Jermain MD: Rajat Sawyer M.D. Measurements Intervals [place] Rate: 59 P: 71 MA: 162 QRS: -35 QRSD: 122 T: 59 QT: 516 QTc: 513 Interpretive Statements SINUS BRADYCARDIA WITH OCCASIONAL SUPRAVENTRICULAR PREMATURE COMPLEXES LEFT AXIS DEVIATION [QRS AXIS < -30] VOLTAGE CRITERIA FOR LVH [MEETS CRITERIA IN ONE OF: R(aVL), S(V1), R(V5), R(V5/V6)+S(V1)] POSSIBLE ANTERIOR MYOCARDIAL INFARCTION , OF INDETERMINATE AGE [30 ms Q WAVE IN V3/V4, OR R < 0.2 mV IN V4] Compared to ECG 04/11/2024 14:10:01 Sinus rhythm no longer present Myocardial infarct finding still present Electronically Signed On 08-17-2024 07:42:44 CDT by Rajat Sawyer M.D. [email or web address]
[2024-08-16] MEDS: morphine 4 mg/mL SDV 1 mL 2 MG IVP (00:46)
[2024-08-16] MEDS: ondansetron 2 mg/ML SDV 2 mL 4 MG IVP (00:47)
[2024-08-16 00:50] LABS: Glucose Point of Care 105 mg/dL (70-110)
[2024-08-16 01:03] LABS: INR 0.92 (0.8-1.2)
[2024-08-16 01:10] LABS: Alanine Aminotransferase 10 U/L (0-33); Albumin Level 3.9 g/dL (3.5-5.2); Alkaline Phosphatase 86 U/L (35-105); Anion Gap 15.8 (5-19); Aspartate Amino Transferase 10 U/L (0-32); Blood Urea Nitrogen 56 mg/dL (8-23); Calcium 9.3 mg/dL (8.5-10.5); Carbon Dioxide 26 mmol/L (22-29); Chloride 100 mmol/L (98-107); Creatinine Clr Calc Pharmacy 19.5396; Globulin 3.2 g/dL (1.3-4.6); Glucose 105 mg/dL (65-115); Osmolality Calculated 302 mOsm/kg (285-295); Potassium 3.8 mmol/L (3.5-5.1); Sodium 138 mmol/L (136-145); Total Bilirubin 0.2 mg/dL (0.15-1.2); Total Protein 7.1 g/dL (6.6-8.7)
[2024-08-16] MEDS: nicardipine 20 MG/200 ML PREMIX 50 MG IV (01:58)
--- NOTE | 2024-08-16 01:58 | PC.NURSE ---
Pressure bandage applied to patient's head with Coban per verbal instruction of Dr Raya.
[2024-08-16 02:03] VITALS: BP 167/105; PULSE 61; RESP 21; O2SAT 98
[2024-08-16 02:10] VITALS: BP 156/97; BP 161/81; PULSE 62; RESP 15; RESP 17; O2SAT 95; O2SAT 97
[2024-08-16 02:31] VITALS: BP 178/94; PULSE 88; RESP 20; O2SAT 100
== END 2024-08-16 02:33 | disposition short-term general hospital (02) ==
PROVIDERS: Emergency Provider Emergency Medicine; PCP Family Medicine
DX: S00.03XA Contusion of scalp, initial encounter (principal); I60.9 Nontraumatic subarachnoid hemorrhage, unspecified; R07.89 Other chest pain; W19.XXXA Unspecified fall, initial encounter; Z79.4 Long term (current) use of insulin; Z86.73 Personal history of transient ischemic attack (TIA), and cerebral infarction without residual deficits; Z85.3 Personal history of malignant neoplasm of breast; E78.5 Hyperlipidemia, unspecified; E11.22 Type 2 diabetes mellitus with diabetic chronic kidney disease; I12.9 Hypertensive chronic kidney disease with stage 1 through stage 4 chronic kidney disease, or unspecified chronic kidney disease; N18.9 Chronic kidney disease, unspecified
CPT/HCPCS: 36415; 36416; 70450; 71045; 71250; 72125; 74176; 80053; 82962; 85025; 85610; 86850; 86900; 93005; 96374; 96375; 99285; J2270; J2405

== ENCOUNTER 2024-08-27 05:00 | Outpatient (RCR) | payer MEDICARE, OTHER, SELFPAY | END 2024-09-25 23:59 | disposition home or self-care (01) | LOC: APT 05:00 | PROVIDERS: PCP Family Medicine; Visit Provider Physician Assistant Surgical | DX: Z74.09 Other reduced mobility (principal) | CPT/HCPCS: 97110 ==

== ENCOUNTER 2024-09-04 07:41 | Inpatient (IN) | payer MEDICARE, OTHER, SELFPAY ==
[2024-09-04] VITALS (9 sets, daily range): BP systolic 135–187; BP diastolic 66–89; PULSE 65–93; RESP 15–18; TEMP 36.5–37.1; O2SAT 93–97; BMI 34.3
--- NOTE | 2024-09-04 07:50 | XR_ITS ---
WS: [id number] Exam: XR chest 1V portable [id number] Date/Time of Exam: 09/04/2024 7:52 AM Reason For Exam: dyspnea/cough Comparison 08/16/2024. There are bilateral perihilar infiltrates. Heart size top limits normal. The mediastinum is normal in contour. No pleural effusions. Bony structures are intact. Old proximal RIGHT humeral fracture. Small battery pack superimposes the LEFT heart. XR/XR chest 1V portable [id number] IMPRESSION: 1. Bilateral perihilar infiltrates worse on the right. Findings suggest pneumon ia.
--- NOTE | 2024-09-04 07:51 | ECG_ITS ---
RMI Test Date: 2024-09-04 Pat Name: Terese Yates Department: Room: Gender: Female Instructor Looping: : 1950 Requested By: Garry Blevins Order Number: [id number] Jermain MD: Elizabeth Tabor M.D. Measurements Intervals [place] Rate: 74 P: 74 NH: 149 QRS: -45 QRSD: 108 T: 74 QT: 400 QTc: 446 Interpretive Statements SINUS RHYTHM LEFT ANTERIOR FASCICULAR BLOCK [QRS AXIS <= -45, QR IN I, RS IN II] POSSIBLE ANTERIOR MYOCARDIAL INFARCTION , OF INDETERMINATE AGE [30 ms Q WAVE IN V3/V4, OR R < 0.2 mV IN V4] Compared to ECG 08/16/2024 00:41:28 Left anterior fascicular block now present Sinus bradycardia no longer present Left-axis deviation no longer present Left ventricular hypertrophy no longer present Myocardial infarct finding still present Electronically Signed On 09-04-2024 16:00:18 CDT by Elizabeth Tabor M.D. [email or web address]
--- NOTE | 2024-09-04 07:56 | W.ED.SOB ---
HPI - SOB/Dyspnea General: Chief Complaint: Shortness of Breath/Dyspnea Stated Complaint: SOB Time Seen by Provider: 09/04/24 07:42 History of Present Illness: HPI Narrative: 73-year-old female presents to the emergency room by private vehicle complaining of shortness of breath last few days. She denies any chest pain. She has a history of stroke with some right-sided weakness reviewing her chart she also has a history of CHF previous DVT although she is not on any anticoagulation at this time. Additionally she is diabetic and has a history of heart failure. She has a remote history of breast cancer is not had any treatment recently is considered. Remission of her about the last 10 years. She does have some mild orthopnea. On presentation here on room air she is in the mid 80s with nasal cannula at 4 to 5 L/min she sats in the mid to upper 90s. Denies chest pain or swelling in her legs also noted patient with chronic kidney disease. Associated symptoms: Deny abdominal pain, chest pain or fever(s) Related Data Home Medications ?Medication ?Instructions ?Recorded ?Confirmed amlodipine 10 mg tablet 10 mg PO DAILY 09/04/24 09/04/24 carvedilol 25 mg tablet 25 mg PO BID 09/04/24 09/04/24 clopidogrel 75 mg tablet 75 mg PO DAILY 09/04/24 09/04/24 ferrous sulfate 325 mg (65 mg 325 mg PO TID 09/04/24 09/04/24 iron) tablet (FeroSul) insulin glargine 100 unit/mL (3 35 unit SUBCUT BID 09/04/24 09/04/24 mL) subcutaneous pen (Lantus Solostar U-100 Insulin) simvastatin 40 mg tablet 40 mg PO DAILY 09/04/24 09/04/24 Previous Rx's ?Medication ?Instructions ?Recorded gabapentin 100 mg capsule See Rx Instructions .Route 05/18/23 .COMPLEX #180 caps albuterol sulfate 90 mcg/actuation 2 puff inhalation Q6H PRN 12/26/23 aerosol inhaler (Ventolin HFA) shortness of breath or wheezing #8.5 grams duloxetine 60 mg capsule,delayed 60 mg PO DAILY #90 caps 01/24/24 release empagliflozin 10 mg tablet 10 mg PO DAILY #90 tabs 05/10/24 (Jardiance) furosemide 40 mg tablet 40 mg PO DAILY@0800 #30 tabs 06/13/24 hydralazine 50 mg tablet 100 mg (2 x 50 mg) PO TID #180 tabs 08/14/24 Allergies Allergy/AdvReac Type Severity Reaction Status Date / Time Penicillins Allergy ALGY-Hives Verified 08/16/24 00:07 Review of Systems Const: Denies: fever(s) or chills Card: Denies: chest pain Resp: Denies: dyspnea GI: Denies: abdominal pain : Denies: dysuria, urinary frequency or urinary urgency Musc: Denies: neck pain or back pain Skin/Breast: Denies: rash PFSH ED PFSH: Medical History History of stroke with residual deficit Positive cardiac stress test Chronic kidney disease Hyperlipidemia Cardiomyopathy Ejection fraction 50% on echocardiogram Atrial fibrillation Depression Right leg swelling HTN (hypertension) Peripheral neuropathy DM type 2 (diabetes mellitus, type 2) Breast cancer Presence of internal carotid stent CVA (cerebral vascular accident) Diabetes COVID-19 Surgical History History of prior ablation treatment History of removal of Port-a-Cath Hx of total hip arthroplasty History of cataract surgery H/O partial mastectomy R Family History Mother CAD (coronary artery disease) Social History Smoking and tobacco/nicotine status: unknown if used tobacco/nicotine Substance/Drug Use: never Physical Exam Const: GENERAL APPEARANCE: cooperative ORIENTATION/CONSCIOUSNESS: Yes awake, Yes oriented to person, Yes oriented to place and Yes oriented to time HENMT: COMMON NORMALS: normocephalic, atraumatic and hearing grossly normal bilaterally HEAD & SCALP: normocephalic and atraumatic Resp: EFFORT & INSPECTION: Yes tachypneic AUSCULTATION: rhonchi and wheezes Cardio: COMMON NORMALS: regular rate, regular rhythm and No murmurs present (Cardio) RATE: regular rate RHYTHM: regular rhythm GI: COMMON NORMALS: Soft to palpation and No hepatosplenomegaly present AUSCULTATION: Yes normoactive bowel sounds PALPATION: Yes Soft to palpation, No Tenderness to palpation present (GI), No Guarding due to palpation present (GI) and Yes No hepatosplenomegaly present Extremity: COMMON NORMALS: normal to inspection, capillary refill normal, no clubbing, cyanosis or edema, no calf tenderness and no pedal edema Neuro: SENSORIUM/ORIENTATION: Yes oriented to person, Yes oriented to place and Yes oriented to time Skin: COMMON NORMALS: no rashes or lesions noted GENERAL SKIN EXAM: no rashes or lesions noted Course Vital Signs: Vital signs: Vital Signs Temperature 98.7 F 09/05/24 07:23 Pulse Rate 61 09/05/24 07:23 Respiratory Rate 16 09/05/24 07:23 Blood Pressure 153/64 09/05/24 07:23 Pulse Oximetry 93 09/05/24 07:23 Oxygen Delivery Me thod Nasal Cannula 09/05/24 07:23 Oxygen Flow Rate 4 09/05/24 07:23 Fraction of Inspir ed Oxygen 4 09/05/24 04:20 MDM - SOB/Dyspnea Medical Decision Making Patient presents emergency room hypoxic with cough. Chest x-ray shows bilateral pneumonias. Antibiotics initiated. Patient also noted to be anemic which has been a chronic problem in the past. No reports hematochezia or melena may need further evaluation. Hospitalist will follow with up on this issue. Discussed with the patient orders written for admission. Medical Records I reviewed the patient's medical records. Lab Data I reviewed the patient's lab results. 09/05/24 05:04 09/05/24 05:04 Labs/Radiology: Radiology Impressions Chest X-Ray 09/04/24 07:50 IMPRESSION: 1. Bilateral perihilar infiltrates worse on the right. Findings suggest pneumonia. Laboratory Results WBC 16.97 10^3/uL (3.29-11.43) H 09/04/24 08:40 RBC 2.97 10^6/uL (3.85-5.65) L 09/04/24 08:40 Hgb 8.30 g/dL (11.27-16.99) L 09/04/24 08:40 Hct 26.8 % (36-47) L 09/04/24 08:40 MCV 90.2 fl (85-98) 09/04/24 08:40 MCH 27.9 pg (27-33) 09/04/24 08:40 MCHC 31.0 g/dL (30-55) 09/04/24 08:40 RDW 13.6 % (12.1-15.1) 09/04/24 08:40 Plt Count 273 10^3/cmm (157-399) 09/04/24 08:40 MPV 9.0 fL (7.4-10.4) 09/04/24 08:40 Neut % (Auto) 88.7 % 09/04/24 08:40 Lymph % (Auto) 1.6 % 09/04/24 08:40 Patrick % (Auto) 6.8 % 09/04/24 08:40 Eos % (Auto) 0.4 % 09/04/24 08:40 Baso % (Auto) 0.4 % 09/04/24 08:40 Neut # (Auto) 15.05 10^3/uL (1.8-7.7) H 09/04/24 08:40 Lymph # (Auto) 0.3 10^3/uL (0.8-4.8) L 09/04/24 08:40 Patrick # (Auto) 1.2 10^3/uL (0.2-0.9) H 09/04/24 08:40 Eos # (Auto) 0.1 10^3/uL (0.0-0.8) 09/04/24 08:40 Baso # (Auto) 0.1 10^3/uL (0.0-0.1) 09/04/24 08:40 Nucleated RBC % (auto) 0 % 09/04/24 08:40 Nucleated RBCs # 0.0 /100WBC 09/04/24 08:40 Specimen Type Arterial 09/04/24 07:58 Sample Site Brachial, left 09/04/24 07:58 ABG pH 7.40 (7.35-7.45) 09/04/24 07:58 ABG pCO2 35.1 mmHg (35-45) 09/04/24 07:58 ABG pO2 82.4 mmHg (80.0-100.0) 09/04/24 07:58 ABG PO2/FiO2 Ratio 228 09/04/24 07:58 ABG HCO3 21.8 mmol/L (22-26) L 09/04/24 07:58 ABG O2 Saturation 96.4 09/04/24 07:58 ABG Base Excess -2.6 mmol/L (-2.0-2.0) L 09/04/24 07:58 Kamron Test N/a 09/04/24 07:58 A-a O2 Gradient 16.9 mmHg (5-10) H 09/04/24 07:58 Hematocrit 28.9 % (37-47) L 09/04/24 07:58 Hgb O2 Saturation 93.6 % (95-100) L 09/04/24 07:58 Carboxyhemoglobin 1.7 %THgb (0.4-20.1) 09/04/24 07:58 Methemoglobin 1.3 % (0.4-1.5) 09/04/24 07:58 Total Hemoglobin 9.4 g/dL (12-16) L 09/04/24 07:58 Sodium 141.0 mmol/L (131-143) 09/04/24 07:58 Potassium 4.1 mmol/L (3.5-5.0) 09/04/24 07:58 Glucose 83.0 mg/dL (70-115) 09/04/24 07:58 Ionized Calcium 1.2 mmol/L (1.1-1.4) 09/04/24 07:58 O2 Delivery Device Nc 09/04/24 07:58 O2 Liters/Min 4.0 % 09/04/24 07:58 FiO2 36.0 % 09/04/24 07:58 Supervisor Erection [employer] ID Amh 09/04/24 07:58 Sodium 141 mmol/L (136-145) 09/04/24 08:40 Potassium 4.6 mmol/L (3.5-5.1) 09/04/24 08:40 Chloride 104 mmol/L (98-107) 09/04/24 08:40 Carbon Dioxide 21 mmol/L (22-29) L 09/04/24 08:40 Anion Gap 20.6 (5-19) H 09/04/24 08:40 BUN 59 mg/dL (8-23) H 09/04/24 08:40 Creatinine 3.1 mg/dL (0.5-0.9) H 09/04/24 08:40 GFR Calculation Not Reportable 09/04/24 08:40 Glucose 80 mg/dL (65-115) 09/04/24 08:40 Calculated Osmolality 308 mOsm/kg (285-295) H 09/04/24 08:40 Lactic Acid 0.5 mmol/L (0.5-2.2) 09/04/24 08:40 Calcium 8.7 mg/dL (8.5-10.5) 09/04/24 08:40 Total Bilirubin 0.3 mg/dL (0.15-1.2) 09/04/24 08:40 AST 9 U/L (0-32) 09/04/24 08:40 ALT 10 U/L (0-33) 09/04/24 08:40 Alkaline Phosphatase 88 U/L (35-105) 09/04/24 08:40 Troponin T Baseline 40 ng/L (0-10) H 09/04/24 08:40 Troponin T 120 Minute 38.97 ng/L (0-10) H 09/04/24 10:32 Delta Troponin T -1.03 ABS# (0-10) L 09/04/24 10:32 NT-Pro-B Natriuret Pep 8482 pg/mL (0-125) H 09/04/24 08:40 Total Protein 6.7 g/dL (6.6-8.7) 09/04/24 08:40 Albumin 3.6 g/dL (3.5-5.2) 09/04/24 08:40 Globulin 3.1 g/dL (1.3-4.6) 09/04/24 08:40 Procalcitonin 0.24 ng/mL (0-0.5) 09/04/24 08:40 All radiology interpretation(s) finalized by discharge Discharge Plan Discharge Patient Disposition: Admitted As Inpatient Admit Provider: Dru Greene Clinical Impression: Respiratory failure with hypoxia, DM type 2 (diabetes mellitus, type 2), Anemia, Community acquired pneumonia Condition: Stable Coding Level of Care Code ED Accounting Software Specialist for [address]
[2024-09-04 08:10] LABS: ABG PCO2 35.1 mmHg (35-45); Alveolar-Arterial Oxygen Gradi 16.9 mmHg (5-10); Arterial Blood Gas Hematocrit 28.9 % (37-47); Base Excess ABG -2.6 mmol/L (-2.0-2.0); Blood Gas Operator Identificat AMH; Blood Gas Sample Site Brachial, left; Blood Gas Sample Type Arterial; Carboxyhemoglobin 1.7 %THgb (0.4-20.1); HCO3 ABG 21.8 mmol/L (22-26); HGB O2 Sat 93.6 % (95-100); Ionized Calcium Level - ABG 1.2 mmol/L (1.1-1.4); Methemoglobin 1.3 % (0.4-1.5); Oxygen Device NC; Oxygen Saturation ABG 96.4; PO2 ABG 82.4 mmHg (80.0-100.0); PO2 FiO2 Ratio Arterial Blood 228; Potassium Level - ABG 4.1 mmol/L (3.5-5.0); Total Hemoglobin 9.4 g/dL (12-16)
[2024-09-04 08:58] LABS: Basophils # 0.1 10^3/uL (0.0-0.1); Basophils % 0.4 %; Eosinophils # 0.1 10^3/uL (0.0-0.8); Eosinophils % 0.4 %; Hematocrit 26.8 % (36-47); Lymphocytes # 0.3 10^3/uL (0.8-4.8); Lymphocytes % 1.6 %; Mean Corpuscular Hemoglobin 27.9 pg (27-33); Mean Corpuscular Volume 90.2 fl (85-98); Monocytes # 1.2 10^3/uL (0.2-0.9); Monocytes % 6.8 %; Neutrophils # 15.05 10^3/uL (1.8-7.7); Neutrophils % 88.7 %; Nucleated Red Blood Cells % 0 %; Platelet Count 273 10^3/cmm (157-399); Red Blood Count 2.97 10^6/uL (3.85-5.65); Red Cell Distribution Width 13.6 % (12.1-15.1); White Blood Count 16.97 10^3/uL (3.29-11.43)
[2024-09-04 09:15] LABS: Lactic Sepsis W/Reflex 0.5 mmol/L (0.5-2.2)
[2024-09-04 09:17] LABS: Troponin(5th) Baseline 40 ng/L (0-10)
[2024-09-04 09:27] LABS: NT Pro B Type Natriuretic Pept 8482 pg/mL (0-125); Procalcitonin 0.24 ng/mL (0-0.5)
[2024-09-04 09:38] LABS: Alanine Aminotransferase 10 U/L (0-33); Albumin Level 3.6 g/dL (3.5-5.2); Alkaline Phosphatase 88 U/L (35-105); Anion Gap 20.6 (5-19); Aspartate Amino Transferase 9 U/L (0-32); Blood Urea Nitrogen 59 mg/dL (8-23); Calcium 8.7 mg/dL (8.5-10.5); Carbon Dioxide 21 mmol/L (22-29); Chloride 104 mmol/L (98-107); Globulin 3.1 g/dL (1.3-4.6); Glucose 80 mg/dL (65-115); Osmolality Calculated 308 mOsm/kg (285-295); Potassium 4.6 mmol/L (3.5-5.1); Sodium 141 mmol/L (136-145); Total Bilirubin 0.3 mg/dL (0.15-1.2); Total Protein 6.7 g/dL (6.6-8.7)
--- NOTE | 2024-09-04 10:16 | ECG_ITS ---
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 Measurements Intervals [place] Rate: 65 P: 64 [place]: 162 QRS: -38 QRSD: 104 T: 72 QT: 418 QTc: 437 Interpretive Statements possible sinus rhythm with a sublingual ectopic LEFT AXIS DEVIATION [QRS AXIS < -30] POSSIBLE ANTERIOR MYOCARDIAL INFARCTION , PROBABLY OLD [30 ms Q WAVE IN V3/V4, OR R < 0.2 mV IN V4] Compared to ECG 09/04/2024 07:54:47 Left-axis deviation now present Left anterior fascicular block no longer present Myocardial infarct finding still present Baseline artifacts, need to repeat Electronically Signed On 09-04-2024 21:33:07 CDT by Elizabeth Tabor M.D. [email or web address] [id number]
[2024-09-04] MEDS: ipratropium-albuterol 3 mL Neb INHALATION (10:50)
[2024-09-04 10:54] LABS: Troponin 5 2HR 38.97 ng/L (0-10)
[2024-09-04 10:55] LABS: Troponin 5 2HR Delta -1.03 ABS# (0-10)
--- NOTE | 2024-09-04 11:18 | PM.HP ---
Providers/Chief Complaint Primary Care Provider: Jan Kirk MD Chief Complaint: SOB History of Present Illness This is a patient with a history of coronary artery disease, stroke, and diabetes, presenting with a couple of days of feeling unwell characterized by a dry cough, shortness of breath, and a persistent feeling of being cold. A recent chest x?ray revealed central lung infiltrates suggestive of pneumonia, and supplemental oxygen has been initiated. The patient denies fever, chills, headache, nausea, muscle aches, and reports no difficulty swallowing. She also notes some swelling in her feet and has a persistently low hemoglobin of approximately 8.5. Review of Systems Const: Denies: fever(s), chills, body aches or malaise ENMT: Denies: throat pain Card: Denies: chest pain, edema, pre-syncope or dyspnea on exertion Resp: Reports: dyspnea and non-productive cough; Denies: productive cough, change in phlegm color or hemoptysis GI: Denies: abdominal pain, nausea, vomiting, diarrhea, constipation, hematochezia or melena : Denies: flank pain, urinary frequency or hematuria Musc: Denies: back pain, joint swelling or joint redness Skin/Breast: Denies: rash or new lesions Neuro: Denies: headache(s) or confusion Medications/Allergies Home Medications ?Medication ?Instructions ?Recorded ?Confirmed ?Last Taken ?Type gabapentin 100 mg capsule See Rx Instructions .Route 05/18/23 09/04/24 09/04/24 Rx .COMPLEX #180 caps albuterol sulfate 90 mcg/actuation 2 puff inhalation Q6H PRN 12/26/23 09/04/24 Unknown Rx aerosol inhaler (Ventolin HFA) shortness of breath or wheezing #8.5 grams duloxetine 60 mg capsule,delayed 60 mg PO DAILY #90 caps 01/24/24 09/04/24 09/04/24 Rx release empagliflozin 10 mg tablet 10 mg PO DAILY #90 tabs 05/10/24 09/04/24 09/04/24 Rx (Jardiance) furosemide 40 mg tablet 40 mg PO DAILY@0800 #30 tabs 06/13/24 09/04/24 09/04/24 Rx hydralazine 50 mg tablet 100 mg (2 x 50 mg) PO TID #180 tabs 08/14/24 09/04/2425 Rx amlodipine 10 mg tablet 10 mg PO DAILY 09/04/24 09/04/24 09/04/24 History carvedilol 25 mg tablet 25 mg PO BID 09/04/24 09/04/24 09/04/24 History clopidogrel 75 mg tablet 75 mg PO DAILY 09/04/24 09/04/24 09/04/24 History ferrous sulfate 325 mg (65 mg 325 mg PO TID 09/04/24 09/04/24 09/04/24 History iron) tablet (FeroSul) insulin glargine 100 unit/mL (3 35 unit SUBCUT BID 09/04/24 09/04/24 Unknown History mL) subcutaneous pen (Lantus Solostar U-100 Insulin) simvastatin 40 mg tablet 40 mg PO DAILY 09/04/24 09/04/24 09/04/24 History Allergies Allergy/AdvReac Type Severity Reaction Status Date / Time Penicillins Allergy ALGY-Hives Verified 08/16/24 00:07 PFSH Acute PFSH: Medical History History of stroke with residual deficit Positive cardiac stress test Chronic kidney disease Hyperlipidemia Cardiomyopathy Ejection fraction 50% on echocardiogram Atrial fibrillation Depression Right leg swelling HTN (hypertension) Peripheral neuropathy DM type 2 (diabetes mellitus, type 2) Breast cancer Presence of internal carotid stent CVA (cerebral vascular accident) Diabetes COVID-19 Surgical History History of prior ablation treatment History of removal of Port-a-Cath Hx of total hip arthroplasty History of cataract surgery H/O partial mastectomy R Family History Mother CAD (coronary artery disease) Social History Smoking and tobacco/nicotine status: unknown if used tobacco/nicotine Substance/Drug Use: never Vitals/I&O/Wt Last Vital Signs Temp 98.1 F 09/04/24 07:48 Pulse 70 09/04/24 10:50 Resp 18 09/04/24 10:50 BP 180/86 09/04/24 07:48 Pulse Ox 96 09/04/24 10:50 O2 Del Method Nasal Cannula 09/04/24 10:50 O2 Flow Rate 4 09/04/24 10:50 Weight last 48 hrs Weight 102.512 kg Physical Exam Narrative: Accompanied by her . Const: COMMON NORMALS: patient oriented x3 and alert GENERAL APPEARANCE: cooperative ORIENTATION/CONSCIOUSNESS: Yes awake HENMT: COMMON NORMALS: oropharynx normal Neck/C-Spine: COMMON NORMALS: no JVD Resp: COMMON NORMALS: normal respiratory effort and clear to auscultation bilaterally AUSCULTATION: clear to auscultation bilaterally OTHER: Occasional scattered crackle anteriorly. No crackles posteriorly. Cardio: COMMON NORMALS: no JVD, regular rhythm, S1 normal heart sound present, S2 normal heart sound present and No murmurs present (Cardio) RHYTHM: regular rhythm HEART SOUNDS: S1 normal heart sound present and S2 normal heart sound present GI: COMMON NORMALS: Normal to inspection, nondistended, normoactive bowel sounds present, Soft to palpation and non-tender PALPATION: Yes Soft to palpation Extremity: COMMON NORMALS: no joint enlargement GENERAL: Yes edema (2+ BLLE) Neuro: COMMON NORMALS: patient oriented x3 and moves all extremities SENSORIUM/ORIENTATION: Yes alert Skin: COMMON NORMALS: no rashes or lesions noted GENERAL SKIN EXAM: no rashes or lesions noted Data 09/04/24 08:40 09/04/24 08:40 Micro: Microbiology 09/04/24 08:40 Blood Culture - Preliminary Blood SPECIMEN COLLECTED 09/04/24 08:40 Blood Culture - Preliminary Blood SPECIMEN COLLECTED A&P Assessment and plan (1) Respiratory failure with hypoxia: Respiratory failure with dyspnea, tachypnea up to 20 breaths/min, hypoxia, not normally oxygen but 4 L/min new oxygen requirement. Reviewed vitals, CBC, ABG, CMP, procalcitonin, troponin, lactic acid, chest x-ray, EKG, on my assessment without acute ischemia, pending official read. Chest x-ray with bilateral perihilar infiltrates worse on the right. Suggestive of pneumonia. With leukocytosis 16.9, afebrile. Dry cough. She and deny aspiration. Penicillin allergy history with hives. Has been started on Levaquin, continue with renal dosing due to CKD, low creatinine clearance. Monitor for risk of QT prolongation, will request repeat EKG. Monitor for risk of C. difficile, tendon rupture, aneurysm rupture, no aneurysm noted on review of prior CT from July 2024. Cough is mostly nonproductive, but if starts producing phlegm we will collect sample. Influenza, COVID, RSV PCR has been requested. Antitussives as needed. Treat pneumonia. RT assess and treat. Continue oxygen support. Wean down as tolerating. (2) Pneumonia: Community-acquired pneumonia. Class IV risk. As above. Plan CAD: Continue Plavix, beta-london, statin History of stroke with residual right-sided weakness, right-sided facial droop. DM2: Continue Lantus. Sliding scale insulin. Consult carbohydrate diet. Monitor POC glucose. History of cardiomyopathy HLD: Continue statin Atrial fibrillation: Continue Plavix, beta-london. CKD: Monitor chemistry while in the hospital PDMP PDMP Reviewed: Not Reviewed Attestations Medical Necessity Statement*: Admission of over 2 midnights anticipated for assessment of management of pneumonia risk class IV, with respiratory failure new hypoxia, new oxygen requirement in an elderly lady with history of CAD, stroke, diabetes and additional comorbidities as above. and High MDM includes amount and/or complexity of data reviewed/ordered [ previous or external records, resulted lab(s)/test(s), ordered lab(s)/test(s), independent test interpretation and other healthcare professional discussion] and described risk of complication, morbidity or mortality of management as documented Diagnoses Respiratory failure with hypoxia J96.91 Pneumonia J18.9
[2024-09-04] MEDS: FUROsemide 10 mg/mL SDV 4mL 40 MG IVP ×2 (11:57→17:12)
[2024-09-04] MEDS: levofloxacin-dextrose 5 % 500 MG/100 ML PREMIX 100 MG IV (12:05)
[2024-09-04 14:13] LABS: Troponin 5 6HR 39.11 ng/L (0-10)
[2024-09-04 14:14] LABS: Troponin 5 6HR Delta -0.89 ng/L (0-12)
[2024-09-04] MEDS: hyDRALAzine 50 mg Tablet 100 MG PO ×2 (14:37→21:51)
[2024-09-04] MEDS: ferrous sulfate EC 325 mg Tablet PO ×2 (14:37→22:01)
[2024-09-04] MEDS: gabapentin 100 mg Capsule 200 MG PO ×2 (14:37→21:50)
[2024-09-04] MEDS: enoxaparin 30 mg/0.3 mL Syringe SUBCUT (14:37)
[2024-09-04 14:38] LABS: Influenza A NEGATIVE (Negative); Influenza B NEGATIVE (Negative); Respiratory Syncytial Virus Ce NEGATIVE (Negative); SARS-CoV-2 PCR NEGATIVE (Negative)
--- NOTE | 2024-09-04 15:08 | ECG_ITS ---
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 Measurements Intervals [place] Rate: 64 P: 64 [place]: 156 QRS: -33 QRSD: 100 T: 51 QT: 423 QTc: 437 Interpretive Statements SINUS RHYTHM LEFT AXIS DEVIATION [QRS AXIS < -30] INCOMPLETE RIGHT BUNDLE BRANCH BLOCK [90+ ms QRS DURATION, TERMINAL R IN V1/V2, 40+ ms S IN I/aVL/V4/V5/V6] MINIMAL VOLTAGE CRITERIA FOR LVH, CONSIDER NORMAL VARIANT [MEETS CRITERIA IN ONE OF: R(aVL), S(V1), R(V5), R(V5/V6)+S(V1)] POSSIBLE ANTERIOR MYOCARDIAL INFARCTION , PROBABLY OLD [30 ms Q WAVE IN V3/V4, OR R < 0.2 mV IN V4] Compared to ECG 09/04/2024 10:16:13 Incomplete right bundle-branch block now present Myocardial infarct finding still present Electronically Signed On 09-04-2024 16:03:28 CDT by Elizabeth Tabor M.D. [email or web address] [id number]
[2024-09-04 16:36] LABS: Glucose Point of Care 276 mg/dL (70-110)
[2024-09-04] MEDS: carvedilol 25 mg Tablet PO (17:12)
[2024-09-04] MEDS: insulin lispro 100 unit/1 mL SUBCUT ×2 (17:12→21:51)
[2024-09-04] MEDS: insulin glargine 100 units/1 mL 35 UNIT SUBCUT (17:12)
[2024-09-04] MEDS: albuterol 2.5 mg/3 mL Neb INHALATION (20:32)
[2024-09-04 21:44] LABS: Glucose Point of Care 229 mg/dL (70-110)
[2024-09-05] VITALS (7 sets, daily range): BP systolic 126–167; BP diastolic 64–74; PULSE 54–69; RESP 15–18; TEMP 36.5–37.1; O2SAT 92–99; BMI 34.3
[2024-09-05] MEDS: FUROsemide 10 mg/mL SDV 4mL 40 MG IVP ×2 (04:23→15:40)
[2024-09-05 05:44] LABS: Basophils # 0.1 10^3/uL (0.0-0.1); Basophils % 0.5 %; Eosinophils # 0.2 10^3/uL (0.0-0.8); Eosinophils % 2.1 %; Hematocrit 23.6 % (36-47); Lymphocytes # 0.5 10^3/uL (0.8-4.8); Lymphocytes % 4.6 %; Mean Corpuscular HGB Conc 30.5 g/dL (30-55); Mean Corpuscular Hemoglobin 28.3 pg (27-33); Mean Corpuscular Volume 92.9 fl (85-98); Mean Platelet Volume 9.2 fL (7.4-10.4); Monocytes % 10.2 %; Neutrophils # 8.27 10^3/uL (1.8-7.7); Neutrophils % 81.4 %; Nucleated Red Blood Cells % 0 %; Platelet Count 252 10^3/cmm (157-399); Red Blood Count 2.54 10^6/uL (3.85-5.65); Red Cell Distribution Width 13.4 % (12.1-15.1); White Blood Count 10.16 10^3/uL (3.29-11.43)
[2024-09-05 06:02] LABS: Blood Urea Nitrogen 62 mg/dL (8-23); Calcium 8.5 mg/dL (8.5-10.5); Carbon Dioxide 20 mmol/L (22-29); Chloride 106 mmol/L (98-107); Glucose 74 mg/dL (65-115); Osmolality Calculated 310 mOsm/kg (285-295); Sodium 142 mmol/L (136-145)
[2024-09-05 06:29] LABS: Glucose Point of Care 82 mg/dL (70-110)
[2024-09-05] MEDS: insulin glargine 100 units/1 mL 35 UNIT SUBCUT ×2 (08:44→17:48)
[2024-09-05] MEDS: duloxetine 60 mg Capsule PO (08:44)
[2024-09-05] MEDS: gabapentin 100 mg Capsule 200 MG PO ×3 (08:44→20:37)
[2024-09-05] MEDS: carvedilol 25 mg Tablet PO ×2 (08:45→17:49)
[2024-09-05] MEDS: hyDRALAzine 50 mg Tablet 100 MG PO ×3 (08:45→20:37)
[2024-09-05] MEDS: amlodipine 10 mg Tablet PO (08:45)
[2024-09-05] MEDS: ATORVASTATIN 10 MG TABLET 20 MG PO (08:45)
[2024-09-05] MEDS: clopidogrel 75 mg Tablet PO (08:45)
[2024-09-05] MEDS: ferrous sulfate EC 325 mg Tablet PO ×3 (08:47→20:36)
--- NOTE | 2024-09-05 09:00 | ECG_ITS ---
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 Measurements Intervals [place] Rate: 60 P: 59 [place]: 159 QRS: -34 QRSD: 114 T: 72 QT: 456 QTc: 456 Interpretive Statements SINUS RHYTHM LEFT AXIS DEVIATION [QRS AXIS < -30] INCOMPLETE RIGHT BUNDLE BRANCH BLOCK [90+ ms QRS DURATION, TERMINAL R IN V1/V2, 40+ ms S IN I/aVL/V4/V5/V6] MODERATE VOLTAGE CRITERIA FOR LVH, CONSIDER NORMAL VARIANT [MEETS CRITERIA IN ONE OF: R(aVL), S(V1), R(V5), R(V5/V6)+S(V1)] POSSIBLE ANTERIOR MYOCARDIAL INFARCTION , PROBABLY OLD [30 ms Q WAVE IN V3/V4, OR R < 0.2 mV IN V4] Compared to ECG 09/04/2024 15:08:24 No significant changes Electronically Signed On 09-07-2024 13:29:26 CDT by Elizabeth Tabor M.D. [id number]
[2024-09-05 11:02] LABS: Glucose Point of Care 164 mg/dL (70-110)
[2024-09-05] MEDS: insulin lispro 100 unit/1 mL SUBCUT ×2 (13:23→20:43)
[2024-09-05 17:01] LABS: Glucose Point of Care 139 mg/dL (70-110)
--- NOTE | 2024-09-05 18:05 | PM.PN ---
Subjective Subjective: She feels she is improving overall. On discussion of anemia denies any bleeding, blood in stool, dark black stool, blood in urine. She follows with a speech/language therapist. There have been discussions about consideration of peritoneal dialysis. Vitals/I&O/Wt Last Vital Signs Temp 98.4 F 09/05/24 15:25 Pulse 62 09/05/24 15:25 Resp 16 09/05/24 15:25 BP 145/66 09/05/24 15:25 Pulse Ox 99 09/05/24 15:25 O2 Del Method Nasal Cannula 09/05/24 15:25 O2 Flow Rate 4 09/05/24 15:25 FiO2 4 09/05/24 04:20 09/05/24 09/05/24 09/05/24 06:59 14:59 22:59 Intake Total 620 / 1160 480 / 480 240 / 720 Output Total 400 / 400 Balance 620 / 1160 480 / 480 -160 / 320 Weight last 48 hrs Weight 102.512 kg Weight 102.512 kg Physical Exam Narrative: Accompanied by her . Const: COMMON NORMALS: patient oriented x3 and alert GENERAL APPEARANCE: cooperative ORIENTATION/CONSCIOUSNESS: Yes awake HENMT: COMMON NORMALS: oropharynx normal Neck/C-Spine: COMMON NORMALS: no JVD Resp: COMMON NORMALS: clear to auscultation bilaterally AUSCULTATION: clear to auscultation bilaterally Cardio: COMMON NORMALS: no JVD, regular rhythm, S1 normal heart sound present, S2 normal heart sound present and No murmurs present (Cardio) RHYTHM: regular rhythm HEART SOUNDS: S1 normal heart sound present and S2 normal heart sound present GI: COMMON NORMALS: Normal to inspection, nondistended, normoactive bowel sounds present, Soft to palpation and non-tender PALPATION: Yes Soft to palpation Extremity: COMMON NORMALS: no joint enlargement and no pedal edema GENERAL: Yes edema (2+ BLLE) Neuro: COMMON NORMALS: patient oriented x3 and moves all extremities SENSORIUM/ORIENTATION: Yes alert Skin: COMMON NORMALS: no rashes or lesions noted GENERAL SKIN EXAM: no rashes or lesions noted Data 09/05/24 05:04 09/05/24 05:04 Micro: Microbiology 09/04/24 08:40 Blood Culture - Preliminary Blood NEGATIVE TO DATE 09/04/24 08:40 Blood Culture - Preliminary Blood NEGATIVE TO DATE A&P Assessment and plan (1) Respiratory failure with hypoxia: Continues to require 4 L nasal cannula oxygen. Subjectively starting to feel better, better air entry. Continue treatment of pneumonia. Treat possible acute diastolic congestive heart failure, continue IV diuretic, monitor for risk of electro abnormality, and GEE. Reassess chemistry. Reviewed echocardiogram from March. Reviewed chemistry, intake and output. Discussed with nursing, major case detective. Monitor for risk of C. difficile, tendon rupture, aneurysm rupture, no aneurysm noted on review of prior CT from July 2024. Cough is mostly nonproductive, but if starts producing phlegm we will collect sample. Influenza, COVID, RSV PCR reviewed, negative. Antitussives as needed. Treat pneumonia. RT assess and treat. Continue oxygen support. Wean down as tolerating. (2) Pneumonia: Community-acquired pneumonia. Class IV risk. As above. Reviewed CBC. No sputum for sputum culture. Plan CAD: Continue Plavix, beta-london, statin History of stroke with residual right-sided weakness, right-sided facial droop. DM2: Continue Lantus. Sliding scale insulin. Consult carbohydrate diet. Monitor POC glucose. History of cardiomyopathy HLD: Continue statin Atrial fibrillation: Continue Plavix, beta-london. CKD: Monitor chemistry while in the hospital PDMP PDMP Reviewed: Not Reviewed Attestations Medical Necessity Statement*: Continue admission for assessment management of respiratory failure, pneumonia, acute diastolic CHF. and High MDM includes amount and/or complexity of data reviewed/ordered [ resulted lab(s)/test(s) and other healthcare professional discussion] and described risk of complication, morbidity or mortality of management as documented Diagnoses Respiratory failure with hypoxia J96.91 Pneumonia J18.9
[2024-09-05 20:38] LABS: Glucose Point of Care 221 mg/dL (70-110)
[2024-09-06] VITALS (7 sets, daily range): BP systolic 133–168; BP diastolic 54–67; PULSE 53–61; RESP 14–19; TEMP 36.3–37; O2SAT 87–100; BMI 34.3
[2024-09-06] MEDS: FUROsemide 10 mg/mL SDV 4mL 40 MG IVP (04:01)
[2024-09-06 05:01] LABS: Basophils # 0.1 10^3/uL (0.0-0.1); Basophils % 0.5 %; Eosinophils # 0.4 10^3/uL (0.0-0.8); Eosinophils % 3.6 %; Lymphocytes # 0.5 10^3/uL (0.8-4.8); Lymphocytes % 4.1 %; Mean Corpuscular Hemoglobin 27.7 pg (27-33); Mean Corpuscular Volume 92.3 fl (85-98); Monocytes % 9.3 %; Neutrophils # 9.06 10^3/uL (1.8-7.7); Neutrophils % 81.4 %; Nucleated Red Blood Cells % 0 %; Platelet Count 289 10^3/cmm (157-399); Red Cell Distribution Width 13.6 % (12.1-15.1); White Blood Count 11.14 10^3/uL (3.29-11.43)
[2024-09-06 05:13] LABS: Anion Gap 18.3 (5-19); Blood Urea Nitrogen 72 mg/dL (8-23); Calcium 8.4 mg/dL (8.5-10.5); Carbon Dioxide 21 mmol/L (22-29); Chloride 103 mmol/L (98-107); Creatinine Clr Calc Pharmacy 18.4587; Glucose 57 mg/dL (65-115); Osmolality Calculated 305 mOsm/kg (285-295); Potassium 4.3 mmol/L (3.5-5.1); Sodium 138 mmol/L (136-145)
[2024-09-06 06:16] LABS: Glucose Point of Care 67 mg/dL (70-110)
[2024-09-06 06:56] LABS: Glucose Point of Care 106 mg/dL (70-110)
--- NOTE | 2024-09-06 08:32 | PM.DCS ---
Discharge Providers Date of Admission: 09/04/24 11:47 Date of Discharge: September 06, 2024 Attending Provider at Admission: Dru Greene Attending Provider at Discharge: Dru Greene Primary Care Provider: Jan Kirk MD Diagnoses at Discharge Discharge Diagnosis (1) Respiratory failure with hypoxia: Status: Acute (2) Pneumonia: Status: Acute Reason for Visit Reason for Visit: SOB Brief History: This is a patient with a history of coronary artery disease, stroke, and diabetes, presenting with a couple of days of feeling unwell characterized by a dry cough, shortness of breath, and a persistent feeling of being cold. A recent chest x?ray revealed central lung infiltrates suggestive of pneumonia, and supplemental oxygen has been initiated. The patient denies fever, chills, headache, nausea, muscle aches, and reports no difficulty swallowing. She also notes some swelling in her feet and has a persistently low hemoglobin of approximately 8.5. Hospital Course Hospital Course She was treated for acute hypoxic respiratory failure, pneumonia, received oxygen support, received antibiotic treatment with Levaquin due to penicillin allergy, oxygenation gradually improving, weaning down on oxygen support, on home O2 eval prior to discharge coughing for 2 L. She is feeling much better, and feels comfortable to return home. Knows to seek medical attention in case of worsening or new concerning symptoms. Physical Exam Const: COMMON NORMALS: patient oriented x3 and alert GENERAL APPEARANCE: cooperative ORIENTATION/CONSCIOUSNESS: Yes awake HENMT: COMMON NORMALS: oropharynx normal Neck/C-Spine: COMMON NORMALS: no JVD Resp: COMMON NORMALS: normal respiratory effort and clear to auscultation bilaterally AUSCULTATION: clear to auscultation bilaterally Cardio: COMMON NORMALS: no JVD, regular rhythm, S1 normal heart sound present, S2 normal heart sound present and No murmurs present (Cardio) RHYTHM: regular rhythm HEART SOUNDS: S1 normal heart sound present and S2 normal heart sound present GI: COMMON NORMALS: Normal to inspection, nondistended, normoactive bowel sounds present, Soft to palpation and non-tender PALPATION: Yes Soft to palpation Extremity: COMMON NORMALS: no joint enlargement and no pedal edema Neuro: COMMON NORMALS: patient oriented x3 and moves all extremities SENSORIUM/ORIENTATION: Yes alert Skin: COMMON NORMALS: no rashes or lesions noted GENERAL SKIN EXAM: no rashes or lesions noted Discharge Data Studies Completed and Pending Completed Studies During Hospitalization Category Date Time Status XR chest 1V portable [id number] Stat Exams 09/04/24 07:50 Completed Pending at discharge Category Date Time Status Basic Metabolic Panel AM LABS Lab 09/07/24 04:00 Ordered Blood Culture Stat Lab 09/04/24 08:40 Results Complete Blood Count w/Auto AM LABS Lab 09/07/24 04:00 Ordered Occult Blood Stool [Immunochemical Fecal OCB] Routine Lab 09/04/24 13:31 Uncollected Radiology Impressions Chest X-Ray 09/04/24 07:50 IMPRESSION: 1. Bilateral perihilar infiltrates worse on the right. Findings suggest pneumonia. Laboratory Results WBC 11.14 10^3/uL (3.29-11.43) 09/06/24 04:27 RBC 2.60 10^6/uL (3.85-5.65) L 09/06/24 04:27 Hgb 7.20 g/dL (11.27-16.99) L 09/06/24 04:27 Hct 24.0 % (36-47) L 09/06/24 04:27 MCV 92.3 fl (85-98) 09/06/24 04:27 MCH 27.7 pg (27-33) 09/06/24 04:27 MCHC 30.0 g/dL (30-55) 09/06/24 04:27 RDW 13.6 % (12.1-15.1) 09/06/24 04:27 Plt Count 289 10^3/cmm (157-399) 09/06/24 04:27 MPV 9.0 fL (7.4-10.4) 09/06/24 04:27 Neut % (Auto) 81.4 % 09/06/24 04:27 Lymph % (Auto) 4.1 % 09/06/24 04:27 [place] % (Auto) 9.3 % 09/06/24 04:27 Eos % (Auto) 3.6 % 09/06/24 04:27 Baso % (Auto) 0.5 % 09/06/24 04:27 Neut # (Auto) 9.06 10^3/uL (1.8-7.7) H 09/06/24 04:27 Lymph # (Auto) 0.5 10^3/uL (0.8-4.8) L 09/06/24 04:27 [place] # (Auto) 1.0 10^3/uL (0.2-0.9) H 09/06/24 04:27 Eos # (Auto) 0.4 10^3/uL (0.0-0.8) 09/06/24 04:27 Baso # (Auto) 0.1 10^3/uL (0.0-0.1) 09/06/24 04:27 Nucleated RBC % (auto) 0 % 09/06/24 04:27 Nucleated RBCs # 0.0 /100WBC 09/06/24 04:27 Specimen Type Arterial 09/04/24 07:58 Sample Site Brachial, left 09/04/24 07:58 ABG pH 7.40 (7.35-7.45) 09/04/24 07:58 ABG pCO2 35.1 mmHg (35-45) 09/04/24 07:58 ABG pO2 82.4 mmHg (80.0-100.0) 09/04/24 07:58 ABG PO2/FiO2 Ratio 228 09/04/24 07:58 ABG HCO3 21.8 mmol/L (22-26) L 09/04/24 07:58 ABG O2 Saturation 96.4 09/04/24 07:58 ABG Base Excess -2.6 mmol/L (-2.0-2.0) L 09/04/24 07:58 Kamron Test N/a 09/04/24 07:58 A-a O2 Gradient 16.9 mmHg (5-10) H 09/04/24 07:58 Hematocrit 28.9 % (37-47) L 09/04/24 07:58 Hgb O2 Saturation 93.6 % (95-100) L 09/04/24 07:58 Carboxyhemoglobin 1.7 %THgb (0.4-20.1) 09/04/24 07:58 Methemoglobin 1.3 % (0.4-1.5) 09/04/24 07:58 Total Hemoglobin 9.4 g/dL (12-16) L 09/04/24 07:58 Sodium 141.0 mmol/L (131-143) 09/04/24 07:58 Potassium 4.1 mmol/L (3.5-5.0) 09/04/24 07:58 Glucose 83.0 mg/dL (70-115) 09/04/24 07:58 Ionized Calcium 1.2 mmol/L (1.1-1.4) 09/04/24 07:58 O2 Delivery Device Nc 09/04/24 07:58 O2 Liters/Min 4.0 % 09/04/24 07:58 FiO2 36.0 % 09/04/24 07:58 Scholastic Aptitude Test Grader ID Amh 09/04/24 07:58 Sodium 138 mmol/L (136-145) 09/06/24 04:27 Potassium 4.3 mmol/L (3.5-5.1) 09/06/24 04:27 Chloride 103 mmol/L (98-107) 09/06/24 04:27 Carbon Dioxide 21 mmol/L (22-29) L 09/06/24 04:27 Anion Gap 18.3 (5-19) 09/06/24 04:27 BUN 72 mg/dL (8-23) H 09/06/24 04:27 Creatinine 3.4 mg/dL (0.5-0.9) H 09/06/24 04:27 GFR Calculation Not Reportable 09/06/24 04:27 Glucose 57 mg/dL (65-115) L 09/06/24 04:27 POC Glucose 106 mg/dL (70-110) 09/06/24 06:43 Calculated Osmolality 305 mOsm/kg (285-295) H 09/06/24 04:27 Lactic Acid 0.5 mmol/L (0.5-2.2) 09/04/24 08:40 Calcium 8.4 mg/dL (8.5-10.5) L 09/06/24 04:27 Total Bilirubin 0.3 mg/dL (0.15-1.2) 09/04/24 08:40 AST 9 U/L (0-32) 09/04/24 08:40 ALT 10 U/L (0-33) 09/04/24 08:40 Alkaline Phosphatase 88 U/L (35-105) 09/04/24 08:40 Troponin T Baseline 40 ng/L (0-10) H 09/04/24 08:40 Troponin T 120 Minute 38.97 ng/L (0-10) H 09/04/24 10:32 Delta Troponin T -1.03 ABS# (0-10) L 09/04/24 10:32 Troponin T Hi Sens 6Hr 39.11 ng/L (0-10) H 09/04/24 13:46 Troponin T Hi Sens 6Hr Delta -0.89 ng/L (0-12) L 09/04/24 13:46 NT-Pro-B Natriuret Pep 8482 pg/mL (0-125) H 09/04/24 08:40 Total Protein 6.7 g/dL (6.6-8.7) 09/04/24 08:40 Albumin 3.6 g/dL (3.5-5.2) 09/04/24 08:40 Globulin 3.1 g/dL (1.3-4.6) 09/04/24 08:40 Procalcitonin 0.24 ng/mL (0-0.5) 09/04/24 08:40 Influenza A (PCR) Negative (Negative) 09/04/24 12:10 Influenza Type B (PCR) Negative (Negative) 09/04/24 12:10 RSV (PCR) Negative (Negative) 09/04/24 12:10 SARS-CoV-2 (PCR) Negative (Negative) 09/04/24 12:10 Vitals Last Vital Signs Temp 98.2 F 09/06/24 07:22 Pulse 61 09/06/24 07:22 Resp 19 H 09/06/24 07:22 BP 168/65 09/06/24 07:22 Pulse Ox 98 09/06/24 07:22 O2 Del Method Nasal Cannula 09/06/24 07:22 O2 Flow Rate 2.5 09/06/24 07:22 FiO2 4 09/05/24 04:20 Discharge Plan Discharge Patient Disposition: Home Condition: Stable Prescriptions: New levofloxacin 500 mg tablet 500 mg PO EVERY OTHER DAY 3 Days Qty: 2 0RF Continued gabapentin 100 mg capsule See Rx Instructions .ROUTE .COMPLEX Qty: 180 11RF Dose Instruction: TAKE 2 CAPSULES BY MOUTH THREE TIMES DAILY Rx Instructions: TAKE 2 CAPSULES BY MOUTH THREE TIMES DAILY Jardiance 10 mg tablet 10 mg PO DAILY Qty: 90 3RF albuterol sulfate [Ventolin HFA] 90 mcg/actuation HFA aerosol inhaler 2 puff inhalation Q6H PRN (Reason: shortness of breath or wheezing) Qty: 8.5 11RF duloxetine 60 mg capsule,delayed release(DR/EC) 60 mg PO DAILY Qty: 90 3RF furosemide 40 mg tablet 40 mg PO DAILY@0800 Qty: 30 11RF hydralazine 50 mg tablet 100 mg PO TID Qty: 180 11RF carvedilol 25 mg tablet 25 mg PO BID clopidogrel 75 mg tablet 75 mg PO DAILY Rx Instructions: TAKE 1 TABLET BY MOUTH EVERY DAY simvastatin 40 mg tablet 40 mg PO DAILY Rx Instructions: TAKE 1 TABLET BY MOUTH EVERY DAY FOR CHOLESTEROL amlodipine 10 mg tablet 10 mg PO DAILY Rx Instructions: TAKE 1 TABLET BY MOUTH DAILY ferrous sulfate [FeroSul] 325 mg (65 mg iron) tablet 325 mg PO TID Rx Instructions: TAKE 1 TABLET BY MOUTH THREE TIMES DAILY WITH MEALS insulin glargine [Lantus Solostar U-100 Insulin] 100 unit/mL (3 mL) insulin pen 35 unit SUBCUT BID Rx Instructions: 45 in AM and 30 in PM Discharge Orders: Discharge Order (Routine); Ordered 09/06/24 Ordered By: Dru Greene Other Ambulatory Orders: DME: Oxygen (Order) Location: None Selected Ordered By: Dru Greene Referrals: [facility] [place] [Outside] Jan Kirk MD [Primary Care Provider] - 09/11/24 10:20 am () Discharge Activity: Oxygen as instructed Patient Instructions: Levofloxacin (By mouth), Upper Respiratory Infection (DC), Community Acquired Pneumonia (DC), Opioid Safety Activity Restrictions/Additional Instructions: Complete antibiotic course (with Levaquin every other day, with next dose day after tomorrow) and follow up with your primary doctor for reassessment of recovering from pneumonia. As also discussed monitor your oxygen level multiple times a day and target 90% saturation. You will need more oxygen with exertion and less at rest. Follow up with your primary doctor regarding anemia and resume follow up with kidney specialist. Seek medical attention in case of any worsening or new concerning symptoms. Discharge Attestations Time Spent in Discharge Care*: greater than 30 min Status at Discharge: Cognitive status at discharge: cognitively intact, Behavioral status at discharge: cooperative, Quality Metrics Clinical Quality Measures [ No reported AMI, CVA or VTE this stay] Coding Level of Care Code 40990 Total time (in minutes) for Discharge: 35 Diagnoses Respiratory failure with hypoxia J96.91 Pneumonia J18.9
--- NOTE | 2024-09-06 08:40 | PC.SOCIAL ---
IMM Updated Updated pt on IMM. No questions voiced. Provided pt a copy. Initialed, dated, & timed a copy & placed in chart.
[2024-09-06] MEDS: carvedilol 25 mg Tablet PO (09:24)
[2024-09-06] MEDS: gabapentin 100 mg Capsule 200 MG PO (09:24)
[2024-09-06] MEDS: ferrous sulfate EC 325 mg Tablet PO (09:24)
[2024-09-06] MEDS: ATORVASTATIN 10 MG TABLET 20 MG PO (09:24)
[2024-09-06] MEDS: duloxetine 60 mg Capsule PO (09:24)
[2024-09-06] MEDS: levofloxacin-dextrose 5 % 500 MG/100 ML PREMIX 100 MG IV (09:25)
[2024-09-06] MEDS: clopidogrel 75 mg Tablet PO (09:25)
[2024-09-06] MEDS: amlodipine 10 mg Tablet PO (09:25)
[2024-09-06] MEDS: hyDRALAzine 50 mg Tablet 100 MG PO (09:25)
[2024-09-06] MEDS: insulin glargine 100 units/1 mL 35 UNIT SUBCUT (09:27)
[2024-09-06 10:53] LABS: Glucose Point of Care 192 mg/dL (70-110)
[2024-09-06] MEDS: insulin lispro 100 unit/1 mL SUBCUT (12:18)
== END 2024-09-06 12:29 | disposition home or self-care (01) | DRG 193 ==
LOC: ER 08:24 → MEDSURG 11:47
PROVIDERS: Admitting Provider Internal Medicine; Emergency Provider Family Medicine; PCP Family Medicine; Visit Provider Internal Medicine
DX: J18.9 Pneumonia, unspecified organism (principal); I50.33 Acute on chronic diastolic (congestive) heart failure; J96.01 Acute respiratory failure with hypoxia; I69.351 Hemiplegia and hemiparesis following cerebral infarction affecting right dominant side; I13.0 Hypertensive heart and chronic kidney disease with heart failure and stage 1 through stage 4 chronic kidney disease, or unspecified chronic kidney disease; I42.9 Cardiomyopathy, unspecified; I25.10 Atherosclerotic heart disease of native coronary artery without angina pectoris; Z88.0 Allergy status to penicillin; Z79.84 Long term (current) use of oral hypoglycemic drugs; Z79.02 Long term (current) use of antithrombotics/antiplatelets; Z79.4 Long term (current) use of insulin; Z86.718 Personal history of other venous thrombosis and embolism; Z85.3 Personal history of malignant neoplasm of breast; E78.5 Hyperlipidemia, unspecified; E11.22 Type 2 diabetes mellitus with diabetic chronic kidney disease; N18.9 Chronic kidney disease, unspecified; E11.42 Type 2 diabetes mellitus with diabetic polyneuropathy; I48.91 Unspecified atrial fibrillation; D64.9 Anemia, unspecified; I69.392 Facial weakness following cerebral infarction; Z11.52 Encounter for screening for COVID-19
CPT/HCPCS: 36415; 36416; 36600; 71045; 80048; 80051; 80053; 82330; 82805; 82962; 83605; 83880; 84145; 84484; 85025; 87040; 87637; 93005; 94640; 94664; 94760; 96365; 96372; 96375; 99285; J1650; J1815; J1940; J1956; J7613; J9999

== ENCOUNTER 2024-09-18 10:44 | Oncology outpatient (recurring) (ONCR) | payer MEDICARE, OTHER, SELFPAY ==
[2024-09-18] MEDS: DARBEPOETIN 100 MCG/0.5 ML 60 MCG SUBCUT (11:17)
[2024-09-18 11:21] VITALS: BP 133/69; PULSE 51; O2SAT 92
== END 2024-09-25 23:59 | disposition home or self-care (01) ==
LOC: ONCMED 10:45
PROVIDERS: PCP Family Medicine; Visit Provider Internal Medicine Nephrology
DX: N18.5 Chronic kidney disease, stage 5 (principal); D63.1 Anemia in chronic kidney disease; Z79.899 Other long term (current) drug therapy
CPT/HCPCS: 80048; 85025; 96372; J0881

== ENCOUNTER 2024-09-24 09:01 | Outpatient (CLI) | payer MEDICARE, OTHER, SELFPAY ==
--- NOTE | 2024-09-24 08:45 | MM_ITS ---
WS: [id number] DIAGNOSTIC BILATERAL DIGITAL BREAST TOMOSYNTHESIS MAMMOGRAPHY WITH CAD HISTORY: hx of breast cancer. screening COMPARISON: 09/28/2023, 08/25/2022 TECHNIQUE: Bilateral craniocaudad, mediolateral oblique, and mediolateral views are submitted with tomosynthesis and SM. Computer aided detection utilized. Breast composition: The breasts are heterogeneously dense, which may obscure small masses. Volume loss and postoperative changes RIGHT breast. Mild skin thickening from treatment. There are a few benign calcifications within each breast there scattered. No cluster of calcifications. MM/MM diag BI tomosynthesis [id number] IMPRESSION: BI-RADS: 2 - Benign FOLLOW UP: 1 Year Follow-up
== END 2024-09-24 09:02 | disposition home or self-care (01) ==
PROVIDERS: PCP Family Medicine; Visit Provider Family Medicine
DX: Z85.3 Personal history of malignant neoplasm of breast (principal); R92.333 Mammographic heterogeneous density, bilateral breasts; N64.89 Other specified disorders of breast; R23.4 Changes in skin texture; R92.1 Mammographic calcification found on diagnostic imaging of breast
CPT/HCPCS: 77062; G0279

== ENCOUNTER 2024-09-25 07:44 | Outpatient (CLI) | payer MEDICARE, OTHER, SELFPAY ==
[2024-09-25 08:02] VITALS: PULSE 66; RESP 18; O2SAT 99
[2024-09-25] MEDS: albuterol 2.5 mg/3 mL Neb INHALATION (08:02)
== END 2024-09-25 07:45 | disposition home or self-care (01) ==
LOC: RT 07:44
PROVIDERS: PCP Family Medicine; Visit Provider Family Medicine
DX: R06.00 Dyspnea, unspecified (principal); R94.2 Abnormal results of pulmonary function studies
CPT/HCPCS: 94060; 94726; 94729; J7613

== ENCOUNTER → 2024-10-08 11:07 | Outpatient (BNVA) | payer MEDICARE, OTHER, SELFPAY | PROVIDERS: PCP Family Medicine; Visit Provider Family Medicine | DX: I10 Essential (primary) hypertension (principal); I50.9 Heart failure, unspecified; R06.02 Shortness of breath | CPT/HCPCS: 80053; 83880; 85025 ==

== ENCOUNTER 2024-10-09 16:06 | Inpatient (IN) | payer MEDICARE, OTHER, SELFPAY ==
[2024-10-09] VITALS (14 sets, daily range): BP systolic 115–148; BP diastolic 58–82; PULSE 54–82; RESP 13–20; TEMP 34.9–36.4; O2SAT 86–96; BMI 36.5
--- NOTE | 2024-10-09 16:07 | ECG_ITS ---
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1950 Requested By: Kristin Stone Order Number: [id number] Reading MD: YAAKOV SALEEM Measurements Intervals [place] Rate: 65 P: 63 CA: 184 QRS: -38 QRSD: 93 T: 25 QT: 427 QTc: 444 Interpretive Statements SINUS RHYTHM LOW QRS VOLTAGE IN PRECORDIAL LEADS [QRS DEFLECTION < 1.0 mV IN CHEST LEADS] POSSIBLE ANTERIOR MYOCARDIAL INFARCTION , PROBABLY OLD [30 ms Q WAVE IN V3/V4, OR R < 0.2 mV IN V4] INFERIOR MYOCARDIAL INFARCTION , PROBABLY OLD [40+ ms Q WAVE AND/OR ST/T ABNORMALITY IN II/aVF] Compared to ECG 09/05/2024 08:29:48 Low QRS voltage now present Left-axis deviation no longer present Incomplete right bundle-branch block no longer present Myocardial infarct finding still present Electronically Signed On 10-10-2024 23:31:24 CDT by YAAKOV SALEEM [email or web address] [id number]
--- NOTE | 2024-10-09 16:07 | XRR_ITS ---
PROCEDURE INFORMATION: Exam: XR Chest Exam date and time: 10/09/2024 4:25 PM Age: 73 years old Clinical indication: Shortness of breath; Prior surgery; Surgery date: 6+ months; Surgery type: Partial RT mast; Additional info: SOB TECHNIQUE: Imaging protocol: Radiologic exam of the chest. Views: 1 view. COMPARISON: CR XR chest 1V portable [id number] 09/04/2024 7:59 AM FINDINGS: Lungs: No lobar consolidation. Pleural spaces: Blunting of the costophrenic angles suggestive of small pleural effusions. No pneumothorax. Heart/Mediastinum: Mild cardiomegaly. Bones/joints: Unremarkable. XR/XR chest 1V portable [id number] IMPRESSION: 1. Blunting of the costophrenic angles suggestive of small pleural effusions. 2. Mild cardiomegaly.
[2024-10-09 16:23] LABS: Glucose Point of Care 117 mg/dL (70-110)
[2024-10-09 16:28] LABS: Basophils % 0.3 %; Eosinophils # 0.1 10^3/uL (0.0-0.8); Eosinophils % 0.9 %; Hematocrit 21.5 % (36-47); Lymphocytes # 0.6 10^3/uL (0.8-4.8); Lymphocytes % 4.9 %; Mean Corpuscular HGB Conc 30.2 g/dL (30-55); Mean Corpuscular Hemoglobin 27.4 pg (27-33); Mean Corpuscular Volume 90.7 fl (85-98); Mean Platelet Volume 8.7 fL (7.4-10.4); Monocytes # 0.9 10^3/uL (0.2-0.9); Monocytes % 7.5 %; Neutrophils % 82.6 %; Nucleated Red Blood Cells % 0.2 %; Platelet Count 245 10^3/cmm (157-399); Red Blood Count 2.37 10^6/uL (3.85-5.65); Red Cell Distribution Width 15.4 % (12.1-15.1)
[2024-10-09 17:01] LABS: Alanine Aminotransferase 10 U/L (0-33); Albumin Level 3.5 g/dL (3.5-5.2); Alkaline Phosphatase 75 U/L (35-105); Anion Gap 19.7 (5-19); Aspartate Amino Transferase 12 U/L (0-32); Blood Urea Nitrogen 68 mg/dL (8-23); Carbon Dioxide 21 mmol/L (22-29); Chloride 94 mmol/L (98-107); Creatinine Clr Calc Pharmacy 19.0496; Globulin 3.2 g/dL (1.3-4.6); Glucose 93 mg/dL (65-115); NT Pro B Type Natriuretic Pept 11998 pg/mL (0-125); Osmolality Calculated 289 mOsm/kg (285-295); Potassium 4.7 mmol/L (3.5-5.1); Sodium 130 mmol/L (136-145); Total Bilirubin 0.2 mg/dL (0.15-1.2); Total Protein 6.7 g/dL (6.6-8.7)
--- NOTE | 2024-10-09 17:26 | ECG_ITS ---
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1950 Requested By: Keke Rogers Order Number: [id number] Reading MD: YAAKOV SALEEM Measurements Intervals [place] Rate: 54 P: 88 WY: 156 QRS: -21 QRSD: 114 T: 65 QT: 462 QTc: 438 Interpretive Statements SINUS BRADYCARDIA WITH SINUS ARRHYTHMIA LOW QRS VOLTAGE IN PRECORDIAL LEADS [QRS DEFLECTION < 1.0 mV IN CHEST LEADS] ANTERIOR MYOCARDIAL INFARCTION , PROBABLY RECENT [40+ ms Q WAVE AND/OR ST/T ABNORMALITY IN V3/V4] ACUTE TX Compared to ECG 10/09/2024 16:22:38 Sinus rhythm no longer present Myocardial infarct finding still present Electronically Signed On 10-10-2024 23:30:58 CDT by YAAKOV SALEEM [email or web address]
--- NOTE | 2024-10-09 17:26 | CTR_ITS ---
PROCEDURE INFORMATION: Exam: CT Abdomen And Pelvis Without Contrast Exam date and time: 10/09/2024 6:07 PM Age: 73 years old Clinical indication: Diffuse abdominal pain. TECHNIQUE: Imaging protocol: Computed tomography of the abdomen and pelvis without contrast. Radiation optimization: All CT scans at this facility use at least one of these dose optimization techniques: automated exposure control; mA and/or kV adjustment per patient size (includes targeted exams where dose is matched to clinical indication); or iterative reconstruction. COMPARISON: CT abdomen pelvis con [id number] 04/14/2024 9:34 AM RADIATION DOSE METRICS: Total DLP (mGy-cm): 1218.45 FINDINGS: Pleural spaces: Small bilateral pleural effusions. Liver: Normal. No mass. Gallbladder and biliary ducts: Normal. No calcified stones. No ductal dilation. Pancreas: Normal. No ductal dilation. Spleen: Normal. No splenomegaly. Adrenal glands: Normal. No mass. Kidneys and ureters: Moderate to severe atrophy of both kidneys. Stable cystic and indeterminate lesions in both kidneys. The largest cystic lesion in the right kidney measures up to 2.5 cm in diameter. No nephrolithiasis. No ureteral stones. Stomach and bowel: Normal caliber of the bowel without evidence of obstruction. No focal bowel wall thickening or inflammation. Colonic diverticulosis without CT evidence of acute diverticulitis. Appendix: Unremarkable. Intraperitoneal space: Unremarkable. No free air. No significant fluid collection. Vasculature: Unremarkable. No abdominal aortic aneurysm. Lymph nodes: Unremarkable. No enlarged lymph nodes. Urinary bladder: Urinary bladder unremarkable. Reproductive: Atrophic uterus. No adnexal masses. Bones/joints: Unremarkable. No acute fracture. Soft tissues: Diffuse mild body wall edema suggestive of 3rd spacing of fluid. CT/CT abdomen pelvis con [id number] IMPRESSION: 1. No acute hysterectomy findings in the abdomen or pelvis. 2. Colonic diverticulosis without CT evidence of acute diverticulitis. 3. Moderate to severe atrophy of both kidneys. Stable cystic and indeterminate lesions in both kidneys. The indeterminate lesions can be better evaluated with nonemergent renal ultrasound or renal protocol MRI if clinically warranted. 4. Small bilateral pleural effusions. 5. Diffuse mild body wall edema suggestive of 3rd spacing of fluid. COMMENTS: Consistent with the [employer]'s Incidental Findings Committee white paper (J Am Jabari Radiol 2018): Any incidental renal lesion less than 1 cm or classified as too small to characterize, or any incidental cystic renal lesion characterized as simple-appearing, is likely benign. No follow-up imaging is recommended for these lesions per consensus recommendations based on imaging criteria.
[2024-10-09] MEDS: pantoprazole 40 mg SDV 80 MG IVP (18:04)
[2024-10-09 18:11] LABS: Ferritin 129 ng/mL (15-150); Iron 56 ug/dL (37-145); Lactic Sepsis W/Reflex 1.4 mmol/L (0.5-2.2); Transferrin 236 mg/dL (200-360)
[2024-10-09 18:16] LABS: Bilirubin Urine Negative (Negative); Blood Urine Negative (Negative); Glucose Urine UA Negative (Normal); Ketones Urine Negative (Negative); Leukocyte Esterase Urine 1+ (Negative); Nitrate Urine Negative (Negative); Protein Urine 3+ (Negative); Specific Gravity, Urine 1.009 (1.005-1.030); Urine Appearance Clear (CLEAR); Urine Color Yellow (Yellow); Urobilinogen Urine 0.2 mg/dL (Negative)
[2024-10-09 18:21] LABS: Add Urine Microscopic? YES; Bacteria Urine None Seen /hpf; Hyaline Casts Urine 17.77 /lpf; RBC Urine 0-2 /hpf (0-2)
[2024-10-09 18:25] LABS: Vitamin B12 709 pg/mL (232-1245)
[2024-10-09 18:26] LABS: Troponin(5th) Baseline 45 ng/L (0-10)
--- NOTE | 2024-10-09 18:39 | ED_ITS ---
HPI - General Adult 2 General: Chief complaint: Shortness of Breath/Dyspnea Stated complaint: retaining water, hard to breath Time Seen by Provider: 10/09/24 17:06 History of Present Illness: Patient is a pleasant 73-year-old female with history of CVA, carotid stent 10 years ago, on Plavix, HTN, chronic dysarthria and right-sided weakness that presents to ED due to increasing weakness and shortness of breath over the last 3 days. She has seen her primary care physician. 2 days ago, Lasix was increased from 40 mg twice daily, to 80 mg twice daily. Despite these changes, patient became increasingly short of breath. Patient's primary care sent her to the evaluation in ED. Patient denies any melena, or stool changes. She states compliance to Plavix, iron, and all of her medications. Associated symptoms: Reports dyspnea and malaise; Deny chest pain, headache(s), nausea, palpitations or vomiting Related Data Home Medications ?Medication ?Instructions ?Recorded ?Confirmed amlodipine 10 mg tablet 10 mg PO DAILY 09/04/2409/26 clopidogrel 75 mg tablet 75 mg PO DAILY 09/04/2409/26 ferrous sulfate 325 mg (65 mg 325 mg PO TID 09/04/24 0 10/08/24 iron) tablet (FeroSul) simvastatin 40 mg tablet 40 mg PO DAILY 09/04/2409/26 Previous Rx's ?Medication ?Instructions ?Recorded gabapentin 100 mg capsule See Rx Instructions .Route 1 07/19/22 .COMPLEX #180 caps albuterol sulfate 90 mcg/actuation 2 puff inhalation Q 6H PRN 12/26/23 aerosol inhaler (Ventolin HFA) shortness of breath or wheezing #8.5 grams duloxetine 60 mg capsule,delayed 60 mg PO DAILY #90 ca ps 01/24/24 release hydralazine 50 mg tablet 100 mg (2 x 50 mg) PO TID #1 80 tabs 08/14/24 blood-glucose sensor (Dexcom G6 #3 ea 09/19/24 Sensor device) blood-glucose transmitter (Dexcom #1 ea 09/19/24 G6 Transmitter device) blood-glucose,film critic,cont #1 ea 09/19/24 (Dexcom G6 Professional Development Manager) carvedilol 25 mg tablet 25 mg PO BID #60 tabs insulin glargine 100 unit/mL (3 40 unit (0.4 mL) SUBCU T BID #45 mL 10/01/24 mL) subcutaneous pen (Lantus Solostar U-100 Insulin) furosemide 40 mg tablet 80 mg (2 x 40 mg) PO BID #12 0 tabs 10/08/24 Allergies Allergy/AdvReac Type Severity Reaction Status Date / Time Penicillins Allergy ALGY-Hives Verified 10/09/24 16:14 Review of Systems 2 General: Reports: 10 or more systems reviewed and unremarkable except in HPI and below Const: Reports: malaise; Denies: fever(s), chills or body aches Eyes: Denies: change in vision or blurry vision ENMT: Denies: nasal congestion or nasal obstruction Card: Denies: chest pain or palpitations Resp: Reports: dyspnea; Denies: wheezing GI: Denies: abdominal pain, nausea or vomiting : Denies: flank pain or difficulty voiding Musc: Denies: neck pain or back pain Neuro: Reports: weakness in extremities (chronic right without change), dizziness and Slurred speech present (chronic); Denies: headache(s) PFSH ED 2 PFSH: Medical History History of stroke with residual deficit Positive cardiac stress test Chronic kidney disease Hyperlipidemia Cardiomyopathy Ejection fraction 50% on echocardiogram Atrial fibrillation Depression Right leg swelling HTN (hypertension) Peripheral neuropathy DM type 2 (diabetes mellitus, type 2) Breast cancer Presence of internal carotid stent CVA (cerebral vascular accident) Diabetes COVID-19 Surgical History History of prior ablation treatment History of removal of Port-a-Cath Hx of total hip arthroplasty History of cataract surgery H/O partial mastectomy R Family History Mother CAD (coronary artery disease) Social History Smoking and tobacco/nicotine status: never used tobacco/nicotine Substance/Drug Use: never Physical Exam 2 Const: COMMON NORMALS: no acute distress and patient oriented x3 GENERAL APPEARANCE: cooperative and comfortable NUTRITIONAL APPEARANCE: overweight ORIENTATION/CONSCIOUSNESS: Yes awake, Yes oriented to person and Yes oriented to place HENMT: COMMON NORMALS: normocephalic, atraumatic, hearing grossly normal bilaterally and EAC's normal HEAD & SCALP: normal to inspection, normocephalic and atraumatic EXTERNAL AUDITORY CANAL: EAC's normal Eye: COMMON NORMALS: Equal, round and reactive pupils present and no scleral icterus SCLERA: scleral abnormal (pale) PUPIL: Yes Equal, round and reactive pupils present Neck/C-Spine: COMMON NORMALS: full ROM, no lymphadenopathy and no JVD Lymph: LYMPHATIC: no lymphadenopathy noted Resp: COMMON NORMALS: normal respiratory effort and No retractions EFFORT & INSPECTION: Yes able to speak in complete sentences Cardio: COMMON NORMALS: no JVD, regular rate and regular rhythm RATE: r egular rate RHYTHM: regular rhythm GI: COMMON NORMALS: Normal to inspection, nondistended, normoactive bowel sounds present, Soft to palpation and non-tender PALPATION: Yes Soft to palpation : COMMON NORMALS: Yes no CVA tenderness BLADDER/KIDNEY EXAM: Yes no CVA tenderness Back/Pelvis: COMMON NORMALS: no CVA tenderness Extremity: COMMON NORMALS: normal to inspection, full ROM and capillary refill normal Neuro: COMMON NORMALS: patient oriented x3, CN's II-XII intact bilaterally and moves all extremities SENSORIUM/ORIENTATION: Yes oriented to person and Yes oriented to place SPEECH: expressive aphasia (at baseline) GAIT: Yes Ataxic gait present (baseline) MOTOR EXAM: No 5/5 motor strength present throughout (baseline right sided weakness) Psych: COMMON NORMALS: mental status grossly normal, Normal thought process present, cooperative, normal affect and speech normal SPEECH: Yes normal speech THOUGHT PROCESS: Normal thought process present Course 2 Reevaluation(s): Reevaluation #1: 1830: no issues, OB obtained Consultations: Consultation #1: D/w hospitalist, they will consult for admission Vital Signs: Vital signs: Vital Signs Temperature 97.3 F L 10/09/24 16:10 Pulse Rate 63 10/09/24 18:37 Respiratory Rate 18 10/09/24 16:10 Blood Pressure 144/61 10/09/24 18:37 Pulse Oximetry 86 L 10/09/24 18:37 Oxygen Delivery Me thod Room Air 10/09/24 18:37 MDM - General Adult Medical Decision Making Patient is a pleasant 73-year-old female with hemoglobin of 6.5 with complaints of weakness, and appears hypovolemic, with recent increase in Lasix. Initial workup is negative for blood loss source with occult blood negative. Patient has not had a colonoscopy in several years. She is on Plavix. She did receive PPI. Will hold Plavix, and defer to hospitalist. Differential Diagnosis GI bleeding, leukemia Lab Data 10/09/24 16:22 10/09/24 16:22 Radiology Impressions Chest X-Ray 10/09/24 16:07 IMPRESSION: 1. Blunting of the costophrenic angles suggestive of small pleural effusions. 2. Mild cardiomegaly. Abdomen/Pelvis CT 10/09/24 17:26 IMPRESSION: 1. No acute hysterectomy findings in the abdomen or pelvis. 2. Colonic diverticulosis without CT evidence of acute diverticulitis. 3. Moderate to severe atrophy of both kidneys. Stable cystic and indeterminate lesions in both kidneys. The indeterminate lesions can be better evaluated with nonemergent renal ultrasound or renal protocol MRI if clinically warranted. 4. Small bilateral pleural effusions. 5. Diffuse mild body wall edema suggestive of 3rd spacing of fluid. COMMENTS: Consistent with the [employer]'s Incidental Findings Committee white paper (J Am Jabari Radiol 2018): Any incidental renal lesion less than 1 cm or classified as too small to characterize, or any incidental cystic renal lesion characterized as simple-appearing, is likely benign. No follow-up imaging is recommended for these lesions per consensus recommendations based on imaging criteria. Laboratory Results WBC 11.50 10^3/uL (3.29-11.43) H 10/09/24 16:22 RBC 2.37 10^6/uL (3.85-5.65) L 10/09/24 16:22 Hgb 6.50 g/dL (11.27-16.99) L* 10/09/24 16:22 Hct 21.5 % (36-47) L 10/09/24 16:22 MCV 90.7 fl (85-98) 10/09/24 16:22 MCH 27.4 pg (27-33) 10/09/24 16:22 MCHC 30.2 g/dL (30-55) 10/09/24 16:22 RDW 15.4 % (12.1-15.1) H 10/09/24 16:22 Plt Count 245 10^3/cmm (157-399) 10/09/24 16:22 MPV 8.7 fL (7.4-10.4) 10/09/24 16:22 Neut % (Auto) 82.6 % 10/09/24 16:22 Lymph % (Auto) 4.9 % 10/09/24 16:22 [place] % (Auto) 7.5 % 10/09/24 16:22 Eos % (Auto) 0.9 % 10/09/24 16:22 Baso % (Auto) 0.3 % 10/09/24 16:22 Neut # (Auto) 9.50 10^3/uL (1.8-7.7) H 10/09/24 16:22 Lymph # (Auto) 0.6 10^3/uL (0.8-4.8) L 10/09/24 16:22 [place] # (Auto) 0.9 10^3/uL (0.2-0.9) 10/09/24 16:22 Eos # (Auto) 0.1 10^3/uL (0.0-0.8) 10/09/24 16:22 Baso # (Auto) 0.0 10^3/uL (0.0-0.1) 10/09/24 16:22 Nucleated RBC % (auto) 0.2 % 10/09/24 16:22 Nucleated RBCs # 0.0 /100WBC 10/09/24 16:22 Sodium 130 mmol/L (136-145) L 10/09/24 16:22 Potassium 4.7 mmol/L (3.5-5.1) 10/09/24 16:22 Chloride 94 mmol/L (98-107) L 10/09/24 16:22 Carbon Dioxide 21 mmol/L (22-29) L 10/09/24 16:22 Anion Gap 19.7 (5-19) H 10/09/24 16:22 BUN 68 mg/dL (8-23) H 10/09/24 16:22 Creatinine 3.4 mg/dL (0.5-0.9) H 10/09/24 16:22 GFR Calculation Not Reportable 10/09/24 16:22 Glucose 93 mg/dL (65-115) 10/09/24 16:22 POC Glucose 117 mg/dL (70-110) H 10/09/24 16:20 Calculated Osmolality 289 mOsm/kg (285-295) 10/09/24 16:22 Lactic Acid 1.4 mmol/L (0.5-2.2) 10/09/24 16:22 Calcium 8.0 mg/dL (8.5-10.5) L 10/09/24 16:22 Iron 56 ug/dL (37-145) 10/09/24 16:22 Transferrin 236 mg/dL (200-360) 10/09/24 16:22 Ferritin 129 ng/mL (15-150) 10/09/24 16:22 Total Bilirubin 0.2 mg/dL (0.15-1.2) 10/09/24 16:22 AST 12 U/L (0-32) 10/09/24 16:22 ALT 10 U/L (0-33) 10/09/24 16:22 Alkaline Phosphatase 75 U/L (35-105) 10/09/24 16:22 Troponin T Baseline 45 ng/L (0-10) H 10/09/24 16:22 Troponin T 120 Minute 45.34 ng/L (0-10) H 10/09/24 18:33 Delta Troponin T 0.34 ABS# (0-10) 10/09/24 18:33 NT-Pro-B Natriuret Pep 99286 pg/mL (0-125) H 10/09/24 16:22 Total Protein 6.7 g/dL (6.6-8.7) 10/09/24 16:22 Albumin 3.5 g/dL (3.5-5.2) 10/09/24 16:22 Globulin 3.2 g/dL (1.3-4.6) 10/09/24 16:22 Vitamin B12 709 pg/mL (232-1245) 10/09/24 16:22 Urine Color Yellow (Yellow) 10/09/24 18:07 Urine Appearance Clear (CLEAR) 10/09/24 18:07 Urine pH 5.0 (5-7) 10/09/24 18:07 Ur Specific [place] 1.009 (1.005-1.030) 10/09/24 18:07 Urine Protein 3+ (Negative) A 10/09/24 18:07 Urine Glucose (UA) Negative (Normal) 10/09/24 18:07 Urine Ketones Negative (Negative) 10/09/24 18:07 Urine Blood Negative (Negative) 10/09/24 18:07 Urine Nitrate Negative (Negative) 10/09/24 18:07 Urine Bilirubin Negative (Negative) 10/09/24 18:07 Urine Urobilinogen 0.2 mg/dL (Negative) 10/09/24 18:07 Ur Leukocyte Esterase 1+ (Negative) A 10/09/24 18:07 Urine RBC 0-2 /hpf (0-2) 10/09/24 18:07 Urine WBC 6-10 /hpf (0-5) 10/09/24 18:07 Ur Squamous Epith Cells 6-10 /hpf (0-5) 10/09/24 18:07 Amorphous Sediment Not Reportable 10/09/24 18:07 Urine Bacteria None seen /hpf (NONE) 10/09/24 18:07 Hyaline Casts 17.77 /lpf 10/09/24 18:07 Blood Type A Positive 10/09/24 17:17 Rho(D) Type Rh positive 10/09/24 17:17 Antibody Screen Negative 10/09/24 17:17 Crossmatch See Detail 10/09/24 17:17 XR interpretation done by ED provider, pending radiology final review ED provider radiology interpretation(s): chest pl eff bilat, small ct no acute Other Data Occult blood is negative Discharge Plan Discharge Condition: Stable Prescriptions: No Action gabapentin 100 mg capsule See Rx Instructions .ROUTE .COMPLEX Qty: 180 11RF Dose Instruction: TAKE 2 CAPSULES BY MOUTH THREE TIMES DAILY Rx Instructions: TAKE 2 CAPSULES BY MOUTH THREE TIMES DAILY albuterol sulfate [Ventolin HFA] 90 mcg/actuation HFA aerosol inhaler 2 puff inhalation Q6H PRN (Reason: shortness of breath or wheezing) Qty: 8.5 11RF carvedilol 25 mg tablet 25 mg PO BID Qty: 60 11RF insulin glargine [Lantus Solostar U-100 Insulin] 100 unit/mL (3 mL) insulin pen 40 unit SUBCUT BID Qty: 45 11RF Rx Instructions: 40 in AM and 20 in PM furosemide 40 mg tablet 80 mg PO BID Qty: 120 11RF duloxetine 60 mg capsule,delayed release(DR/EC) 60 mg PO DAILY Qty: 90 3RF hydralazine 50 mg tablet 100 mg PO TID Qty: 180 11RF (DME) Dexcom G6 Professional Development Manager Misc See Rx Instructions .MEDSUPPLY Qty: 1 0RF Rx Instructions: Use as directed for checking blood sugar (DME) Dexcom G6 Sensor Device See Rx Instructions .MEDSUPPLY Qty: 3 12RF Rx Instructions: Change every 10 days; Use as directed to check blood sugar (DME) Dexcom G6 Transmitter Device See Rx Instructions .MEDSUPPLY Qty: 1 3RF Rx Instructions: Change every 3 months; Use as directed for checking blood sugar clopidogrel 75 mg tablet 75 mg PO DAILY Rx Instructions: TAKE 1 TABLET BY MOUTH EVERY DAY simvastatin 40 mg tablet 40 mg PO DAILY Rx Instructions: TAKE 1 TABLET BY MOUTH EVERY DAY FOR CHOLESTEROL amlodipine 10 mg tablet 10 mg PO DAILY Rx Instructions: TAKE 1 TABLET BY MOUTH DAILY ferrous sulfate [FeroSul] 325 mg (65 mg iron) tablet 325 mg PO TID Rx Instructions: TAKE 1 TABLET BY MOUTH THREE TIMES DAILY WITH MEALS Referrals: Jan Kirk MD [Primary Care Provider, Family Practice] Print Language: Venezuelan Coding Level of Care Code ED Lead Business Systems Analyst for [address] [address]
[2024-10-09 18:56] LABS: Add Urine Culture? No; UA Slide Review UA Slide Review Perf
[2024-10-09 19:01] LABS: Troponin 5 2HR 45.34 ng/L (0-10); Troponin 5 2HR Delta 0.34 ABS# (0-10)
--- NOTE | 2024-10-09 19:28 | P.HP_ITS ---
Providers/Chief Complaint 2 Admitting Physician: Vilma Taylor MD Primary Care Provider: Jan Kirk MD Chief Complaint: retaining water, hard to breath History of Present Illness The patient was quite lethargic when she was seen, so history was obtained from the ED staff-ED nurse and ED physician sign out, and chart review. Terese Yates is a 73 yo woman w/ IDDM 2 w/ diabetic nephropathy, chronic HFpEF, Paroxysmal Afib, & CKD who was sent to the ED on 10/09/2024 for increased weakness and abnormal labs. From chart review, she was seen on 10/08/2024 at her PCPs office with increased dyspnea and edema, but no CP. The PCP recommended that she be admitted, but the patient declined, so labs were ordered, and her Lasix was increased to 80 mg twice daily. In the ED, she was tachypneic and hypoxemic to 86% on RA. Her She was given Per nurse, the patient was more talkative during the day. 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 At the beggining of the shift, the patient was diaphoretic, so her BG was evaluated and it was 48. She was given a 250cc bag of D10 and 30mins afterwards, her BG was at 98, so she was given another 250cc bolus of D10 w/ repeat BG was 150, thirty minutes later. The patient will be admitted to the ICU for further management. Her Hgb was 6.5g/dL, so 1unit PRBC was ordered in the ED and transfused. She was also given 1 L NS and 80 mg IV Protonix. Before starting the blood transfusion, her vital signs were obtained, and it showed a core temperature of 94.7F. She was placed on barehugger. When seen, she was AOx3, but visibly lethargic. She answered orientation questions appropriately and drifted back to sleep. With one to two words, she was visibly dyspneic, which she endorsed. She denied any pain, but could not converse due to her lethargy. She actually followed commands and turned, so that I could examine her lungs posteriorly, but she was so lethargic, that she could not carry on a conversation, and as mentioned was easily dyspneic with minimal movements. Review of Systems 2 General: Reports: 10 or more systems reviewed and unremarkable except in HPI and below, ROS unobtainable due to medical condition and ROS unobtainable due to mental status Medications/Allergies Home Medications ?Medication ?Instructions ?Recorded ?Confirmed ?Last Taken ?Type gabapentin 100 mg capsule See Rx Instructions .Route 1 07/19/22 10/08/24 09/04/24 Rx .COMPLEX #180 caps albuterol sulfate 90 mcg/actuation 2 puff inhalation Q 6H PRN 12/26/23 10/08/24 Unknown Rx aerosol inhaler (Ventolin HFA) shortness of breath or wheezing #8.5 grams duloxetine 60 mg capsule,delayed 60 mg PO DAILY #90 ca ps 01/24/24 10/08/24 09/04/24 Rx release hydralazine 50 mg tablet 100 mg (2 x 50 mg) PO TID #1 80 tabs 08/14/24 10/08/24 09/04/24 Rx amlodipine 10 mg tablet 10 mg PO DAILY 09/04/2409/2609/04/24 History clopidogrel 75 mg tablet 75 mg PO DAILY 09/04/2409/2609/04/24 History ferrous sulfate 325 mg (65 mg 325 mg PO TID 09/04/24 0 10/08/24 09/04/24 History iron) tablet (FeroSul) simvastatin 40 mg tablet 40 mg PO DAILY 09/04/2409/2609/04/24 History blood-glucose sensor (Dexcom G6 #3 ea 09/19/24 5 Unknown Rx Sensor device) blood-glucose transmitter (Dexcom #1 ea 09/19/2410/08 Unknown Rx G6 Transmitter device) blood-glucose,park naturalist,cont #1 ea 09/19/24 10/08/24 Un known Rx (Dexcom G6 [employer]) carvedilol 25 mg tablet 25 mg PO BID #60 tabs 10/08/24 Unknown Rx insulin glargine 100 unit/mL (3 40 unit (0.4 mL) SUBCU T BID #45 mL 10/01/24 10/08/24 Unknown Rx mL) subcutaneous pen (Lantus Solostar U-100 Insulin) furosemide 40 mg tablet 80 mg (2 x 40 mg) PO BID #12 0 tabs 10/08/24 10/08/24 Unknown Rx Allergies Allergy/AdvReac Type Severity Reaction Status Date / Time Penicillins Allergy ALGY-Hives Verified 10/09/24 16:14 PFSH Acute 2 PFSH: Medical History History of stroke with residual deficit Positive cardiac stress test Chronic kidney disease Hyperlipidemia Cardiomyopathy Ejection fraction 50% on echocardiogram Atrial fibrillation Depression Right leg swelling HTN (hypertension) Peripheral neuropathy DM type 2 (diabetes mellitus, type 2) Breast cancer Presence of internal carotid stent CVA (cerebral vascular accident) Diabetes COVID-19 Surgical History History of prior ablation treatment History of removal of Port-a-Cath Hx of total hip arthroplasty History of cataract surgery H/O partial mastectomy R Family History Mother CAD (coronary artery disease) Social History Smoking and tobacco/nicotine status: never used tobacco/nicotine Substance/Drug Use: never Vitals/I&O/Wt Last Vital Signs Temp 97.3 F L 10/09/24 16:10 Pulse 63 10/09/24 18:37 Resp 18 10/09/24 16:10 BP 144/61 10/09/24 18:37 Pulse Ox 86 L 10/09/24 18:37 O2 Del Method Room Air 10/09/24 18:37 10/09/24 10/09/24 10/09/24 06:59 14:59 22:59 Intake Total 0 / 0 Balance 0 / 0 Weight last 48 hrs Weight 108.862 kg Physical Exam 2 Narrative: Constitutional: GENERAL APPEARANCE: cooperative, not combative not ill appearing and not frail appearing HENT: HEAD & SCALP: normocephalic and atraumatic; NOSE: external nose normal EXTERNAL EAR: external ears normal MOUTH: Normal oral and palatal mucosa present THROAT: posterior oropharynx normal Eye: PERRL, EOMI, pale conjunctiva b/l Neck: normal visual inspection, trachea midline, No anterior neck swelling, No tracheal deviation, No tracheostomy present, no submandibular swelling, Thyroid normal , cervical ROM normal Lymph: no cervical, supraclavicular LAD Resp: no use of accessory muscles, CTAB, no w/r/r Cardio: RRR, no m/r/g, or clicks. 2+ radial and DP pulses. GI: normoactive bowel sounds, non-tender, non-distended, no guarding, no rigidity, no rebound tenderness, no hepatosplenomegaly. : Smith placement ordered Back/Pelvis: Deferred Extremity: No clubbing, No cyanosis, 3+ pitting edema Neuro: AO to person, place and time. CN normal except as noted. Normal gait present. 5/5 motor strength present throughout. Normal motor muscle tone present throughout. No tremor noted. No motor abnormalities present. No motor fasciculations present Psych: Unable to evaluate given her mental status Data 10/10/24 05:53 10/10/24 05:53 A&P Assessment and plan (1) Acute exacerbation of congestive heart failure: (2) Acute on chronic blood loss anemia: (3) Altered mental status: (4) Acute hypoxic respiratory failure: Plan Terese Yates is a 73 yo woman w/ IDDM 2 w/ diabetic nephropathy, chronic HFpEF, Paroxysmal Afib, & CKD who was sent to the ED on 10/09/2024 for increased weakness and abnormal labs. From chart review, she was seen on 10/08/2024 at her PCPs office with increased dyspnea and edema, but no CP. On admission, it became apparent that she is lethargic and dyspneic with minimal movements. #Acute on chronic blood loss anemia: Deemed to be due to CKD by Nephrology on the 04/14/2024 consultation note; however, in the setting of a recent history of SAH and subdural hematoma, with patient still on aspirin and Plavix, we will obtain a CT head. #Anemia of chronic disease in the setting of #Iron deficiency - noted on iron studies. Plan for oral vs IV iron later. #Acute hypoxic respiratory failure: Normally not on O2 at home. On 2L NC here. #Acute on chronic HFpEF: Given the level of vol overload and very mild crackles in the R. LL on physical exam, I am not convinced that this her typical diastolic CHF. This is more likely high output heart failure due to her anemia in the setting of worsening renal function. - Hold Lasix tonight unless needed. F/u ECHO, TSH. #HTN: Hold po meds #HLD: Hold Po meds. #CKD: Consider Nephrology consult. #Proteinuria: noted on UA. Possibly due to Diabetic nephropathy, based on Nephrology note in 03/2025. #AMS (Lethargic): #hx of a small frontal subarachnoid hemorrhage and anterior midline subdural hematoma due to a fall on 08/16/2024. -Multifactorial including hypoglycemia but in the setting of her brain bleed in 08/16/2024nd her continuing aspirin and plavix, will obtain a CT head #Hypothermia: Unclear reason. Continue Barehugger. Ordered BCx. I have a Low threshold for Broadspectrum abx, if hypothermia does not improve, but based on CXR, CT abd/pelvis, and UA, I do not have a potential source of infection, so I am holding empiric abx initiation at this point. #Hypoglycemia: She took her 40units of insulin glargine this AM. Hypoglycemia protocol ordered. Admit to ICU and start D10 drip if BG falls to <100. #IDDM2: Hold Insulin at this time. 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 Carotid artery stent - Hold aspirin and plavix and AC. #Paroxysmal Afib s/p ablation in 06/2021: Place on telemonitoring. #Hx of R. breast cancer s/p partial mastectomy, chemo, radiation #Hx of residual peripheral neuropathy due to her chemotherapy for her breast cancer DVT ppx: SCD Most if not all of her medications have been held at this time. PDMP PDMP Reviewed: Not Reviewed Attestations 2 Medical Necessity Statement*: The patient is to be hospitalized for greater than 2 midnights for her altered mental status, acute on chronic blood loss anemia, acute hypoxic respiratory failure, hypothermia, hypoglycemia. Coding Level of Care Code 53696 High Time for a total of 90 minutes, includes reviewing past or interval history, examining/interviewing patient, placing orders, counseling patient/family/other support, updating patient/family/other support, discussing plan of care with staff, communicating with other healthcare providers, documenting encounter and coordinating care Diagnoses Acute exacerbation of congestive heart failure I50.9 Acute on chronic blood loss anemia D62 Altered mental status R41.82 Acute hypoxic respiratory failure J96.01
[2024-10-09 19:36] LABS: INR 1.03 (0.8-1.2)
[2024-10-09 19:37] LABS: Partial Thromboplastin Time 31.8 SECONDS (23.9-36.7)
--- NOTE | 2024-10-09 19:56 | CTR_ITS ---
PROCEDURE INFORMATION: Exam: CT Head Without Contrast Exam date and time: 10/09/2024 11:39 PM Age: 73 years old Clinical indication: Weakness, extremity; Bilateral; HX of a fall on 08/16/2024 w/ resultant subarachnoid hemorrhage and subdural hematoma; Additional info: Weakness, anemia, HX of a fall on 08/16/2024 w/ resultant subarachnoid TECHNIQUE: Imaging protocol: Computed tomography of the head without contrast. Radiation optimization: All CT scans at this facility use at least one of these dose optimization techniques: automated exposure control; mA and/or kV adjustment per patient size (includes targeted exams where dose is matched to clinical indication); or iterative reconstruction. COMPARISON: CT head wo con* [id number] 08/16/2024 12:49 AM RADIATION DOSE METRICS: Total DLP (mGy-cm): 1146 FINDINGS: Brain: There is encephalomalacia of the left insula and left frontal lobe, from prior insult. There are bilateral periventricular white matter and centrum semiovale hypodensities, consistent with chronic ischemic small vessel disease. No recent infarct, intracranial bleed or mass effect. Cerebral ventricles: No ventriculomegaly. Pituitary gland and sella: There is a normal empty pituitary sella. Paranasal sinuses: Mild mucosal disease of bilateral maxillary sinuses bilateral cataract. Mastoid air cells: Visualized mastoid air cells are well aerated. Bones: Unremarkable. No acute fracture. Soft tissues: Unremarkable. CT/CT head wo con* [id number] IMPRESSION: No large territorial infarct or intracranial bleed.
[2024-10-09] MEDS: dextrose 10% 250 ML 1000 ML IV (20:15)
[2024-10-09 20:24] LABS: Ferritin 126 ng/mL (15-150); Iron 54 ug/dL (37-145); Percent Saturation 17.4 % (20-50); Thyroid Stimulating Hormone 2.45 uIU/mL (0.27-4.20); Total Iron Binding Capacity 310 mcg/dl; Unsaturated Iron Binding 256 ug/dL (112-347); Vitamin B12 707 pg/mL (232-1245)
[2024-10-09 20:38] LABS: Glucose Point of Care 168 mg/dL (70-110)
[2024-10-09 20:38] LABS: Glucose Point of Care 48 mg/dL (70-110)
[2024-10-09 21:26] LABS: Influenza A NEGATIVE (Negative); Influenza B NEGATIVE (Negative); Respiratory Syncytial Virus Ce NEGATIVE (Negative); SARS-CoV-2 PCR NEGATIVE (Negative)
[2024-10-09 21:34] LABS: Glucose Point of Care 94 mg/dL (70-110)
--- NOTE | 2024-10-09 21:50 | ED_ITS ---
HPI - SOB/Dyspnea 2 General: Chief Complaint: Shortness of Breath/Dyspnea Stated Complaint: retaining water, hard to breath Time Seen by Provider: 10/09/24 17:06 History of Present Illness: HPI Narrative: Patient is a pleasant 73-year-old female with chronic expressive aphasia, right upper and lower weakness due to CVA 10 years ago, on Plavix, status post carotid stent, HTN, DM that presented to the emergency room at the request of her primary care physician with weakness, and abnormal labs. Patient has minimal complaints. She is basically at her baseline with increasing weakness and mild shortness of breath, for patient complaints. She stated send she is having increasing amount of shortness of breath, her primary care physician doubled her Lasix from 40 mg twice daily to 80 mg twice daily. Despite changing the Lasix, she continues to have weakness. She denies any fever, cough, change in sputum. No dysuria. Associated symptoms: Deny abdominal pain, chest pain, fever(s), nausea, palpitations or vomiting Related Data Home Medications ?Medication ?Instructions ?Recorded ?Confirmed amlodipine 10 mg tablet 10 mg PO DAILY 09/04/2409/26 clopidogrel 75 mg tablet 75 mg PO DAILY 09/04/2409/26 ferrous sulfate 325 mg (65 mg 325 mg PO TID 09/04/24 0 10/08/24 iron) tablet (FeroSul) simvastatin 40 mg tablet 40 mg PO DAILY 09/04/2409/26 Previous Rx's ?Medication ?Instructions ?Recorded gabapentin 100 mg capsule See Rx Instructions .Route 1 07/19/22 .COMPLEX #180 caps albuterol sulfate 90 mcg/actuation 2 puff inhalation Q 6H PRN 12/26/23 aerosol inhaler (Ventolin HFA) shortness of breath or wheezing #8.5 grams duloxetine 60 mg capsule,delayed 60 mg PO DAILY #90 ca ps 01/24/24 release hydralazine 50 mg tablet 100 mg (2 x 50 mg) PO TID #1 80 tabs 08/14/24 blood-glucose sensor (Dexcom G6 #3 ea 09/19/24 Sensor device) blood-glucose transmitter (Dexcom #1 ea 09/19/24 G6 Transmitter device) blood-glucose,bowl sander,cont #1 ea 09/19/24 (Dexcom G6 Transfer Operator) carvedilol 25 mg tablet 25 mg PO BID #60 tabs insulin glargine 100 unit/mL (3 40 unit (0.4 mL) SUBCU T BID #45 mL 10/01/24 mL) subcutaneous pen (Lantus Solostar U-100 Insulin) furosemide 40 mg tablet 80 mg (2 x 40 mg) PO BID #12 0 tabs 10/08/24 Allergies Allergy/AdvReac Type Severity Reaction Status Date / Time Penicillins Allergy ALGY-Hives Verified 10/09/24 16:14 Review of Systems 2 General: Reports: 10 or more systems reviewed and unremarkable except in HPI and below Const: Reports: malaise; Denies: fever(s) or chills ENMT: Denies: throat pain or change in hearing Card: Denies: chest pain or palpitations Resp: Reports: dyspnea; Denies: productive cough or wheezing GI: Denies: abdominal pain, nausea or vomiting : Denies: flank pain or difficulty voiding Musc: Denies: neck pain or back pain Skin/Breast: Denies: rash or pruritus Neuro: Reports: numbness in extremities (chronic), weakness in extremities (chronic) and Slurred speech present (chronic); Denies: sensory changes Psych: Denies: anxiety or depression PFSH ED 2 PFSH: Medical History History of stroke with residual deficit Positive cardiac stress test Chronic kidney disease Hyperlipidemia Cardiomyopathy Ejection fraction 50% on echocardiogram Atrial fibrillation Depression Right leg swelling HTN (hypertension) Peripheral neuropathy DM type 2 (diabetes mellitus, type 2) Breast cancer Presence of internal carotid stent CVA (cerebral vascular accident) Diabetes COVID-19 Surgical History History of prior ablation treatment History of removal of Port-a-Cath Hx of total hip arthroplasty History of cataract surgery H/O partial mastectomy R Family History Mother CAD (coronary artery disease) Social History Smoking and tobacco/nicotine status: never used tobacco/nicotine Substance/Drug Use: never Physical Exam 2 Const: COMMON NORMALS: no acute distress, patient oriented x3 and alert G ENERAL APPEARANCE: cooperative and well kempt NUTRITIONAL APPEARANCE: obese ORIENTATION/CONSCIOUSNESS: Yes awake, Yes oriented to person, Yes oriented to place and Yes oriented to time HENMT: COMMON NORMALS: normocephalic, atraumatic and hearing grossly normal bilaterally HEAD & SCALP: normocephalic and atraumatic Neck/C-Spine: COMMON NORMALS: full ROM, no lymphadenopathy, no JVD and Thyroid normal GENERAL: Yes normal visual inspection THYROID: Thyroid normal C ERVICAL SPINE: Yes cervical ROM normal Lymph: LYMPHATIC: no lymphadenopathy noted Chest: COMMONS NORMALS: normal palpation of entire chest wall Resp: COMMON NORMALS: normal respiratory effort, No retractions and No use of accessory muscles Cardio: COMMON NORMALS: no JVD, regular rate, regular rhythm, S1 normal heart sound present, S2 normal heart sound present and Peripheral pulses 2+ throughout RATE: regular rate RHYTHM: regular rhythm HEART SOUNDS: S1 normal heart sound present and S2 normal heart sound present PERIPHERAL PULSES: Peripheral pulses 2+ throughout GI: COMMON NORMALS: Soft to palpation AUSCULTATION: Yes normoactive bowel sounds PALPATION: Yes Soft to palpation, Yes Tenderness to palpation present (GI) (diffusely), No Guarding due to palpation present (GI) and No Rigid due to palpation RECTAL EXAM: visual inspection normal, normal sphincter tone, No heme positive stool and No Internal hemorrhoid(s) present : COMMON NORMALS: No no CVA tenderness BLADDER/KIDNEY EXAM: No no CVA tenderness Back/Pelvis: COMMON NORMALS: negative for no CVA tenderness THORACIC SPINE/UPPER BACK: Yes normal to inspection and No pain with ROM Extremity: COMMON NORMALS: normal to inspection and full ROM Neuro: COMMON NORMALS: patient oriented x3 SENSORIUM/ORIENTATION: Yes alert, Yes oriented to person, Yes oriented to place and Yes oriented to time CRANIAL NERVES: Yes CN normal except as noted Psych: COMMON NORMALS: mental status grossly normal and Normal thought process present APPEARANCE: Yes well kempt THOUGHT PROCESS: Normal thought process present Skin: COMMON NORMALS: no rashes or lesions noted GENERAL SKIN EXAM: no rashes or lesions noted Course 2 Reevaluation(s): Reevaluation #1: bg decreased to 52. D10 given. Consultations: Consultation #1: 2100: Hospitalist accepted for inpt/anem ia Vital Signs: Vital signs: Vital Signs Temperature 94.9 F L 05/14/25 21:32 Pulse Rate 58 L 10/09/24 20:51 Respiratory Rate 13 10/09/24 20:35 Blood Pressure 115/58 10/09/24 20:51 Pulse Oximetry 96 10/09/24 20:51 Oxygen Delivery Me thod Nasal Cannula 10/09/24 20:00 Oxygen Flow Rate 2 10/09/24 20:00 MDM - SOB/Dyspnea Medical Decision Making Patient is a pleasant 73-year-old female with multiple comorbidities that came to the hospital initially because she had some shortness of breath, she considered mild, and her primary care physician wanted her to come to the hospital. She was found to have a hemoglobin of 6.5. Her baseline is typically 9?10, and she is chronically on ferrous sulfate. She denies any melena. She does not have hemorrhoids. Occult blood is negative. Certainly, given her long-term use of Plavix, this would be a possibility, but less likely with occult blood negative. Patient still was given PPI 80 mg x 1. She had mild diffuse tenderness on exam of abdomen, with ecchymosis to the lower portion that she states was from her insulin shots. Given this, a CT of her abdomen pelvis was done without contrast with concern of elevation of creatinine, and no additional acute findings were noted. Her creatinine is a smidge up from her baseline, currently at 3.4, baseline close to 3; however this can be accounted for her increase in Lasix that was changed from 40 mg twice daily to 80 mg twice daily 2 days ago. I do suspect azotemia, and component of tubular necrosis. Additional concerns were unfounded. Additional testing will be deferred to hospitalist, however hemolysis, leukemia, were also considered. Flow cytometry/haptoglobin/Estella/peripheral smear will be deferred to hospitalist. Lab Data 10/09/24 16:22 10/09/24 16:22 Labs/Radiology: Radiology Impressions Chest X-Ray 10/09/24 16:07 IMPRESSION: 1. Blunting of the costophrenic angles suggestive of small pleural effusions. 2. Mild cardiomegaly. Abdomen/Pelvis CT 10/09/24 17:26 IMPRESSION: 1. No acute hysterectomy findings in the abdomen or pelvis. 2. Colonic diverticulosis without CT evidence of acute diverticulitis. 3. Moderate to severe atrophy of both kidneys. Stable cystic and indeterminate lesions in both kidneys. The indeterminate lesions can be better evaluated with nonemergent renal ultrasound or renal protocol MRI if clinically warranted. 4. Small bilateral pleural effusions. 5. Diffuse mild body wall edema suggestive of 3rd spacing of fluid. COMMENTS: Consistent with the [employer]'s Incidental Findings Committee white paper (J Am Jabari Radiol 2018): Any incidental renal lesion less than 1 cm or classified as too small to characterize, or any incidental cystic renal lesion characterized as simple-appearing, is likely benign. No follow-up imaging is recommended for these lesions per consensus recommendations based on imaging criteria. Laboratory Results WBC 11.50 10^3/uL (3.29-11.43) H 10/09/24 16:22 RBC 2.37 10^6/uL (3.85-5.65) L 10/09/24 16:22 Hgb 6.50 g/dL (11.27-16.99) L* 10/09/24 16:22 Hct 21.5 % (36-47) L 10/09/24 16:22 MCV 90.7 fl (85-98) 10/09/24 16:22 MCH 27.4 pg (27-33) 10/09/24 16:22 MCHC 30.2 g/dL (30-55) 10/09/24 16:22 RDW 15.4 % (12.1-15.1) H 10/09/24 16:22 Plt Count 245 10^3/cmm (157-399) 10/09/24 16:22 MPV 8.7 fL (7.4-10.4) 10/09/24 16:22 Neut % (Auto) 82.6 % 10/09/24 16:22 Lymph % (Auto) 4.9 % 10/09/24 16:22 [place] % (Auto) 7.5 % 10/09/24 16:22 Eos % (Auto) 0.9 % 10/09/24 16:22 Baso % (Auto) 0.3 % 10/09/24 16:22 Reticulocyte % (Auto) 5.0 % (0.5-2.0) H 10/09/24 19:37 Neut # (Auto) 9.50 10^3/uL (1.8-7.7) H 10/09/24 16:22 Lymph # (Auto) 0.6 10^3/uL (0.8-4.8) L 10/09/24 16:22 [place] # (Auto) 0.9 10^3/uL (0.2-0.9) 10/09/24 16:22 Eos # (Auto) 0.1 10^3/uL (0.0-0.8) 10/09/24 16:22 Baso # (Auto) 0.0 10^3/uL (0.0-0.1) 10/09/24 16:22 Nucleated RBC % (auto) 0.2 % 10/09/24 16:22 Nucleated RBCs # 0.0 /100WBC 10/09/24 16:22 Haptoglobin 220.0 mg/L (30-200) H 10/09/24 19:37 PT 14.30 SECONDS (12.1-14.9) 10/09/24 16:22 INR 1.03 (0.8-1.2) 10/09/24 16:22 APTT 31.8 SECONDS (23.9-36.7) 10/09/24 16:22 Sodium 130 mmol/L (136-145) L 10/09/24 16:22 Potassium 4.7 mmol/L (3.5-5.1) 10/09/24 16:22 Chloride 94 mmol/L (98-107) L 10/09/24 16:22 Carbon Dioxide 21 mmol/L (22-29) L 10/09/24 16:22 Anion Gap 19.7 (5-19) H 10/09/24 16:22 BUN 68 mg/dL (8-23) H 10/09/24 16:22 Creatinine 3.4 mg/dL (0.5-0.9) H 10/09/24 16:22 GFR Calculation Not Reportable 10/09/24 16:22 Glucose 93 mg/dL (65-115) 10/09/24 16:22 POC Glucose 94 mg/dL (70-110) 10/09/24 21:31 Calculated Osmolality 289 mOsm/kg (285-295) 10/09/24 16:22 Lactic Acid 1.4 mmol/L (0.5-2.2) 10/09/24 16:22 Calcium 8.0 mg/dL (8.5-10.5) L 10/09/24 16:22 Iron 54 ug/dL (37-145) 10/09/24 19:37 TIBC 310 mcg/dl 10/09/24 19:37 % Saturation 17.4 % (20-50) L 10/09/24 19:37 Unsat Iron Binding 256 ug/dL (112-347) 10/09/24 19:37 Transferrin 236 mg/dL (200-360) 10/09/24 16:22 Ferritin 126 ng/mL (15-150) 10/09/24 19:37 Total Bilirubin 0.2 mg/dL (0.15-1.2) 10/09/24 16:22 AST 12 U/L (0-32) 10/09/24 16:22 ALT 10 U/L (0-33) 10/09/24 16:22 Alkaline Phosphatase 75 U/L (35-105) 10/09/24 16:22 Troponin T Baseline 45 ng/L (0-10) H 10/09/24 16:22 Troponin T 120 Minute 45.34 ng/L (0-10) H 10/09/24 18:33 Delta Troponin T 0.34 ABS# (0-10) 10/09/24 18:33 NT-Pro-B Natriuret Pep 27106 pg/mL (0-125) H 10/09/24 16:22 Total Protein 6.7 g/dL (6.6-8.7) 10/09/24 16:22 Albumin 3.5 g/dL (3.5-5.2) 10/09/24 16:22 Globulin 3.2 g/dL (1.3-4.6) 10/09/24 16:22 Vitamin B12 707 pg/mL (232-1245) 10/09/24 19:37 Folate 11.0 ng/mL (4.8-37.3) 10/09/24 16:22 TSH 2.45 uIU/mL (0.27-4.20) 10/09/24 19:37 Free T4 1.26 ng/dL (0.82-1.77) 10/09/24 19:37 Urine Color Yellow (Yellow) 10/09/24 18:07 Urine Appearance Clear (CLEAR) 10/09/24 18:07 Urine pH 5.0 (5-7) 10/09/24 18:07 Ur Specific [place] 1.009 (1.005-1.030) 10/09/24 18:07 Urine Protein 3+ (Negative) A 10/09/24 18:07 Urine Glucose (UA) Negative (Normal) 10/09/24 18:07 Urine Ketones Negative (Negative) 10/09/24 18:07 Urine Blood Negative (Negative) 10/09/24 18:07 Urine Nitrate Negative (Negative) 10/09/24 18:07 Urine Bilirubin Negative (Negative) 10/09/24 18:07 Urine Urobilinogen 0.2 mg/dL (Negative) 10/09/24 18:07 Ur Leukocyte Esterase 1+ (Negative) A 10/09/24 18:07 Urine RBC 0-2 /hpf (0-2) 10/09/24 18:07 Urine WBC 6-10 /hpf (0-5) 10/09/24 18:07 Ur Squamous Epith Cells 6-10 /hpf (0-5) 10/09/24 18:07 Amorphous Sediment Not Reportable 10/09/24 18:07 Urine Bacteria None seen /hpf (NONE) 10/09/24 18:07 Hyaline Casts 17.77 /lpf 10/09/24 18:07 Influenza A (PCR) Negative (Negative) 10/09/24 20:44 Influenza Type B (PCR) Negative (Negative) 10/09/24 20:44 RSV (PCR) Negative (Negative) 10/09/24 20:44 SARS-CoV-2 (PCR) Negative (Negative) 10/09/24 20:44 Blood Type A Positive 10/09/24 17:17 Rho(D) Type Rh positive 10/09/24 17:17 Antibody Screen Negative 10/09/24 17:17 Crossmatch See Detail 10/09/24 17:17 XR interpretation done by ED provider, pending radiology final review ED provider radiology interpretation(s): CT of the abdomen?no acute findings Chest x-ray?no acute findings Discharge Plan Discharge Patient Disposition: Admitted As Inpatient Clinical Impression: ABLA (acute blood loss anemia), DM type 2 (diabetes mellitus, type 2), HTN (hypertension), Chronic kidney disease, Elevated serum creatinine, Leukocytosis Condition: Stable Coding Level of Care Code ED [employer] for [address] [address]
[2024-10-09 22:06] LABS: Free T4 Free Thyroxine 1.26 ng/dL (0.82-1.77)
[2024-10-09] MEDS: dextrose 10% 250 ML 999 ML IV (22:18)
[2024-10-09 23:00] LABS: Glucose Point of Care 150 mg/dL (70-110)
[2024-10-09 23:57] LABS: Glucose Point of Care 125 mg/dL (70-110)
--- NOTE | 2024-10-09 23:58 | ECG_ITS ---
[employer] Test Date: 2024-10-09 Pat Name: Terese Yates Department: Room: ICU08 Gender: Female Lehr Operator: : 1950 Requested By: Keke Rogers Order Number: [id number] Reading MD: YAAKOV SALEEM Measurements Intervals [place] Rate: 64 P: 81 DC: 174 QRS: -34 QRSD: 103 T: 47 QT: 417 QTc: 433 Interpretive Statements SINUS RHYTHM LEFT AXIS DEVIATION [QRS AXIS < -30] POSSIBLE ANTERIOR MYOCARDIAL INFARCTION , PROBABLY OLD [30 ms Q WAVE IN V3/V4, OR R < 0.2 mV IN V4] Compared to ECG 10/09/2024 19:28:25 Left-axis deviation now present Sinus bradycardia no longer present Sinus arrhythmia no longer present Myocardial infarct finding still present Electronically Signed On 10-10-2024 23:38:57 CDT by YAAKOV SALEEM [email or web address]
[2024-10-10] VITALS (38 sets, daily range): BP systolic 112–226; BP diastolic 40–122; PULSE 59–71; RESP 10–25; TEMP 36.3–37.2; O2SAT 90–96
[2024-10-10 00:44] LABS: Glucose Point of Care 104 mg/dL (70-110)
[2024-10-10 01:36] LABS: Hematocrit 24.8 % (36-47)
[2024-10-10] MEDS: hyDRALAzine 20 mg/mL INJ 1 mL 10 MG IVP (01:55)
[2024-10-10 01:57] LABS: Lactic Sepsis W/Reflex 1.2 mmol/L (0.5-2.2)
[2024-10-10 02:00] LABS: Glucose Point of Care 138 mg/dL (70-110)
[2024-10-10 03:18] LABS: Glucose Point of Care 130 mg/dL (70-110)
--- NOTE | 2024-10-10 03:48 | USCV_ITS ---
Terese Yates Age: 73 Gender: F : 1950 Exam Date: 10/10/2024 04:23 Ordering Phys: Vilma Taylor MD Technologist: SHERWIN Exam Location: [facility] [place] Indication: dyspnea, IDDM2, hypoxia 86% on room air. BP: 172 / 102 HR: 63 Rhythm: Sinus Technical Quality: Adequate MEASUREMENTS (Male / Female) Normal Values 2D ECHO LV Diastolic Diameter PLAX 4.3 cm 4.2 - 5.9 / 3.9 - 5.3 cm IVS Diastolic Thickness 1.4 cm 0.6 - 1.0 / 0.6 - 0.9 cm IVS Systolic Thickness 1.8 cm LVPW Diastolic Thickness 1.5 cm 0.6 - 1.0 / 0.6 - 0.9 cm LVPW Systolic Thickness 2.2 cm LVOT Diameter 1.8 cm LV Ejection Fraction 2D Teich 60.0 % LV Ejection Fraction MOD 4C 62.8 % LV Ejection Fraction MOD 2C 56.4 % LV Ejection Fraction 2C AL 55.6 % LA Diameter 4.1 cm LA Sys Volume AL 97.5 cm cubed LA Sys Volume Index AL 40.5 cm cubed/m squared Aorta at Sinotubular Diameter 3.1 cm IVC Diameter 2.0 cm M-MODE LA Ao Ratio MM 1.8 AV Cusp Separation MM 1.8 cm DOPPLER AV Peak Velocity 129.0 cm/s LVOT Peak Velocity 71.0 cm/s AV Area Cont Eq vti 1.5 cm squared AV Area Cont Eq pk 1.4 cm squared MV Peak Velocity 157.0 cm/s MV Area PHT 4.1 cm squared Mitral E to A Ratio 2.1 TV Peak Velocity 309.5 cm/s TR Peak Velocity 342.0 cm/s TR Peak Gradient 46.8 mmHg TV Peak E Velocity 85.0 cm/s PV Peak Velocity 116.0 cm/s FINDINGS Left Ventricle Normal left ventricular size, systolic function and wall thickness, with no regional wall motion abnormalities. Left ventricular ejection fraction is estimated at 60 %. Grade II/IV diastolic dysfunction, moderately elevated filling pressures. Right Ventricle The right ventricle is normal in size and function. Right Atrium The right atrium is normal in size. Left Atrium Mildly increased left atrial size. Mitral Valve Thickened mitral valve. No mitral valve stenosis. Severe mitral valve regurgitation. mitral valve regurgitation. Aortic Valve Structurally normal aortic valve without significant sclerosis or stenosis. There is no aortic regurgitation. Tricuspid Valve Thickened tricuspid valve. No tricuspid valve stenosis. Moderate tricuspid valve regurgitation. Pulmonic Valve Mild pulmonary valve regurgitation. Pericardium Normal pericardium without effusion. Aorta Normal ascending aorta dimension. IVC The inferior vena cava appears normal. CONCLUSIONS Normal left ventricular size, systolic function and wall thickness, with no regional wall motion abnormalities. Left ventricular ejection fraction is estimated at 60 %. Grade II/IV diastolic dysfunction, moderately elevated filling pressures. Mildly increased left atrial size. Thickened mitral valve. No mitral valve stenosis. Severe mitral valve regurgitation. mitral valve regurgitation. Thickened tricuspid valve. No tricuspid valve stenosis. Moderate tricuspid valve regurgitation. There is no pericardial effusion. Right atrial pressure is around 5 mm of mercury. Franck Barrow MD (Electronically Signed) Final Date: 10 Oct 2024 16:50 Amended: 10 Oct 2024 16:50 C
[2024-10-10 04:24] LABS: Glucose Point of Care 136 mg/dL (70-110)
[2024-10-10 06:04] LABS: Basophils # 0.1 10^3/uL (0.0-0.1); Basophils % 0.4 %; Eosinophils # 0.1 10^3/uL (0.0-0.8); Hematocrit 23.9 % (36-47); Lymphocytes # 0.5 10^3/uL (0.8-4.8); Lymphocytes % 4.5 %; Mean Corpuscular HGB Conc 31.4 g/dL (30-55); Mean Corpuscular Hemoglobin 28.1 pg (27-33); Mean Corpuscular Volume 89.5 fl (85-98); Mean Platelet Volume 8.3 fL (7.4-10.4); Monocytes # 1.2 10^3/uL (0.2-0.9); Monocytes % 10.1 %; Neutrophils # 9.33 10^3/uL (1.8-7.7); Neutrophils % 79.1 %; Nucleated Red Blood Cells % 0.3 %; Platelet Count 240 10^3/cmm (157-399); Red Blood Count 2.67 10^6/uL (3.85-5.65)
[2024-10-10] MEDS: pantoprazole DR 40 mg Tablet PO (06:31)
[2024-10-10 06:32] LABS: Alanine Aminotransferase 9 U/L (0-33); Albumin Level 3.7 g/dL (3.5-5.2); Alkaline Phosphatase 82 U/L (35-105); Anion Gap 19.7 (5-19); Aspartate Amino Transferase 10 U/L (0-32); Blood Urea Nitrogen 65 mg/dL (8-23); Calcium 8.2 mg/dL (8.5-10.5); Carbon Dioxide 21 mmol/L (22-29); Chloride 95 mmol/L (98-107); Creatinine Clr Calc Pharmacy 19.7138; Globulin 3.2 g/dL (1.3-4.6); Glucose 128 mg/dL (65-115); Magnesium 2.2 mg/dL (1.7-2.3); Osmolality Calculated 292 mOsm/kg (285-295); Phosphorus 5.4 mg/dL (2.5-4.5); Potassium 4.7 mmol/L (3.5-5.1); Sodium 131 mmol/L (136-145); Total Bilirubin 0.6 mg/dL (0.15-1.2); Total Protein 6.9 g/dL (6.6-8.7)
[2024-10-10 07:52] LABS: Glucose Point of Care 152 mg/dL (70-110)
--- NOTE | 2024-10-10 10:38 | P.PN_ITS ---
Subjective 2 Subjective: seen today hb 7.5 this am on 2L NC Vitals/I&O/Wt Last Vital Signs Temp 98.4 F 10/10/24 09:00 Pulse 68 10/10/24 10:00 Resp 17 10/10/24 10:00 BP 150/53 10/10/24 10:00 Pulse Ox 94 10/10/24 10:00 O2 Del Method Nasal Cannula 10/10/24 10:00 O2 Flow Rate 2 10/10/24 10:00 10/09/24 10/10/24 10/10/24 22:59 06:59 14:59 Intake Total 600 / 600 490 / 1090 240 / 240 Output Total 850 / 850 Balance 600 / 600 -360 / 240 240 / 240 Weight last 48 hrs Weight 110 kg Weight 110 kg Weight 116 kg Weight 108.862 kg Physical Exam 2 Narrative: GENERAL APPEARANCE: No acute distress, AO x 3 HENT: HEAD & SCALP: normocephalic and atraumatic; Eye: PERRL, EOMI, pale conjunctiva b/l Resp: no use of accessory muscles, CTAB, no w/r/r Cardio: RRR, no m/r/g, or clicks. GI: normoactive bowel sounds, non-tender, soft, no guarding Extremity: No clubbing, No cyanosis, 3+ pitting edema Neuro: AO to person, place and time. Non focal Urinary Catheter Management: Smith: Cath Placed During This Visit: yes Reason for Continuing Indwelling Catheter: Accurate Measurement of Urinary Output in Critically Ill Patients Urinary Catheter Date of Insertion: 10/09/24 Urinary Catheter Time of Insertion: 23:57 Data 10/10/24 05:53 10/10/24 05:53 Micro: Microbiology 10/10/24 01:18 Blood Culture - Preliminary Blood SPECIMEN COLLECTED 10/10/24 01:10 Blood Culture - Preliminary Blood SPECIMEN COLLECTED A&P Assessment and plan (1) Acute exacerbation of congestive heart failure: (2) Acute on chronic blood loss anemia: (3) Altered mental status: (4) Acute hypoxic respiratory failure: Plan Terese Yates is a 73 yo woman w/ IDDM 2 w/ diabetic nephropathy, chronic HFpEF, Paroxysmal Afib, & CKD who was sent to the ED on 10/09/2024 for increased weakness and abnormal labs. From chart review, she was seen on 10/08/2024 at her PCPs office with increased dyspnea and edema, but no CP. On admission, it became apparent that she is lethargic and dyspneic with minimal movements. #Acute on chronic blood loss anemia: Deemed to be due to CKD by Nephrology on the 04/14/2024 consultation note; however, in the setting of a recent history of SAH and subdural hematoma, with patient still on aspirin and Plavix, we will obtain a CT head. #Anemia of chronic disease in the setting of #Iron deficiency - noted on iron studies. Plan for oral vs IV iron later. #Acute hypoxic respiratory failure: Normally not on O2 at home. On 2L NC here. #Acute on chronic HFpEF: Given the level of vol overload and very mild crackles in the R. LL on physical exam, I am not convinced that this her typical diastolic CHF. This is more likely high output heart failure due to her anemia in the setting of worsening renal function. - Hold Lasix tonight unless needed. F/u ECHO, TSH. #HTN: Hold po meds #HLD: Hold Po meds. #CKD: Consider Nephrology consult. #Proteinuria: noted on UA. Possibly due to Diabetic nephropathy, based on Nephrology note in 03/2025. #AMS (Lethargic): #hx of a small frontal subarachnoid hemorrhage and anterior midline subdural hematoma due to a fall on 08/16/2024. -Multifactorial including hypoglycemia but in the setting of her brain bleed in 08/16/2024nd her continuing aspirin and plavix, will obtain a CT head #Hypothermia: Unclear reason. Continue Barehugger. Ordered BCx. I have a Low threshold for Broadspectrum abx, if hypothermia does not improve, but based on CXR, CT abd/pelvis, and UA, I do not have a potential source of infection, so I am holding empiric abx initiation at this point. #Hypoglycemia: She took her 40units of insulin glargine this AM. Hypoglycemia protocol ordered. Admit to ICU and start D10 drip if BG falls to <100. #IDDM2: Hold Insulin at this time. 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 Carotid artery stent - Hold aspirin and plavix and AC. #Paroxysmal Afib s/p ablation in 06/2021: Place on telemonitoring. #Hx of R. breast cancer s/p partial mastectomy, chemo, radiation #Hx of residual peripheral neuropathy due to her chemotherapy for her breast cancer DVT ppx: SCD Most if not all of her medications have been held at this time. 10/10/2024 continue mgmt as per Hnp consult nephrology for GEE CT head: No large territorial infarct or intracranial bleed. CT abd: 1. No acute hysterectomy findings in the abdomen or pelvis. 2. Colonic diverticulosis without CT evidence of acute diverticulitis. 3. Moderate to severe atrophy of both kidneys. Stable cystic and indeterminate lesions in both kidneys. The indeterminate lesions can be better evaluated with nonemergent renal ultrasound or renal protocol MRI if clinically warranted. 4. Small bilateral pleural effusions. 5. Diffuse mild body wall edema suggestive of 3rd spacing of fluid. continue lasix 40 iv BID check iron studies echo pending continue telemetry I will cover with empiric antibiotics at this time and de-escalate later on I believe patient is in heart failure exacerbation with bilateral lower extremity edema. She takes Lasix 80 mg twice daily at home. I will continue on Lasix 40 IV twice daily at this time. Order echo. Mental status improved compared to last night. Continue to monitor at this time. Able to transfer to cardiac stepdown unit PDMP PDMP Reviewed: Not Reviewed Attestations 2 Medical Necessity Statement*: The patient is to be hospitalized for greater than 2 midnights for her altered mental status, acute on chronic blood loss anemia, acute hypoxic respiratory failure, hypothermia, hypoglycemia. Diagnoses Acute exacerbation of congestive heart failure I50.9 Acute on chronic blood loss anemia D62 Altered mental status R41.82 Acute hypoxic respiratory failure J96.01
[2024-10-10 11:10] LABS: Ferritin 160 ng/mL (15-150); Iron 173 ug/dL (37-145); Percent Saturation 56.5 % (20-50); Total Iron Binding Capacity 306 mcg/dl; Unsaturated Iron Binding 133 ug/dL (112-347)
[2024-10-10] MEDS: cefepime 1,000 mg SDV 1000 MG IVP (11:12)
[2024-10-10] MEDS: FUROsemide 10 mg/mL SDV 4mL 40 MG IVP (11:12)
[2024-10-10] MEDS: vancomycin 1,500 MG/300 ML PIGGYBACK 200 MG IV (11:13)
[2024-10-10 13:11] LABS: Glucose Point of Care 255 mg/dL (70-110)
--- NOTE | 2024-10-10 15:13 | P.CONIM_ITS ---
Providers/Reason For Consult 2 Consulting Physician/Specialty*: shay stevens md/ telenephrology Reason for Consult*: GEE on CKD Requesting Physician: Dr Chely Shaffer Attending Physician: Chely Shaffer MD Primary Care Provider: Jan Kirk MD History of Present Illness History of Present Illness Terese Yates is a 73 year old female who was admitted with heart failure exacerbation. The patient has a history of insulin-dependent diabetes mellitus type 2 with diabetic retinopathy neuropathy and nephropathy she has history of heart failure preserved EF with diastolic dysfunction paroxysmal atrial fibrillation. Her CKD history as her creatinine was approximate 1.5 to 1.8 mg/dL for years and over the last year is increased to the mid twos. And now comes in with acute kidney injury. When the patient was admitted she was found to be short of breath anemic with a hemoglobin of 6.5 she was given blood and furosemide and renal was asked to see the patient.. Please note the patient required oxygen which she does not use at home. The patient has a history of a subdural hematoma and subarachnoid hemorrhage. The patient has CT scan that showed moderate to severe atrophy of both kidneys stable cystic and indeterminate lesions in both kidneys also showed bilateral pleural effusions. The patient had an echo today showing an EF of 60% with grade 2 out of 4 diastolic dysfunction however with moderately elevated filling pressures, moderate tricuspid regurgitation moderate pulm hypertension Review of Systems 2 Narrative: Patient is weak lethargic short of breath dyspneic leg edema cough cold nausea not feeling well denies bloody stools. Poor appetite chest discomfort. Medications/Allergies Home Medications ?Medication ?Instructions ?Recorded ?Confirmed ?Last Taken ?Type albuterol sulfate 90 mcg/actuation 2 puff inhalation Q 6H PRN 12/26/23 10/10/24 Unknown Rx aerosol inhaler (Ventolin HFA) shortness of breath or wheezing #8.5 grams duloxetine 60 mg capsule,delayed 60 mg PO DAILY #90 ca ps 01/24/24 10/10/24 10/09/24 Rx release hydralazine 50 mg tablet 100 mg (2 x 50 mg) PO TID #1 80 tabs 08/14/24 10/10/24 10/09/24 Rx amlodipine 10 mg tablet 10 mg PO DAILY 09/04/2409/2610/09/24 History clopidogrel 75 mg tablet 75 mg PO DAILY 09/04/2409/2610/09/24 History ferrous sulfate 325 mg (65 mg 325 mg PO TID 09/04/24 0 10/10/24 10/09/24 History iron) tablet (FeroSul) simvastatin 40 mg tablet 40 mg PO DAILY 09/04/2409/2610/09/24 History blood-glucose sensor (Dexcom G6 #3 ea 09/19/24 5 Unknown Rx Sensor device) blood-glucose transmitter (Dexcom #1 ea 09/19/2410/10 Unknown Rx G6 Transmitter device) blood-glucose,freezer tunnel operator,cont #1 ea 09/19/24 10/10/24 Un known Rx (Dexcom G6 Manufacturing Technology Professor) carvedilol 25 mg tablet 25 mg PO BID #60 tabs 10/10/24 10/09/24 Rx furosemide 40 mg tablet 80 mg (2 x 40 mg) PO BID #12 0 tabs 10/08/24 10/10/24 10/09/24 Rx empagliflozin 10 mg tablet 10 mg PO DAILY 10/10/2410/09/24 History (Jardiance) gabapentin 100 mg capsule 200 mg PO TID 10/10/2410/1010/09/24 History insulin glargine 100 unit/mL (3 See Rx Instructions .R oute .COMPLEX 10/10/24 10/10/24 10/09/24 History mL) subcutaneous pen (Lantus Solostar U-100 Insulin) Allergies Allergy/AdvReac Type Severity Reaction Status Date / Time Penicillins Allergy ALGY-Hives Verified 10/09/24 16:14 Current Medications Generic Name Dose Route Start Last Admin Trade Name Freq PRN Reason Stop Dose Admin Cefepime HCl 1,000 mg 10/10/24 11:10/10/24 11:12 Cefepime 1,000 Mg Sdv IVP 1,000 mg Q24H CAROLINE Administration Protocol Furosemide 40 mg 10/10/24 11:10/10/24 11:12 Furosemide 10 Mg/Ml Sdv 4ml IVP 40 mg Q12H CAROLINE Administration Hydralazine HCl 10 mg 10/10/24 01:20 10/10/24 01:55 Hydralazine 20 Mg/Ml Inj 1 Ml IVP 10 mg Q4H PRN Administration HYPERTENSION Pantoprazole Sodium 40 mg 10/10/24 06:00 10/10/24 06:[address] 40 Mg Tablet PO 40 mg QAM CAROLINE Administration PFSH Acute 2 PFSH: Medical History History of stroke with residual deficit Positive cardiac stress test Chronic kidney disease Hyperlipidemia Cardiomyopathy Ejection fraction 50% on echocardiogram Atrial fibrillation Depression Right leg swelling HTN (hypertension) Peripheral neuropathy DM type 2 (diabetes mellitus, type 2) Breast cancer Presence of internal carotid stent CVA (cerebral vascular accident) Diabetes COVID-19 Surgical History History of prior ablation treatment History of removal of Port-a-Cath Hx of total hip arthroplasty History of cataract surgery H/O partial mastectomy R Family History Mother CAD (coronary artery disease) Social History Smoking and tobacco/nicotine status: never used tobacco/nicotine Substance/Drug Use: never Vitals/I&O/Wt Last Vital Signs Temp 98.2 F 10/10/24 11:00 Pulse 61 10/10/24 14:00 Resp 17 10/10/24 14:00 BP 149/121 10/10/24 14:00 Pulse Ox 92 10/10/24 14:00 O2 Del Method Nasal Cannula 10/10/24 14:00 O2 Flow Rate 2 10/10/24 14:00 10/10/24 10/10/24 10/10/24 06:59 14:59 22:59 Intake Total 490 / 1090 720 / 720 Output Total 850 / 850 Balance -360 / 240 720 / 720 Weight last 48 hrs Weight 110 kg Weight 110 kg Weight 116 kg Weight 108.862 kg Physical Exam 2 Narrative: Patient sitting up short of breath using oxygen. Blood pressure noted. HEENT normocephalic atraumatic. Neck is supple with JVP. Lungs crackles bilaterally. Heart regular positive systolic murmur. Abdomen soft positive bowel sounds. Extremities bilateral edema Neuro awake alert oriented x 2+ moving all extremities. Urinary Catheter Management: Smith: Cath Placed During This Visit: yes Reason for Continuing Indwelling Catheter: Accurate Measurement of Urinary Output in Critically Ill Patients Urinary Catheter Date of Insertion: 10/09/24 Urinary Catheter Time of Insertion: 23:57 Data 10/10/24 05:53 10/10/24 05:53 Micro: Microbiology 10/10/24 01:18 Blood Culture - Preliminary Blood SPECIMEN COLLECTED 10/10/24 01:10 Blood Culture - Preliminary Blood SPECIMEN COLLECTED A&P Assessment and plan (1) Acute kidney injury superimposed on CKD: 73 year old female who was admitted with heart failure exacerbation. The patient has a history of insulin-dependent diabetes mellitus type 2 with diabetic retinopathy neuropathy and nephropathy she has history of heart failure preserved EF with diastolic dysfunction paroxysmal atrial fibrillation. Her CKD history as her creatinine was approximate 1.5 to 1.8 mg/dL for years and over the last year is increased to the mid twos. And now comes in with acute kidney injury. When the patient was admitted she was found to be short of breath anemic with a hemoglobin of 6.5 she was given blood and furosemide and renal was asked to see the patient. 1. CKD progressive renal failure with creatinine in the mid twos giving her CKD stage IV with proteinuria most likely from diabetes and cardiorenal syndrome. Please note that in May 2024 she had a normal serum protein electrophoresis immunofixation without an M spike, no monoclonal protein found. In March 2024 her urine protein creatinine ratio was was 3.97 which is consistent with diabetic disease. Will also check urine albumin creatinine ratio. The patient's kidneys appear atrophic and to have CKD on renal imaging. 2. Acute on chronic renal failure likely from progression of CKD and from cardiorenal syndrome. 3. Heart failure preserved EF exacerbation -recommend loop diuretic for diuresis at this time. 4. Full anemia evaluation-her iron saturation is 56% she is not iron deficient that she only has a ferritin of 160. Will give Epogen. And would recommend giving blood. We will check iron studies. 5. Hyponatremia likely from CHF. We can check urine electrolytes. Normal TSH of 2.45. Can check cortisol level. 6. Non-anion gap metabolic acidosis. From CKD monitor for diarrhea. 7. Diabetic control. 8. Antibiotics as per hospitalist. Please monitor vancomycin level if she needs any. The patient was seen and examined with the aid of A/V equipment and aid of a nurse. The patient consented to telehealth. Will follow the patient closely along with you. Patient is critically ill. Plan IV diuresis. Monitor labs. PDMP PDMP Reviewed: Not Reviewed Consult Attestations 2 Medical Necessity Statement: Acute on chronic heart failure preserved EF exacerbation with acute on chronic renal failure exacerbation Time Spent in Patient Care: Greater than 35 minutes (>than 50% of time spent in counselling and/or direct pt care on unit) . Coding Level of Care Code Acute Code for Chg Fwd Diagnoses Acute kidney injury superimposed on CKD N17.9; N18.9
[2024-10-10 15:48] LABS: Reticulocyte % 4.4 % (0.5-2.0)
[2024-10-10 16:37] LABS: Lactate Dehydrogenase 287 U/L (135-214); Uric Acid 9.1 mg/dL (2.4-5.7)
[2024-10-10] MEDS: FUROsemide 10 mg/mL SDV 4mL 80 MG IVP (16:45)
[2024-10-10 16:53] LABS: Vitamin B12 744 pg/mL (232-1245)
[2024-10-10 17:02] LABS: Bilirubin Urine Negative (Negative); Blood Urine 2+ (Negative); Glucose Urine UA Negative (Normal); Ketones Urine Negative (Negative); Leukocyte Esterase Urine Trace (Negative); Nitrate Urine Negative (Negative); Protein Urine 2+ (Negative); Specific Gravity, Urine 1.006 (1.005-1.030); Urine Appearance Clear (CLEAR); Urine Color Yellow (Yellow); Urobilinogen Urine 0.2 mg/dL (Negative); pH Urine 5.5 (5-7)
[2024-10-10 17:04] LABS: Folate Level 8.1 ng/mL (4.8-37.3)
[2024-10-10 17:04] LABS: Bacteria Urine None Seen /hpf; Hyaline Casts Urine 4.11 /lpf; RBC Urine 21-50 /hpf (0-2); Squamous Epithelial Cell Urine 0-5 /hpf (0-5); WBC Urine 0-5 /hpf (0-5)
[2024-10-10 17:07] LABS: Add Urine Culture? Yes
[2024-10-10 17:33] LABS: Potassium, Radom Urine 14 mmol/L; Urine Random Chloride 47 mmol/L; Urine Random Sodium 54 mmol/L
[2024-10-10 17:46] LABS: Glucose Point of Care 216 mg/dL (70-110)
[2024-10-10] MEDS: nicardipine 20 MG/200 ML PREMIX 50 MG IV ×2 (18:01→21:22)
--- NOTE | 2024-10-10 20:22 | PHA.VACGOAL ---
Vancomycin Goal - Goal Vancomycin Goal:: 10-15 mg/L Vancomycin Indication:: Other (EMPIRIC THERAPY) - Therapy Day of therpy:: Day []of [] . Actual body weight (kg): 242 lb 8.136 oz - Data Labs: WBC 11.80 10^3/uL (3.29-11.43) H 10/10/24 05:53 RBC 2.67 10^6/uL (3.85-5.65) L 10/10/24 05:53 Hgb 7.50 g/dL (11.27-16.99) L 10/10/24 05:53 Hct 23.9 % (36-47) L 10/10/24 05:53 MCV 89.5 fl (85-98) 10/10/24 05:53 MCH 28.1 pg (27-33) 10/10/24 05:53 MCHC 31.4 g/dL (30-55) 10/10/24 05:53 RDW 15.0 % (12.1-15.1) 10/10/24 05:53 Sodium 131 mmol/L (136-145) L 10/10/24 05:53 Potassium 4.7 mmol/L (3.5-5.1) 10/10/24 05:53 Chloride 95 mmol/L (98-107) L 10/10/24 05:53 Carbon Dioxide 21 mmol/L (22-29) L 10/10/24 05:53 Anion Gap 19.7 (5-19) H 10/10/24 05:53 BUN 65 mg/dL (8-23) H 10/10/24 05:53 Creatinine 3.4 mg/dL (0.5-0.9) H 10/10/24 05:53 GFR Calculation Not Reportable 10/10/24 05:53 Last dialysis session:: N/A Treatment plan:: new consult Regimen:: INITIAL LOADING DOSE OF 1500 MG PER DOSING PROTOCOL. WILL PULSE DOSE INTERMITTENTLY DUE TO RENAL FUNCTION. PLAN FOR LEVEL 24 HOURS POST LOADING DOSE. Follow up:: TROUGH 10/11 @1100
[2024-10-10 21:38] LABS: Glucose Point of Care 299 mg/dL (70-110)
--- NOTE | 2024-10-10 21:56 | PC.NURSE ---
Blood glucose 299. Dr. Taylor notified. New telephone order for 5 units insulin lispro subcutaneous x1.
[2024-10-10 22:17] LABS: Hepatitis C Virus Antibody Non-Reactive (Nonreactive)
[2024-10-10] MEDS: insulin lispro 100 unit/1 mL SUBCUT (22:18)
[2024-10-11] VITALS (48 sets, daily range): BP systolic 101–201; BP diastolic 57–123; PULSE 55–100; RESP 8–28; TEMP 35.9–37.6; O2SAT 79–98
[2024-10-11] MEDS: nicardipine 20 MG/200 ML PREMIX 50 MG IV ×5 (02:48→22:37)
[2024-10-11] MEDS: FUROsemide 10 mg/mL SDV 4mL 80 MG IVP ×2 (04:19→15:49)
[2024-10-11] MEDS: pantoprazole DR 40 mg Tablet PO (05:44)
[2024-10-11 05:59] LABS: Basophils # 0.1 10^3/uL (0.0-0.1); Basophils % 0.5 %; Eosinophils # 0.3 10^3/uL (0.0-0.8); Eosinophils % 2.1 %; Hematocrit 25.6 % (36-47); Lymphocytes # 0.5 10^3/uL (0.8-4.8); Lymphocytes % 3.4 %; Mean Corpuscular HGB Conc 30.1 g/dL (30-55); Mean Corpuscular Hemoglobin 27.2 pg (27-33); Mean Corpuscular Volume 90.5 fl (85-98); Mean Platelet Volume 8.6 fL (7.4-10.4); Monocytes # 1.2 10^3/uL (0.2-0.9); Monocytes % 8.4 %; Neutrophils # 11.57 10^3/uL (1.8-7.7); Nucleated Red Blood Cells # 0.1 /100WBC; Nucleated Red Blood Cells % 0.4 %; Platelet Count 274 10^3/cmm (157-399); Red Blood Count 2.83 10^6/uL (3.85-5.65); Red Cell Distribution Width 15.4 % (12.1-15.1); White Blood Count 14.12 10^3/uL (3.29-11.43)
[2024-10-11 06:10] LABS: Alanine Aminotransferase 8 U/L (0-33); Albumin Level 3.6 g/dL (3.5-5.2); Alkaline Phosphatase 79 U/L (35-105); Anion Gap 17.6 (5-19); Aspartate Amino Transferase 7 U/L (0-32); Blood Urea Nitrogen 72 mg/dL (8-23); Calcium 8.4 mg/dL (8.5-10.5); Carbon Dioxide 22 mmol/L (22-29); Chloride 96 mmol/L (98-107); Creatinine Clr Calc Pharmacy 18.6082; Glucose 173 mg/dL (65-115); Magnesium 2.1 mg/dL (1.7-2.3); Osmolality Calculated 297 mOsm/kg (285-295); Phosphorus 5.8 mg/dL (2.5-4.5); Potassium 4.6 mmol/L (3.5-5.1); Sodium 131 mmol/L (136-145); Total Bilirubin 0.4 mg/dL (0.15-1.2); Total Protein 6.6 g/dL (6.6-8.7)
[2024-10-11 06:13] LABS: Calcium 8.3 mg/dL (8.5-10.5)
[2024-10-11 06:20] LABS: Parathyroid Hormone 393.8 pg/mL (15-65)
--- NOTE | 2024-10-11 07:29 | PM.PN ---
Subjective Subjective: was SOB overnight and orthopnea. good diuresis. weak. poor appetite. no cp Medications: Reviewed: Yes Medication Review Details: Current Medications Acetaminophen (Acetaminophen 325 Mg Tablet) 650 mg PO Q6H PRN PRN Reason: Mild/Mod Pain Or Temp >/= 101 Hydrocodone Bitart/Acetaminophen (Hydrocodone-Acetaminophen 5-325 Mg Tablet) 1 tab PO Q4H PRN PRN Reason: MODERATE TO SEVERE PAIN Cefepime HCl (Cefepime 1,000 Mg Sdv) 1,000 mg IVP Q24H CAROLINE; Protocol Last Admin: 10/10/24 11:12 Dose: 1,000 mg Furosemide (Furosemide 10 Mg/Ml Sdv 4ml) 80 mg IVP Q12H CAROLINE Last Admin: 10/11/24 04:19 Dose: 80 mg Glucagon (Glucagon 1 Mg/Ml Kit 1 Ml) 1 mg IM ONCE PRN; Protocol PRN Reason: Adult Acute Hypoglycemia Nursing Prot. Hydralazine HCl (Hydralazine 20 Mg/Ml Inj 1 Ml) 10 mg IVP Q4H PRN PRN Reason: HYPERTENSION Last Admin: 10/10/24 01:55 Dose: 10 mg Dextrose (D5w) 500 mls @ 0 mls/hr IV ONCE PRN; Protocol PRN Reason: Adult Acute Hypoglycemia Prot Dextrose (D10w) 125 mls @ 750 mls/hr IV PRN PRN; Protocol PRN Reason: Adult Acute Hypoglycemia Nursing Protocol Dextrose (D10w) 250 mls @ 1,000 mls/hr IV PRN PRN; Protocol PRN Reason: Adult Acute Hypoglycemia Nursing Protocol Nicardipine/Sodium Chloride (Cardene) 20 mg in 200 mls @ 0 mls/hr IV .Q0M CAROLINE; Protocol Last Admin: 10/11/24 06:25 Dose: 5 mg/hr, 50 mls/hr Metolazone (Metolazone 5 Mg Tablet) 5 mg PO DAILY CAROLINE Naloxone HCl (Naloxone 0.4 Mg/Ml Sdv) 0.1 mg IVP Q2M PRN PRN Reason: OPIATERV Ondansetron HCl (Ondansetron 2 Mg/Ml Sdv 2 Ml) 4 mg IVP Q6H PRN PRN Reason: vomiting, or N/V if npo Ondansetron HCl (Ondansetron 4 Mg Tablet) 4 mg PO Q6H PRN PRN Reason: NAUSEA Pantoprazole Sodium (Pantoprazole Dr 40 Mg Tablet) 40 mg PO QAM [facility] Last Admin: 10/11/24 05:44 Dose: 40 mg Vancomycin HCl (Vancomycin 1,000 Mg Sdv (Pharmacy Mix)) 0 mg XX PRN PRN PRN Reason: Pharmacy to Dose Vitals/I&O/Wt Last Vital Signs Temp 98.3 F 10/11/24 04:00 Pulse 72 10/11/24 04:30 Resp 16 10/11/24 04:30 BP 169/75 10/11/24 04:30 Pulse Ox 97 10/11/24 04:30 O2 Del Method Nasal Cannula 10/11/24 04:30 O2 Flow Rate 3 10/11/24 04:30 10/10/24 10/11/24 10/11/24 22:59 06:59 14:59 Intake Total 1024.167 / 1744.167 354.999 / 2099.166 Output Total 2100 / 2100 2180 / 4280 Balance -1075.833 / -355.833 -1825.001 / -2180.834 Weight last 48 hrs Weight 110 kg Weight 110 kg Weight 116 kg Weight 108.862 kg Physical Exam Narrative: in bed, VS noted, using N C oxygen.less sob then yesterday Blood pressure noted on cardene drip HEENT normocephalic atraumatic. Neck is supple with JVP. Lungs crackles bilaterally. Heart regular positive systolic murmur. Abdomen soft positive bowel sounds. Extremities bilateral edema improving Neuro awake alert oriented x 3 moving all extremities. Urinary Catheter Management: Smith: Cath Placed During This Visit: yes Reason for Continuing Indwelling Catheter: Accurate Measurement of Urinary Output in Critically Ill Patients Urinary Catheter Date of Insertion: 10/09/24 Urinary Catheter Time of Insertion: 23:57 Data 10/11/24 05:23 10/11/24 05:23 Micro: Microbiology 10/10/24 01:18 Blood Culture - Preliminary Blood NEGATIVE TO DATE 10/10/24 01:10 Blood Culture - Preliminary Blood NEGATIVE TO DATE A&P Assessment and plan (1) Acute kidney injury superimposed on CKD: 73 year old female who was admitted with heart failure exacerbation. The patient has a history of insulin-dependent diabetes mellitus type 2 with diabetic retinopathy neuropathy and nephropathy she has history of heart failure preserved EF with diastolic dysfunction paroxysmal atrial fibrillation. Her CKD history as her creatinine was approximate 1.5 to 1.8 mg/dL for years and over the last year is increased to the mid twos. And now comes in with acute kidney injury. When the patient was admitted she was found to be short of breath anemic with a hemoglobin of 6.5 she was given blood and furosemide and renal was asked to see the patient. 1. CKD progressive renal failure with creatinine at baselinein the mid twos giving her CKD stage IV with proteinuria most likely from diabetes and cardiorenal syndrome. Please note that in May 2024 she had a normal serum protein electrophoresis immunofixation without an M spike, no monoclonal protein found. In March 2024 her urine protein creatinine ratio was was 3.97 which is consistent with diabetic disease. Will also check urine albumin creatinine ratio. The patient's kidneys appear atrophic and to have CKD on renal imaging. -u/a w/ hematuria- send kalee, anca, anti gbm, hep serologies 1b. htn- add metolazone and aldactone- wean off cardene drip w/ diuresis add amlodipine, spironolactone and diuresis wean off cardene drip 2. Acute on chronic renal failure likely from progression of CKD and from cardiorenal syndrome. -cr appears to be stablizing 3. Heart failure preserved EF exacerbation -sob- continue loop diuretics we/ metolazone for diuresis at this time. -will also give a dose of aldactone 4. Full anemia evaluation-her iron saturation is 56% she is not iron deficient that she only has a ferritin of 160. Will give Epogen. And would recommend giving blood. -total bili 0.4 unlikely hemolysis 5. Hyponatremia likely from CHF. elevated ur na noted Normal TSH of 2.45. Can check cortisol level. 6. mild anion gap metabolic acidosis. From CKD monitor for diarrhea. 7. Diabetic control. 8. Antibiotics as per hospitalist. Please monitor vancomycin level if she needs any. The patient was seen and examined with the aid of A/V equipment and aid of a nurse. The patient consented to telehealth. Will follow the patient closely along with you. Patient is critically ill. -discussed w. hospitalist and RN multiple times Plan IV diuresis. BP control Monitor labs. PDMP PDMP Reviewed: Not Reviewed Attestations Medical Necessity Statement*: htn urgency, acute on chronic diastolic dysfunction and wilfred on ckd, very SOB Time Spent in Patient Care: Greater than 35 minutes (>than 50% of time spent in counselling and/or direct pt care on unit). Coding Level of Care Code Acute Code for Chg Fwd Diagnoses Acute kidney injury superimposed on CKD N17.9; N18.9
[2024-10-11 07:30] LABS: Glucose Point of Care 198 mg/dL (70-110)
--- NOTE | 2024-10-11 07:52 | ECG_ITS ---
[facility]: 2024[facility]11 Pat Name: Terese Yates Department: Room: [facility] Gender: Female Desktop Architect: : [id number] Requested By: Chely Shaffer Order Number: [id number] Jermain MD: Arya Jacobson M.D. Measurements Intervals [place] Rate: 72 P: 85 UT: 156 QRS: -28 QRSD: 110 T: 91 QT: 425 QTc: 467 Interpretive Statements SINUS RHYTHM WITH OCCASIONAL VENTRICULAR PREMATURE COMPLEXES POSSIBLE ANTERIOR MYOCARDIAL INFARCTION , PROBABLY OLD Compared to ECG 10/09/2024 23:58:52 Ventricular premature complex(es) now present Left-axis deviation no longer present Myocardial infarct finding still present Electronically Signed On 10-11-2024 08:57:13 CDT by Arya Jacobson M.D. [email or web address]
[2024-10-11] MEDS: metOLazone 5 MG Tablet PO (08:23)
[2024-10-11] MEDS: HYDROcodone-acetaminophen 5-325 mg Tablet 1 TAB PO (08:24)
[2024-10-11] MEDS: spironolactone 25 mg Tablet PO (08:24)
[2024-10-11] MEDS: amlodipine 5 mg Tablet PO (08:24)
[2024-10-11 10:57] LABS: Vancomycin Trough 11.9 ug/mL (10-15)
[2024-10-11 10:58] LABS: Troponin T (5th) Once 44 ng/L (0-10)
[2024-10-11 11:00] LABS: Complement C3 124 mg/dL (90-180)
[2024-10-11 11:05] LABS: Glucose Point of Care 292 mg/dL (70-110)
[2024-10-11] MEDS: cefepime 1,000 mg SDV 1000 MG IVP (11:11)
[2024-10-11 11:22] LABS: Hepatitis C Virus Antibody Non-Reactive (Nonreactive)
[2024-10-11 11:33] LABS: Hepatitis B Core AB, Total Non-Reactive (Nonreactive); Hepatitis B Surface AB < 3.5 (11.5-1000); Hepatitis B Surface Antigen Non-Reactive (Nonreactive)
[2024-10-11 12:09] LABS: PROTEIN, TOTAL 6.2 g/dL (6.1-8.1)
--- NOTE | 2024-10-11 12:24 | P.PN_ITS ---
Subjective 2 Subjective: seen this morning no acute events overnight wbc 14.12 hb 7.70 cr 3.5 bun 72 laying in bed, states she is having some chest pain middle of chest, ekg ordered and reviewed, no acute ischemic changes, trop ordered. cardiology notified. chest pain somewhat reproducible to palpation Vitals/I&O/Wt Last Vital Signs Temp 99.6 F 10/11/24 09:00 Pulse 100 10/11/24 11:38 Resp 18 10/11/24 10:00 BP 101/60 10/11/24 10:00 Pulse Ox 93 10/11/24 11:38 O2 Del Method Nasal Cannula 10/11/24 11:38 O2 Flow Rate 3 10/11/24 11:38 10/10/24 10/11/24 10/11/24 22:59 06:59 14:59 Intake Total 1024.167 / 1744.167 354.999 / 2099.166 445.00 / 445.00 Output Total 2100 / 2100 2180 / 4280 500 / 500 Balance -1075.833 / -355.833 -1825.001 / -2180.834 -55.00 / -55.00 Weight last 48 hrs Weight 110 kg Weight 110 kg Weight 110 kg Weight 110 kg Weight 116 kg Weight 108.862 kg Physical Exam 2 Narrative: GENERAL APPEARANCE: No acute distress, AO x 3 HENT: HEAD & SCALP: normocephalic and atraumatic; Eye: PERRL, EOMI, pale conjunctiva b/l Resp: no use of accessory muscles, CTAB, no w/r/r Cardio: RRR, no m/r/g, or clicks. GI: normoactive bowel sounds, non-tender, soft, no guarding Extremity: No clubbing, No cyanosis, 2+ pitting edema Neuro: AO to person, place and time. Non focal Urinary Catheter Management: Smith: Cath Placed During This Visit: yes Reason for Continuing Indwelling Catheter: Accurate Measurement of Urinary Output in Critically Ill Patients Urinary Catheter Date of Insertion: 10/09/24 Urinary Catheter Time of Insertion: 23:57 Data 10/11/24 05:23 10/11/24 05:23 Micro: Microbiology 10/10/24 01:18 Blood Culture - Preliminary Blood NEGATIVE TO DATE 10/10/24 01:10 Blood Culture - Preliminary Blood NEGATIVE TO DATE A&P Assessment and plan (1) Acute exacerbation of congestive heart failure: (2) Acute on chronic blood loss anemia: (3) Altered mental status: (4) Acute hypoxic respiratory failure: Plan Terese Yates is a 73 yo woman w/ IDDM 2 w/ diabetic nephropathy, chronic HFpEF, Paroxysmal Afib, & CKD who was sent to the ED on 10/09/2024 for increased weakness and abnormal labs. From chart review, she was seen on 10/08/2024 at her PCPs office with increased dyspnea and edema, but no CP. On admission, it became apparent that she is lethargic and dyspneic with minimal movements. #Acute on chronic blood loss anemia: Deemed to be due to CKD by Nephrology on the 04/14/2024 consultation note; however, in the setting of a recent history of SAH and subdural hematoma, with patient still on aspirin and Plavix, we will obtain a CT head. #Anemia of chronic disease in the setting of #Iron deficiency - noted on iron studies. Plan for oral vs IV iron later. #Acute hypoxic respiratory failure: Normally not on O2 at home. On 2L NC here. #Acute on chronic HFpEF: Given the level of vol overload and very mild crackles in the R. LL on physical exam, I am not convinced that this her typical diastolic CHF. This is more likely high output heart failure due to her anemia in the setting of worsening renal function. - Hold Lasix tonight unless needed. F/u ECHO, TSH. #HTN: Hold po meds #HLD: Hold Po meds. #CKD: Consider Nephrology consult. #Proteinuria: noted on UA. Possibly due to Diabetic nephropathy, based on Nephrology note in 03/2025. #AMS (Lethargic): #hx of a small frontal subarachnoid hemorrhage and anterior midline subdural hematoma due to a fall on 08/16/2024. -Multifactorial including hypoglycemia but in the setting of her brain bleed in 08/16/2024nd her continuing aspirin and plavix, will obtain a CT head #Hypothermia: Unclear reason. Continue Barehugger. Ordered BCx. I have a Low threshold for Broadspectrum abx, if hypothermia does not improve, but based on CXR, CT abd/pelvis, and UA, I do not have a potential source of infection, so I am holding empiric abx initiation at this point. #Hypoglycemia: She took her 40units of insulin glargine this AM. Hypoglycemia protocol ordered. Admit to ICU and start D10 drip if BG falls to <100. #IDDM2: Hold Insulin at this time. 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 Carotid artery stent - Hold aspirin and plavix and AC. #Paroxysmal Afib s/p ablation in 06/2021: Place on telemonitoring. #Hx of R. breast cancer s/p partial mastectomy, chemo, radiation #Hx of residual peripheral neuropathy due to her chemotherapy for her breast cancer DVT ppx: SCD Most if not all of her medications have been held at this time. 10/10/2024 continue mgmt as per Hnp consult nephrology for GEE CT head: No large territorial infarct or intracranial bleed. CT abd: 1. No acute hysterectomy findings in the abdomen or pelvis. 2. Colonic diverticulosis without CT evidence of acute diverticulitis. 3. Moderate to severe atrophy of both kidneys. Stable cystic and indeterminate lesions in both kidneys. The indeterminate lesions can be better evaluated with nonemergent renal ultrasound or renal protocol MRI if clinically warranted. 4. Small bilateral pleural effusions. 5. Diffuse mild body wall edema suggestive of 3rd spacing of fluid. continue lasix 40 iv BID check iron studies echo pending continue telemetry I will cover with empiric antibiotics at this time and de-escalate later on I believe patient is in heart failure exacerbation with bilateral lower extremity edema. She takes Lasix 80 mg twice daily at home. I will continue on Lasix 40 IV twice daily at this time. Order echo. Mental status improved compared to last night. Continue to monitor at this time. Able to transfer to cardiac stepdown unit 10/11/2024 cr starting to stabalize follow nephro recs cardiorenal syndrome continue on lasix 80 iv bid continue cefepime and vancomycin continue spironalactone requires further IV diuresis chest pain most likely musculoskeletal, repdroducible to palpation, check trop, ekg non ischemic may transfer to csu PDMP PDMP Reviewed: Not Reviewed Attestations 2 Medical Necessity Statement*: The patient is to be hospitalized for greater than 2 midnights for her altered mental status, acute on chronic blood loss anemia, acute hypoxic respiratory failure, hypothermia, hypoglycemia. Diagnoses Acute exacerbation of congestive heart failure I50.9 Acute on chronic blood loss anemia D62 Altered mental status R41.82 Acute hypoxic respiratory failure J96.01
[2024-10-11] MEDS: vancomycin 500 MG in sodium chloride 0.9% (plus) 100 ML 200 MG IV (14:59)
[2024-10-11 16:44] LABS: Anti-Double Strand DNA AB <1 IU/mL
[2024-10-11] MEDS: carvedilol 6.25 mg Tablet PO (17:19)
[2024-10-11] MEDS: amlodipine 10 mg Tablet PO (17:19)
[2024-10-11 21:58] LABS: Glucose Point of Care 310 mg/dL (70-110)
[2024-10-11] MEDS: insulin lispro 100 unit/1 mL SUBCUT (22:53)
[2024-10-12] VITALS (31 sets, daily range): BP systolic 120–177; BP diastolic 53–109; PULSE 55–97; RESP 7–22; TEMP 36.3–36.8; O2SAT 91–99
[2024-10-12] MEDS: nicardipine 20 MG/200 ML PREMIX 30 MG IV (02:58)
[2024-10-12] MEDS: FUROsemide 10 mg/mL SDV 4mL 80 MG IVP ×2 (04:05→16:05)
[2024-10-12 04:28] LABS: Basophils # 0.1 10^3/uL (0.0-0.1); Basophils % 0.4 %; Eosinophils # 0.4 10^3/uL (0.0-0.8); Hematocrit 24.8 % (36-47); Lymphocytes # 0.5 10^3/uL (0.8-4.8); Lymphocytes % 3.5 %; Mean Corpuscular HGB Conc 29.8 g/dL (30-55); Mean Corpuscular Hemoglobin 27.4 pg (27-33); Mean Corpuscular Volume 91.9 fl (85-98); Mean Platelet Volume 8.8 fL (7.4-10.4); Monocytes # 1.2 10^3/uL (0.2-0.9); Monocytes % 9.4 %; Neutrophils # 10.38 10^3/uL (1.8-7.7); Neutrophils % 81.2 %; Nucleated Red Blood Cells % 0 %; Platelet Count 226 10^3/cmm (157-399); Red Cell Distribution Width 15.8 % (12.1-15.1); White Blood Count 12.79 10^3/uL (3.29-11.43)
[2024-10-12 04:52] LABS: Alanine Aminotransferase 8 U/L (0-33); Albumin Level 3.6 g/dL (3.5-5.2); Alkaline Phosphatase 77 U/L (35-105); Anion Gap 18.6 (5-19); Aspartate Amino Transferase 5 U/L (0-32); Blood Urea Nitrogen 78 mg/dL (8-23); Calcium 8.3 mg/dL (8.5-10.5); Carbon Dioxide 23 mmol/L (22-29); Chloride 97 mmol/L (98-107); Creatinine Clr Calc Pharmacy 18.6082; Globulin 2.5 g/dL (1.3-4.6); Glucose 241 mg/dL (65-115); Magnesium 2.1 mg/dL (1.7-2.3); Osmolality Calculated 309 mOsm/kg (285-295); Phosphorus 6.2 mg/dL (2.5-4.5); Potassium 4.6 mmol/L (3.5-5.1); Sodium 134 mmol/L (136-145); Total Bilirubin 0.3 mg/dL (0.15-1.2); Total Protein 6.1 g/dL (6.6-8.7)
[2024-10-12 04:54] LABS: Vancomycin Random 16.4 ug/mL (20.0-40.0)
[2024-10-12] MEDS: pantoprazole DR 40 mg Tablet PO (05:47)
--- NOTE | 2024-10-12 08:21 | P.PN_ITS ---
Subjective 2 Subjective: Blood pressure remains elevated. Patient had chest tightness yesterday. Patient doing better. The patient is on Cardene drip. Patient denies nausea or vomiting. Denies headaches at this time Medications: Reviewed: Yes Medication Review Details: Current Medications Acetaminophen (Acetaminophen 325 Mg Tablet) 650 mg PO Q6H PRN PRN Reason: Mild/Mod Pain Or Temp >/= 101 Hydrocodone Bitart/Acetaminophen (Hydrocodone-Acetaminophen 5-325 Mg Tablet) 1 tab PO Q4H PRN PRN Reason: MODERATE TO SEVERE PAIN Last Admin: 10/11/24 08:24 Dose: 1 tab Amlodipine Besylate (Amlodipine 10 Mg Tablet) 10 mg PO DAILY CAROLINE Last Admin: 10/11/24 17:19 Dose: 10 mg Carvedilol (Carvedilol 6.25 Mg Tablet) 6.25 mg PO BID CAROLINE Last Admin: 10/11/24 17:19 Dose: 6.25 mg Cefepime HCl (Cefepime 1,000 Mg Sdv) 1,000 mg IVP Q24H CAROLINE; Protocol Last Admin: 10/11/24 11:11 Dose: 1,000 mg Furosemide (Furosemide 10 Mg/Ml Sdv 4ml) 80 mg IVP Q12H CAROLINE Last Admin: 10/12/24 04:05 Dose: 80 mg Glucagon (Glucagon 1 Mg/Ml Kit 1 Ml) 1 mg IM ONCE PRN; Protocol PRN Reason: Adult Acute Hypoglycemia Nursing Prot. Nicardipine/Sodium Chloride (Cardene) 20 mg in 200 mls @ 0 mls/hr IV .Q0M CAROLINE; Protocol Last Titration: 10/12/24 05:15 Dose: 2.5 mg/hr, 25 mls/hr Dextrose (D5w) 500 mls @ 0 mls/hr IV ONCE PRN; Protocol PRN Reason: Adult Acute Hypoglycemia Prot Dextrose (D10w) 125 mls @ 750 mls/hr IV PRN PRN; Protocol PRN Reason: Adult Acute Hypoglycemia Nursing Protocol Dextrose (D10w) 250 mls @ 1,000 mls/hr IV PRN PRN; Protocol PRN Reason: Adult Acute Hypoglycemia Nursing Protocol Insulin Human Lispro (Insulin Lispro 100 Unit/1 Ml) 0 unit SUBCUT TIDWM CAROLINE; Protocol Insulin Human Lispro (Insulin Lispro 100 Unit/1 Ml) 0 unit SUBCUT BEDTIME CAROLINE; Protocol Last Admin: 10/11/24 22:53 Dose: 7 unit Metolazone (Metolazone 5 Mg Tablet) 5 mg PO DAILY [facility] Last Admin: 10/11/24 08:23 Dose: 5 mg Naloxone HCl (Naloxone 0.4 Mg/Ml Sdv) 0.1 mg IVP Q2M PRN PRN Reason: OPIATERV Ondansetron HCl (Ondansetron 2 Mg/Ml Sdv 2 Ml) 4 mg IVP Q6H PRN PRN Reason: vomiting, or N/V if npo Ondansetron HCl (Ondansetron 4 Mg Tablet) 4 mg PO Q6H PRN PRN Reason: NAUSEA Pantoprazole Sodium (Pantoprazole Dr 40 Mg Tablet) 40 mg PO QAM [facility] Last Admin: 10/12/24 05:47 Dose: 40 mg Spironolactone (Spironolactone 25 Mg Tablet) 25 mg PO DAILY [facility] Last Admin: 10/11/24 08:24 Dose: 25 mg Vancomycin HCl (Vancomycin 1,000 Mg Sdv (Pharmacy Mix)) 0 mg XX PRN PRN PRN Reason: Pharmacy to Dose Vitals/I&O/Wt Last Vital Signs Temp 97.4 F L 10/12/24 04:00 Pulse 65 10/12/24 06:00 Resp 11 L 10/12/24 06:00 BP 159/109 10/12/24 06:00 Pulse Ox 92 10/12/24 06:00 O2 Del Method Nasal Cannula 10/12/24 06:00 O2 Flow Rate 2 10/12/24 06:00 10/11/24 10/12/24 10/12/24 22:59 06:59 14:59 Intake Total 463.750 / 940.000 748.5 / 1688.500 Output Total 850 / 1750 1500 / 3250 Balance -386.250 / -810.000 -751.5 / -1561.500 Weight last 48 hrs Weight 110.5 kg Weight 110.5 kg Weight 110 kg Weight 110 kg Physical Exam 2 Narrative: in bed, VS noted, using NC oxygen. Comfortable not short of breath. Blood pressure noted on cardene drip-rate decreased to 2.5. HEENT normocephalic atraumatic. Neck is supple with JVP. Lungs crackles bilaterally. Heart regular positive systolic murmur. Abdomen soft positive bowel sounds. Extremities bilateral edema improving Neuro awake alert oriented x 3 moving all extremities. Urinary Catheter Management: Smith: Cath Placed During This Visit: yes Reason for Continuing Indwelling Catheter: Accurate Measurement of Urinary Output in Critically Ill Patients Urinary Catheter Date of Insertion: 10/09/24 Urinary Catheter Time of Insertion: 23:57 Data 10/12/24 03:57 10/12/24 03:57 A&P Assessment and plan (1) Acute kidney injury superimposed on CKD: 73 year old female who was admitted with heart failure exacerbation. The patient has a history of insulin-dependent diabetes mellitus type 2 with diabetic retinopathy neuropathy and nephropathy she has history of heart failure preserved EF with diastolic dysfunction paroxysmal atrial fibrillation. Her CKD history as her creatinine was approximate 1.5 to 1.8 mg/dL for years and over the last year is increased to the mid twos. And now comes in with acute kidney injury. When the patient was admitted she was found to be short of breath anemic with a hemoglobin of 6.5 she was given blood and furosemide and renal was asked to see the patient. 1. CKD progressive renal failure with creatinine at baselinein the mid twos giving her CKD stage IV with proteinuria most likely from diabetes and cardiorenal syndrome. Please note that in May 2024 she had a normal serum protein electrophoresis immunofixation without an M spike, no monoclonal protein found. In March 2024 her urine protein creatinine ratio was was 3.97 which is consistent with diabetic disease. Will also check urine albumin creatinine ratio. The patient's kidneys appear atrophic and to have CKD on renal imaging. -u/a w/ hematuria- send kalee, anca, anti gbm, hep serologies 1b. htn-continue amlodipine Coreg metolazone and spironolactone. - wean off cardene drip w/ diuresis wean off cardene drip 2. Acute on chronic renal failure likely from progression of CKD and from cardiorenal syndrome. -cr appears to be stablizing 3. Heart failure preserved EF exacerbation -sob- continue loop diuretics we/ metolazone for diuresis at this time. -Continue aldactone 4. Full anemia evaluation-her iron saturation is 56% she is not iron deficient that she only has a ferritin of 160. Will give Epogen. And would recommend giving blood. -total bili 0.4 unlikely hemolysis 5. Hyponatremia likely from CHF. elevated ur na noted Normal TSH of 2.45. Can check cortisol level. 6. 7. Diabetic control. 8. Antibiotics as per hospitalist. Please monitor vancomycin level if she needs any. The patient was seen and examined with the aid of A/V equipment and aid of a nurse. The patient consented to telehealth. Will follow the patient closely along with you. Patient is critically ill. -discussed w. hospitalist and RN multiple times Plan IV diuresis. BP control and Monitor labs. PDMP PDMP Reviewed: Not Reviewed Attestations 2 Medical Necessity Statement*: htn Time Spent in Patient Care: 16 - 35 minutes (>than 50% of time sp ent in counselling and/or direct pt care on unit) . Coding Level of Care Code Acute Code for Chg Fwd Diagnoses Acute kidney injury superimposed on CKD N17.9; N18.9
[2024-10-12 08:33] LABS: Glucose Point of Care 194 mg/dL (70-110)
[2024-10-12] MEDS: metOLazone 5 MG Tablet PO (09:05)
[2024-10-12] MEDS: carvedilol 6.25 mg Tablet PO ×2 (09:05→17:26)
[2024-10-12] MEDS: spironolactone 25 mg Tablet PO (09:05)
[2024-10-12] MEDS: insulin lispro 100 unit/1 mL SUBCUT ×4 (09:05→21:15)
[2024-10-12] MEDS: amlodipine 10 mg Tablet PO (09:05)
[2024-10-12] MEDS: cefepime 1,000 mg SDV 1000 MG IVP (11:06)
[2024-10-12 11:20] LABS: Glucose Point of Care 246 mg/dL (70-110)
[2024-10-12 11:30] LABS: ALBUMIN 3.3 g/dL (3.8-4.8); ALPHA 1 GLOBULIN 0.4 g/dL (0.2-0.3); BETA 1 GLOBULIN 0.4 g/dL (0.4-0.6); BETA 2 GLOBULIN 0.3 g/dL (0.2-0.5); GAMMA GLOBULIN 0.7 g/dL (0.8-1.7)
--- NOTE | 2024-10-12 15:30 | PC.NURSE ---
Report called to C[facility] for room 105. Report given to ANGELES Benito. Eliz to be admin then pt will be transferred
--- NOTE | 2024-10-12 16:19 | PC.NURSE ---
This nurse called to notify of tranfer to room 105. Answering machine picked up, left message with call back number.
[2024-10-12 17:11] LABS: Glucose Point of Care 212 mg/dL (70-110)
--- NOTE | 2024-10-12 18:48 | P.PN_ITS ---
Vitals/I&O/Wt Last Vital Signs Temp 97.8 F 10/12/24 14:00 Pulse 73 10/12/24 18:00 Resp 13 10/12/24 18:00 BP 154/84 10/12/24 18:00 Pulse Ox 97 10/12/24 18:00 O2 Del Method Nasal Cannula 10/12/24 15:00 O2 Flow Rate 2 10/12/24 15:00 10/12/24 10/12/24 10/12/24 06:59 14:59 22:59 Intake Total 748.5 / 1688.500 726.667 / 726.667 Output Total 1500 / 3250 1400 / 1400 850 / 2250 Balance -751.5 / -1561.500 -673.333 / -673.333 -850 / -1523.333 Weight last 48 hrs Weight 110.5 kg Weight 110.5 kg Weight 110 kg Weight 110 kg Physical Exam 2 Narrative: GENERAL APPEARANCE: No acute distress, AO x 3 Resp: no use of accessory muscles, CTAB, no w/r/r Cardio: RRR, no Murmurs clicks gallops or rubs GI: normoactive bowel sounds, non-tender, soft, no guarding Extremity: 2+ pitting edema Urinary Catheter Management: Smith: Cath Placed During This Visit: yes Reason for Continuing Indwelling Catheter: Accurate Measurement of Urinary Output in Critically Ill Patients Urinary Catheter Date of Insertion: 10/09/24 Urinary Catheter Time of Insertion: 23:57 Data 10/12/24 03:57 10/12/24 03:57 Micro: Microbiology 10/10/24 16:30 Urine Culture - Final Urine,Clean Catch A&P Assessment and plan (1) Acute exacerbation of congestive heart failure: Patient being successfully diuresed. With the assistance of nephrology she is now on metolazone and Aldactone Norvasc spironolactone and Lasix. (2) Anemia in stage 5 chronic kidney disease: Patient received 1 unit of PRBCs. She does not want another transfusion at this time will follow. Patient was given a dose of Epogen by nephrology will asked them to be dose as indicated. (3) Acute hypoxic respiratory failure: Patient is close to her baseline oxygen status of 2 L at home. Will continue to monitor (4) Acute kidney injury superimposed on CKD: Kidney function has stabilized as of today will continue to follow. Plan Patient was a [facility] status and has now officially been moved to [facility] this afternoon. Patient is working with physical therapy and getting up to bed to chair PDMP PDMP Reviewed: Not Reviewed Attestations 2 Medical Necessity Statement*: The patient is to be hospitalized for greater than 2 midnights for her altered mental status, acute on chronic blood loss anemia, acute hypoxic respiratory failure, hypothermia, hypoglycemia. Coding Level of Care Code Acute Code for [facility] Fwd Diagnoses Acute exacerbation of congestive heart failure I50.9 Anemia in stage 5 chronic kidney disease N18.5; D63.1 Acute hypoxic respiratory failure J96.01 Acute kidney injury superimposed on CKD N17.9; N18.9
[2024-10-12 20:11] LABS: Glucose Point of Care 255 mg/dL (70-110)
[2024-10-13] VITALS (11 sets, daily range): BP systolic 153–185; BP diastolic 60–98; PULSE 67–90; RESP 15–20; TEMP 36.3–37.1; O2SAT 93–97
[2024-10-13] MEDS: FUROsemide 10 mg/mL SDV 4mL 80 MG IVP ×2 (02:51→15:52)
[2024-10-13 05:12] LABS: Basophils % 0.3 %; Eosinophils # 0.4 10^3/uL (0.0-0.8); Eosinophils % 3.1 %; Hematocrit 22.4 % (36-47); Lymphocytes # 0.5 10^3/uL (0.8-4.8); Lymphocytes % 3.9 %; Mean Corpuscular HGB Conc 31.3 g/dL (30-55); Mean Corpuscular Hemoglobin 28.3 pg (27-33); Mean Corpuscular Volume 90.7 fl (85-98); Mean Platelet Volume 8.7 fL (7.4-10.4); Monocytes # 1.1 10^3/uL (0.2-0.9); Monocytes % 9.5 %; Neutrophils # 9.62 10^3/uL (1.8-7.7); Neutrophils % 81.7 %; Nucleated Red Blood Cells % 0 %; Platelet Count 219 10^3/cmm (157-399); Red Blood Count 2.47 10^6/uL (3.85-5.65); Red Cell Distribution Width 15.8 % (12.1-15.1); White Blood Count 11.78 10^3/uL (3.29-11.43)
[2024-10-13] MEDS: pantoprazole DR 40 mg Tablet PO (05:14)
[2024-10-13 05:37] LABS: Vancomycin Random 13.8 ug/mL (20.0-40.0)
[2024-10-13 05:39] LABS: Alanine Aminotransferase 6 U/L (0-33); Albumin Level 3.2 g/dL (3.5-5.2); Alkaline Phosphatase 68 U/L (35-105); Anion Gap 20.4 (5-19); Aspartate Amino Transferase 6 U/L (0-32); Carbon Dioxide 23 mmol/L (22-29); Chloride 100 mmol/L (98-107); Globulin 2.1 g/dL (1.3-4.6); Glucose 204 mg/dL (65-115); Phosphorus 5.5 mg/dL (2.5-4.5); Potassium 4.4 mmol/L (3.5-5.1); Sodium 139 mmol/L (136-145); Total Bilirubin 0.2 mg/dL (0.15-1.2); Total Protein 5.3 g/dL (6.6-8.7)
[2024-10-13 05:54] LABS: Blood Urea Nitrogen 73 mg/dL (8-23); Calcium 8.5 mg/dL (8.5-10.5); Creatinine Clr Calc Pharmacy 20.4021; Magnesium 1.8 mg/dL (1.7-2.3); Osmolality Calculated 315 mOsm/kg (285-295)
[2024-10-13 05:59] LABS: Glucose Point of Care 218 mg/dL (70-110)
--- NOTE | 2024-10-13 06:03 | PC.NURSE ---
Contacted the physician about a hemoglobin of 7.0, patients hemoglobin has been dropping since she recieved a unit of blood on 10/09. Physician notified and no orders received at this time.
[2024-10-13] MEDS: vancomycin 500 MG in sodium chloride 0.9% (plus) 100 ML 200 MG IV (08:14)
[2024-10-13] MEDS: insulin lispro 100 unit/1 mL SUBCUT ×4 (08:14→20:59)
[2024-10-13] MEDS: spironolactone 25 mg Tablet PO (08:14)
[2024-10-13] MEDS: metOLazone 5 MG Tablet PO (08:15)
[2024-10-13] MEDS: amlodipine 10 mg Tablet PO (08:15)
[2024-10-13] MEDS: carvedilol 6.25 mg Tablet PO ×2 (08:15→18:06)
[2024-10-13] MEDS: albumin 25 G/100 ML BAG 60 G IV (10:33)
[2024-10-13 12:10] LABS: Glucose Point of Care 275 mg/dL (70-110)
--- NOTE | 2024-10-13 15:37 | P.PN_ITS ---
Subjective 2 Subjective: no new c/o Medications: Reviewed: Yes Vitals/I&O/Wt Last Vital Signs Temp 98.4 F 10/13/24 12:00 Pulse 81 10/13/24 12:00 Resp 18 10/13/24 12:00 BP 161/87 10/13/24 12:00 Pulse Ox 94 10/13/24 12:00 O2 Del Method Nasal Cannula 10/13/24 12:00 O2 Flow Rate 2 10/13/24 12:00 10/13/24 10/13/24 10/13/24 06:59 14:59 22:59 Intake Total 300 / 1426.667 440 / 440 Output Total 2200 / 6050 Balance -1900 / -4623.333 440 / 440 Weight last 48 hrs Weight 110.631 kg Weight 110.5 kg Weight 110.5 kg Physical Exam 2 Narrative: in bed, VS noted, using NC oxygen. Comfortable not short of breath. Blood pressure noted on cardene drip-rate decreased to 2.5. HEENT normocephalic atraumatic. Neck is supple with JVP. Lungs crackles bilaterally. Heart regular positive systolic murmur. Abdomen soft positive bowel sounds. Extremities bilateral edema improving Neuro awake alert oriented x 3 moving all extremities. Urinary Catheter Management: Smith: Cath Placed During This Visit: yes Reason for Continuing Indwelling Catheter: Accurate Measurement of Urinary Output in Critically Ill Patients Urinary Catheter Date of Insertion: 10/09/24 Urinary Catheter Time of Insertion: 23:57 Data 10/13/24 04:39 10/13/24 04:39 Micro: Microbiology 10/10/24 16:30 Urine Culture - Final Urine,Clean Catch A&P Assessment and plan (1) Acute kidney injury superimposed on CKD: 73 year old female who was admitted with heart failure exacerbation. The patient has a history of insulin-dependent diabetes mellitus type 2 with diabetic retinopathy neuropathy and nephropathy she has history of heart failure preserved EF with diastolic dysfunction paroxysmal atrial fibrillation. Her CKD history as her creatinine was approximate 1.5 to 1.8 mg/dL for years and over the last year is increased to the mid twos. And now comes in with acute kidney injury. When the patient was admitted she was found to be short of breath anemic with a hemoglobin of 6.5 she was given blood and furosemide and renal was asked to see the patient. 1. CKD with progressive renal failure with creatinine at baseline in the mid twos giving her CKD stage IV with proteinuria most likely from diabetes and cardiorenal syndrome. Please note that in May 2024 she had a normal serum protein electrophoresis immunofixation without an M spike, no monoclonal protein found. In March 2024 her urine protein creatinine ratio was was 3.97 which is consistent with diabetic disease. Will also check urine albumin creatinine ratio. The patient's kidneys appear atrophic and to have CKD on renal imaging. -u/a w/ hematuria- send kalee, anca, anti gbm, hep serologies - Cr stable in 3 range currently 1b. htn-continue amlodipine Coreg metolazone and spironolactone. -s/p cardene gtt 2. Acute on chronic renal failure likely from progression of CKD and from cardiorenal syndrome. -cr appears to be stablizing 3. Heart failure preserved EF exacerbation -sob- continue loop diuretics we/ metolazone for diuresis at this time. -Continue aldactone 4. Full anemia evaluation-her iron saturation is 56% she is not iron deficient that she only has a ferritin of 160. Will give Epogen. And would recommend giving blood. -total bili 0.4 unlikely hemolysis 5. Hyponatremia likely from CHF. improved with diuresis The patient was seen and examined with the aid of A/V equipment and aid of a nurse. The patient consented to telehealth. Plan IV diuresis. BP control and Monitor labs. PDMP PDMP Reviewed: Not Reviewed Attestations 2 Medical Necessity Statement*: per fabian Coding Level of Care Code Acute Code for Chg Fwd Diagnoses Acute kidney injury superimposed on CKD N17.9; N18.9
[2024-10-13 17:29] LABS: Glucose Point of Care 208 mg/dL (70-110)
[2024-10-13 20:38] LABS: Glucose Point of Care 293 mg/dL (70-110)
[2024-10-14] VITALS (8 sets, daily range): BP systolic 158–192; BP diastolic 56–79; PULSE 63–73; RESP 18–31; TEMP 36.5–37.2; O2SAT 93–98
[2024-10-14] MEDS: FUROsemide 10 mg/mL SDV 4mL 80 MG IVP (03:08)
[2024-10-14 06:18] LABS: Alanine Aminotransferase 6 U/L (0-33); Albumin Level 3.4 g/dL (3.5-5.2); Alkaline Phosphatase 68 U/L (35-105); Anion Gap 20.4 (5-19); Aspartate Amino Transferase 5 U/L (0-32); Blood Urea Nitrogen 65 mg/dL (8-23); Carbon Dioxide 26 mmol/L (22-29); Chloride 101 mmol/L (98-107); Creatinine Clr Calc Pharmacy 23.1112; Globulin 2.2 g/dL (1.3-4.6); Glucose 182 mg/dL (65-115); Magnesium 1.8 mg/dL (1.7-2.3); Osmolality Calculated 319 mOsm/kg (285-295); Potassium 4.4 mmol/L (3.5-5.1); Sodium 143 mmol/L (136-145); Total Bilirubin 0.3 mg/dL (0.15-1.2); Total Protein 5.6 g/dL (6.6-8.7)
[2024-10-14 06:22] LABS: Vancomycin Random 15.1 ug/mL (20.0-40.0)
--- NOTE | 2024-10-14 06:24 | P.PN_ITS ---
Subjective 2 Subjective: no new complaints. tired. no n/v/f/c/vasquez/d. + still w/ leg edema. breathing much improved Medications: Reviewed: Yes Medication Review Details: Current Medications Acetaminophen (Acetaminophen 325 Mg Tablet) 650 mg PO Q6H PRN PRN Reason: Mild/Mod Pain Or Temp >/= 101 Amlodipine Besylate (Amlodipine 10 Mg Tablet) 10 mg PO DAILY [facility] Last Admin: 10/13/24 08:15 Dose: 10 mg Carvedilol (Carvedilol 6.25 Mg Tablet) 6.25 mg PO BID [facility] Last Admin: 10/13/24 18:06 Dose: 6.25 mg Furosemide (Furosemide 10 Mg/Ml Sdv 4ml) 80 mg IVP Q12H [facility] Last Admin: 10/14/24 03:08 Dose: 80 mg Glucagon (Glucagon 1 Mg/Ml Kit 1 Ml) 1 mg IM ONCE PRN; Protocol PRN Reason: Adult Acute Hypoglycemia Nursing Prot. Nicardipine/Sodium Chloride (Cardene) 20 mg in 200 mls @ 0 mls/hr IV .Q0M [facility]; Protocol Last Titration: 10/12/24 10:19 Dose: 0 mg/hr, 0 mls/hr Dextrose (D5w) 500 mls @ 0 mls/hr IV ONCE PRN; Protocol PRN Reason: Adult Acute Hypoglycemia Prot Dextrose (D10w) 125 mls @ 750 mls/hr IV PRN PRN; Protocol PRN Reason: Adult Acute Hypoglycemia Nursing Protocol Dextrose (D10w) 250 mls @ 1,000 mls/hr IV PRN PRN; Protocol PRN Reason: Adult Acute Hypoglycemia Nursing Protocol Insulin Human Lispro (Insulin Lispro 100 Unit/1 Ml) 0 unit SUBCUT TIDWM [facility]; Protocol Last Admin: 10/13/24 18:05 Dose: 4 unit Insulin Human Lispro (Insulin Lispro 100 Unit/1 Ml) 0 unit SUBCUT BEDTIME [facility]; Protocol Last Admin: 10/13/24 20:59 Dose: 6 unit Metolazone (Metolazone 5 Mg Tablet) 5 mg PO DAILY [facility] Last Admin: 10/13/24 08:15 Dose: 5 mg Naloxone HCl (Naloxone 0.4 Mg/Ml Sdv) 0.1 mg IVP Q2M PRN PRN Reason: OPIATERV Ondansetron HCl (Ondansetron 2 Mg/Ml Sdv 2 Ml) 4 mg IVP Q6H PRN PRN Reason: vomiting, or N/V if npo Ondansetron HCl (Ondansetron 4 Mg Tablet) 4 mg PO Q6H PRN PRN Reason: NAUSEA Pantoprazole Sodium (Pantoprazole Dr 40 Mg Tablet) 40 mg PO QAM [facility] Last Admin: 10/14/24 05:47 Dose: Not Given Spironolactone (Spironolactone 25 Mg Tablet) 25 mg PO DAILY [facility] Last Admin: 10/13/24 08:14 Dose: 25 mg Vitals/I&O/Wt Last Vital Signs Temp 97.7 F 10/14/24 04:00 Pulse 73 10/14/24 04:00 Resp 18 10/14/24 04:00 BP 181/72 10/14/24 04:00 Pulse Ox 95 10/14/24 03:46 O2 Del Method Nasal Cannula 10/14/24 03:46 O2 Flow Rate 1 10/13/24 16:00 10/13/24 10/13/24 10/14/24 14:59 22:59 06:59 Intake Total 440 / 440 240 / 680 Output Total 3200 / 3200 1900 / 5100 Balance 440 / 440 -2960 / -2520 -1900 / -4420 Weight last 48 hrs Weight 108.681 kg Weight 108.681 kg Weight 110.631 kg Physical Exam 2 Narrative: comfortable in bed, VS noted, using NC oxygen. Blood pressure elevated, cardene drip-off HEENT normocephalic atraumatic. Neck is supple with JVP. Lungs crackles bilaterally. Heart regular positive systolic murmur. Abdomen soft positive bowel sounds. Extremities bilateral edema 1-2+ Neuro awake alert oriented x 3 moving all extremities. Urinary Catheter Management: Smith: Cath Placed During This Visit: yes Reason for Continuing Indwelling Catheter: Accurate Measurement of Urinary Output in Critically Ill Patients Urinary Catheter Date of Insertion: 10/09/24 Urinary Catheter Time of Insertion: 23:57 Data 10/13/24 04:39 10/14/24 05:34 A&P Assessment and plan (1) Acute kidney injury superimposed on CKD: 73 year old female who was admitted with heart failure exacerbation. The patient has a history of insulin-dependent diabetes mellitus type 2 with diabetic retinopathy neuropathy and nephropathy she has history of heart failure preserved EF with diastolic dysfunction paroxysmal atrial fibrillation. Her CKD history as her creatinine was approximate 1.5 to 1.8 mg/dL for years and over the last year is increased to the mid twos. And now comes in with acute kidney injury. When the patient was admitted she was found to be short of breath anemic with a hemoglobin of 6.5 she was given blood and furosemide and renal was asked to see the patient. 1. CKD progressive renal failure with creatinine at baselinein the mid twos giving her CKD stage IV with proteinuria most likely from diabetes and cardiorenal syndrome. Please note that in May 2024 she had a normal serum protein electrophoresis immunofixation without an M spike, no monoclonal protein found. In March 2024 her urine protein creatinine ratio was was 3.97 which is consistent with diabetic disease. Will also check urine albumin creatinine ratio. The patient's kidneys appear atrophic and to have CKD on renal imaging. -u/a w/ hematuria- send kalee, anca, anti gbm, hep serologies -renal fxn improving 2. htn- off cardene dripo. cont current meds. monitor w/ diuresis- will dec lasix inc beta [place] 3. Acute on chronic renal failure likely from progression of CKD and from cardiorenal syndrome. -cr is improving 4. Heart failure preserved EF exacerbation -sob- continue loop diuretics we/ metolazone for diuresis at this time. -Continue aldactone -2 gm na, fluid restricted diet 5. Full anemia evaluation-her iron saturation is 56% she is not iron deficient that she only has a ferritin of 160. Will give Epogen. And would recommend giving blood. -total bili 0.4 unlikely hemolysis -awiat spep, sife 6. Diabetic control. 7. Antibiotics as per hospitalist. Please monitor vancomycin level if she needs any. The patient was seen and examined with the aid of A/V equipment and aid of a nurse. The patient consented to telehealth. Plan IV diuresis. BP control and Monitor labs. PDMP PDMP Reviewed: Not Reviewed Attestations 2 Medical Necessity Statement*: per hospitalist Time Spent in Patient Care: Greater than 35 minutes (>than 50% of time spent in counselling and/or direct pt care on unit) . Coding Level of Care Code Acute Code for [facility] Fwd Diagnoses Acute kidney injury superimposed on CKD N17.9; N18.9
[2024-10-14 06:35] LABS: Glucose Point of Care 226 mg/dL (70-110)
[2024-10-14 07:09] LABS: Basophils % 0.4 %; Eosinophils # 0.3 10^3/uL (0.0-0.8); Eosinophils % 2.4 %; Hematocrit 24.4 % (36-47); Lymphocytes # 0.5 10^3/uL (0.8-4.8); Lymphocytes % 4.7 %; Mean Corpuscular HGB Conc 30.3 g/dL (30-55); Mean Corpuscular Hemoglobin 27.8 pg (27-33); Mean Corpuscular Volume 91.7 fl (85-98); Mean Platelet Volume 9.3 fL (7.4-10.4); Monocytes # 1.1 10^3/uL (0.2-0.9); Monocytes % 10.5 %; Neutrophils % 80.9 %; Nucleated Red Blood Cells % 0 %; Platelet Count 227 10^3/cmm (157-399); Red Blood Count 2.66 10^6/uL (3.85-5.65); Red Cell Distribution Width 15.7 % (12.1-15.1); White Blood Count 10.76 10^3/uL (3.29-11.43)
[2024-10-14] MEDS: insulin lispro 100 unit/1 mL SUBCUT ×4 (08:25→21:34)
[2024-10-14] MEDS: carvedilol 12.5 mg Tablet PO ×2 (08:27→17:47)
[2024-10-14] MEDS: spironolactone 25 mg Tablet PO (08:27)
[2024-10-14] MEDS: metOLazone 5 MG Tablet PO (08:27)
[2024-10-14] MEDS: amlodipine 10 mg Tablet PO (08:27)
--- NOTE | 2024-10-14 09:06 | PC.SOCIAL ---
IMM Update Pg. 2 of IMM Updated and reviewed with patient, who verbalized understanding. Copy provided at bedside.
--- NOTE | 2024-10-14 11:01 | PM.PN ---
Subjective Subjective: Patient states she feels great and would like to discharge home. She states she lives with her and he would be happy to take her home. She says he is in good condition and can help her but she has had a stroke 10 years ago. Patient states when she came in she was with tremors and now feels much better. She has oxygen at home that she uses sometimes she denies shortness of breath. She admits to some leg edema. Medications: Reviewed: Yes Medication Review Details: Current Medications Acetaminophen (Acetaminophen 325 Mg Tablet) 650 mg PO Q6H PRN PRN Reason: Mild/Mod Pain Or Temp >/= 101 Amlodipine Besylate (Amlodipine 10 Mg Tablet) 10 mg PO DAILY [facility] Last Admin: 10/13/24 08:15 Dose: 10 mg Carvedilol (Carvedilol 6.25 Mg Tablet) 6.25 mg PO BID [facility] Last Admin: 10/13/24 18:06 Dose: 6.25 mg Furosemide (Furosemide 10 Mg/Ml Sdv 4ml) 80 mg IVP Q12H [facility] Last Admin: 10/14/24 03:08 Dose: 80 mg Glucagon (Glucagon 1 Mg/Ml Kit 1 Ml) 1 mg IM ONCE PRN; Protocol PRN Reason: Adult Acute Hypoglycemia Nursing Prot. Nicardipine/Sodium Chloride (Cardene) 20 mg in 200 mls @ 0 mls/hr IV .Q0M [facility]; Protocol Last Titration: 10/12/24 10:19 Dose: 0 mg/hr, 0 mls/hr Dextrose (D5w) 500 mls @ 0 mls/hr IV ONCE PRN; Protocol PRN Reason: Adult Acute Hypoglycemia Prot Dextrose (D10w) 125 mls @ 750 mls/hr IV PRN PRN; Protocol PRN Reason: Adult Acute Hypoglycemia Nursing Protocol Dextrose (D10w) 250 mls @ 1,000 mls/hr IV PRN PRN; Protocol PRN Reason: Adult Acute Hypoglycemia Nursing Protocol Insulin Human Lispro (Insulin Lispro 100 Unit/1 Ml) 0 unit SUBCUT TIDWM [facility]; Protocol Last Admin: 10/13/24 18:05 Dose: 4 unit Insulin Human Lispro (Insulin Lispro 100 Unit/1 Ml) 0 unit SUBCUT BEDTIME [facility]; Protocol Last Admin: 10/13/24 20:59 Dose: 6 unit Metolazone (Metolazone 5 Mg Tablet) 5 mg PO DAILY [facility] Last Admin: 10/13/24 08:15 Dose: 5 mg Naloxone HCl (Naloxone 0.4 Mg/Ml Sdv) 0.1 mg IVP Q2M PRN PRN Reason: OPIATERV Ondansetron HCl (Ondansetron 2 Mg/Ml Sdv 2 Ml) 4 mg IVP Q6H PRN PRN Reason: vomiting, or N/V if npo Ondansetron HCl (Ondansetron 4 Mg Tablet) 4 mg PO Q6H PRN PRN Reason: NAUSEA Pantoprazole Sodium (Pantoprazole Dr 40 Mg Tablet) 40 mg PO QAM [facility] Last Admin: 10/14/24 05:47 Dose: Not Given Spironolactone (Spironolactone 25 Mg Tablet) 25 mg PO DAILY [facility] Last Admin: 10/13/24 08:14 Dose: 25 mg Vitals/I&O/Wt Last Vital Signs Temp 98.1 F 10/14/24 08:00 Pulse 71 10/14/24 08:00 Resp 18 10/14/24 08:00 BP 192/76 10/14/24 08:00 Pulse Ox 94 10/14/24 08:00 O2 Del Method Nasal Cannula 10/14/24 08:00 O2 Flow Rate 1 10/14/24 08:00 10/13/24 10/14/24 10/14/24 22:59 06:59 14:59 Intake Total 240 / 680 360 / 360 Output Total 3200 / 3200 1900 / 5100 Balance -2960 / -2520 -1900 / -4420 360 / 360 Weight last 48 hrs Weight 108.681 kg Weight 108.681 kg Weight 110.631 kg Physical Exam Narrative: General Well-developed well-nourished obese female in no acute cardiopulmonary distress she does appear mildly tachypneic. CV regular rate and rhythm Lungs clear to auscultation bilaterally Neck 10 cm JVP Calves 1+ to 2 pretibial edema Abdomen positive bowel sounds soft nontender Urinary Catheter Management: Smith: Cath Placed During This Visit: yes Reason for Continuing Indwelling Catheter: Accurate Measurement of Urinary Output in Critically Ill Patients Urinary Catheter Date of Insertion: 10/09/24 Urinary Catheter Time of Insertion: 23:57 Data 10/14/24 05:34 05/19/25 05:34 A&P Assessment and plan (1) Acute exacerbation of congestive heart failure: Patient being successfully diuresed. LVEF is 60% with grade 2 diastolic dysfunction With the assistance of nephrology she is now on metolazone and Aldactone Norvasc spironolactone and Lasix. Patient anxious to go home but she is with still some leg edema and JVD and requiring IV diuresis with furosemide. Anticipate additional 2 days in the hospital 1 for IV diuresis 1 for switch to oral medication (2) Anemia in stage 5 chronic kidney disease: Patient received 1 unit of PRBCs. She does not want another transfusion at this time will follow. Patient was given a dose of Epogen by nephrology. Anticipate continued Epogen outpatient (3) Acute hypoxic respiratory failure: Patient is close to her baseline oxygen status of 2 L at home. Will continue to monitor Not requiring oxygen today (4) Acute kidney injury superimposed on CKD: Kidney function has stabilized as of today will continue to follow. Kidney function last creatinine 1.6 around 2022 for the last year creatinine running 2.3-3.4 and today is 2.8 Plan Increase physical therapy and Occupational Therapy leave Smith in for urine monitoring. Weigh daily. Potential discharge Monday soonest would be Monday PDMP PDMP Reviewed: Not Reviewed Attestations Medical Necessity Statement*: Requires additional time to the hospital for IV diuretics and monitoring diuresis Coding Level of Care Code 69372 Diagnoses Acute exacerbation of congestive heart failure I50.9 Anemia in stage 5 chronic kidney disease N18.5; D63.1 Acute hypoxic respiratory failure J96.01 Acute kidney injury superimposed on CKD N17.9; N18.9 Time Spent (min) 35
[2024-10-14] MEDS: FUROsemide 10 mg/mL SDV 4mL 40 MG IVP ×2 (11:04→21:32)
[2024-10-14 11:19] LABS: Glucose Point of Care 373 mg/dL (70-110)
[2024-10-14 13:22] LABS: Glucose Point of Care 292 mg/dL (70-110)
[2024-10-14 15:09] LABS: Glomerular Bsmt Membrane IGG <1.0 AI
[2024-10-14 15:46] LABS: KAPPA LIGHT CHAIN, FREE, SERUM 68.3 mg/L (3.3-19.4); KAPPA/LAMBDA LIGHT CHAINS FREE 1.65 (0.26-1.65); LAMBDA LIGHT CHAIN, FREE, SERU 41.4 mg/L (5.7-26.3)
[2024-10-14 17:05] LABS: Glucose Point of Care 211 mg/dL (70-110)
[2024-10-14 20:52] LABS: Glucose Point of Care 339 mg/dL (70-110)
[2024-10-15] VITALS (22 sets, daily range): BP systolic 136–197; BP diastolic 59–101; PULSE 59–76; RESP 10–25; TEMP 36.4–36.9; O2SAT 90–100
[2024-10-15] MEDS: nicardipine 20 MG/200 ML PREMIX 50 MG IV (04:39)
[2024-10-15 05:56] LABS: Glucose Point of Care 223 mg/dL (70-110)
[2024-10-15] MEDS: pantoprazole DR 40 mg Tablet PO (06:19)
[2024-10-15 07:03] LABS: Alanine Aminotransferase 6 U/L (0-33); Albumin Level 3.6 g/dL (3.5-5.2); Alkaline Phosphatase 72 U/L (35-105); Anion Gap 16.1 (5-19); Aspartate Amino Transferase 5 U/L (0-32); Blood Urea Nitrogen 59 mg/dL (8-23); Calcium 9.3 mg/dL (8.5-10.5); Carbon Dioxide 31 mmol/L (22-29); Chloride 95 mmol/L (98-107); Creatinine Clr Calc Pharmacy 24.1879; Globulin 3.3 g/dL (1.3-4.6); Glucose 232 mg/dL (65-115); Magnesium 1.7 mg/dL (1.7-2.3); Osmolality Calculated 310 mOsm/kg (285-295); Phosphorus 4.6 mg/dL (2.5-4.5); Potassium 4.1 mmol/L (3.5-5.1); Sodium 138 mmol/L (136-145); Total Bilirubin 0.3 mg/dL (0.15-1.2); Total Protein 6.9 g/dL (6.6-8.7)
--- NOTE | 2024-10-15 07:51 | PC.NURSE ---
Notified that patient had to be restarted on cardene for high BP with SBP in 190. MD to place orders for hydralazine.
[2024-10-15] MEDS: metOLazone 5 MG Tablet PO (08:17)
[2024-10-15] MEDS: hyDRALAzine 25 mg Tablet PO ×2 (08:17→13:35)
[2024-10-15] MEDS: spironolactone 25 mg Tablet PO (08:17)
[2024-10-15] MEDS: insulin lispro 100 unit/1 mL SUBCUT ×4 (08:17→22:31)
[2024-10-15] MEDS: carvedilol 12.5 mg Tablet PO ×2 (08:17→16:50)
[2024-10-15] MEDS: hyDRALAzine 20 mg/mL INJ 1 mL IVP (08:17)
[2024-10-15] MEDS: amlodipine 10 mg Tablet PO (08:17)
--- NOTE | 2024-10-15 08:55 | PM.PN ---
Subjective Subjective: Improving edema. Periods of lethargy. Significant diuresis. Patient would like to go home soon she is somewhat depressed about being in the hospital. Rest review of systems has not changed. She states she is eating well. Medications: Reviewed: Yes Medication Review Details: Current Medications Acetaminophen (Acetaminophen 325 Mg Tablet) 650 mg PO Q6H PRN PRN Reason: Mild/Mod Pain Or Temp >/= 101 Amlodipine Besylate (Amlodipine 10 Mg Tablet) 10 mg PO DAILY [facility] Last Admin: 10/15/24 08:17 Dose: 10 mg Carvedilol (Carvedilol 12.5 Mg Tablet) 12.5 mg PO BID [facility] Last Admin: 10/15/24 08:17 Dose: 12.5 mg Furosemide (Furosemide 10 Mg/Ml Sdv 4ml) 40 mg IVP Q12H [facility] Last Admin: 10/14/24 21:32 Dose: 40 mg Glucagon (Glucagon 1 Mg/Ml Kit 1 Ml) 1 mg IM ONCE PRN; Protocol PRN Reason: Adult Acute Hypoglycemia Nursing Prot. Hydralazine HCl (Hydralazine 25 Mg Tablet) 25 mg PO QID [facility] Last Admin: 10/15/24 08:17 Dose: 25 mg Nicardipine/Sodium Chloride (Cardene) 20 mg in 200 mls @ 0 mls/hr IV .Q0M [facility]; Protocol Last Titration: 10/15/24 06:18 Dose: 7.5 mg/hr, 75 mls/hr Dextrose (D5w) 500 mls @ 0 mls/hr IV ONCE PRN; Protocol PRN Reason: Adult Acute Hypoglycemia Prot Dextrose (D10w) 125 mls @ 750 mls/hr IV PRN PRN; Protocol PRN Reason: Adult Acute Hypoglycemia Nursing Protocol Dextrose (D10w) 250 mls @ 1,000 mls/hr IV PRN PRN; Protocol PRN Reason: Adult Acute Hypoglycemia Nursing Protocol Insulin Human Lispro (Insulin Lispro 100 Unit/1 Ml) 0 unit SUBCUT TIDWM [facility]; Protocol Last Admin: 10/15/24 08:17 Dose: 6 unit Insulin Human Lispro (Insulin Lispro 100 Unit/1 Ml) 0 unit SUBCUT BEDTIME [facility]; Protocol Last Admin: 10/14/24 21:34 Dose: 8 unit Metolazone (Metolazone 5 Mg Tablet) 5 mg PO DAILY [facility] Last Admin: 10/15/24 08:17 Dose: 5 mg Naloxone HCl (Naloxone 0.4 Mg/Ml Sdv) 0.1 mg IVP Q2M PRN PRN Reason: OPIATERV Ondansetron HCl (Ondansetron 2 Mg/Ml Sdv 2 Ml) 4 mg IVP Q6H PRN PRN Reason: vomiting, or N/V if npo Ondansetron HCl (Ondansetron 4 Mg Tablet) 4 mg PO Q6H PRN PRN Reason: NAUSEA Pantoprazole Sodium (Pantoprazole Dr 40 Mg Tablet) 40 mg PO QAM [facility] Last Admin: 10/15/24 06:19 Dose: 40 mg Spironolactone (Spironolactone 25 Mg Tablet) 25 mg PO DAILY [facility] Last Admin: 10/15/24 08:17 Dose: 25 mg Vitals/I&O/Wt Last Vital Signs Temp 97.6 F 10/15/24 07:31 Pulse 65 10/15/24 07:31 Resp 17 10/15/24 07:31 BP 180/79 10/15/24 07:31 Pulse Ox 99 10/15/24 07:31 O2 Del Method Nasal Cannula 10/15/24 07:31 O2 Flow Rate 2 10/15/24 04:32 10/14/24 10/15/24 10/15/24 22:59 06:59 14:59 Intake Total 460 / 1060 582.5 / 1642.5 Output Total 2650 / 4400 1600 / 6000 Balance -2190 / -3340 -1017.5 / -4357.5 Weight last 48 hrs Weight 102.92 kg Weight 108.681 kg Weight 108.681 kg Physical Exam Narrative: comfortable in bed, VS noted, using NC oxygen. Blood pressure remains elevated, cardene drip-off HEENT normocephalic atraumatic. Neck is supple with JVP. Lungs improved air movement bilaterally. Heart regular positive systolic murmur. Abdomen soft positive bowel sounds. Extremities bilateral edema 1-2+. Is improving daily Neuro originally lethargic. However she awakens and is alert oriented x 3 follows commands, moving all extremities. Urinary Catheter Management: Smith: Cath Placed During This Visit: yes Reason for Continuing Indwelling Catheter: Accurate Measurement of Urinary Output in Critically Ill Patients Urinary Catheter Date of Insertion: 10/09/24 Urinary Catheter Time of Insertion: 23:57 Data 10/14/24 05:34 10/15/24 06:37 Micro: Microbiology 10/10/24 01:18 Blood Culture - Final Blood NO GROWTH AFTER 5 DAYS 10/10/24 01:10 Blood Culture - Final Blood NO GROWTH AFTER 5 DAYS A&P Assessment and plan (1) Acute kidney injury superimposed on CKD: 73 year old female who was admitted with heart failure exacerbation. The patient has a history of insulin-dependent diabetes mellitus type 2 with diabetic retinopathy neuropathy and nephropathy she has history of heart failure preserved EF with diastolic dysfunction paroxysmal atrial fibrillation. Her CKD history as her creatinine was approximate 1.5 to 1.8 mg/dL for years and over the last year is increased to the mid 2 + mg/dl. And now comes in with acute kidney injury. When the patient was admitted she was found to be short of breath anemic with a hemoglobin of 6.5 she was given blood and furosemide and renal was asked to see the patient. 1. CKD progressive renal failure with creatinine at baselinein the mid twos giving her CKD stage IV with proteinuria most likely from diabetes and cardiorenal syndrome. Please note that in May 2024 she had a normal serum protein electrophoresis immunofixation without an M spike, no monoclonal protein found. In March 2024 her urine protein creatinine ratio was was 3.97 which is consistent with diabetic disease. Will also check urine albumin creatinine ratio. The patient's kidneys appear atrophic and to have CKD on renal imaging. -u/a w/ hematuria- await kalee, anca, sIFE. Hepatitis serologies noted hep B surface antigen nonreactive hep B surface antibodies negative hep B core antibodies negative hep C antibodies negative. -[id number] DNA is negative. Normal complements C3 124, C4 28 anti-GBM is negative. Free kappa lambda ratio of 1.65 is normal. -renal fxn improving. Creatinine around baseline for the last year 2. htn- off komal cabrera. She is currently on amlodipine 10 mg a Coreg 12.5 mg twice daily hydralazine 25 mg 4 times daily metolazone 5 mg a day, spironolactone 25 mg daily. Monitor renal function and blood pressure. Blood pressure remains elevated increase spironolactone to twice daily 3. Acute on chronic renal failure likely from progression of CKD and from cardiorenal syndrome. -cr is improving 4. Heart failure preserved EF exacerbation -sob- continue loop diuretics we/ metolazone for diuresis at this time. -Continue aldactone -2 gm na, fluid restricted diet 5. Full anemia evaluation-her iron saturation is 56% she is not iron deficient that she only has a ferritin of 160. Will give Epogen. And would recommend giving blood. -total bili 0.4 unlikely hemolysis -awiat spep, sife 6. Diabetic control. 7. Antibiotics as per hospitalist. Please monitor vancomycin level if she needs any. The patient was seen and examined with the aid of A/V equipment and aid of a nurse. The patient consented to telehealth. Medications reviewed. Will check an ABG given confusion Plan diuresis. BP control and Monitor labs. PDMP PDMP Reviewed: Not Reviewed Attestations Medical Necessity Statement*: AMS, HFpEF exacerbation, GEE improving to CKD stage 4 Time Spent in Patient Care: 16 - 35 minutes (>than 50% of time spent in counselling and/or direct pt care on unit). Coding Level of Care Code Acute Code for [facility] Fwd Diagnoses Acute kidney injury superimposed on CKD N17.9; N18.9
[2024-10-15 09:36] LABS: ABG PCO2 47.1 mmHg (35-45); ABG PH Result 7.47 (7.35-7.45); Arterial Blood Gas Hematocrit 24.2 % (37-47); Base Excess ABG 9.6 mmol/L (-2.0-2.0); Blood Gas Allen Test Pos; Blood Gas LPM 2.5 %; Blood Gas Operator Identificat BROMA; Blood Gas Sample Site Radial, left; Blood Gas Sample Type Arterial; Carboxyhemoglobin 1.6 %THgb (0.4-20.1); HCO3 ABG 34.3 mmol/L (22-26); HGB O2 Sat 96.8 % (95-100); Ionized Calcium Level - ABG 1.2 mmol/L (1.1-1.4); Methemoglobin 0.5 % (0.4-1.5); Oxygen Device NC; Oxygen Saturation ABG 98.9; PO2 ABG 98.3 mmHg (80.0-100.0); PO2 FiO2 Ratio Arterial Blood 327; Total Hemoglobin 7.9 g/dL (12-16)
[2024-10-15 11:02] LABS: Glucose Point of Care 261 mg/dL (70-110)
[2024-10-15] MEDS: epoetin alfa-epbx 10,000 unit/ml SDV (ESRD) 10000 UNIT SUBCUT (11:53)
[2024-10-15 14:34] LABS: Vit D 1,25 (Oh)2, Total 23 pg/mL (18-72); Vit D2 1,25 (Oh)2 <8 pg/mL; Vit D3 1,25 (Oh)2 23 pg/mL
--- NOTE | 2024-10-15 14:34 | P.PN_ITS ---
Subjective 2 Subjective: 73-year-old female accompanied by her aunt and also her neighbor and close friend at bedside. Patient states she is feeling better. She does feel weak but thinks her will be able to care for her at home. She states he is in good shape. Aunt and neighbor have no objection to patient going home Patient states she did not refuse a second unit of blood and would except it if it would help her feel stronger. I discussed with her that her anemia is related to hormone deficiency from kidney failure and that the iron test showed that she is not iron deficient and is not likely that she is losing blood Vitals/I&O/Wt Last Vital Signs Temp 97.8 F 10/15/24 11:42 Pulse 65 10/15/24 11:42 Resp 15 10/15/24 11:42 BP 159/76 10/15/24 11:42 Pulse Ox 100 10/15/24 11:42 O2 Del Method Nasal Cannula 10/15/24 11:42 O2 Flow Rate 1 10/15/24 10:00 10/14/24 10/15/24 10/15/24 22:59 06:59 14:59 Intake Total 460 / 1060 582.5 / 1642.5 837.5 / 837.5 Output Total 2650 / 4400 1600 / 6000 Balance -2190 / -3340 -1017.5 / -4357.5 837.5 / 837.5 Weight last 48 hrs Weight 102.92 kg Weight 108.681 kg Weight 108.681 kg Physical Exam 2 Narrative: General Well-developed well-nourished obese female in no acute cardiopulmonary distress she is on nasal cannula O2 and not tachypneic CV regular rate and rhythm Lungs clear to auscultation bilaterally Calves 1+ pretibial edema Abdomen positive bowel sounds soft nontender Urinary Catheter Management: Smith: Cath Placed During This Visit: yes Reason for Continuing Indwelling Catheter: Accurate Measurement of Urinary Output in Critically Ill Patients Urinary Catheter Date of Insertion: 10/09/24 Urinary Catheter Time of Insertion: 23:57 Data 10/14/24 05:34 10/15/24 06:37 Micro: Microbiology 10/10/24 01:18 Blood Culture - Final Blood NO GROWTH AFTER 5 DAYS 10/10/24 01:10 Blood Culture - Final Blood NO GROWTH AFTER 5 DAYS A&P Assessment and plan (1) Acute exacerbation of congestive heart failure: Patient being successfully diuresed. LVEF is 60% with grade 2 diastolic dysfunction With the assistance of nephrology she is now on metolazone and Aldactone Norvasc spironolactone and Lasix. Patient anxious to go home and furosemide was changed to oral today 40 mg twice a day. Anticipate discharge home tomorrow. Start KIKA hose as previously ordered (2) Anemia in stage 5 chronic kidney disease: Patient received 1 unit of PRBCs. And is agreeable to a second unit she does not want another transfusion at this time will follow. Patient was given a dose of Epogen by nephrology. Anticipate continued Epogen outpatient (3) Acute hypoxic respiratory failure: Patient is close to her baseline oxygen status of 2 L at home. Will continue to monitor Stable on O2 with saturation 100 (4) Acute kidney injury superimposed on CKD: Kidney function has stabilized as of today will continue to follow. Kidney function last creatinine 1.6 around 2022 for the last year creatinine running 2.3-3.4 and today is 2.8 (5) HTN (hypertension): Increase hydralazine to 50 mg 3 times daily (6) Anemia: Transfuse a second unit of packed red cells. CBC in the morning. 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 Plan Increase physical therapy and Occupational Therapy leave Smith in for urine monitoring. Weigh daily. Potential discharge Monday soonest would be Monday PDMP PDMP Reviewed: Not Reviewed Attestations 2 Medical Necessity Statement*: This is last night in the hospital and we are monitoring diuresis on oral furosemide. Will receive 1 unit packed red cells tonight Case discussed with Dr. Bañuelos Coding Level of Care Code Acute Code for [facility] Fwd Diagnoses Acute exacerbation of congestive heart failure I50.9 Anemia in stage 5 chronic kidney disease N18.5; D63.1 Acute hypoxic respiratory failure J96.01 Acute kidney injury superimposed on CKD N17.9; N18.9 HTN (hypertension) I10 Hypertension type: primary hypertension Anemia D64.9 Time Spent (min) 40
[2024-10-15 14:43] LABS: ANCA Screen NEGATIVE (NEGATIVE)
[2024-10-15 16:20] LABS: Anti-Nuclear Antibody Screen POSITIVE (NEGATIVE); Anti-Nuclear Antibody Titer 1:40 titer
[2024-10-15] MEDS: FUROsemide 40 mg Tablet PO (16:50)
[2024-10-15] MEDS: hyDRALAzine 25 mg Tablet 50 MG PO ×2 (16:50→22:30)
[2024-10-15 16:58] LABS: Glucose Point of Care 215 mg/dL (70-110)
[2024-10-15 19:54] LABS: Basophils # 0.1 10^3/uL (0.0-0.1); Basophils % 0.4 %; Eosinophils # 0.2 10^3/uL (0.0-0.8); Eosinophils % 1.7 %; Hematocrit 26.8 % (36-47); Lymphocytes # 0.4 10^3/uL (0.8-4.8); Lymphocytes % 3.9 %; Mean Corpuscular HGB Conc 29.9 g/dL (30-55); Mean Corpuscular Hemoglobin 27.7 pg (27-33); Mean Corpuscular Volume 92.7 fl (85-98); Mean Platelet Volume 9.5 fL (7.4-10.4); Monocytes % 8.5 %; Neutrophils # 9.66 10^3/uL (1.8-7.7); Neutrophils % 84.8 %; Nucleated Red Blood Cells % 0 %; Platelet Count 207 10^3/cmm (157-399); Red Blood Count 2.89 10^6/uL (3.85-5.65); Red Cell Distribution Width 15.4 % (12.1-15.1); White Blood Count 11.39 10^3/uL (3.29-11.43)
[2024-10-15 20:14] LABS: Glucose Point of Care 320 mg/dL (70-110)
[2024-10-15 23:15] LABS: Immunofixation Serum Normal pattern.
[2024-10-16] VITALS (16 sets, daily range): BP systolic 145–194; BP diastolic 79–157; PULSE 61–80; RESP 15–24; TEMP 36.4–36.9; O2SAT 90–98
[2024-10-16 02:23] LABS: Urine Creatinine 50 mg/dL (28-217)
[2024-10-16 02:24] LABS: Creatinine Urine, Random 49 mg/dL (28-217)
[2024-10-16 02:35] LABS: Urine Protein Random 230 mg/dL
[2024-10-16 02:43] LABS: Microalbum Creatinine Ratio Ur 3224 mg/dL (0-20); Microalbumin Random Urine 158 ug/dL (0-20)
--- NOTE | 2024-10-16 02:43 | PC.NURSE ---
Notified Dr. Son of BP 187/157, patient did receive 1 unit of PRBC. Received orders for 40mg lasix once.
[2024-10-16] MEDS: FUROsemide 10 mg/mL SDV 4mL 40 MG IVP (03:49)
[2024-10-16 04:08] LABS: Basophils % 0.4 %; Eosinophils # 0.2 10^3/uL (0.0-0.8); Eosinophils % 2.5 %; Hematocrit 27.7 % (36-47); Lymphocytes # 0.5 10^3/uL (0.8-4.8); Lymphocytes % 5.2 %; Mean Corpuscular HGB Conc 30.7 g/dL (30-55); Mean Corpuscular Hemoglobin 27.5 pg (27-33); Mean Corpuscular Volume 89.6 fl (85-98); Mean Platelet Volume 8.5 fL (7.4-10.4); Monocytes # 0.9 10^3/uL (0.2-0.9); Monocytes % 9.8 %; Neutrophils # 7.58 10^3/uL (1.8-7.7); Neutrophils % 81.6 %; Nucleated Red Blood Cells % 0 %; Platelet Count 197 10^3/cmm (157-399); Red Blood Count 3.09 10^6/uL (3.85-5.65); Red Cell Distribution Width 14.8 % (12.1-15.1); White Blood Count 9.29 10^3/uL (3.29-11.43)
[2024-10-16 04:35] LABS: Alanine Aminotransferase 6 U/L (0-33); Albumin Level 3.4 g/dL (3.5-5.2); Alkaline Phosphatase 66 U/L (35-105); Aspartate Amino Transferase 6 U/L (0-32); Blood Urea Nitrogen 61 mg/dL (8-23); Calcium 9.1 mg/dL (8.5-10.5); Carbon Dioxide 30 mmol/L (22-29); Chloride 96 mmol/L (98-107); Creatinine Clr Calc Pharmacy 25.1554; Globulin 3.1 g/dL (1.3-4.6); Glucose 174 mg/dL (65-115); Magnesium 1.7 mg/dL (1.7-2.3); Osmolality Calculated 309 mOsm/kg (285-295); Phosphorus 4.3 mg/dL (2.5-4.5); Sodium 139 mmol/L (136-145); Total Bilirubin 0.8 mg/dL (0.15-1.2); Total Protein 6.5 g/dL (6.6-8.7)
[2024-10-16] MEDS: pantoprazole DR 40 mg Tablet PO (05:39)
[2024-10-16 06:12] LABS: Glucose Point of Care 226 mg/dL (70-110)
--- NOTE | 2024-10-16 08:43 | P.DS_ITS ---
Discharge Providers Date of Admission: 10/09/24 21:58 Date of Discharge: October 16, 2024 Attending Provider at Admission: Vilma Taylor MD Attending Provider at Discharge: Jose Patel MD Consults: Daniel Bañuelos MD Nephology Primary Care Provider: Jan Kirk MD Diagnoses at Discharge Discharge Diagnosis (1) Acute exacerbation of congestive heart failure: Details from hospital stay: Patient is diuresed 15 kg fluid this admission and her tachypnea has resolved. Renal function has improved. She was on 80 mg of furosemide twice a day at home but that has been adjusted down to 40 mg twice a day with the addition of Zaroxolyn 2.5 mg daily and spironolactone 25 mg daily. Blood pressures are problem and spironolactone could potentially help further with that but would need to be closely monitored for renal failure and hyperkalemia. She is currently not on any potassium replacement Status: Acute (2) Anemia in stage 5 chronic kidney disease: Details from hospital stay: Complicates fluid retention as well as anemia of chronic renal failure. She should be on Epogen 3 times a week until anemia improved then maintenance Status: Acute (3) Acute hypoxic respiratory failure: Details from hospital stay: Resolved Status: Acute (4) Acute kidney injury superimposed on CKD: Details from hospital stay: Much improved Status: Acute (5) HTN (hypertension): Details from hospital stay: Blood pressure remains problematic. Resume her Coreg 25 mg twice a day and hydralazine 100 mg 3 times daily. Continue Norvasc 10 mg daily from home dose. I did add Imdur 30 mg daily. PRIYA inhibitor's and spironolactone potentially could be effective but high risk of exacerbating renal failure and oliguria or and urine if developed Status: Acute Qualifiers: Hypertension type: primary hypertension Qualified Code(s): I10 - Essential (primary) hypertension (6) Anemia: Details from hospital stay: Again iron studies floyd against blood loss and she did receive 2 units packed red cells. She tolerated them well. Patient is appropriate for Epogen 3 times a week until blood count is above hemoglobin 8 and then adjust as deemed appropriate Status: Acute Reason for Visit Reason for Visit: retaining water, hard to breath Brief History: The patient was quite lethargic when she was seen, so history was obtained from the ED staff-ED nurse and ED physician sign out, and chart review. Terese Yates is a 73 yo woman w/ IDDM 2 w/ diabetic nephropathy, chronic HFpEF, Paroxysmal Afib, & CKD who was sent to the ED on 10/09/2024 for increased weakness and abnormal labs. From chart review, she was seen on 10/08/2024 at her PCPs office with increased dyspnea and edema, but no CP. The PCP recommended that she be admitted, but the patient declined, so labs were ordered, and her Lasix was increased to 80 mg twice daily. In the ED, she was tachypneic and hypoxemic to 86% on RA. 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 At the begining of the shift, the patient was diaphoretic, so her BG was evaluated and it was 48. She was given a 250cc bag of D10 and 30mins afterwards, her BG was at 98, so she was given another 250cc bolus of D10 w/ repeat BG was 150, thirty minutes later. The patient will be admitted to the ICU for further management. Her Hgb was 6.5g/dL, so 1unit PRBC was ordered in the ED and transfused. She was also given 1 L NS and 80 mg IV Protonix. Before starting the blood transfusion, her vital signs were obtained, and it showed a core temperature of 94.7F. She was placed on barehugger. When seen, she was AOx3, but visibly lethargic. She answered orientation questions appropriately and drifted back to sleep. With one to two words, she was visibly dyspneic, which she endorsed. She denied any pain, but could not converse due to her lethargy. She actually followed commands and turned, so that I could examine her lungs posteriorly, but she was so lethargic, that she could not carry on a conversation, and as mentioned was easily dyspneic with minimal movements. Hospital Course Hospital Course 73-year-old female admitted for acute congestive heart failure exacerbation with volume overload, acute renal failure on chronic renal insufficiency secondary to diabetic nephropathy. Anemia secondary to stage V chronic kidney disease with Epogen deficiency suspected. She had altered mental status and hypothermia as well as hypoglycemia at the time of her admission. She was on high-dose insulin at home 40 units in the morning 20 units at night but is obese with dietary and indiscretion. Here the patient was found to have normal iron studies and increased iron sat with iron 173% sat 56.5 TIBC 306 ferritin 160. She was given Epogen by nephrology oracle ebs consultant x 2 I believe and she also had transfusion of 2 units. She was on Protonix here but that was discontinued for discharge that she showed no signs of acute blood loss and normal iron studies bodes against chronic blood loss. Patient initially hypoglycemic has just been on sliding scale insulin but blood sugars have become elevated to 200s to 300. Will start back Lantus at 20 units twice a day but hold if preinjection blood sugar less than 100 The patient's volume overload was managed by rehab physician Dr. Bañuelos and she was initially on furosemide 80 mg twice a day IV plus Zaroxolyn 5 mg oral daily plus spironolactone 25 mg daily that has been decreased to furosemide 40 mg orally twice a day and patient has diuresed quite well even the last 24 hours on the oral medication. Weight on admission 10/09/2024 116 kg, 10/10/2024 110 kg, 10/14/24 108 kg, 10/15/2024 102 kg, 10/16/24 99.79 kg. I adjusted the Zaroxolyn down to 2.5 mg for discharge continue spironolactone 25 mg daily and furosemide at 40 mg oral twice a day. Patient will resume Jardiance. She should never take metformin or NSAIDs Physical Exam Narrative: General Well-developed well-nourished obese female in no acute cardiopulmonary distress she is on nasal cannula O2 and not tachypneic CV regular rate and rhythm Lungs clear to auscultation bilaterally Calves 1 over 4 pretibial edema Abdomen positive bowel sounds soft nontender Urinary Catheter Management: Smith: Cath Placed During This Visit: yes Reason for Continuing Indwelling Catheter: Accurate Measurement of Urinary Output in Critically Ill Patients Urinary Catheter Date of Insertion: 10/09/24 Urinary Catheter Time of Insertion: 23:57 Discharge Data Studies Completed and Pending Completed Studies During Hospitalization Category Date Time Status CT abdomen pelvis wo con [id number] Stat Cat Scan 10/09/24 17:[address] head wo con* [id number] Stat Cat Scan 10/09/24 19:56 Completed XR chest 1V portable [id number] Stat Exams 10/09/24 16:07 Completed CV. echo complete* [id number] Routine Ultrasound 10/10/24 03:48 Completed Pending at discharge Category Date Time Status Complete Blood Count w/Auto AM LABS Lab 10/17/24 04:00 Ordered Complete Blood Count w/Auto AM LABS Lab 10/18/24 04:00 Ordered Comprehensive Metabolic Panel AM LABS Lab 10/17/24 04:00 Ordered Comprehensive Metabolic Panel AM LABS Lab 10/18/24 04:00 Ordered Magnesium AM LABS Lab 10/17/24 04:00 Ordered Magnesium AM LABS Lab 10/18/24 04:00 Ordered Occult Blood Stool [Immunochemical Fecal OCB] Routine Lab 10/10/24 10:47 Uncollected Phosphorus AM LABS Lab 10/17/24 04:00 Ordered Phosphorus AM LABS Lab 10/18/24 04:00 Ordered Radiology Impressions Chest X-Ray 10/09/24 16:07 IMPRESSION: 1. Blunting of the costophrenic angles suggestive of small pleural effusions. 2. Mild cardiomegaly. Abdomen/Pelvis CT 10/09/24 17:26 IMPRESSION: 1. No acute hysterectomy findings in the abdomen or pelvis. 2. Colonic diverticulosis without CT evidence of acute diverticulitis. 3. Moderate to severe atrophy of both kidneys. Stable cystic and indeterminate lesions in both kidneys. The indeterminate lesions can be better evaluated with nonemergent renal ultrasound or renal protocol MRI if clinically warranted. 4. Small bilateral pleural effusions. 5. Diffuse mild body wall edema suggestive of 3rd spacing of fluid. COMMENTS: Consistent with the [employer]'s Incidental Findings Committee white paper (J Am Jabari Radiol 2018): Any incidental renal lesion less than 1 cm or classified as too small to characterize, or any incidental cystic renal lesion characterized as simple-appearing, is likely benign. No follow-up imaging is recommended for these lesions per consensus recommendations based on imaging criteria. Head CT 10/09/24 19:56 IMPRESSION: No large territorial infarct or intracranial bleed. Laboratory Results WBC 9.29 10^3/uL (3.29-11.43) 10/16/24 03:44 RBC 3.09 10^6/uL (3.85-5.65) L 10/16/24 03:44 Hgb 8.50 g/dL (11.27-16.99) L 10/16/24 03:44 Hct 27.7 % (36-47) L 10/16/24 03:44 MCV 89.6 fl (85-98) 10/16/24 03:44 MCH 27.5 pg (27-33) 10/16/24 03:44 MCHC 30.7 g/dL (30-55) 10/16/24 03:44 RDW 14.8 % (12.1-15.1) 10/16/24 03:44 Plt Count 197 10^3/cmm (157-399) 10/16/24 03:44 MPV 8.5 fL (7.4-10.4) 10/16/24 03:44 Neut % (Auto) 81.6 % 10/16/24 03:44 Lymph % (Auto) 5.2 % 10/16/24 03:44 [place] % (Auto) 9.8 % 10/16/24 03:44 Eos % (Auto) 2.5 % 10/16/24 03:44 Baso % (Auto) 0.4 % 10/16/24 03:44 Reticulocyte % (Auto) 4.4 % (0.5-2.0) H 10/10/24 05:53 Neut # (Auto) 7.58 10^3/uL (1.8-7.7) 10/16/24 03:44 Lymph # (Auto) 0.5 10^3/uL (0.8-4.8) L 10/16/24 03:44 [place] # (Auto) 0.9 10^3/uL (0.2-0.9) 10/16/24 03:44 Eos # (Auto) 0.2 10^3/uL (0.0-0.8) 10/16/24 03:44 Baso # (Auto) 0.0 10^3/uL (0.0-0.1) 10/16/24 03:44 Nucleated RBC % (auto) 0 % 10/16/24 03:44 Nucleated RBCs # 0.0 /100WBC 10/16/24 03:44 Haptoglobin 220.0 mg/L (30-200) H 10/09/24 19:37 PT 14.30 SECONDS (12.1-14.9) 10/09/24 16:22 INR 1.03 (0.8-1.2) 10/09/24 16:22 APTT 31.8 SECONDS (23.9-36.7) 10/09/24 16:22 Specimen Type Arterial 10/15/24 09:25 Sample Site Radial, left 10/15/24 09:25 ABG pH 7.47 (7.35-7.45) H 10/15/24 09:25 ABG pCO2 47.1 mmHg (35-45) H 10/15/24 09:25 ABG pO2 98.3 mmHg (80.0-100.0) 10/15/24 09: ABG PO2/FiO2 Ratio 327 10/15/24: ABG HCO3 34.3 mmol/L (22-26) H 10/15/24 09:25 ABG O2 Saturation 98.9 10/15/24 09:25 ABG Base Excess 9.6 mmol/L (-2.0-2.0) H 10/15/24 09:25 Kamron Test Pos 10/15/24 09:25 A-a O2 Gradient 7.0 mmHg (5-10) 10/15/24 09: Hematocrit 24.2 % (37-47) L 10/15/24 09:25 Hgb O2 Saturation 96.8 % (95-100) 10/15/24 09:25 Carboxyhemoglobin 1.6 %THgb (0.4-20.1) 10/15/24 09: Methemoglobin 0.5 % (0.4-1.5) 10/15/24 09:25 Total Hemoglobin 7.9 g/dL (12-16) L 10/15/24 09:25 Sodium 139.0 mmol/L (131-143) 10/15/24 09:25 Potassium 4.0 mmol/L (3.5-5.0) 10/15/24 09:25 Glucose 262.0 mg/dL (70-115) H 10/15/24 09:25 Ionized Calcium 1.2 mmol/L (1.1-1.4) 10/15/24 09:25 O2 Delivery Device Nc 10/15/24:25 O2 Liters/Min 2.5 % 10/15/24 09:25 FiO2 30.0 % 10/15/24 09:25 Tiler ID Broma 10/15/24 09:25 Sodium 139 mmol/L (136-145) 10/16/24 03:44 Potassium 4.0 mmol/L (3.5-5.1) 10/16/24 03:44 Chloride 96 mmol/L (98-107) L 10/16/24 03:44 Carbon Dioxide 30 mmol/L (22-29) H 10/16/24 03:44 Anion Gap 17.0 (5-19) 10/16/24 03:44 BUN 61 mg/dL (8-23) H 10/16/24 03:44 Creatinine 2.5 mg/dL (0.5-0.9) H 10/16/24 03:44 GFR Calculation Not Reportable 10/16/24 03:44 Glucose 174 mg/dL (65-115) H 10/16/24 03:44 POC Glucose 226 mg/dL (70-110) H 10/16/24 06:06 Calculated Osmolality 309 mOsm/kg (285-295) H 10/16/24 03:44 Lactic Acid 1.2 mmol/L (0.5-2.2) 10/10/24 01:10 Uric Acid 9.1 mg/dL (2.4-5.7) H 10/10/24 05:53 Calcium 9.1 mg/dL (8.5-10.5) 10/16/24 03:44 Phosphorus 4.3 mg/dL (2.5-4.5) 10/16/24 03:44 Magnesium 1.7 mg/dL (1.7-2.3) 10/16/24 03:44 Iron 173 ug/dL (37-145) H 10/10/24 05:53 TIBC 306 mcg/dl 10/10/24 05:53 % Saturation 56.5 % (20-50) H 10/10/24 05:53 Unsat Iron Binding 133 ug/dL (112-347) 10/10/24 05:53 Transferrin 236 mg/dL (200-360) 10/09/24 16:22 Ferritin 160 ng/mL (15-150) H 10/10/24 05:53 Total Bilirubin 0.8 mg/dL (0.15-1.2) 10/16/24 03:44 AST 6 U/L (0-32) 10/16/24 03:44 ALT 6 U/L (0-33) 10/16/24 03:44 Alkaline Phosphatase 66 U/L (35-105) 10/16/24 03:44 Lactate Dehydrogenase 287 U/L (135-214) H 10/10/24 05:53 Troponin T 5th Gen ng/L 44 ng/L (0-10) H 10/11/24 10:01 Troponin T Baseline 45 ng/L (0-10) H 10/09/24 16:22 Troponin T 120 Minute 45.34 ng/L (0-10) H 10/09/24 18:33 Delta Troponin T 0.34 ABS# (0-10) 10/09/24 18:33 NT-Pro-B Natriuret Pep 03395 pg/mL (0-125) H 10/09/24 16:22 Total Protein 6.5 g/dL (6.6-8.7) L 10/16/24 03:44 Albumin 3.4 g/dL (3.5-5.2) L 10/16/24 03:44 Globulin 3.1 g/dL (1.3-4.6) 10/16/24 03:44 Yfdjx-2-Yswcktvkf 0.4 g/dL (0.2-0.3) H 10/10/24 16:16 Bgvct-3-Fykblxpod 1.0 g/dL (0.5-0.9) H 10/10/24 16:16 Mais-9-Adegditn 0.4 g/dL (0.4-0.6) 10/10/24 16:16 Erpb-8-Geokjwum 0.3 g/dL (0.2-0.5) 10/10/24 16:16 Gamma Globulins 0.7 g/dL (0.8-1.7) L 10/10/24 16:16 Abnorm Protein Band 1 Not Reportable 10/10/24 16:16 Vitamin B12 744 pg/mL (232-1245) 10/10/24 05:53 25-OH Vitamin D Total 23 pg/mL (18-72) 10/10/24 16:16 1,25 Dihydroxy Vit D2 <8 pg/mL 10/10/24 16:16 1,25 Dihydroxy Vit D3 23 pg/mL 10/10/24 16:16 Folate 8.1 ng/mL (4.8-37.3) 10/10/24 16:16 TSH 2.45 uIU/mL (0.27-4.20) 10/09/24 19:37 Free T4 1.26 ng/dL (0.82-1.77) 10/09/24 19:37 PTH Intact 393.8 pg/mL (15-65) H 10/11/24 05:23 Calcium (PTH Intact) 8.3 mg/dL (8.5-10.5) L 10/11/24 05:23 Urine Color Yellow (Yellow) 10/10/24 16:30 Urine Appearance Clear (CLEAR) 10/10/24 16: Urine pH 5.5 (5-7) 10/10/24 16:30 Ur Specific [place] 1.006 (1.005-1.030) 10/10/24 16:30 Urine Protein 2+ (Negative) A 10/10/24 16: Urine Glucose (UA) Negative (Normal) 10/10/24 16: Urine Ketones Negative (Negative) 10/10/24 16:30 Urine Blood 2+ (Negative) A 10/10/24 16:30 Urine Nitrate Negative (Negative) 10/10/24 16: Urine Bilirubin Negative (Negative) 10/10/24 16:30 Urine Urobilinogen 0.2 mg/dL (Negative) 10/10/24 16:30 Ur Leukocyte Esterase Trace (Negative) A 10/10/24 16:30 Urine RBC 21-50 /hpf (0-2) H 10/10/24 16:30 Urine WBC 0-5 /hpf (0-5) 10/10/24 16:30 Ur Squamous Epith Cells 0-5 /hpf (0-5) 10/10/24 16:30 Amorphous Sediment Not Reportable 10/10/24 16:30 Urine Bacteria None seen /hpf (NONE) 10/10/24 16:30 Hyaline Casts 4.11 /lpf 10/10/24 16:30 Ur Random Microalbumin 158 ug/dL (0-20) H 10/16/24 01:01 U Random Total Protein 230 mg/dL 10/16/24 01:01 Ur Random Sodium 54 mmol/L 10/10/24 16:30 Ur Random Potassium 14 mmol/L 10/10/24 16:30 Ur Random Chloride 47 mmol/L 10/10/24 16:30 Urine Creatinine 49 mg/dL (28-217) 10/16/24 01:01 Urine Creatinine 50 mg/dL (28-217) 10/16/24 01:01 Microalb/Creat Ratio 3224 mg/dL (0-20) H 10/16/24 01:01 U Abnormal Prot Band 2 Not Reportable 10/10/24 16:16 U Abnormal Prot Band 3 Not Reportable 10/10/24 16:16 Vancomycin Trough 11.9 ug/mL (10-15) 10/11/24 10:01 Random Vancomycin 15.1 ug/mL (20.0-40.0) L 10/14/24 05:34 Pro Electrophoresis Int See note 10/10/24 16:16 Serum Immunofixation Normal pattern. 10/10/24 16:16 DANK Screen Positive (NEGATIVE) A 10/10/24 16:16 DANK Titer 1:40 titer H 10/10/24 16:16 DANK Pattern A 10/10/24 16:16 ANCA Screen Negative (NEGATIVE) 10/10/24 16:16 ANCA Titer Not Reportable 10/10/24 16:16 Anti-ds DNA IgG Ab <1 IU/mL 10/10/24 16:16 Glomerular Base Mem IgG <1.0 AI 10/11/24 10:01 Complement C3 124 mg/dL (90-180) 10/11/24 10:01 Complement C4 28 mg/dL (10-40) 10/11/24 10:01 Free [place] Light Chains 68.3 mg/L (3.3-19.4) H 10/10/24 16:16 Free [place] Light Chain 41.4 mg/L (5.7-26.3) H 10/10/24 16:16 Free [place]/Lambda Ratio 1.65 (0.26-1.65) 10/10/24 16:16 Hep Bs Antigen Non-reactive (Nonreactive) 10/11/24 10:01 Hep Bs Antibody < 3.5 (11.5-1000) L 10/11/24 10:01 Hep B Core Total Ab Non-reactive (Nonreactive) 10/11/24 10:01 Hepatitis C Antibody Non-reactive (Nonreactive) 10/11/24 10:01 Influenza A (PCR) Negative (Negative) 10/09/24 20:44 Influenza Type B (PCR) Negative (Negative) 10/09/24 20:44 RSV (PCR) Negative (Negative) 10/09/24 20:44 SARS-CoV-2 (PCR) Negative (Negative) 10/09/24 20:44 Blood Type A Positive 10/15/24 16:15 Rho(D) Type Rh positive 10/15/24 16:15 Antibody Screen Negative 10/15/24 16:15 Crossmatch See Detail 10/15/24 16:15 Vitals Last Vital Signs Temp 98.5 F 10/16/24 03:49 Pulse 67 10/16/24 07:43 Resp 19 H 10/16/24 03:49 BP 184/80 10/16/24 03:49 Pulse Ox 98 10/16/24 07:43 O2 Del Method Nasal Cannula 10/16/24 07:43 O2 Flow Rate 2 10/16/24 07:43 Discharge Plan Discharge Patient Disposition: Home Health Service Condition: Stable Prescriptions: New isosorbide mononitrate 30 mg Tablet Extended Release 24 Hr 30 mg PO DAILY Qty: 30 0RF spironolactone 25 mg Tablet 25 mg PO DAILY Qty: 30 0RF insulin lispro [Humalog U-100 Insulin] 100 unit/mL Solution 0 unit SUBCUT TIDWM Qty: 15 0RF acetaminophen 325 mg Tablet 650 mg PO Q6H PRN (Reason: Mild/Mod Pain Or Temp >/= 101) Qty: 90 0RF furosemide 40 mg Tablet 40 mg PO BID@08,16 Qty: 60 0RF metolazone 2.5 mg tablet 2.5 mg PO DAILY Qty: 30 0RF Continued albuterol sulfate [Ventolin HFA] 90 mcg/actuation HFA aerosol inhaler 2 puff inhalation Q6H PRN (Reason: shortness of breath or wheezing) Qty: 8.5 11RF duloxetine 60 mg capsule,delayed release(DR/EC) 60 mg PO DAILY Qty: 90 3RF hydralazine 50 mg tablet 100 mg PO TID Qty: 180 11RF (DME) Dexcom G6 [employer] Consultant Misc See Rx Instructions .MEDSUPPLY Qty: 1 0RF Rx Instructions: Use as directed for checking blood sugar (DME) Dexcom G6 Sensor Device See Rx Instructions .MEDSUPPLY Qty: 3 12RF Rx Instructions: Change every 10 days; Use as directed to check blood sugar (DME) Dexcom G6 Transmitter Device See Rx Instructions .MEDSUPPLY Qty: 1 3RF Rx Instructions: Change every 3 months; Use as directed for checking blood sugar clopidogrel 75 mg tablet 75 mg PO DAILY simvastatin 40 mg tablet 40 mg PO DAILY amlodipine 10 mg tablet 10 mg PO DAILY ferrous sulfate [FeroSul] 325 mg (65 mg iron) tablet 325 mg PO TID Jardiance 10 mg tablet 10 mg PO DAILY carvedilol 25 mg tablet 25 mg PO BID Qty: 60 11RF Changed insulin glargine [Lantus Solostar U-100 Insulin] 100 unit/mL (3 mL) insulin pen 20 unit SUBCUT BID Qty: 15 0RF Rx Instructions: hold if blood sugar below 100 Discontinued furosemide 40 mg tablet 80 mg PO BID Qty: 120 11RF gabapentin 100 mg capsule 200 mg PO TID Discharge Orders: Discharge Order (Routine); Ordered 10/16/24 Ordered By: Jose Patel Other Ambulatory Orders: Basic Metabolic Panel (Routine) Timeframe: 5 Days Facility: [facility] - Location: Lab - Main Lab Ordered By: Jose Patel Referrals: [facility] [Outside] Jan Kirk MD [Primary Care Provider, [facility]] - 10/24/24 10:40 am Discharge Diet: Cardiac and Low Salt Discharge Activity: Increase activity as tolerated Patient Instructions: Spironolactone (By mouth), Metolazone (By mouth), Furosemide (By mouth), Acetaminophen (By mouth), Insulin Regular (By injection), Acute Kidney Injury (DC), Acute Respiratory Failure (GEN), Opioid Safety Activity Restrictions/Additional Instructions: restrict your calories to 1600 daily to try and lose 1-2 lbs weekly of mass weight daily. NOte you have about 4lbs water weight that will likely come off with diuretics at home Reduce your Lantus to 20 units twice a day. IF your blood sugar is below 100 skip that dose of lantus take lispro insulin per sliding scale for meals avoid sugar as you you lose weight your insulin will need to be adjusted by your physician. Discharge Attestations Time Spent in Discharge Care*: greater than 30 min Status at Discharge: Cognitive status at discharge: cognitively intact , Behavioral status at discharge: cooperative , Quality Metrics Clinical Quality Measures [ No reported AMI, CVA or VTE this stay] Coding Level of Care Code 64598 Diagnoses Acute exacerbation of congestive heart failure I50.9 Anemia in stage 5 chronic kidney disease N18.5; D63.1 Acute hypoxic respiratory failure J96.01 Acute kidney injury superimposed on CKD N17.9; N18.9 HTN (hypertension) I10 Hypertension type: primary hypertension Anemia D64.9 Time Spent (min) 70
[2024-10-16] MEDS: isosorbide mononitrate ER 30 mg Tablet PO (08:54)
[2024-10-16] MEDS: spironolactone 25 mg Tablet PO (08:55)
[2024-10-16] MEDS: insulin lispro 100 unit/1 mL SUBCUT (08:55)
[2024-10-16] MEDS: FUROsemide 40 mg Tablet PO (08:55)
[2024-10-16] MEDS: amlodipine 10 mg Tablet PO (08:55)
[2024-10-16] MEDS: metOLazone 5 MG Tablet PO (08:55)
[2024-10-16] MEDS: carvedilol 25 mg Tablet PO (08:55)
[2024-10-16] MEDS: hyDRALAzine 50 mg Tablet 100 MG PO (08:55)
--- NOTE | 2024-10-16 09:24 | PC.SOCIAL ---
IMM Update pg 2 of IMM Updated and reviewed w/ patient. Copy provided. Copy dated, initialed and placed in chart.
--- NOTE | 2024-10-16 11:18 | P.PN_ITS ---
Subjective 2 Subjective: no new c/o Medications: Reviewed: Yes Vitals/I&O/Wt Last Vital Signs Temp 97.7 F 10/16/24 08:00 Pulse 71 10/16/24 08:00 Resp 15 10/16/24 08:00 BP 194/88 10/16/24 08:00 Pulse Ox 97 10/16/24 08:00 O2 Del Method Nasal Cannula 10/16/24 08:00 O2 Flow Rate 2 10/16/24 07:43 10/15/24 10/16/24 10/16/24 22:59 06:59 14:59 Intake Total 240 / 1077.5 300 / 1377.5 480 / 480 Output Total 1150 / 1150 1200 / 2350 Balance -910 / -72.5 -900 / -972.5 480 / 480 Weight last 48 hrs Weight 99.79 kg Weight 102.92 kg Physical Exam 2 Narrative: comfortable in bed, VS noted, using NC oxygen. Blood pressure remains elevated, cardene drip-off HEENT normocephalic atraumatic. Neck is supple with JVP. Lungs improved air movement bilaterally. Heart regular positive systolic murmur. Abdomen soft positive bowel sounds. Extremities bilateral edema 1-2+. Is improving daily Neuro originally lethargic. However she awakens and is alert oriented x 3 follows commands, moving all extremities. Urinary Catheter Management: Smith: Cath Placed During This Visit: yes Reason for Continuing Indwelling Catheter: Accurate Measurement of Urinary Output in Critically Ill Patients Urinary Catheter Date of Insertion: 10/09/24 Urinary Catheter Time of Insertion: 23:57 Data 10/16/24 03:44 10/16/24 03:44 A&P Assessment and plan (1) Acute kidney injury superimposed on CKD: 73 year old female who was admitted with heart failure exacerbation. The patient has a history of insulin-dependent diabetes mellitus type 2 with diabetic retinopathy neuropathy and nephropathy she has history of heart failure preserved EF with diastolic dysfunction paroxysmal atrial fibrillation. Her CKD history as her creatinine was approximate 1.5 to 1.8 mg/dL for years and over the last year is increased to the mid twos. And now comes in with acute kidney injury. When the patient was admitted she was found to be short of breath anemic with a hemoglobin of 6.5 she was given blood and furosemide and renal was asked to see the patient. 1. CKD progressive renal failure with creatinine at baseline in the mid twos giving her CKD stage IV with proteinuria most likely from diabetes and cardiorenal syndrome. Please note that in May 2024 she had a normal serum protein electrophoresis immunofixation without an M spike, no monoclonal protein found. In March 2024 her urine protein creatinine ratio was was 3.97 which is consistent with diabetic disease. Will also check urine albumin creatinine ratio. The patient's kidneys appear atrophic and to have CKD on renal imaging. -u/a w/ hematuria- send kalee, anca, anti gbm, hep serologies -renal fxn improving 2. htn- cont current meds. 3. Acute on chronic renal failure likely from progression of CKD and from cardiorenal syndrome. -cr is improving 4. Heart failure preserved EF exacerbation -sob- continue loop diuretics we/ metolazone for diuresis at this time. -Continue aldactone -2 gm na, fluid restricted diet 5. Anemia : Full anemia evaluation-her iron saturation is 56% she is not iron deficient that she only has a ferritin of 160. -total bili 0.4 unlikely hemolysis -awiat spep, sife 6. Diabetic control. The patient was seen and examined with the aid of A/V equipment and aid of a nurse. The patient consented to telehealth. Plan IV diuresis. BP control and Monitor labs. PDMP PDMP Reviewed: Not Reviewed Attestations 2 Medical Necessity Statement*: per fabian Coding Level of Care Code Acute Code for Chg Fwd Diagnoses Acute kidney injury superimposed on CKD N17.9; N18.9
[2024-10-16 21:31] LABS: Glucose Point of Care 284 mg/dL (70-110)
== END 2024-10-16 12:15 | disposition home health service (06) | DRG 291 ==
LOC: ER 22:33 → ICU 23:03 → CSU 10-12 16:32
PROVIDERS: Emergency Medicine; Internal Medicine; Internal Medicine Nephrology; Admitting Provider Internal Medicine; Emergency Provider Physician Assistant; PCP Family Medicine; Visit Provider Internal Medicine
DX: I13.2 Hypertensive heart and chronic kidney disease with heart failure and with stage 5 chronic kidney disease, or end stage renal disease (principal); I50.33 Acute on chronic diastolic (congestive) heart failure; J96.01 Acute respiratory failure with hypoxia; N18.5 Chronic kidney disease, stage 5; N17.9 Acute kidney failure, unspecified; I69.951 Hemiplegia and hemiparesis following unspecified cerebrovascular disease affecting right dominant side; E87.1 Hypo-osmolality and hyponatremia; E87.20 Acidosis, unspecified; E11.22 Type 2 diabetes mellitus with diabetic chronic kidney disease; D63.1 Anemia in chronic kidney disease; E11.40 Type 2 diabetes mellitus with diabetic neuropathy, unspecified; E11.649 Type 2 diabetes mellitus with hypoglycemia without coma; E11.319 Type 2 diabetes mellitus with unspecified diabetic retinopathy without macular edema; Z79.4 Long term (current) use of insulin; I48.0 Paroxysmal atrial fibrillation; I69.928 Other speech and language deficits following unspecified cerebrovascular disease; E78.5 Hyperlipidemia, unspecified; R68.0 Hypothermia, not associated with low environmental temperature; F32.A Depression, unspecified; R41.82 Altered mental status, unspecified; Z95.828 Presence of other vascular implants and grafts; Z92.3 Personal history of irradiation; Z92.21 Personal history of antineoplastic chemotherapy; Z85.3 Personal history of malignant neoplasm of breast; Z90.10 Acquired absence of unspecified breast and nipple; Z79.02 Long term (current) use of antithrombotics/antiplatelets
CPT/HCPCS: 36415; 36416; 36430; 36600; 51702; 70450; 71045; 74176; 80051; 80053; 80202; 81001; 82044; 82310; 82330; 82436; 82570; 82607; 82652; 82728; 82746; 82805; 82962; 83010; 83520; 83540; 83550; 83605; 83615; 83735; 83880; 83883; 83970; 84100; 84133; 84155; 84156; 84165; 84300; 84439; 84443; 84466; 84484; 84550; 85014; 85018; 85025; 85045; 85610; 85730; 86036; 86038; 86160; 86225; 86334; 86705; 86706; 86803; 86850; 86900; 86920; 87040; 87086; 87340; 87637; 93005; 93306; 94664; 96372; 96374; 96376; 97116; 97161; 97167; 97530; 97535; 99285; A9270; J0360; J0692; J1815; J1938; J2470; J3370; J7799; J9999; P9016; P9040; P9046; Q3014; Q5105

== ENCOUNTER → 2024-10-24 11:19 | Outpatient (BNVA) | payer MEDICARE, OTHER, SELFPAY | PROVIDERS: PCP Family Medicine; Visit Provider Family Medicine | DX: I10 Essential (primary) hypertension (principal); I50.9 Heart failure, unspecified; E11.29 Type 2 diabetes mellitus with other diabetic kidney complication; Z79.4 Long term (current) use of insulin | CPT/HCPCS: 80048; 85025 ==

== ENCOUNTER → 2024-10-30 11:33 | Outpatient (BNVA) | payer MEDICARE, OTHER, SELFPAY | PROVIDERS: PCP Family Medicine; Visit Provider Family Medicine | DX: I10 Essential (primary) hypertension (principal); I50.9 Heart failure, unspecified; E11.29 Type 2 diabetes mellitus with other diabetic kidney complication; Z79.4 Long term (current) use of insulin | CPT/HCPCS: 80048; 85025 ==

== ENCOUNTER 2024-11-05 12:07 | Oncology outpatient (recurring) (ONCR) | payer MEDICARE, OTHER, SELFPAY ==
[2024-11-05 13:21] VITALS: BP 143/76; PULSE 70; RESP 17; TEMP 36.6; O2SAT 97
[2024-11-05] MEDS: darbepoetin 60 mcg/0.3 mL INJ SUBCUT (13:34)
== END 2024-11-25 23:59 | disposition home or self-care (01) ==
LOC: ONCMED 12:08
PROVIDERS: PCP Family Medicine; Visit Provider Internal Medicine Nephrology
DX: N18.5 Chronic kidney disease, stage 5 (principal); D63.1 Anemia in chronic kidney disease
CPT/HCPCS: 96372; J0881

== ENCOUNTER → 2024-11-07 12:43 | Outpatient (BNVA) | payer MEDICARE, OTHER, SELFPAY | PROVIDERS: PCP Family Medicine; Visit Provider Family Medicine | DX: I10 Essential (primary) hypertension (principal); I50.9 Heart failure, unspecified; E11.29 Type 2 diabetes mellitus with other diabetic kidney complication; Z79.4 Long term (current) use of insulin | CPT/HCPCS: 80048; 83036 ==

== ENCOUNTER → 2024-12-17 09:03 | Outpatient (BNVA) | payer MEDICARE, OTHER, SELFPAY | PROVIDERS: PCP Family Medicine; Visit Provider Family Medicine | DX: I10 Essential (primary) hypertension (principal); E11.29 Type 2 diabetes mellitus with other diabetic kidney complication; Z79.4 Long term (current) use of insulin | CPT/HCPCS: 80053; 85025 ==

== ENCOUNTER 2025-01-03 09:20 | Oncology outpatient (recurring) (ONCR) | payer MEDICARE, OTHER, SELFPAY ==
[2025-01-03 09:35] VITALS: BP 134/73; PULSE 60; O2SAT 95
[2025-01-03] MEDS: darbepoetin 60 mcg/0.3 mL INJ SUBCUT (09:36)
== END 2025-01-26 23:59 | disposition home or self-care (01) ==
LOC: ONCMED 09:22
PROVIDERS: PCP Family Medicine; Visit Provider Registered Nurse
DX: N18.5 Chronic kidney disease, stage 5 (principal); D63.1 Anemia in chronic kidney disease; Z79.899 Other long term (current) drug therapy
CPT/HCPCS: 96372; J0881

== ENCOUNTER → 2025-01-28 09:58 | Outpatient (BNVA) | payer MEDICARE, OTHER, SELFPAY | PROVIDERS: PCP Family Medicine; Visit Provider Family Medicine | DX: I50.9 Heart failure, unspecified (principal); I48.91 Unspecified atrial fibrillation | CPT/HCPCS: 80053; 85025 ==

== ENCOUNTER → 2025-02-03 13:06 | Outpatient (BNVA) | payer MEDICARE, OTHER, SELFPAY | PROVIDERS: PCP Family Medicine; Visit Provider Family Medicine | DX: I10 Essential (primary) hypertension (principal); J06.9 Acute upper respiratory infection, unspecified; N18.4 Chronic kidney disease, stage 4 (severe) | CPT/HCPCS: 80053; 82043; 82310; 83970; 85025; 86140 ==

== ENCOUNTER 2025-02-13 09:04 | Oncology outpatient (recurring) (ONCR) | payer MEDICARE, OTHER, SELFPAY ==
[2025-02-13] MEDS: DARBEPOETIN SUBCUT (10:12)
[2025-02-13] MEDS: [UNRECOGNIZED DRUG - OTHER] SUBCUT (10:12)
[2025-02-13] MEDS: DARBEPOETIN ALFA SUBCUT (10:12)
== END 2025-02-25 23:59 | disposition home or self-care (01) ==
LOC: ONCMED 09:05
PROVIDERS: PCP Family Medicine; Visit Provider Registered Nurse
DX: N18.5 Chronic kidney disease, stage 5 (principal); D63.1 Anemia in chronic kidney disease; Z79.899 Other long term (current) drug therapy
CPT/HCPCS: 96372; J0881

== ENCOUNTER → 2025-03-13 11:07 | Outpatient (BNVA) | payer MEDICARE, OTHER, SELFPAY | PROVIDERS: PCP Family Medicine; Visit Provider Family Medicine | DX: N18.5 Chronic kidney disease, stage 5 (principal); D63.1 Anemia in chronic kidney disease; N17.9 Acute kidney failure, unspecified; N18.9 Chronic kidney disease, unspecified | CPT/HCPCS: 80069; 82570; 84156; 85025 ==

== ENCOUNTER 2025-03-20 09:06 | Oncology outpatient (recurring) (ONCR) | payer MEDICARE, OTHER, SELFPAY ==
[2025-03-20] MEDS: DARBEPOETIN 100 MCG SUBCUT (10:52)
[2025-03-20 10:57] VITALS: BP 126/66; PULSE 66; RESP 16; TEMP 36.9; O2SAT 98
== END 2025-03-28 23:59 | disposition home or self-care (01) ==
LOC: ONCMED 09:06
PROVIDERS: PCP Family Medicine; Visit Provider Registered Nurse
DX: N18.5 Chronic kidney disease, stage 5 (principal); D63.1 Anemia in chronic kidney disease; Z79.899 Other long term (current) drug therapy
CPT/HCPCS: 96372; J0881

== ENCOUNTER 2025-04-15 09:06 | Outpatient (CLI) | payer MEDICARE, OTHER, SELFPAY ==
--- NOTE | 2025-04-15 09:13 | XRR_ITS ---
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 History--fall x one week ago, pain in RT hip & RT arm since. ; Additional info: Arm pain TECHNIQUE: Imaging protocol: Radiologic exam of the right forearm. Views: 2 views. COMPARISON: CR XR elbow RT min 3V* [id number] 01/11/2022 8:44 PM FINDINGS: Bones/joints: No acute displaced fracture or dislocation. Joint spaces are preserved. Soft tissues: Soft tissue edema of the dorsal forearm and wrist. XR/XR forearm RT 2V [id number] IMPRESSION: No acute displaced fracture or dislocation.
--- NOTE | 2025-04-15 09:13 | XRR_ITS ---
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 History--fall x one week ago, pain in RT hip & RT arm since. ; Additional info: Hip pain TECHNIQUE: Imaging protocol: Radiologic exam of the right hip. Views: 1 view hip with pelvis when performed. COMPARISON: CT abdomen pelvis wo con [id number] 10/09/2024 6:07 PM FINDINGS: Tubes, catheters and devices: A coiled catheter projects over the pelvis. Bones/joints: Right total hip arthroplasty. No periprosthetic fracture or lucency. No prosthetic joint dislocation. Soft tissues: Unremarkable. Vasculature: Vascular calcifications. XR/XR hip RT 2-3V wo/w pel* [id number] IMPRESSION: No acute findings.
--- NOTE | 2025-04-15 09:13 | XRR_ITS ---
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 History--fall x one week ago, pain in RT hip & RT arm since. ; Additional info: Arm pain TECHNIQUE: Imaging protocol: Radiologic exam of the right elbow. Views: 3 or more views. COMPARISON: CR XR elbow RT min 3V* [id number] 01/11/2022 8:44 PM FINDINGS: Bones/joints: No acute fracture or dislocation. Joint spaces are preserved. No elbow joint effusion Soft tissues: Soft tissue swelling posteriorly. XR/XR elbow RT min 3V* [id number] IMPRESSION: No acute displaced fracture or dislocation.
== END 2025-04-15 09:07 | disposition home or self-care (01) ==
LOC: RAD 09:09
PROVIDERS: PCP Family Medicine; Visit Provider Family Medicine
DX: M79.601 Pain in right arm (principal); M25.551 Pain in right hip; Z96.89 Presence of other specified functional implants; Z96.641 Presence of right artificial hip joint; I70.90 Unspecified atherosclerosis; M79.89 Other specified soft tissue disorders
CPT/HCPCS: 73080; 73090; 73502

== ENCOUNTER → 2025-04-17 09:32 | Outpatient (BNVA) | payer MEDICARE, OTHER, SELFPAY | PROVIDERS: PCP Family Medicine; Visit Provider Family Medicine | DX: E11.29 Type 2 diabetes mellitus with other diabetic kidney complication (principal); N18.4 Chronic kidney disease, stage 4 (severe); Z79.4 Long term (current) use of insulin; D64.9 Anemia, unspecified | CPT/HCPCS: 80053; 83036; 85025 ==

== ENCOUNTER 2025-05-13 10:27 | Oncology outpatient (recurring) (ONCR) | payer MEDICARE, OTHER, SELFPAY ==
[2025-05-13] MEDS: darbepoetin 60 mcg/0.3 mL INJ 125 MCG SUBCUT (11:20)
[2025-05-13 11:30] VITALS: BP 133/58; PULSE 62; O2SAT 99
== END 2025-05-28 23:59 | disposition home or self-care (01) ==
LOC: ONCMED 10:27
PROVIDERS: PCP Family Medicine; Visit Provider Registered Nurse
DX: N18.5 Chronic kidney disease, stage 5 (principal); D63.1 Anemia in chronic kidney disease; Z79.899 Other long term (current) drug therapy
CPT/HCPCS: 96372; J0881

== ENCOUNTER → 2025-05-14 11:49 | Outpatient (BNVA) | payer MEDICARE, OTHER, SELFPAY | PROVIDERS: PCP Family Medicine; Visit Provider Family Medicine | DX: N18.4 Chronic kidney disease, stage 4 (severe) (principal) | CPT/HCPCS: 80069; 82310; 82570; 83970; 84156; 85025 ==